=== PATIENT | female | born 1945 | race Caucasian/White ===

== ENCOUNTER 2016-07-19 11:51 | Emergency (ER) | payer OTHER, MEDICARE ==
[~2016-07-19] VITALS: Ht 154.9 cm; Wt 78.2 kg
[~2016-07-19 11:51] MED LIST: ALBUAER19 INH; GABA-112 PO; IBUP-103 PO; LORA-741 PO; MELO7.5T5 PO; TRAZ100T29 PO
[2016-07-19 11:59] VITALS: TEMP 37.2; Ht 154.9 cm; Wt 78.2 kg
[2016-07-19] MEDS ORDERED: ONDANSETRON INJ 2 MG/ML 2 ML VIAL IV STA (12:22)
[2016-07-19] MEDS ORDERED: SODIUM CHLORIDE 0.9% 1000ML 1,000 ML IV STA (12:22)
[2016-07-19] MEDS ORDERED: HYDROmorphone INJ 0.5 MG/0.5 ML SYR IV STA (12:22)
[2016-07-19 12:37] LABS: BASO % 0.2 %; BASO ABS # 0.01 K/uL (0-0.2); COMPLETE YES; EOS % 3.2 %; HEMATOCRIT 37.3 % (37-47); IG% 0.4 %; LYMPH % 15.9 %; MEAN CELL VOLUME 92.8 fL (80-100); MEAN CORPUSCULAR HEMOGLOBIN 31.8 pg (25-34); MEAN CORPUSCULAR HGB CONC 34.3 g/dl (32-36); MEAN PLATELET VOLUME 9.1 fL (7.4-10.4); MONO % 6.2 %; NEUT % 74.1 %; PLATELET COUNT 230 K/uL (130-400); RED BLOOD COUNT 4.02 M/uL (4.2-5.4); WHITE BLOOD COUNT 5.65 K/uL (4.8-10.8)
[2016-07-19] MEDS ORDERED: CITA20TA9 PO (12:38)
[2016-07-19] MEDS ORDERED: OMEG10007 PO (12:38)
[2016-07-19 13:01] LABS: ALT/SGPT 15 U/L (12-78); BLOOD UREA NITROGEN 12 mg/dl (7-18); BUN/CREATININE RATIO 11.6 (10-20); CALCIUM 9.4 mg/dl (8.5-10.1); CARBON DIOXIDE 26 mmol/L (21-32); CHLORIDE 105 mmol/L (98-107); GLUCOSE 146 mg/dl (70-99); POTASSIUM 3.6 mmol/L (3.5-5.1); SODIUM 141 mmol/L (136-145)
[2016-07-19 13:04] LABS: ALKALINE PHOSPHATASE 68 U/L (45-117); AST/SGOT 13 U/L (15-37)
--- NOTE | 2016-07-19 13:31 | DIAGNOSTIC IMAGING REPORT ---
CT OF THE ABDOMEN AND PELVIS WITHOUT CONTRAST CLINICAL HISTORY: Right lower quadrant pain. COMPARISON STUDY: CT of the abdomen and pelvis May 15, 2015. TECHNIQUE: Axial images of the abdomen and pelvis were obtained without IV contrast. Images were reviewed in the axial, sagittal, and coronal planes. FINDINGS: A 5 mm right lower lobe nodule is unchanged since exam of May 15, 2015. This is likely benign. There is a small hiatal hernia. There is no biliary ductal dilatation status post cholecystectomy. Diverticula of the second portion the duodenum are noted. Evaluation of the abdomen and pelvis is suboptimal on this unenhanced exam. Unenhanced images of the liver, spleen, adrenal glands, kidneys and pancreas are normal. No renal, ureteral or bladder calculi are present. There is no hydronephrosis or hydroureter. There is mild distention of the bladder. The caliber of small and large bowel are normal. The appendix is normal. There is extensive sigmoid diverticulosis without evidence for acute diverticulitis. Note is made of minimal infiltration adjacent to a diverticulum of the hepatic flexure shown on axial image 159 of 476. There is no free air or abscess. There is no lymphadenopathy. IMPRESSION: 1. Minimal infiltration adjacent to a diverticulum of the hepatic flexure of the colon suggestive of mild acute diverticulitis. No free air or abscess. This could account for the patient's symptoms. 2. Normal appendix. No bowel obstruction. Electronically signed by: Han Fisher M.D. 07/19/2016 1:29 PM Dictated Date/Time: 07/19/2016 1:18 PM
[2016-07-19] MEDS ORDERED: METRONIDAZOLE 250 MG TAB PO STA (14:12)
[2016-07-19] MEDS ORDERED: CIPROFLOXACIN 500 MG TAB PO STA (14:12)
[2016-07-19] MEDS ORDERED: CIPR-255 PO (14:33)
[2016-07-19] MEDS ORDERED: FLUC150T PO (14:33)
[2016-07-19] MEDS ORDERED: METR-163 PO (14:33)
[2016-07-19] MEDS ORDERED: HYDR-5688 PO (14:33)
[2016-07-19 14:40] LABS: URINE APPEARANCE CLEAR (CLEAR); URINE BILIRUBIN NEG (NEG); URINE COLOR YELLOW; URINE NITRITE NEG (NEG); UROBILINOGEN NEG (NEG); ZZUR CULT IF INDIC CLEAN CATCH NO
[2016-07-19 14:50] LABS: MANUAL MICROSCOPIC REQUIRED? YES; REVIEW REQ? NO
[2016-07-19 15:19] LABS: URINE BACTERIA NEG (NEG); URINE RBC 0-4 /hpf (0-4)
[2016-07-19 15:30] VITALS: BP 152/77; PULSE 68; O2SAT 91
--- NOTE | 2016-07-19 16:03 | EMERGENCY ROOM VISIT NOTE ---
History Report prepared by Elvia: Nancy Curry Under the Supervision of: Dr. Julius Camarena M.D. First contact with patient: 12:05 Chief Complaint: ABDOMINAL PAIN Stated Complaint: RIGHT SIDE ABD. PAIN Nursing Triage Summary: triage note: pt reports pain in the right lower abdominal side, pain is continous denies n/v/d History of Present Illness The patient is a 71 year old female who presents to the Emergency Room with complaints of worsening right lower quadrant abdominal pain starting yesterday. She had an onset of her pain when she got out of bed yesterday morning. The patient reports symptom relief with sitting down. She had worsening pain with ambulation. She took Tylenol without relief. She currently rates a pain intensity of 8/10. Pt denies LOC, headache, fevers, chills, diaphoresis, visual changes, neck pain, chest pain, breathing difficulties, nausea, vomiting, back pain, melena, hematochezia, urinary symptoms, numbness, weakness, lymphadenopathy, rash, or other complaints. She has a history of cholecystectomy and oophorectomy. The patient denies a history of appendectomy. Source of History: patient Onset: yesterday Position: abdomen (RLQ) Symptom Intensity: 8/10 Timing: worsening Modifying Factors (Worsening): other (ambulation) Modifying Factors (Relieving): tylenol (without relief), other (sitting down ) Review of Systems See HPI for pertinent positives and negatives. A total of ten systems were reviewed and were otherwise negative. Past Medical & Surgical Medical Problems: (1) Asthma (2) Cervical spine fracture (3) Chronic low back pain (4) Hx of cholecystectomy Surgical Problems: (1) History of oophorectomy Family History Cancer Social History Smoking Status: Never Smoker Alcohol Use: occasionally Marital Status: Housing Status: lives with significant other Occupation Status: retired Current/Historical Medications Scheduled Ciprofloxacin Hcl (Cipro), 500 MG PO BID Citalopram Hydrobromide (Celexa), 20 MG PO DAILY Fish Oil (Estill-3), 2-3 CAP PO DAILY Fluconazole (Diflucan), 150 MG PO DIRECTED Meloxicam (Mobic), 7.5 MG PO DAILY Metronidazole (Flagyl), 500 MG PO BID Trazodone Hcl (Trazodone), 100 MG PO DAILY Scheduled PRN Hydrocodone/Acetaminophen 5MG/325MG (Marne 5MG/325MG), 1-2 TABS PO Q6H PRN for Pain Ibuprofen Tab (Advil), 200-600 MG PO Q4H PRN for Pain Lorazepam (Ativan), 0.5 MG PO DAILY PRN for Anxiety Allergies Coded Allergies: Sulfa Antibiotics (Verified Allergy, Unknown, rash, 07/19/16) Physical Exam Vital Signs Date Time Temp Pulse Resp B/P Pulse Ox O2 Delivery O2 Flow Rate FiO2 07/19/16 15:30 68 16 152/77 91 07/19/16 13:40 70 16 146/93 93 Room Air 07/19/16 13:03 77 07/19/16 11:59 37.2 88 18 204/79 93 Room Air Physical Exam GENERAL: Awake, alert, well-appearing, in no distress HENT: Normocephalic, atraumatic. Oropharynx unremarkable. EYES: Normal conjunctiva. Sclera non-icteric. NECK: Supple. No nuchal rigidity. FROM. No JVD. RESPIRATORY: Clear to auscultation. CARDIAC: Regular rate, normal rhythm. Extremities warm and well perfused. Pulses equal. ABDOMEN: Soft, non-distended. Right lower quadrant tenderness to palpation with rebound and some guarding. No masses. RECTAL: Deferred. MUSCULOSKELETAL: Chest examination reveals no tenderness. The back is symmetrical on inspection without obvious abnormality. There is no CVA tenderness to palpation. No joint edema. LOWER EXTREMITIES: Calves are equal size bilaterally and non-tender. No edema. No discoloration. NEURO: Normal sensorium. No sensory or motor deficits noted. SKIN: No rash or jaundice noted. Medical Decision & Procedures Laboratory Results 07/19/16 12:25 Red Blood Count 4.02, Mean Corpuscular Volume 92.8, Mean Corpuscular Hemoglobin 31.8, Mean Corpuscular Hemoglobin Concent 34.3, Mean Platelet Volume 9.1, Neutrophils (%) (Auto) 74.1, Lymphocytes (%) (Auto) 15.9, Monocytes (%) (Auto) 6.2, Eosinophils (%) (Auto) 3.2, Basophils (%) (Auto) 0.2, Neutrophils # (Auto) 4.19, Lymphocytes # (Auto) 0.90, Monocytes # (Auto) 0.35, Eosinophils # (Auto) 0.18, Basophils # (Auto) 0.01 07/19/16 12:25 Test 07/19/16 12:25 07/19/16 13:45 White Blood Count 5.65 K/uL (4.8-10.8) Red Blood Count 4.02 M/uL (4.2-5.4) Hemoglobin 12.8 g/dL (12.0-16.0) Hematocrit 37.3 % (37-47) Mean Corpuscular Volume 92.8 fL (80-100) Mean Corpuscular Hemoglobin 31.8 pg (25-34) Mean Corpuscular Hemoglobin Concent 34.3 g/dl (32-36) Platelet Count 230 K/uL (130-400) Mean Platelet Volume 9.1 fL (7.4-10.4) Neutrophils (%) (Auto) 74.1 % Lymphocytes (%) (Auto) 15.9 % Monocytes (%) (Auto) 6.2 % Eosinophils (%) (Auto) 3.2 % Basophils (%) (Auto) 0.2 % Neutrophils # (Auto) 4.19 K/uL (1.4-6.5) Lymphocytes # (Auto) 0.90 K/uL (1.2-3.4) Monocytes # (Auto) 0.35 K/uL (0.11-0.59) Eosinophils # (Auto) 0.18 K/uL (0-0.5) Basophils # (Auto) 0.01 K/uL (0-0.2) RDW Standard Deviation 45.5 fL (36.4-46.3) RDW Coefficient of Variation 13.3 % (11.5-14.5) Immature Granulocyte % (Auto) 0.4 % Immature Granulocyte # (Auto) 0.02 K/uL (0.00-0.02) Anion Gap 10.0 mmol/L (3-11) Est Creatinine Clear Calc Drug Dose 48.1 ml/min Estimated GFR () 65.2 Estimated GFR (Non- 56.2 BUN/Creatinine Ratio 11.6 (10-20) Calcium Level 9.4 mg/dl (8.5-10.1) Total Bilirubin 0.3 mg/dl (0.2-1) Direct Bilirubin < 0.1 mg/dl (0-0.2) Aspartate Amino Transf (AST/SGOT) 13 U/L (15-37) Alanine Aminotransferase (ALT/SGPT) 15 U/L (12-78) Alkaline Phosphatase 68 U/L (45-117) Total Protein 7.1 gm/dl (6.4-8.2) Albumin 3.7 gm/dl (3.4-5.0) Lipase 116 U/L (73-393) Urine Color YELLOW Urine Appearance CLEAR (CLEAR) Urine pH 7.0 (4.5-7.5) Urine Specific [place] 1.000 (1.000-1.030) Urine Protein NEG (NEG) Urine Glucose (UA) NEG (NEG) Urine Ketones NEG (NEG) Urine Occult Blood NEG (NEG) Urine Nitrite NEG (NEG) Urine Bilirubin NEG (NEG) Urine Urobilinogen NEG (NEG) Urine Leukocyte Esterase TRACE (NEG) Urine WBC (Auto) /hpf (0-5) Urine RBC (Auto) /hpf (0-4) Urine Hyaline Casts (Auto) /lpf (0-5) Urine Epithelial Cells (Auto) /lpf (0-5) Urine Bacteria (Auto) (NEG) Urine RBC 0-4 /hpf (0-4) Urine WBC 1-5 /hpf (0-5) Urine Epithelial Cells 20-30 /lpf (0-5) Urine Bacteria NEG (NEG) Laboratory results reviewed by me Medications Administered Medications (Trade) Dose Ordered Sig/Gilberto Route Start Time Stop Time Status Last Admin Dose Admin Sodium Chloride (Nss 1000ml) 1,000 ml @ 125 mls/hr Q8H STAT IV 07/19/16 12:22 07/19/16 20:21 07/19/16 12:22 125 MLS/HR Hydromorphone HCl (Dilaudid Inj) 0.5 mg NOW STAT IV 07/19/16 12:22 07/19/16 12:24 DC 07/19/16 12:57 0.5 MG Ondansetron HCl (Zofran Inj) 4 mg NOW STAT IV 07/19/16 12:22 07/19/16 12:24 DC 07/19/16 12:55 4 MG Ciprofloxacin (Cipro Tab) 500 mg NOW STAT PO 07/19/16 14:12 07/19/16 14:15 DC 07/19/16 15:14 500 MG Metronidazole (Flagyl Tab) 500 mg NOW STAT PO 07/19/16 14:12 07/19/16 14:15 DC 07/19/16 15:14 500 MG ED Course 1205: The patient was evaluated in room B03B. A complete history and physical exam was performed. 1222: Zofran Inj 4 mg IV, Dilaudid Inj 0.5 mg IV, Sodium Chloride 1000 ml @ 125 mls/hr IV 1351: I reevaluated the patient. Discussed results and discharge instructions: She verbalized understanding and agreement. The patient is ready for discharge. 1412: Flagyl Tab 500 mg PO, Cipro Tab 500 mg PO Medical Decision Triage Nursing notes reviewed. The patient's presentation and history were concerning for right-sided abdominal pain. Etiologies such as appendicitis, diverticulitis, obstruction, inflammatory bowel disease, renal colic, PUD, biliary pathology, pancreatitis, mesenteric ischemia, aortic pathology, infections, genitourinary, UTI, perforated viscus, as well as others were entertained. The patient was evaluated. She had some right-sided abdominal tenderness. No fever. Blood work was obtained. She had an unremarkable CBC and chemistry panel. Urinalysis was unremarkable as well. Given the level of her discomfort she was treated with IV Dilaudid and Zofran. She felt much better with this. She underwent CT imaging. This revealed a normal appendix however she had signs concerning for early diverticulitis. The patient was treated with Cipro and Flagyl. She did request some analgesia at home and was given a small prescription of Marne. She also noted that she occasionally gets yeast infections and has taken Diflucan in the past with success. She would like to have one pill in case this occurs. Patient and her felt comfortable with conservative management. If she worsens in any way or has progressive abdominal pain she will be back for reevaluation. I did ask for her to have close outpatient follow-up with her primary physician. I gave my usual and customary discussion regarding this issue. By the evaluation outlined above other emergent etiologies such as those listed in the differential, as well as others, were deemed relatively unlikely. The patient and were informed about the findings as listed above. All questions were answered and they were pleased with the treatment. Return instructions were outlined and the patient was discharged in stable condition. The patient was referred to her PCP for follow-up SIDNEY for a recheck of the current condition. The chart was completed utilizing [employer] Speech voice recognition software. Grammatical errors, random word insertions, pronoun errors, and incomplete sentences are an occasional consequence of this system due to software limitations, ambient noise, and hardware issues. Any formal questions or concerns about the content, text, or information contained within the body of this dictation should be directly addressed to the physician for clarification. Impression Primary Impression: Diverticulitis Additional Impression: Right sided abdominal pain Scribe Attestation The scribe's documentation has been prepared under my direction and personally reviewed by me in its entirety. I confirm that the note above accurately reflects all work, treatment, procedures, and medical decision making performed by me. Departure Information Dispostion Home / Self-Care Prescriptions Fluconazole (DIFLUCAN) 150 Mg Tab 150 MG PO DIRECTED, #1 TAB Prov: Julius Camarena MD 07/19/16 Metronidazole (Flagyl) 500 Mg Tab 500 MG PO BID, #29 TAB Prov: Julius Camarena MD 07/19/16 Ciprofloxacin Hcl (CIPRO) 500 Mg Tab 500 MG PO BID, #19 TAB Prov: Julius Camarena MD 07/19/16 Hydrocodone/Acetaminophen 5MG/325MG (Marne 5MG/325MG) Tab 1-2 TABS PO Q6H Y for Pain, #12 TAB Prov: Julius Camarena MD 07/19/16 Referrals Joel Bowman D.OEfrain (PCP) Forms HOME CARE DOCUMENTATION FORM, IMPORTANT VISIT INFORMATION Patient Instructions My [facility] Additional Instructions DIVERTICULITIS INSTRUCTIONS: DO NOT drive, drink alcohol, operate machinery, or perform dangerous activities today. You were given medications in the ER that can affect your ability to safely function or operate a vehicle. Ciprofloxacin(Cipro) 500mg: Take one pill twice daily for 10 days for your bowel infection. All antibiotics can cause diarrhea. If this occurs and you feel worse or it does not resolve in 1-2 days follow up with your doctor or return to the Emergency Department as this could be signs of serious underlying problems. If you experience any pain in your tendons or any tendon injury return to the ER for re-evaluation. Any medication can cause an allergic reaction, stop the pills immediately and return to the ER for rash, hives, breathing difficulties, or swelling. Metronidazole(Flagyl) 500mg: Take one pill 3 times daily for 10 days for your bowel infection. DO NOT drink alcohol or take alcohol containing products with this medication. Any medication can cause an allergic reaction, stop the pills immediately and return to the ER for rash, hives, breathing difficulties, or swelling. Hydrocodone/acetaminophen 5/325mg: Take 1-2 pills every 6 hours as needed for pain. Avoid additional Acetaminophen/Tylenol, alcohol, operating machinery or dangerous equipment, working on ladders or roofs, DRIVING, or situations where being under the influence may be dangerous. It is recommended to use a stool softener such as Colace, 100mg twice daily while taking this medication to avoid constipation. Fluconazole (Diflucan) 150 mg: Take one if needed for yeast infection. Rest and drink plenty of fluids as tolerated. Slow sips of water or sports drinks are recommended instead of large amounts all at once. Continue current medications. Once your stomach is settled start with a clear liquid diet (jello, soup broth, etc.) and then advance as tolerated. You should avoid full, heavy meals for about 24 hrs from the time your symptoms resolved. Return to the ER immediately for worsening or persistent abdominal pain, vomiting, fevers, chest pains, difficulty breathing, black or bloody stools, worsening of your condition, or as needed. Follow up with your primary physician in 2-3 days for a recheck of your current condition. Problem Qualifiers
== END 2016-07-19 15:30 | disposition home or self-care (01) ==
LOC: C.EDB 11:53
DX: K57.92 Diverticulitis of intestine, part unspecified, without perforation or abscess without bleeding (principal); R10.31 Right lower quadrant pain; J45.909 Unspecified asthma, uncomplicated; M54.5 Low back pain; G89.29 Other chronic pain; Z79.899 Other long term (current) drug therapy

== ENCOUNTER → 2017-04-18 | Outpatient (CLI) | payer OTHER, MEDICARE ==
[~2017-04-18] MED LIST changes: -ALBUAER19 INH; +BIOT1CAP8 PO; +CIPR-255 PO; +CITA20TA9 PO; +COEN100C7 PO; +FLVHFA110 INH; -GABA-112 PO; +OMEG10007 PO
--- NOTE | 2017-04-19 14:33 | MAMMOGRAPHY REPORT ---
BILATERAL DIGITAL SCREENING MAMMOGRAM TOMOSYNTHESIS WITH CAD: 04/18/2017 CLINICAL HISTORY: Routine screening. TECHNIQUE: Breast tomosynthesis in addition to standard 2D mammography was performed. Current study was also evaluated with a Computer Aided Detection (CAD) system. COMPARISON: Comparison is made to exams dated: 04/17/2016 mammogram, 04/15/2015 mammogram, 03/17/2014 mammogram, 10/28/2012 mammogram, 10/27/2011 mammogram, and 10/25/2010 mammogram - [facility] nter. BREAST COMPOSITION: The tissue of both breasts is almost entirely fatty. FINDINGS: The parenchymal pattern is unchanged. No developing mass, architectural distortion or clus ter of suspicious microcalcifications is seen in either breast. IMPRESSION: ACR BI-RADS CATEGORY 2: BENIGN There is no mammographic evidence of malignancy. A 1 year screening mammogram is recommended. The pa tient will receive written notification of the results. Approximately 10% of breast cancers are not detected with mammography. A negative mammographic report should not delay biopsy if a clinically suggestive mass is present. Jaquelin Guy M.D. ay/:04/18/2017 16:08:27 Knitter Mechanic: Cindy JUAN(R)(M), [facility] letter sent: Normal 1/2 BI-RADS Code: ACR BI-RADS Category 2: Benign
== END | disposition home or self-care (01) ==
LOC: C.MAMM 13:42
PROVIDERS: ATTEND Family Medicine
DX: Z12.31 Encounter for screening mammogram for malignant neoplasm of breast (principal)

== ENCOUNTER → 2017-05-09 | Day surgery (SDC) | payer OTHER, MEDICARE ==
[2017-05-01 13:10] VITALS: Ht 156.2 cm; Wt 72.7 kg
[~2017-05-09] VITALS: Ht 156.2 cm; Wt 72.7 kg
[~2017-05-09] MED LIST changes: +500ML BSS 0.3ML EPI 1:1000PF IRRIG ONE; +ACETAMINOPHEN 325 MG TAB PO PRN; +AMVISC PLUS 0.8ML SYRINGE INT OCU ONE; +ATROPINE SULFATE 0.1 MG/ML 5ML SYR IV PRN; +BETAXOLOL HCL 0.25% OP SUSP PER DROP CHARGE OPR SCH; +BRIMONIDINE TART 0.2% OP SOLN PER DROP CHARGE ONE; +BSS FLUSH ONE; -CIPR-255 PO; +ENDOCOAT 0.85ML SYRINGE INT OCU ONE; +EpHEDrine SULFATE INJ 50 MG/ML AMP IV PRN; +EpINEphrine INJ 1MG/ML AMP 1 MG/ML AMP ONE; -IBUP-103 PO; +LACTATED RINGER'S 1000ML 500 ML IV SCH; +LIDOCAINE 4% OP SOLN DROP CHARGE ONE; +LIDOCAINE 4% OP SOLN DROP CHARGE OPR SCH; +LIDOCAINE HCL 1% MPF 2 ML VIAL ONE; +MIDAZOLAM HCL 1 MG/ML 2ML VIAL ONE; +MIX: 4ML BSS 1ML EPI 1:1000 PF INSTIL ONE; +MOXIFLOXACIN OPH SOLN PER DROP CHARGE ONE; +OCUCOAT 1 ML SOLN IO ONE; +POVIDONE-IODINE OP SOLN 30 ML BTL ONE; +PROPARACAINE 0.5% OP SOLN PER DROP CHARGE OPR SCH; +TOBRAMYCIN/DEXAMETHASONE OPH OINT PER APPLN CHARGE ONE
[2017-05-09] MEDS: PHENYLEPHRINE HCL 2.5% OP SOLN PER DROP CHARGE OPR SCH ×2 (09:51→09:56)
--- NOTE | 2017-05-09 09:51 | History & Physical Bridge - SC ---
H&P Re-Evaluation Bridge Note: I have examined the patient, reviewed the History & Physical and in the interval since the performance of the History & Physical I have noted the following changes of clinical significance: No changes noted
[2017-05-09] MEDS: TROPICAMIDE 1% OP SOLN PER DROP CHARGE OPR SCH ×2 (09:52→09:57)
[2017-05-09] MEDS: CYCLOPENTOLATE HCL 1% OP SOLN PER DROP CHARGE OPR SCH ×2 (09:53→09:58)
[2017-05-09] MEDS: MOXIFLOXACIN OPH SOLN PER DROP CHARGE OPR SCH ×2 (09:54→10:05)
--- NOTE | 2017-05-09 10:53 | Discharge Instructions-SurgCtr ---
Discharge Instructions Date of Service May 09, 2017. Visit Reason for Visit: Right Cataract Discharge Discharge Diagnosis / Problem: lens implant right eye Discharge Goals Goal(s): Improve function Activity Recommendations Activity Limitations: resume your previous activity Lifting Limitations: no more than 10 pounds Exercise/Sports Limitations: gradually increase as tolerated May Resume Sexual Activity: when tolerated Shower/Bathe: tomorrow Driving or Machine Use: resume 1 day after discharge Anesthesia . Post Anesthesia Instructions: If you have had General Anesthesia or IV Sedation: * Do not drive today. * Resume driving when surgeon permits. * Do not make important decisions or sign legal documents today. * Call surgeon for: 1. Temperature elevations greater than 101 degrees F. 2. Uncontrollable pain. 3. Excessive bleeding. 4. Persistent nausea and vomiting. 5. Medication intolerance (nausea, vomiting or rash). * For nausea and vomiting use only clear liquids such as: tea, soda, bouillon until nausea subsides, then gradually increase diet as tolerated. * If you have any concerns or questions, call your surgeon's office. If physician is unavailable and it is an emergency, call 911 or go to the nearest emergency room. . Instructions / Follow-Up Instructions / Follow-Up ACTIVITY RECOMMENDATIONS: * Light activities. * Mild irritation and blurred vision are common for the first few days. * You may walk outside, read, watch television. * Redness around the white part of the eye is common. MEDICATIONS: Resume previous medications unless instructed otherwise by your surgeon. Start all eye drops at 1 pm today: * Eye drops (today and tomorrow): Prednisone - one drop in operative eye every 3 hours while awake Ofloxacin - one drop in operative eye every 3 hours while awake SPECIAL CARE INSTRUCTIONS: * Tape plastic shield over eye to sleep at night. Call your doctor at with any concerns or problems. FOLLOW UP VISIT: Follow-up with Dr Hopkins at [facility] as scheduled. Diet Recommendations Home Diet: no limitations Procedures Procedures Performed: cataract extraction with lens implant Pending Studies Studies pending at discharge: no Medical Emergencies . Who to Call and When: Medical Emergencies: If at any time you feel your situation is an emergency, please call 911 immediately. . Non-Emergent Contact Non-Emergency issues call your: Print And Pattern Designer Call Non-Emergent contact if: your pain is not controlled [phone] . . "Provider Documentation" section prepared by Shayne Hopkins. .
--- NOTE | 2017-05-09 10:55 | [facility] Operative Report ---
Operative Report Date of Service May 09, 2017. Operative Report 1. PREOPERATIVE DIAGNOSIS: Senile nuclear cataract, right eye. 2. POSTOPERATIVE DIAGNOSIS: Senile nuclear cataract, right eye. 3. PROCEDURE: Phacoemulsification of right cataract with posterior chamber lens implant, type [employer]ch [employer] Lomb, model Hoya [id number], power +22.5 diopters. ANESTHESIA: Local standby. SURGEON: Dr. Hopkins. COMPLICATIONS: None. OPERATING TIME: 10 minutes. 4. OPERATION AND FINDINGS: DESCRIPTION OF PROCEDURE: The right pupil was dilated. The anesthetic was administered using a topical technique. The right eye was prepped and draped. A speculum was placed. A clear corneal incision was formed. The chamber was filled with Amvisc Plus and Endocoat. Epinephrine solution was used. A paracentesis was placed. A capsulorrhexis was performed. The nucleus was hydrodissected. The lens was removed with phacoemulsification. Time was 3.62 seconds. The aspiration unit was used to remove the cortex. The capsule was filled with Amvisc Plus. The lens implant was folded and placed into the capsule. The incision was hydrated. The Amvisc was aspirated. The wound was secure. The chamber was deep. The pupil was round. Brimonidine, TobraDex ointment and Vigamox solution were placed. The speculum was removed. The patient was returned to the Recovery Room in stable condition. I attest to the content of the Intraoperative Record and any orders documented therein. Any exceptions are noted below. The scribe's documentation has been prepared in my presence, under my direction and personally reviewed by me in its entirety. I confirm that the note above accurately reflects all work, treatment, procedures, and medical decision making performed by me. I personally scribed for Shayne Hopkins M.D. (YING) on 05/09/17 at 10:55. Electronically submitted by Nena Garcia ([email or web address]).
[2017-05-09 10:58] VITALS: TEMP 36.9
--- NOTE | 2017-05-09 11:00 | Anesthesia Progress Nt - [facility] ---
Anesthesia Post Op Note Date & Time May 09, 2017 at 11:00 Vital Signs Pain Intensity: 0 Vital Signs Past 12 Hours Date Time Temp Pulse Resp B/P (MAP) Pulse Ox O2 Delivery O2 Flow Rate FiO2 05/09/17 09:42 36.8 66 18 176/81 (112) 93 Room Air Notes Mental Status: alert / awake / arousable, participated in evaluation Pt Amnestic to Procedure: Yes Nausea / Vomiting: adequately controlled Pain: adequately controlled Airway Patency, RR, SpO2: stable & adequate BP & HR: stable & adequate Hydration State: stable & adequate Anesthetic Complications: no major complications apparent
[2017-05-09 11:24] VITALS: BP 165/89; PULSE 58; O2SAT 97
== END | disposition home or self-care (01) ==
LOC: X.SURG 09:27
PROVIDERS: ATTEND Specialist
DX: H25.11 Age-related nuclear cataract, right eye (principal); J45.909 Unspecified asthma, uncomplicated; Z79.899 Other long term (current) drug therapy

== ENCOUNTER → 2017-05-23 | Day surgery (SDC) | payer OTHER, MEDICARE ==
[2017-05-16 07:55] VITALS: Ht 156.2 cm; Wt 72.7 kg
[~2017-05-23] VITALS: Ht 156.2 cm; Wt 72.7 kg
[~2017-05-23] MED LIST changes: +BETAXOLOL HCL 0.25% OP SUSP PER DROP CHARGE OPL SCH; -BETAXOLOL HCL 0.25% OP SUSP PER DROP CHARGE OPR SCH; -CITA20TA9 PO; +LIDOCAINE 4% OP SOLN DROP CHARGE OPL SCH; -LIDOCAINE 4% OP SOLN DROP CHARGE OPR SCH; +PROPARACAINE 0.5% OP SOLN PER DROP CHARGE OPL SCH; -PROPARACAINE 0.5% OP SOLN PER DROP CHARGE OPR SCH
[2017-05-23] MEDS: PHENYLEPHRINE HCL 2.5% OP SOLN PER DROP CHARGE OPL SCH ×2 (11:25→11:33)
[2017-05-23] MEDS: TROPICAMIDE 1% OP SOLN PER DROP CHARGE OPL SCH ×2 (11:26→11:34)
[2017-05-23] MEDS: CYCLOPENTOLATE HCL 1% OP SOLN PER DROP CHARGE OPL SCH ×2 (11:27→11:35)
[2017-05-23] MEDS: MOXIFLOXACIN OPH SOLN PER DROP CHARGE OPL SCH ×2 (11:29→11:39)
--- NOTE | 2017-05-23 12:02 | Discharge Instructions-SurgCtr ---
Discharge Instructions Date of Service May 23, 2017. Visit Reason for Visit: Left Cataract Discharge Discharge Diagnosis / Problem: lens implant left eye Discharge Goals Goal(s): Improve function Activity Recommendations Activity Limitations: resume your previous activity Lifting Limitations: no more than 10 pounds Exercise/Sports Limitations: gradually increase as tolerated May Resume Sexual Activity: when tolerated Shower/Bathe: tomorrow Driving or Machine Use: resume 1 day after discharge Anesthesia . Post Anesthesia Instructions: If you have had General Anesthesia or IV Sedation: * Do not drive today. * Resume driving when surgeon permits. * Do not make important decisions or sign legal documents today. * Call surgeon for: 1. Temperature elevations greater than 101 degrees F. 2. Uncontrollable pain. 3. Excessive bleeding. 4. Persistent nausea and vomiting. 5. Medication intolerance (nausea, vomiting or rash). * For nausea and vomiting use only clear liquids such as: tea, soda, bouillon until nausea subsides, then gradually increase diet as tolerated. * If you have any concerns or questions, call your surgeon's office. If physician is unavailable and it is an emergency, call 911 or go to the nearest emergency room. . Instructions / Follow-Up Instructions / Follow-Up ACTIVITY RECOMMENDATIONS: * Light activities. * Mild irritation and blurred vision are common for the first few days. * You may walk outside, read, watch television. * Redness around the white part of the eye is common. MEDICATIONS: Resume previous medications unless instructed otherwise by your surgeon. Start all eye drops at 3 pm today: * Eye drops (today and tomorrow): Prednisone - one drop in operative eye every 3 hours while awake Ofloxacin - one drop in operative eye every 3 hours while awake SPECIAL CARE INSTRUCTIONS: * Tape plastic shield over eye to sleep at night. Call your doctor at with any concerns or problems. FOLLOW UP VISIT: Follow-up with Dr Hopkins at [facility] as scheduled. Diet Recommendations Home Diet: no limitations Procedures Procedures Performed: cataract extraction with lens implant Pending Studies Studies pending at discharge: no Medical Emergencies . Who to Call and When: Medical Emergencies: If at any time you feel your situation is an emergency, please call 911 immediately. . Non-Emergent Contact Non-Emergency issues call your: Division Director Call Non-Emergent contact if: your pain is not controlled [phone] . . "Provider Documentation" section prepared by Shayne Hopkins. .
--- NOTE | 2017-05-23 12:04 | [facility] Operative Report ---
Operative Report Date of Service May 23, 2017. Operative Report 1. PREOPERATIVE DIAGNOSIS: Senile nuclear cataract, left eye. 2. POSTOPERATIVE DIAGNOSIS: Senile nuclear cataract, left eye. 3. PROCEDURE: Phacoemulsification of left cataract with posterior chamber lens implant, type [employer]ch [employer], model Hoya iSert 250, power +23.0 diopters. ANESTHESIA: Local standby. SURGEON: Dr. Hopkins. COMPLICATIONS: None. OPERATING TIME: 10 minutes. 4. OPERATION AND FINDINGS: DESCRIPTION OF PROCEDURE: The left pupil was dilated. The anesthetic was administered using a topical technique. The left eye was prepped and draped. A speculum was placed. A clear corneal incision was formed. The chamber was filled with Amvisc Plus and Endocoat. Epinephrine solution was used. A paracentesis was placed. A capsulorrhexis was performed. The nucleus was hydrodissected. The lens was removed with phacoemulsification. Time was 4.61 seconds. The aspiration unit was used to remove the cortex. The capsule was filled with Amvisc Plus. The lens implant was folded and placed into the capsule. The incision was hydrated. The Amvisc was aspirated. The wound was secure. The chamber was deep. The pupil was round. Brimonidine, TobraDex ointment and Vigamox solution were placed. The speculum was removed. The patient was returned to the Recovery Room in stable condition. I attest to the content of the Intraoperative Record and any orders documented therein. Any exceptions are noted below. The scribe's documentation has been prepared in my presence, under my direction and personally reviewed by me in its entirety. I confirm that the note above accurately reflects all work, treatment, procedures, and medical decision making performed by me. I personally scribed for Shayne Hopkins M.D. ([email or web address]) on 05/23/17 at 12:04. Electronically submitted by Nena Garcia ([email or web address]).
[2017-05-23 12:07] VITALS: TEMP 36.7
--- NOTE | 2017-05-23 12:14 | Anesthesia Progress Nt - [facility] ---
Anesthesia Post Op Note Date & Time May 23, 2017 at 12:14 Vital Signs Pain Intensity: 0 Vital Signs Past 12 Hours Date Time Temp Pulse Resp B/P (MAP) Pulse Ox O2 Delivery O2 Flow Rate FiO2 05/23/17 12:07 36.7 66 16 179/81 (113) 97 Room Air 05/23/17 10:54 36.6 66 20 174/93 (120) 99 Room Air Notes Mental Status: alert / awake / arousable, participated in evaluation Pt Amnestic to Procedure: Yes Nausea / Vomiting: adequately controlled Pain: adequately controlled Airway Patency, RR, SpO2: stable & adequate BP & HR: stable & adequate Hydration State: stable & adequate Anesthetic Complications: no major complications apparent
[2017-05-23 12:37] VITALS: BP 159/79; PULSE 60; O2SAT 96
== END | disposition home or self-care (01) ==
LOC: X.SURG 10:41
PROVIDERS: ATTEND Specialist
DX: H25.12 Age-related nuclear cataract, left eye (principal); E78.00 Pure hypercholesterolemia, unspecified; J45.909 Unspecified asthma, uncomplicated; F32.9 Major depressive disorder, single episode, unspecified; M06.9 Rheumatoid arthritis, unspecified; E66.9 Obesity, unspecified; E78.5 Hyperlipidemia, unspecified

== ENCOUNTER 2018-07-24 08:12 | Inpatient (IN) ==
--- NOTE | 2018-07-05 15:40 | PAT Medication Instructions ---
Medication Instructions Date of Service July 05, 2018 Home Medications albuterol sulfate 1 - 2 puff INHALATION UD PRN citalopram [Celexa] 20 mg PO QAM coenzyme Q10 [CoQ-10] 100 mg PO QAM lorazepam 0.5 mg PO UD PRNmeloxicam [Mobic] 7.5 mg PO BID omega 7-sma-drh-fish oil [Fish Oil] 1 cap PO BID rosuvastatin [Crestor] 5 mg PO QAM trazodone 100 mg PO HS STOP taking 2 weeks before surgery (or as soon as possible if surgery is within 2 weeks) coenzyme Q10 [CoQ-10] 100 mg PO QAM omega 2-qlc-qrq-fish oil [Fish Oil] 1 cap PO BID Take morning of surgery With a small sip of water, OTHERWISE NOTHING TO EAT OR DRINK AFTER MIDNIGHT: albuterol sulfate 1 - 2 puff INHALATION UD PRN (use if needed; please bring with you to hospital day of surgery if possible) citalopram [Celexa] 20 mg PO QAM lorazepam 0.5 mg PO UD PRNmeloxicam [Mobic] 7.5 mg PO BID rosuvastatin [Crestor] 5 mg PO QAM Take evening before surgery albuterol sulfate 1 - 2 puff INHALATION UD PRN (if needed) citalopram [Celexa] 20 mg PO QAM lorazepam 0.5 mg PO UD PRNmeloxicam [Mobic] 7.5 mg PO BID trazodone 100 mg PO HS Other Notes If you have any questions please call us at [phone] or [phone] or [phone] or [phone]
--- NOTE | 2018-07-08 09:08 | Anesthesiology Consultation ---
Date of Service July 08, 2018 Assessment & Plan (1) Encounter for pre-operative examination: Plan: - PCP= 07/09/18= Stress test ordered. "Medically cleared pending stress test." Stress test done 07/22/18 and negative for inducible ischemia at 104% MPHR. LVEF 60-64%. Chart Review Chart Review: Acceptable Risk for Surgery and Patient seen in Pre Admission Testing Teaching & Discussion Pre-Anesthesia Teaching/Discussion Notes: Instructed NPO after midnight before surgery,except medications with 15 cc of water. Medication instructions provided according to the PAT guidelines. History Surgery Operation Date: 07/24/18 10:05 Proposed Procedures p L3-L4 Decompression and Fusion - Cesar Sher, Height/Weight Height: 5 ft 1 in Weight: 79.9 kg Allergies Allergy/AdvReac Type Severity Reaction Status Date / Time niacin Allergy Unknown VERY RED Verified 07/03/18 11:30 ALL OVER Sulfa (Sulfonamide Allergy Unknown rash Verified 07/03/18 11:30 Antibiotics) Medications Home Medications Medication Instructions Recorded Confirmed Last Taken albuterol sulfate 1 - 2 puff INHALATION UD PRN 07/03/18 07/03/18 Unknown citalopram [Celexa] 20 mg PO QAM 07/03/18 07/03/18 Unknown coenzyme Q10 [CoQ-10] 100 mg PO QAM 07/03/18 07/03/18 Unknown lorazepam 0.5 mg PO UD PRN 07/03/18 07/03/18 Unknown meloxicam [Mobic] 7.5 mg PO BID 07/03/18 07/03/18 Unknown omega 0-fbk-vdt-fish oil [Fish Oil] 1 cap PO BID 07/03/18 07/03/18 Unknown rosuvastatin [Crestor] 5 mg PO QAM 07/03/18 07/03/18 Unknown trazodone 100 mg PO HS 07/03/18 07/03/18 Unknown Past Medical History Medical History Anemia CHRONIC; HGB 11-12 RANGE PER CHART REVIEW Asthma STABLE Chronic low back pain LLE NEUROPATHY Diverticulitis SEVERAL YEARS AGO History of hyperlipidemia History of skin cancer History of subarachnoid hemorrhage S/P TRAUMA (2014)= NO RESIDUAL DEFICITS Obesity Past Family History Family History Mother Family history of bladder cancer Past Surgical History Surgical History History of cataract surgery History of cholecystectomy History of colonoscopy History of oophorectomy Past Anesthesia History No Hx of Anesthesia Complications and No Family Hx of Anesthesia Complications History of PONV No Motion Sickness Screening History of Motion Sickness: No Social History Smoking Status: Never smoker Do You Dip or Chew Tobacco: No Hx Alcohol Use: No Hx Substance Use: No substance use type: does not use Exercise / Class Metabolic Activity III < 4 Walking/Shop/Light housework Review of Systems Patient denies chest pain, shortness of breath, cough, wheezing, palpitations. Physical Exam Vital Signs VITALS BP 160/82 (BP 136/80 at PCP visit 07/09/18) P 87 TEMP 98.3 SP02 96%RA RESP 16 Patient advised to followup with PCP regarding elevated BP. Full neck and c-spine range of motion. Full TMJ range of motion. TMD 3.5 finger breaths Mallampati Score 2 Dentition: missing molars Lungs: clear throughout to auscultation Cardiac: regular rate and rhythm, no murmurs noted Spine: normal Carotid arteries: negative bruit Extremities: no edema Testing Electrocardiogram Date: 07/08/18 NSR at 82bpm. NS TWA. Chest X-Ray Date: 07/08/18 Findings: + NAD Stress Test Date: 07/22/18 Type: DSE Stress ECHO negative for inducible ischemia. LVEF 60-64%. Mild increased cLV wall thickness. No RWMA. No significant valvular disease. 104% MPHR. Laboratory Results 07/08/18 09:33 07/08/18 09:38 Blood Type O Positive 07/08/18 09:33 Antibody Screen NEGATIVE 07/08/18 09:33 PT 10.1 Seconds (9.0-12.0) 07/08/18 09:33 INR 1.0 (0.9-1.1) 07/08/18 09:33 APTT 25.4 Seconds (21.0-31.0) 07/08/18 09:33 Urine Color Yellow 07/08/18 09:33 Urine Appearance Cloudy (Clear) H 07/08/18 09:33 Urine pH 5.0 (4.5-7.5) 07/08/18 09:33 Ur Specific [place] 1.016 (1.000-1.030) 07/08/18 09:33 Urine Protein Negative (Negative) 07/08/18 09:33 Urine Glucose (UA) Negative (Negative) 07/08/18 09:33 Urine Ketones Negative (Negative) 07/08/18 09:33 Urine Nitrite Negative (Negative) 07/08/18 09:33 Ur Leukocyte Esterase Negative (Negative) 07/08/18 09:33 Urine WBC (Auto) 5-10 /hpf (0-5) H 07/08/18 09:33 Urine RBC (Auto) 0-4 /hpf (0-4) 07/08/18 09:33 U Hyaline Cast (Auto) 5-10 /lpf (0-5) H 07/08/18 09:33 U Epithel Cells (Auto) >30 /lpf (0-5) H 07/08/18 09:33 Urine Bacteria (Auto) Negative (Negative) 07/08/18 09:33 Surgeon made aware of low WBC.
--- NOTE | 2018-07-08 10:02 | XRay Report ---
XR chest Pre-admission PA/Lat CLINICAL HISTORY: Preoperative evaluation. COMPARISON STUDY: No previous studies for comparison. FINDINGS: Lung volumes are normal. There is no pneumothorax or pleural effusion. There is no consolid ation or evidence for pulmonary edema. Cardiac size is normal. Mediastinal contours are normal. There are cholecystectomy clips. IMPRESSION: No acute cardiopulmonary findings. Electronically signed by: Han Fisher M.D. 07/08/2018 10:00 AM
[2018-07-08 10:31] LABS: Basophils # (auto) 0.01 K/uL (0-0.2); Basophils % (auto) 0.3 %; Eosinophils % (auto) 2.8 %; Hematocrit (blood only) 35.5 % (37-47); Hemoglobin 11.2 g/dL (12.0-16.0); Lymphocytes # (auto) 0.91 K/uL (1.2-3.4); Lymphocytes % (auto) 25.3 %; Mean Corpuscular Hgb Conc 31.5 g/dL (32-36); Mean Corpuscular Volume 97.3 fL (80-100); Mean Platelet Volume 9.1 fL (7.4-10.4); Monocytes # (auto) 0.32 K/uL (0.11-0.59); Monocytes % (auto) 8.9 %; Neutrophils # (auto) 2.26 K/uL (1.4-6.5); Neutrophils % (auto) 62.7 %; Platelet Count 275 K/uL (130-400); RDW Coefficient of Variation 13.8 % (11.5-14.5); RDW Standard Deviation 49.3 fL (36.4-46.3); Red Blood Count 3.65 M/uL (4.2-5.4)
[2018-07-08 10:37] LABS: Appearance Urine Cloudy (Clear); Bacteria Urine Automated Negative (Negative); Bilirubin Urine Negative (Negative); Color Urine Yellow; Epithelial Cell Urine Auto >30 /lpf (0-5); Glucose Urine UA Negative (Negative); Ketones Urine Negative (Negative); Leukocyte Esterase Urine Negative (Negative); Nitrite Urine Negative (Negative); Protein Urine Negative (Negative); Specific Gravity Urine 1.016 (1.000-1.030); Urobilinogen Urine Negative (Negative)
[2018-07-08 10:39] LABS: Partial Thromboplastin Time 25.4 Seconds (21.0-31.0); Prothrombin Time 10.1 Seconds (9.0-12.0)
[2018-07-08 10:40] LABS: BUN Creatinine Ratio 10.6 (10-20); Calcium 9.2 mg/dl (8.5-10.1); Creatinine Clr Calc Pharmacy 50.8 ml/min; Est GFR (African American) 70.2; Est GFR (Non-African American) 60.5; Potassium 3.5 mmol/L (3.5-5.1)
[~2018-07-24 08:12] MED LIST changes: -500ML BSS 0.3ML EPI 1:1000PF IRRIG ONE; -ACETAMINOPHEN 325 MG TAB PO PRN; +ACETAMINOPHEN 500 MG TAB PO SCH; -AMVISC PLUS 0.8ML SYRINGE INT OCU ONE; -ATROPINE SULFATE 0.1 MG/ML 5ML SYR IV PRN; -BETAXOLOL HCL 0.25% OP SUSP PER DROP CHARGE OPL SCH; -BIOT1CAP8 PO; -BRIMONIDINE TART 0.2% OP SOLN PER DROP CHARGE ONE; -BSS FLUSH ONE; +CEFAZOLIN 1000MG 1,000 MG/7.5 ML SYR IV SCH; -COEN100C7 PO; -ENDOCOAT 0.85ML SYRINGE INT OCU ONE; -EpHEDrine SULFATE INJ 50 MG/ML AMP IV PRN; -EpINEphrine INJ 1MG/ML AMP 1 MG/ML AMP ONE; -FLVHFA110 INH; +GABAPENTIN 300 MG PO SCH; -LACTATED RINGER'S 1000ML 500 ML IV SCH; -LIDOCAINE 4% OP SOLN DROP CHARGE ONE; -LIDOCAINE 4% OP SOLN DROP CHARGE OPL SCH; -LIDOCAINE HCL 1% MPF 2 ML VIAL ONE; -LORA-741 PO; +LR 15ML/HR IV SCH; -MELO7.5T5 PO; -MIDAZOLAM HCL 1 MG/ML 2ML VIAL ONE; -MIX: 4ML BSS 1ML EPI 1:1000 PF INSTIL ONE; -MOXIFLOXACIN OPH SOLN PER DROP CHARGE ONE; -OCUCOAT 1 ML SOLN IO ONE; -OMEG10007 PO; -POVIDONE-IODINE OP SOLN 30 ML BTL ONE; -PROPARACAINE 0.5% OP SOLN PER DROP CHARGE OPL SCH; -TOBRAMYCIN/DEXAMETHASONE OPH OINT PER APPLN CHARGE ONE; -TRAZ100T29 PO
[2018-07-24] MEDS ORDERED: ROCURONIUM BROMIDE 10 MG/ML 5 ML VIAL ONE (08:16)
[2018-07-24] MEDS ORDERED: MIDAZOLAM HCL 1 MG/ML 2ML VIAL ONE (08:16)
[2018-07-24] MEDS ORDERED: ONDANSETRON INJ 2 MG/ML 2 ML VIAL ONE (08:16)
[2018-07-24] MEDS ORDERED: PROPOFOL IV EMULSION 10 MG/ML 20 ML VIAL IV ONE (08:16)
[2018-07-24] MEDS ORDERED: LIDOCAINE HCL 2% 2 ML VIAL/AMP(20MG/ML) INFIL ONE (08:16)
[2018-07-24] MEDS ORDERED: fentaNYL citrate 100 MCG/2 ML VIAL ONE ×2 (08:17→10:48)
[2018-07-24] MEDS ORDERED: HYDROmorphone INJ 2 MG/ML SYR/VIAL ONE (08:25)
[2018-07-24] MEDS ORDERED: GLYCOPYRROLATE 0.2 MG/ML VIAL ONE (08:30)
[2018-07-24] MEDS ORDERED: NEOSTIGMINE METHYLSULFATE 1 MG/ML 10ML VIAL ONE (08:30)
[2018-07-24] MEDS ORDERED: ATROPINE SULFATE 0.1 MG/ML 10ML SYR IV PRN (09:22)
[2018-07-24] MEDS ORDERED: ePHEDrine sulfate 50 MG/ML AMP IV PRN (09:22)
--- NOTE | 2018-07-24 09:23 | History & Physical Bridge Note ---
Date of Service July 24, 2018 History & Physical Bridge Note I have examined the patient, reviewed the History & Physical and in the interval since the performance of the History & Physical I have noted the following changes of clinical significance: no changes noted
--- NOTE | 2018-07-24 09:24 | History & Physical Report ---
Date of Service July 24, 2018 Assessment & Plan (1) Lumbar disc herniation with radiculopathy: L3-4 decompression and fusion Present on Admission?: Yes History of Present Illness Chief Complaint: Back and leg pain Primary Care Provider: Joel Bowman This is a 73-year-old female that presents with back and leg pain. After failing extensive course of nonoperative care she is here for surgical intervention. Allergies Allergy/AdvReac Type Severity Reaction Status Date / Time niacin Allergy Unknown VERY RED Verified 07/24/18 08:50 ALL OVER Sulfa (Sulfonamide Allergy Unknown rash Verified 07/24/18 08:50 Antibiotics) Home Medications Home Medications Medication Instructions Recorded Confirmed Type albuterol sulfate 1 - 2 puff INHALATION UD PRN 07/03/18 07/03/18 History citalopram [Celexa] 20 mg PO QAM 07/03/18 07/24/18 History coenzyme Q10 [CoQ-10] 100 mg PO QAM 07/03/18 07/24/18 History lorazepam 0.5 mg PO UD PRN 07/03/18 07/24/18 History meloxicam [Mobic] 7.5 mg PO BID 07/03/18 07/24/18 History omega 7-sdm-ucr-fish oil [Fish Oil] 1 cap PO BID 07/03/18 07/24/18 History rosuvastatin [Crestor] 5 mg PO QAM 07/03/18 07/24/18 History trazodone 100 mg PO HS 07/03/18 07/24/18 History Past Med/Surg History Medical History Anemia CHRONIC; HGB 11-12 RANGE PER CHART REVIEW Asthma STABLE Chronic low back pain LLE NEUROPATHY Diverticulitis SEVERAL YEARS AGO History of hyperlipidemia History of skin cancer History of subarachnoid hemorrhage S/P TRAUMA (2015)= NO RESIDUAL DEFICITS Obesity Surgical History History of cataract surgery History of cholecystectomy History of colonoscopy History of oophorectomy Family History Mother Family history of bladder cancer Father No problems noted. Social History Current Living Situation: Spouse Other Information That Helps Us Care for You: No Feels Safe at Home: Yes Smoking Status: Never smoker Do You Dip or Chew Tobacco: No Hx Alcohol Use: No Hx Substance Use: No Beliefs That Will Affect Care: None Preferred Language: Syriac Communication Ability: Effective Ski Molder Required: No Physical Exam 2 Vital Signs (Past 24 Hours): Last Vital Signs Temp 36.7 C 07/24/18 08:55 Pulse 90 07/24/18 08:55 Resp 18 07/24/18 08:55 BP 153/85 H 07/24/18 08:55 Pulse Ox 94 07/24/18 08:55 Results & Data Medications Administered Acetaminophen (Tylenol) 1,000 mg PO PREOP DIANDRA Stop: 07/24/18 18:00 Last Admin: 07/24/18 09:17 Dose: 1,000 mg Gabapentin (Neurontin) 300 mg PO PREOP DIANDRA Stop: 07/24/18 18:00 Last Admin: 07/24/18 09:17 Dose: 300 mg Lactated Ringer's (Lr) 1,000 mls @ 15 mls/hr IV .Q24H DIANDRA Stop: 07/25/18 05:59 Last Admin: 07/24/18 09:17 Dose: 15 mls/hr
[2018-07-24] MEDS ORDERED: BUPIVACAINE/EPINEPHRINE 0.5% MPF 1:200,000 30 ML VIAL ONE (09:34)
[2018-07-24] MEDS ORDERED: BACITRACIN INJ 50,000 UNIT VIAL ONE (09:34)
[2018-07-24] MEDS ORDERED: FLOSEAL HEMOSTATIC MATRIX 10ML TOP ONE (11:20)
--- NOTE | 2018-07-24 11:26 | Operative Report ---
Post Operative Report Pre & Post Diagnosis Operation Date: 07/24/18 10:05 Pre-Op Diagnosis: Lumbar disc herniation with radiculopathy Post-Op Diagnosis: Lumbar disc herniation with radiculopathy Procedure Operation Date: 07/24/18 10:05 Actual Procedures #1 lumbar decompression medial facetectomies foraminotomies L2-3 L3-4 per #2 posterior spinal fusion L3-4. #3 placed posterior instrumentation L3-4 per #4 interbody fusion L3-4. #5 placement of titanium 10 x 22 mm cage L3-4. #6 placement of local autograft in the posterior lateral gutters per #7 placement infuse collagen sponge bone mass graft in the posterior gutters and ostial amp and interbody space. Surgeon Cesar Sher DO Cloth Seconds Sorter Fanny Alejandre Estimated Blood Loss 100 Findings Consistent with Post-Op Diagnosis Specimens None Description of Procedure Patient was met with preoperatively case discussed all questions addressed. After informed consent obtained patient was taken to the operative suite underwent intubation placed in the prone position the Leo table on top of the Garcia frame. All bony prominences well-padded eyes inspected to ensure no external pressure placed upon. This point the lumbar spine was prepped and draped in normal sterile fashion. Sharp dissection with the assistance of Bovie cautery was performed down to and exposing the lamina and transverse process of L3 and L4 bilaterally. From a caudal cephalad fashion complete laminectomy of L3 was performed including partial laminectomy at L2. This included bilateral medial facetectomies of L2-3 L3-4 level and foraminotomies at 3 4. Massive disc herniation L3-4 was noted with cephalad migration. It was removed in its entirety creating significant decompression. Pedicle screw was then placed in L3 and L4 bilaterally with assistance of fluoroscopy and process priya placed in position. The transforaminal portion left complete discectomy was performed in place coated to subcortical mean bone and a 10 x 22 mm titanium cage filled with ostium bone graft tapped in position. The rods were then compressed locked into final position bilaterally. The transverse processes of L3 and L4 bur to subcortical B bone. Infuse collagen sponge master graft local autograft placed in the posterior gutters. 15 round DANILO drain inserted. Incision was then closed with 1 Vicryl fascia 2-0 Vicryl subtenons seen for Monocryl for Fransen closure Steri-Strip sterile dressings placed. Patient will continue to PACU stable condition. Please note Fanny Alejandre present at the entire procedure involved the patient positioning complex portions of the surgeon final skin closure. I attest to the content of the Intraoperative Record and any orders documented therein. Any exceptions are noted below.
--- NOTE | 2018-07-24 11:28 | Fluoroscopy Report ---
LUMBAR SPINE, INTRAOPERATIVE FLUOROSCOPY HISTORY: L3-L4 decompression and fusion. FLUOROSCOPY TIME: 11 seconds. FINDINGS: Intraoperative fluoroscopy was provided for the lumbar spine. 2 fluoroscopic spot images we re obtained. Posterior decompression fusion at L3-L4 with pedicle screws and rods. The hardware appea rs intact. IMPRESSION: Fluoroscopy provided for a L3-L4 posterior decompression and fusion. Electronically signed by: Owen Aguilar M.D. 07/24/2018 11:27 AM
[2018-07-24] MEDS: HYDROmorphone INJ 2 MG/ML SYR/VIAL IV PRN ×3 (12:04→12:18)
[2018-07-24] MEDS ORDERED: ONDANSETRON 4 MG TAB PO PRN (13:27)
[2018-07-24] MEDS ORDERED: METOCLOPRAMIDE HCL INJ 5 MG/ML 2 ML VIAL IV PRN (13:27)
[2018-07-24] MEDS ORDERED: DO NOT ADMINISTER PNEUMOCOCCAL VACCINE PRN (13:27)
[2018-07-24] MEDS ORDERED: BISACODYL 10 MG SUPP PR PRN (13:27)
[2018-07-24] MEDS ORDERED: MAGNESIUM HYDROXIDE SUSP 30 ML UDC PO PRN (13:27)
[2018-07-24] MEDS ORDERED: ONDANSETRON INJ 2 MG/ML 2 ML VIAL IV PRN (13:27)
[2018-07-24] MEDS ORDERED: FAMOTIDINE 20 MG TAB PO PRN (13:27)
[2018-07-24] MEDS ORDERED: SOD PHOSPHATE/SOD BIPHOSPHATE ENEMA 132 ML BTL PR PRN (13:27)
[2018-07-24] MEDS ORDERED: ALUMINUM/MAGNESIUM SUSP 30 ML UDC PO PRN (13:27)
[2018-07-24] MEDS ORDERED: TRAMADOL HCL 50 MG TABLET PO PRN (13:27)
[2018-07-24] MEDS ORDERED: LORazepam 0.5 MG TAB PO PRN (13:27)
[2018-07-24] MEDS ORDERED: HYDROmorphone INJ 0.5 MG/0.5 ML SYR IV PRN (13:27)
[2018-07-24] MEDS ORDERED: DO NOT ADMINISTER FLU VACCINE PRN (13:27)
[2018-07-24] MEDS ORDERED: PROMETHAZINE HCL 12.5 MG in SODIUM CHLORIDE 0.9% 50 ML IV PRN (13:27)
[2018-07-24] MEDS ORDERED: LORazepam 0.5 MG/1 ML VIAL IV PRN (13:27)
--- NOTE | 2018-07-24 13:58 | Anesthesiology Progress Note ---
Date of Service July 24, 2018 Anesthesia Post Procedure Vital Signs Vital Signs: Temp Pulse Pulse Pulse Resp BP BP 07/24/18 13:33 73 18 107/62 07/24/18 13:05 36.4 C L 83 14 114/62 07/24/18 12:50 36.6 C 85 18 101/68 07/24/18 12:40 36.6 C 88 18 117/55 L 07/24/18 12:30 83 18 119/56 L 07/24/18 12:21 83 22 128/57 L 07/24/18 12:20 82 82 18 128/57 L 07/24/18 12:16 85 16 118/74 07/24/18 12:15 85 17 07/24/18 12:11 85 25 H 136/62 07/24/18 12:10 37.4 C 86 85 18 128/57 L 07/24/18 12:06 87 26 H 144/70 H 07/24/18 12:05 88 25 H 07/24/18 12:01 90 23 141/65 H 07/24/18 12:00 89 18 07/24/18 11:56 91 H 21 149/67 H 07/24/18 11:55 92 H 23 07/24/18 11:51 92 H 22 146/71 H 07/24/18 11:50 92 H 20 07/24/18 11:47 94 H 20 07/24/18 11:46 94 H 19 147/67 H 07/24/18 11:44 37.4 C 95 H 96 H 18 150/69 H 150/69 H 07/24/18 08:55 36.7 C 90 18 153/85 H Pulse Ox 07/24/18 13:33 100 07/24/18 13:05 96 07/24/18 12:50 98 07/24/18 12:40 96 07/24/18 12:30 99 07/24/18 12:21 98 07/24/18 12:20 98 07/24/18 12:16 96 07/24/18 12:15 98 07/24/18 12:11 100 07/24/18 12:10 100 07/24/18 12:06 100 07/24/18 12:05 100 07/24/18 12:01 98 07/24/18 12:00 99 07/24/18 11:56 98 07/24/18 11:55 98 07/24/18 11:51 100 07/24/18 11:50 99 07/24/18 11:47 98 07/24/18 11:46 97 07/24/18 11:44 98 07/24/18 08:55 94 Pain Intensity Back: Pain Intensity: 8 Notes Mental Status: alert / awake / arousable Patient Amnestic to Procedure: Yes Nausea / Vomiting: adequately controlled Pain: adequately controlled Airway Patency, RR, SpO2: stable & adequate BP & HR: stable & adequate Hydration State: stable & adequate Anesthetic Complications: no major complications apparent and Pt Satisfied with anesthetic care
[2018-07-24] MEDS: LACTATED RINGER'S 1,000 ML IV SCH ×2 (14:06→20:32)
[2018-07-24] MEDS: CEFAZOLIN 2000MG 2,000 MG/15 ML SYR IV SCH (18:19)
[2018-07-24] MEDS: OXYCODONE HCL IR 5 MG TAB (IMMEDIATE RELEASE) PO PRN (20:39)
[2018-07-24] MEDS: TRAZODONE HCL 100 MG TAB PO SCH (20:57)
[2018-07-24] MEDS: DOCUSATE SODIUM/SENNA 50/8.6MG TAB PO SCH (21:01)
[2018-07-25] MEDS: CEFAZOLIN 2000MG 2,000 MG/15 ML SYR IV SCH (01:17)
[2018-07-25] MEDS: LACTATED RINGER'S 1,000 ML IV SCH (01:49)
[2018-07-25] MEDS: OXYCODONE HCL IR 5 MG TAB (IMMEDIATE RELEASE) PO PRN (02:40)
[2018-07-25] MEDS: POLYETHYLENE (MIRALAX) 17 GM PACK PO SCH ×4 (06:09→23:14)
[2018-07-25 06:40] LABS: Eosinophils # (auto) 0.04 K/uL (0-0.5); Eosinophils % (auto) 0.6 %; Hematocrit (blood only) 30.2 % (37-47); Hemoglobin 9.4 g/dL (12.0-16.0); Immature Granulocytes # (auto) 0.02 K/uL (0.00-0.02); Immature Granulocytes % (auto) 0.3 %; Lymphocytes # (auto) 0.84 K/uL (1.2-3.4); Lymphocytes % (auto) 12.6 %; Mean Corpuscular Hgb Conc 31.1 g/dL (32-36); Mean Corpuscular Volume 97.7 fL (80-100); Mean Platelet Volume 9.6 fL (7.4-10.4); Monocytes # (auto) 0.87 K/uL (0.11-0.59); Monocytes % (auto) 13.1 %; Neutrophils # (auto) 4.89 K/uL (1.4-6.5); Neutrophils % (auto) 73.4 %; Platelet Count 237 K/uL (130-400); RDW Coefficient of Variation 14.1 % (11.5-14.5); RDW Standard Deviation 50.7 fL (36.4-46.3); Red Blood Count 3.09 M/uL (4.2-5.4); White Blood Count 6.66 K/uL (4.8-10.8)
[2018-07-25 07:17] LABS: BUN Creatinine Ratio 5.6 (10-20); Calcium 8.7 mg/dl (8.5-10.1); Creatinine Clr Calc Pharmacy 52.7 ml/min; Est GFR (Non-African American) 63.8
[2018-07-25] MEDS: ACETAMINOPHEN 1,000 MG/100 ML VIAL IV PRN ×2 (07:20→15:44)
--- NOTE | 2018-07-25 08:35 | Orthopedic Progress Note ---
Date of Service July 25, 2018 Assessment & Plan (1) Lumbar disc herniation with radiculopathy: At this time we will continue physical therapy monitor DANILO output anticipate discharge home possibly tomorrow. Present on Admission?: Yes Subjective Patient's back pain is controlled leg symptoms markedly improved. Physical Exam 2 Vital Signs (Past 24 Hours): Last Vital Signs Temp 37.5 C 07/25/18 07:39 Pulse 101 H 07/25/18 06:42 Resp 18 07/25/18 06:42 BP 124/70 07/25/18 06:42 Pulse Ox 92 07/25/18 06:42 Physical Exam: Patient is sitting in the chair at the bedside. She is good strength testing. Appears comfortable.
[2018-07-25] MEDS ORDERED: NON-FORMULARY MEDICATION (Coenzyme Q10 [Coq-10] 100 MG) PO SCH (09:00)
--- NOTE | 2018-07-25 09:16 | Anesthesiology Progress Note ---
Date of Service July 25, 2018 Anesthesia Post Procedure Vital Signs Vital Signs: Temp Pulse Pulse Pulse Resp BP BP 07/25/18 07:39 37.5 C 07/25/18 06:42 38.3 C H 101 H 18 124/70 07/25/18 03:20 07/25/18 03:15 37.0 C 91 H 18 137/72 07/25/18 01:19 07/24/18 22:53 37.4 C 78 16 138/74 07/24/18 19:39 36.5 C 67 20 126/77 07/24/18 16:04 36.2 C L 79 20 120/67 07/24/18 14:59 82 18 128/71 07/24/18 14:01 71 18 103/59 L 07/24/18 13:33 73 18 107/62 07/24/18 13:05 36.4 C L 83 14 114/62 07/24/18 12:50 36.6 C 85 18 101/68 07/24/18 12:40 36.6 C 88 18 117/55 L 07/24/18 12:30 83 18 119/56 L 07/24/18 12:21 83 22 128/57 L 07/24/18 12:20 82 82 18 128/57 L 07/24/18 12:16 85 16 118/74 07/24/18 12:15 85 17 07/24/18 12:11 85 25 H 136/62 07/24/18 12:10 37.4 C 86 85 18 128/57 L 07/24/18 12:06 87 26 H 144/70 H 07/24/18 12:05 88 25 H 07/24/18 12:01 90 23 141/65 H 07/24/18 12:00 89 18 07/24/18 11:56 91 H 21 149/67 H 07/24/18 11:55 92 H 23 07/24/18 11:51 92 H 22 146/71 H 07/24/18 11:50 92 H 20 07/24/18 11:47 94 H 20 07/24/18 11:46 94 H 19 147/67 H 07/24/18 11:44 37.4 C 95 H 96 H 18 150/69 H 150/69 H Pulse Ox 07/25/18 07:39 07/25/18 06:42 92 07/25/18 03:20 97 07/25/18 03:15 99 07/25/18 01:19 100 07/24/18 22:53 100 07/24/18 19:39 92 07/24/18 16:04 98 07/24/18 14:59 95 07/24/18 14:01 100 07/24/18 13:33 100 07/24/18 13:05 96 07/24/18 12:50 98 07/24/18 12:40 96 07/24/18 12:30 99 07/24/18 12:21 98 07/24/18 12:20 98 07/24/18 12:16 96 07/24/18 12:15 98 07/24/18 12:11 100 07/24/18 12:10 100 07/24/18 12:06 100 07/24/18 12:05 100 07/24/18 12:01 98 07/24/18 12:00 99 07/24/18 11:56 98 07/24/18 11:55 98 07/24/18 11:51 100 07/24/18 11:50 99 07/24/18 11:47 98 07/24/18 11:46 97 07/24/18 11:44 98 Pain Intensity Back: Pain Intensity: 5 Notes Mental Status: alert / awake / arousable and participated in evaluation Patient Amnestic to Procedure: Yes Nausea / Vomiting: see Notes below Pain: adequately controlled Airway Patency, RR, SpO2: stable & adequate BP & HR: stable & adequate Hydration State: stable & adequate Anesthetic Complications: no major complications apparent and Pt Satisfied with anesthetic care
[2018-07-25] MEDS: ROSUVASTATIN CALCIUM 5 MG TAB PO SCH (10:09)
[2018-07-25] MEDS: CITALOPRAM 20 MG TAB PO SCH (10:09)
[2018-07-25] MEDS: TRAZODONE HCL 100 MG TAB PO SCH (20:14)
[2018-07-25] MEDS: DOCUSATE SODIUM/SENNA 50/8.6MG TAB PO SCH (20:14)
[2018-07-25] MEDS: LORazepam 0.5 MG TAB PO PRN (20:21)
[2018-07-25] MEDS: ACETAMINOPHEN 500 MG TAB PO PRN (23:27)
[2018-07-26] MEDS: POLYETHYLENE (MIRALAX) 17 GM PACK PO SCH ×4 (06:10→23:29)
[2018-07-26] MEDS: CITALOPRAM 20 MG TAB PO SCH (08:03)
[2018-07-26] MEDS: ROSUVASTATIN CALCIUM 5 MG TAB PO SCH (08:03)
--- NOTE | 2018-07-26 11:47 | Discharge Summary ---
Date of Service July 26, 2018 Admission HPI Per Admitting Provider This is a 73-year-old female that presents with back and leg pain. After failing extensive course of nonoperative care she is here for surgical intervention. Principal Diagnosis Lumbar disc herniation radiculopathy Discharge Data Allergies Allergy/AdvReac Type Severity Reaction Status Date / Time niacin Allergy Unknown VERY RED Verified 07/24/18 08:50 ALL OVER Sulfa (Sulfonamide Allergy Unknown rash Verified 07/24/18 08:50 Antibiotics) Consultations 07/24/18 13:27 Consult Case Management - Discharge Planning Routine Procedures Performed Operation Date: 07/24/18 10:05 Actual Procedures p L3-L4 Decompression and Fusion, Interbody Fusion L3-L4, Bone Morphogenetic Protein(Not Applicable) - Cesar Sher DO Ordered Studies 07/24/18 10:05 FL fluoroscopy <1hr Routine FL lumbar spine 2-3V Routine Hospital Course (1) Lumbar disc herniation with radiculopathy: Patient underwent lumbar decompression fusion tolerated this well was taken to the orthopedic floor postoperative. Postop day 1 she was up and ambulating nicely. Progressive postop day #2. DANILO drain decreasing appropriately. Subsequently discharged home. Discharge orders and instructions found in the chart for further review. Total Time Total Time Spent Total Time Spent (In Minutes): Not applicable Discharge Plan Discharge Items Patient Disposition: Home - Self-Care Reason For Visit: Intervertebral Disc Disorders with radiculopathy Discharge Diagnosis: lumbar stenosis Discharge Goals: Improve function Activity: Per 'Additional Instructions' section Non-emergency contact: Primary Care Provider Call non-emergency contact if: you have any medication questions Follow-up/Referrals: Joel Bowman [Primary Care Provider] - Diet: Regular Addtl Provider Instructions: ACTIVITY RECOMMENDATIONS: SELF CARE INSTRUCTIONS AFTER THORACIC/LUMBAR FUSIONS 1. You may walk to your tolerance. It is good exercise for your legs and back. Expect some back and intermittent leg aches and pains. 2. You may perform "counter-top" level activities (make a sandwich, irais with a project, etc.). 3. No bending or lifting of more than 10 pounds or back twisting of any nature (roll like a log when turning in bed). 4. You may ride in a car for 20-30 minutes at a time. No driving until after your first visit with your doctor. 5. Frequent changes of position and restricting sitting to 30 minutes at a time will help limit the amount of back spasms and stiffness you may experience. 6. You may discontinue the use of ambulatory aids (cane, crutches, etc.) once your strength and confidence allow. 7. You may metal fabricating inspector the shower and let water strike your incision when you arrive home at least once daily. Do not take a tub bath, sit in a hot tub or go into a swimming pool until after your first recheck in the office. SPECIAL CARE INSTRUCTIONS: VERY IMPORTANT TO READ AND REVIEW A. Your surgical incision has been closed with a cosmetic suture under the skin that will dissolve in about 6 weeks. In 14 days, you can use a pair of clean scissors and cut the suture that is left outside of the skin at the ends of your incision. 1. The small skin tapes can be removed 7 days after surgery if they have not fallen off by that point. 2. You may keep the wound open to air as much as possible to promote healing after post-op day number 5 unless told otherwise by your doctor. 3. If you think the wound looks like it is becoming infected (redness or worsening drainage) and/or you are experiencing fever, chill or worsening back pain and muscle spasms, contact the office so that we may evaluate you as soon as possible. B. Complications are uncommon, but please contact us if you have any signs or symptoms of: 1. wound infection (fever higher than 102.5 degrees F, redness, separation of wound, drainage, or increasing pain from the incision) 2. blood clots in legs (pain, swelling, redness and warmth in legs) 3. urinary tract infection (fever higher than 102.5 degrees F, burning upon urination or increased frequency of urination) 4. nerve problems (inability to walk on your toes or heels, numbness, loss of bowel or bladder control) 5. any other symptoms that concern you C. Please call the office at if you have any concerns or questions about your operation or recovery. D. No smoking! Smoking drastically decreases the chance of a solid fusion. E. Do not take any anti-inflammatory medications (Indocin, Advil, Motrin, Aspirin, Naprosyn, etc.) as these may inhibit the chance of a solid fusion. Tylenol is okay to take for pain. MANAGING PAIN AFTER SPINAL SURGERY 1. Narcotic medication is intended for short-term use and will be provided for surgical pain. Surgical pain usually lasts for a period of 4-6 weeks. Narcotic medication includes Percocet, Vicodin, Darvocet, Tylenol #3 or Lortab. 2. Longer-term pain is more appropriately treated with non-narcotic medication such as Tylenol ES. 3. Muscle spasm is not appropriately treated with narcotics. Muscle relaxers such as Soma, Flexeril or Skelaxin can be used along with Tylenol ES. 4. Remember that we all live with some "aches and pains". This is not unusual or uncommon after an injury or as we get older. a. Back pain is expected and may include muscle spasms for 4 to 6 weeks after surgery. The pain should gradually improve. If the pain worsens for no apparent reason, please contact the office. b. Intermittent leg pain may also be experienced and should not be concerned about unless it worsens for no apparent reason. If so, please contact the office. 5. We will provide appropriate medication within the normal guidelines of their prescribed use. We will also be very cautious and aware of potential abuse and extended duration of patients' medication needs. a. Pain medications are for your comfort and to assist with sleep and rest so that the tissue can heal. They are not provided in order to return to normal activity and should not be used through the day. To do so or worsening pain at night can result from ongoing tissue damage and development of tolerance to the prescribed medicine. 6. Please allow 2-3 days to process refills. Prescriptions will not be mailed but must be picked up at the office. FOLLOW UP VISIT: Keep your scheduled follow-up appointment. Any questions, please call the office at . Prescriptions: New tramadol 50 mg Tablet 50 mg PO Q4H PRN (Reason: Pain, Moderate) Qty: 30 RF: 0 oxycodone 5 mg Tablet 5 mg PO Q4H PRN (Reason: Pain, Severe) Qty: 30 RF: 0 Continue meloxicam [Mobic] 7.5 mg Tablet 7.5 mg PO BID RF: 0 citalopram [Celexa] 20 mg Tablet 20 mg PO QAM RF: 0 lorazepam 0.5 mg Tablet 0.5 mg PO UD PRN (Reason: Anxiety) RF: 0 trazodone 100 mg Tablet 100 mg PO HS RF: 0 albuterol sulfate 90 mcg/actuation Hfa Aerosol Inhaler 1 - 2 puff INHALATION UD PRN (Reason: ASTHMA) RF: 0 coenzyme Q10 [CoQ-10] 100 mg Capsule 100 mg PO QAM RF: 0 rosuvastatin [Crestor] 5 mg Tablet 5 mg PO QAM RF: 0 omega [id number] oil [Fish Oil] 1,000 mg (120 mg-180 mg) Capsule 1 cap PO BID RF: 0 Stand-Alone Forms: [facility] Discharge Orders: Discharge Order (Routine); Ordered 07/26/18 Ordered By: Cesar Sher Admission Data Admit Date/Time: 07/24/18 11:31 Attending Provider: Cesar Sher Admit Provider: Cesar Sher Primary Care Provider: Joel Bowman Service: Surgical Services
[2018-07-26] MEDS: SODIUM CHLORIDE 0.9% 1000ML 1,000 ML IV SCH ×2 (14:37→23:32)
[2018-07-26] MEDS: ACETAMINOPHEN 1,000 MG/100 ML VIAL IV PRN (15:21)
[2018-07-26] MEDS: DOCUSATE SODIUM/SENNA 50/8.6MG TAB PO SCH (21:02)
[2018-07-26] MEDS: TRAZODONE HCL 100 MG TAB PO SCH (21:02)
[2018-07-26] MEDS: LORazepam 0.5 MG TAB PO PRN (21:06)
[2018-07-27] MEDS: POLYETHYLENE (MIRALAX) 17 GM PACK PO SCH (05:40)
[2018-07-27] MEDS: ACETAMINOPHEN 500 MG TAB PO PRN (07:57)
[2018-07-27] MEDS: ROSUVASTATIN CALCIUM 5 MG TAB PO SCH (07:58)
[2018-07-27] MEDS: CITALOPRAM 20 MG TAB PO SCH (07:58)
--- NOTE | 2018-07-27 09:54 | Orthopedic Progress Note ---
Date of Service July 27, 2018 Assessment & Plan (1) Lumbar disc herniation with radiculopathy: Patient had a bowel yesterday her leg symptoms are markedly improved. Back pain controlled. DANILO drain decreasing appropriately. Subsequently she is discharged home. Present on Admission?: Yes Subjective Back pain controlled leg pain markedly improved Physical Exam 2 Vital Signs (Past 24 Hours): Last Vital Signs Temp 37.0 C 07/27/18 09:42 Pulse 99 H 07/27/18 09:42 Resp 14 07/27/18 09:42 BP 139/78 07/27/18 09:42 Pulse Ox 94 07/27/18 09:42 Physical Exam: Patient is good strength testing appears comfortable. Abdomen is soft.
== END 2018-07-27 11:06 | disposition home or self-care (01) | DRG 455 ==
LOC: ASU 08:12 → 3E 11:31

== ENCOUNTER 2018-11-07 02:57 | Inpatient (IN) ==
[2018-11-07] MEDS ORDERED: ONDANSETRON INJ 2 MG/ML 2 ML VIAL IV STA ×2 (03:14→04:47)
[2018-11-07] MEDS ORDERED: fentaNYL citrate 100 MCG/2 ML VIAL IV STA (03:14)
[2018-11-07] MEDS ORDERED: SODIUM CHLORIDE 0.9% 1000ML 500 ML IV ONE (03:14)
[2018-11-07 03:35] LABS: Eosinophils # (auto) 0.01 K/uL (0-0.5); Eosinophils % (auto) 0.2 %; Hematocrit (blood only) 34.9 % (37-47); Hemoglobin 11.7 g/dL (12.0-16.0); Immature Granulocytes # (auto) 0.03 K/uL (0.00-0.02); Immature Granulocytes % (auto) 0.7 %; Lymphocytes # (auto) 0.42 K/uL (1.2-3.4); Lymphocytes % (auto) 9.6 %; Mean Corpuscular Hgb Conc 33.5 g/dL (32-36); Mean Corpuscular Volume 92.8 fL (80-100); Monocytes # (auto) 0.39 K/uL (0.11-0.59); Monocytes % (auto) 8.9 %; Neutrophils # (auto) 3.53 K/uL (1.4-6.5); Neutrophils % (auto) 80.6 %; Platelet Count 180 K/uL (130-400); RDW Coefficient of Variation 14.7 % (11.5-14.5); RDW Standard Deviation 49.8 fL (36.4-46.3); Red Blood Count 3.76 M/uL (4.2-5.4); White Blood Count 4.38 K/uL (4.8-10.8)
[2018-11-07 03:43] LABS: iSTAT Hemoglobin 11.2 g/dl (12.0-16.0); iSTAT Ionized Calcium 1.15 mmol/l (1.12-1.32)
[2018-11-07] MEDS ORDERED: IOVERSOL 100ml IV PRN (03:55)
[2018-11-07 04:03] LABS: Alanine Aminotransferase 458 U/L (12-78); Albumin Level 3.5 gm/dl (3.4-5.0); Alkaline Phosphatase 268 U/L (45-117); BUN Creatinine Ratio 12.1 (10-20); Bilirubin,Total 1.5 mg/dl (0.2-1); Blood Urea Nitrogen 10 mg/dl (7-18); Calcium 8.9 mg/dl (8.5-10.1); Carbon Dioxide 28 mmol/L (21-32); Chloride 107 mmol/L (98-107); Creatinine Clr Calc Pharmacy 52.1 ml/min; Est GFR (African American) 77.1; Est GFR (Non-African American) 66.6; Glucose 145 mg/dl (70-99); Sodium 139 mmol/L (136-145); Total Protein 7.3 gm/dl (6.4-8.2); Troponin I < 0.015 ng/ml (0-0.045)
[2018-11-07 04:38] LABS: Potassium 3.8 mmol/L (3.5-5.1)
[2018-11-07 04:51] LABS: Bilirubin Direct 1.1 mg/dl (0-0.2)
[2018-11-07] MEDS ORDERED: HYDROmorphone INJ 0.5 MG/0.5 ML SYR IV STA (05:06)
[2018-11-07] MEDS ORDERED: PROMETHAZINE HCL 12.5 MG in SODIUM CHLORIDE 0.9% 50 ML IV PRN ×2 (05:14→15:21)
[2018-11-07] MEDS ORDERED: MoRPHine SULFATE 4 MG/ML 1 ML CARP\\VIAL IV PRN (05:14)
[2018-11-07] MEDS ORDERED: TRAMADOL HCL 50 MG TABLET PO PRN (05:14)
[2018-11-07] MEDS ORDERED: LISINOPRIL 5 MG TAB PO STA (05:17)
[2018-11-07 05:25] LABS: Appearance Urine Clear (Clear); Bacteria Urine Automated Negative (Negative); Bilirubin Urine Negative (Negative); Cast Urine Automated 0 /lpf (0-5); Color Urine Yellow; Epithelial Cell Urine Auto >30 /lpf (0-5); Glucose Urine UA Negative (Negative); Ketones Urine Negative (Negative); Leukocyte Esterase Urine Trace (Negative); Nitrite Urine Negative (Negative); Protein Urine Negative (Negative); Specific Gravity Urine 1.024 (1.000-1.030); Urobilinogen Urine Negative (Negative)
[2018-11-07 05:53] LABS: Estimated Average Glucose 108 mg/dl
--- NOTE | 2018-11-07 06:06 | Emergency Department Note ---
Entered by Carlos Ruiz acting as a scribe for ED Provider Note Name: Venus Omalley Age: 73 Arrives Via: triage Informant: self CC: Upper abdominal pain HPI: 73 female arrives for evaluation of intermittent upper abdominal pain beginning yesterday evening. The pain began while resting after being active throughout the day. She notes the pain subsided throughout the night but returned this morning and is constant. She reported vomiting during the day prior to arrival. The patient reports the pain in abdomen is an eight of ten and is worse with movement and improves with rest, specifically lying down. The patient also reported having breathing issues during intense pain. The patient stated that she experienced nausea, vomiting and diarrhea on Sunday without abdominal pain. She denies diarrhea during this episode. She also stated that she has not experienced this type of pain in the past. She notes taking Lorazepam last night, but that it did not help her sleep .The patient denies any lower abdominal pain, back pain, black or bloody stool, burning during urination, Chest pain, loss of consciousness, recent falls or injuries, and rash. The has eaten the same food as the patient but has not experienced any abdominal pain. The patient denies a history of kidney problem and a CT of the abdomen. The patient had surgery on her back four months ago and has had her gallbladder removed. The patient denies any use of drug, alcohol, or smoking. ROS: See above HPI for pertinent positives & negatives. A total of 10 systems reviewed and were otherwise negative. Past Medical History: Asthma, HLD, diverticulitis, anemia, skin cancer Past Surgical History: Cholecystectomy, back surgery, oophorectomy Family History: Bladder cancer Social History: No smoking history. No drug or alcohol use. Lives with . Home Medications: Lorazepam Allergies Sulfa drugs, niacin Physical: Vitals: BP: 185/81, Pulse 87, Resp 20, Temp 98.8, O2 Sat 95. Exam: GENERAL: Patient is uncomfortable appearing and in moderate distress. EYES: No scleral icterus, unremarkable pupils. ENT: Mucous membranes moist, no nasal congestion. NECK: No masses appreciated, no meningismus, trachea is midline. RESPIRATORY: No dyspnea. Clear to auscultation and equal bilaterally. No wheeze, no rhonchi. CARDIOVASCULAR: Regular rate and rhythm. No murmurs, rubs, gallops appreciated. GASTROINTESTINAL: Abdomen soft, epigastric and right upper quadrant tenderness to palpation, no peritonitis. Bowel sounds positive. No masses appreciated. BACK: No midline tenderness, no CVA tenderness EXTREMITIES: Normal motion all extremities, no cyanosis, no edema. NEUROLOGIC: Alert and oriented, no acute motor or sensory deficits, no focal weakness, cranial nerves grossly intact. SKIN: No rash, no jaundice, no diaphoresis. ED Course: Prior Medical Record, Triage/Nursing Notes, Medications, Allergies reviewed by Me Vital Signs: reviewed and remarkable for HTN Labs: Reviewed and remarkable for elevated lipase and lfts Interventions: Saline Lock, Fentanyl 50mcg IV, Dilaudid 0.5mg IV, Zofran 4mg IV x 2, NSS bolus Imaging: [facility] Radiologist interpretation reviewed by me: "CT ABDOMEN & PELVIS With Contrast: 14/07/2014 Small hiatal hernia. Interval cholecystectomy. Mild central biliary dilation mildly increased. May reflect postcholecystectomy changes, however also correlate/workup for common duct obstruction. Mild peripancreatic fat stranding around the pancreatic head and neck region. May represent acute pancreatitis. No fluid collection. Duodenal diverticula. Normal appendix. Colonic diverticulosis. No free air, free fluid or bowel obstruction. Small bilateral renal low-density lesions. Interval lower lumbar spinal fusion. Radiologist: Jt De La O M.D." EKG: None [facility] Reassessments/Times: 0310: The patient was evaluated in room b02. A complete history and physical exam was performed. 0432: I re-checked on patient, she is feeling better and did not need further pain medication. She is agreeable to a hospitalist evaluation. 0436: [facility]. 0448: I discussed the patient's case with Dr. Velazquez. He will evaluate the patient for further management and care. Blood pressure: Normal once pain controlled. No Referral necessary Disposition: Hospitalization Differentials: Gastritis, peptic ulcer disease, GERD, gallbladder disease, pancreatitis, small bowel obstruction, acute coronary syndrome, pericarditis, ischemic bowel, irritable bowel disease, irritable bowel syndrome, appendicitis, diverticulitis, malignancy, hernia, urinary tract infection, torsion, perforation, trauma, infectious. Amongst other pathologies. Medical Decision Makin yr old female with acute abdominal pain this evening after gastroenteritis like bug last weekend. GB out several years ago. Quite uncomfortable on exam with TTP to epigastrium. LFTs elevated along with very high Lipase. CT with pancreatitis and mildly dilated duct. Suspect this may be obstructing bile stone as patient without history of Pancreatitis nor significant alcohol intake. Reviewed with hospitalist and they will manage from here. With no fever and normal WBC (~4 is her baseline) it seems unlikely this is infectious thus will hold on abx at this time. Hospitalist will consult Gastro. Impression: Pancreatitis Devin Ramírez MD The scribe's documentation has been prepared under my direction and personally reviewed by me in its entirety. I confirm that the note above accurately reflects all work, treatment, procedures, and medical decision making performed by me. Impression & Plan Pancreatitis Past Med/Surg History Medical History Anemia CHRONIC; HGB 11-12 RANGE PER CHART REVIEW Asthma STABLE Chronic low back pain LLE NEUROPATHY Diverticulitis SEVERAL YEARS AGO History of hyperlipidemia History of skin cancer History of subarachnoid hemorrhage S/P TRAUMA (2014)= NO RESIDUAL DEFICITS Obesity Surgical History History of cataract surgery History of cholecystectomy History of colonoscopy History of oophorectomy Family History Mother Family history of bladder cancer Father No problems noted. Social History Preferred Language: Namibian Communication Ability: Effective Beliefs That Will Affect Care: None Current Living Situation: Spouse Feels Safe at Home: Yes Smoking Status: Never smoker Hx Alcohol Use: No Hx Substance Use: No Results & Data Vital Signs Vital Signs - 24 hr 11/07/18 02:58 11/07/18 03:14 11/07/18 04:30 Temperature 37.1 C Temperature Source Oral Sepsis Recent Fever Within 48 Hours No Sepsis Action Taken by Nursing No Action Required Pulse Rate 87 Pulse Rate [Apical] 89 90 Respiratory Rate 20 18 20 Respiratory Effort / Characteristics Non-Labored Non-Labored Spontaneous Non-Labored Spontaneous Respiratory Depth Normal Normal Normal Respiratory Pattern Regular Blood Pressure 185/81 H Blood Pressure [Right Arm] 182/78 H 186/97 H Blood Pressure Mean 115 Blood Pressure Mean [Right Arm] 112 126 Blood Pressure Position [Right Arm] Sitting Pulse Oximetry 95 100 100 Oxygen Delivery Method Nasal Cannula Nasal Cannula Oxygen Flow Rate 3 3 11/07/18 05:40 Temperature Temperature Source Sepsis Recent Fever Within 48 Hours Sepsis Action Taken by Nursing Pulse Rate Pulse Rate [Apical] 90 Respiratory Rate 16 Respiratory Effort / Characteristics Non-Labored Spontaneous Respiratory Depth Normal Respiratory Pattern Blood Pressure Blood Pressure [Right Arm] 126/60 Blood Pressure Mean Blood Pressure Mean [Right Arm] 82 Blood Pressure Position [Right Arm] Pulse Oximetry 99 Oxygen Delivery Method Nasal Cannula Oxygen Flow Rate 3 Home Medications Current Medication List: was personally reviewed by me Laboratory Data Attestation: I reviewed the patient's lab results. Result diagrams: 11/07/18 03:27 11/07/18 04:12 Lab Results 11/07/18 11/07/18 11/07/18 Range/Units 03:25 03:27 03:27 WBC 4.38 L (4.8-10.8) K/uL RBC 3.76 L (4.2-5.4) M/uL Hgb 11.7 L (12.0-16.0) g/dL POC Hgb 11.2 L (12.0-16.0) g/dl Hct 34.9 L (37-47) % POC Hct 33 L (37-47) % MCV 92.8 (80-100) fL MCH 31.1 (25-34) pg MCHC 33.5 (32-36) g/dL RDW Std Deviation 49.8 H (36.4-46.3) fL RDW Coeff of Caitlin 14.7 H (11.5-14.5) % Plt Count 180 (130-400) K/uL MPV 10.0 (7.4-10.4) fL Immature Gran % (Auto) 0.7 % Neut % (Auto) 80.6 % Lymph % (Auto) 9.6 % [place] % (Auto) 8.9 % Eos % (Auto) 0.2 % Baso % (Auto) 0.0 % Immature Gran # (Auto) 0.03 H (0.00-0.02) K/uL Neut # (Auto) 3.53 (1.4-6.5) K/uL Lymph # (Auto) 0.42 L (1.2-3.4) K/uL [place] # (Auto) 0.39 (0.11-0.59) K/uL Eos # (Auto) 0.01 (0-0.5) K/uL Baso # (Auto) 0.00 (0-0.2) K/uL POC Sodium 142 (135-144) mEq/L Sodium 139 (136-145) mmol/L POC Potassium 4.5 (3.3-5.0) mEq/L Potassium (3.5-5.1) mmol/L POC Chloride 101 (101-112) mEq/L Chloride 107 (98-107) mmol/L Carbon Dioxide 28 (21-32) mmol/L POC Total CO2 29 (24-31) mEq/l Anion Gap 4.0 (3-11) POC Anion Gap 17.0 (16-25) mmol/L POC BUN 12 (7-18) mg/dl BUN 10 (7-18) mg/dl Creatinine 0.86 (0.6-1.2) mg/dl POC Creatinine 0.8 (0.6-1.3) mg/dl Est Cr Clr Drug Dosing 52.1 ml/min Est GFR ( Amer) 77.1 Est GFR (Non-Af Amer) 66.6 BUN/Creatinine Ratio 12.1 (10-20) Glucose 145 H (70-99) mg/dl POC Glucose (other) 155 H (70-99) mg/dl Estimat Average Glucose mg/dl Hemoglobin A1c (4.5-5.6) % Lactate (0.4-2.0) mmol/L Calcium 8.9 (8.5-10.1) mg/dl POC Ioniz Calcium Carina 1.15 (1.12-1.32) mmol/l Total Bilirubin 1.5 H (0.2-1) mg/dl Direct Bilirubin (0-0.2) mg/dl AST (15-37) U/L ALT 458 H (12-78) U/L Alkaline Phosphatase 268 H (45-117) U/L Troponin I < 0.015 (0-0.045) ng/ml Total Protein 7.3 (6.4-8.2) gm/dl Albumin 3.5 (3.4-5.0) gm/dl Lipase 49424 H (73-393) U/L Urine Color Urine Appearance (Clear) Urine pH (4.5-7.5) Ur Specific [place] (1.000-1.030) Urine Protein (Negative) Urine Glucose (UA) (Negative) Urine Ketones (Negative) Urine Blood (Negative) Urine Nitrite (Negative) Urine Bilirubin (Negative) Urine Urobilinogen (Negative) Ur Leukocyte Esterase (Negative) Urine WBC (Auto) (0-5) /hpf Urine RBC (Auto) (0-4) /hpf U Hyaline Cast (Auto) (0-5) /lpf U Epithel Cells (Auto) (0-5) /lpf Urine Bacteria (Auto) (Negative) 11/07/18 11/07/18 11/07/18 Range/Units 03:27 03:27 04:12 WBC (4.8-10.8) K/uL RBC (4.2-5.4) M/uL Hgb (12.0-16.0) g/dL POC Hgb (12.0-16.0) g/dl Hct (37-47) % POC Hct (37-47) % MCV (80-100) fL MCH (25-34) pg MCHC (32-36) g/dL RDW Std Deviation (36.4-46.3) fL RDW Coeff of Caitlin (11.5-14.5) % Plt Count (130-400) K/uL MPV (7.4-10.4) fL Immature Gran % (Auto) % Neut % (Auto) % Lymph % (Auto) % [place] % (Auto) % Eos % (Auto) % Baso % (Auto) % Immature Gran # (Auto) (0.00-0.02) K/uL Neut # (Auto) (1.4-6.5) K/uL Lymph # (Auto) (1.2-3.4) K/uL [place] # (Auto) (0.11-0.59) K/uL Eos # (Auto) (0-0.5) K/uL Baso # (Auto) (0-0.2) K/uL POC Sodium (135-144) mEq/L Sodium (136-145) mmol/L POC Potassium (3.3-5.0) mEq/L Potassium 3.8 (3.5-5.1) mmol/L POC Chloride (101-112) mEq/L Chloride (98-107) mmol/L Carbon Dioxide (21-32) mmol/L POC Total CO2 (24-31) mEq/l Anion Gap (3-11) POC Anion Gap (16-25) mmol/L POC BUN (7-18) mg/dl BUN (7-18) mg/dl Creatinine (0.6-1.2) mg/dl POC Creatinine (0.6-1.3) mg/dl Est Cr Clr Drug Dosing ml/min Est GFR ( Amer) Est GFR (Non-Af Amer) BUN/Creatinine Ratio (10-20) Glucose (70-99) mg/dl POC Glucose (other) (70-99) mg/dl Estimat Average Glucose 108 mg/dl Hemoglobin A1c 5.4 (4.5-5.6) % Lactate 1.6 (0.4-2.0) mmol/L Calcium (8.5-10.1) mg/dl POC Ioniz Calcium Carina (1.12-1.32) mmol/l Total Bilirubin (0.2-1) mg/dl Direct Bilirubin 1.1 H (0-0.2) mg/dl AST 1024 H (15-37) U/L ALT (12-78) U/L Alkaline Phosphatase (45-117) U/L Troponin I (0-0.045) ng/ml Total Protein (6.4-8.2) gm/dl Albumin (3.4-5.0) gm/dl Lipase (73-393) U/L Urine Color Urine Appearance (Clear) Urine pH (4.5-7.5) Ur Specific [place] (1.000-1.030) Urine Protein (Negative) Urine Glucose (UA) (Negative) Urine Ketones (Negative) Urine Blood (Negative) Urine Nitrite (Negative) Urine Bilirubin (Negative) Urine Urobilinogen (Negative) Ur Leukocyte Esterase (Negative) Urine WBC (Auto) (0-5) /hpf Urine RBC (Auto) (0-4) /hpf U Hyaline Cast (Auto) (0-5) /lpf U Epithel Cells (Auto) (0-5) /lpf Urine Bacteria (Auto) (Negative) 11/07/18 Range/Units 05:10 WBC (4.8-10.8) K/uL RBC (4.2-5.4) M/uL Hgb (12.0-16.0) g/dL POC Hgb (12.0-16.0) g/dl Hct (37-47) % POC Hct (37-47) % MCV (80-100) fL MCH (25-34) pg MCHC (32-36) g/dL RDW Std Deviation (36.4-46.3) fL RDW Coeff of Caitlin (11.5-14.5) % Plt Count (130-400) K/uL MPV (7.4-10.4) fL Immature Gran % (Auto) % Neut % (Auto) % Lymph % (Auto) % [place] % (Auto) % Eos % (Auto) % Baso % (Auto) % Immature Gran # (Auto) (0.00-0.02) K/uL Neut # (Auto) (1.4-6.5) K/uL Lymph # (Auto) (1.2-3.4) K/uL [place] # (Auto) (0.11-0.59) K/uL Eos # (Auto) (0-0.5) K/uL Baso # (Auto) (0-0.2) K/uL POC Sodium (135-144) mEq/L Sodium (136-145) mmol/L POC Potassium (3.3-5.0) mEq/L Potassium (3.5-5.1) mmol/L POC Chloride (101-112) mEq/L Chloride (98-107) mmol/L Carbon Dioxide (21-32) mmol/L POC Total CO2 (24-31) mEq/l Anion Gap (3-11) POC Anion Gap (16-25) mmol/L POC BUN (7-18) mg/dl BUN (7-18) mg/dl Creatinine (0.6-1.2) mg/dl POC Creatinine (0.6-1.3) mg/dl Est Cr Clr Drug Dosing ml/min Est GFR ( Amer) Est GFR (Non-Af Amer) BUN/Creatinine Ratio (10-20) Glucose (70-99) mg/dl POC Glucose (other) (70-99) mg/dl Estimat Average Glucose mg/dl Hemoglobin A1c (4.5-5.6) % Lactate (0.4-2.0) mmol/L Calcium (8.5-10.1) mg/dl POC Ioniz Calcium Carina (1.12-1.32) mmol/l Total Bilirubin (0.2-1) mg/dl Direct Bilirubin (0-0.2) mg/dl AST (15-37) U/L ALT (12-78) U/L Alkaline Phosphatase (45-117) U/L Troponin I (0-0.045) ng/ml Total Protein (6.4-8.2) gm/dl Albumin (3.4-5.0) gm/dl Lipase (73-393) U/L Urine Color Yellow Urine Appearance Clear (Clear) Urine pH 7.0 (4.5-7.5) Ur Specific [place] 1.024 (1.000-1.030) Urine Protein Negative (Negative) Urine Glucose (UA) Negative (Negative) Urine Ketones Negative (Negative) Urine Blood 1+ H (Negative) Urine Nitrite Negative (Negative) Urine Bilirubin Negative (Negative) Urine Urobilinogen Negative (Negative) Ur Leukocyte Esterase Trace H (Negative) Urine WBC (Auto) 1-5 (0-5) /hpf Urine RBC (Auto) 0-4 (0-4) /hpf U Hyaline Cast (Auto) 0 (0-5) /lpf U Epithel Cells (Auto) >30 H (0-5) /lpf Urine Bacteria (Auto) Negative (Negative) Administered Medications Ioversol (Optiray 320 100ml) 100 ml IV ONCE PRN PRN Reason: Interaction Checking Stop: 11/11/18 03:54 Last Admin: 11/07/18 03:56 Dose: 94 ml Documented by: [id number] Discontinued Medications Fentanyl Citrate (Fentanyl Citrate) 50 mcg IV NOW STA Stop: 11/07/18 03:15 Last Admin: 11/07/18 03:26 Dose: 50 mcg Documented by: [id number] Hydromorphone HCl (Dilaudid) 0.5 mg IV NOW STA Stop: 11/07/18 05:07 Last Admin: 11/07/18 05:11 Dose: 0.5 mg Documented by: [id number] Sodium Chloride (Nss 1000ml) 500 mls @ 999 mls/hr IV .Q31M ONE Stop: 11/07/18 03:44 Last Infusion: 11/07/18 04:15 Dose: 0 mls/hr Documented by: [id number] Admin: 11/07/18 03:26 Dose: 999 mls/hr Documented by: [id number] Ondansetron HCl (Zofran) 4 mg IV NOW STA Stop: 11/07/18 03:15 Last Admin: 11/07/18 03:26 Dose: 4 mg Documented by: [id number] Ondansetron HCl (Zofran) 4 mg IV NOW STA Stop: 11/07/18 04:48 Last Admin: 11/07/18 04:51 Dose: 4 mg Documented by: [id number] Blood Pressure Blood Pressure Findings: Elevated blood pressure Blood Pressure Disposition: further management by hospitalist Discharge Plan Visit Data Chief Complaint: Abdominal Pain Stated Complaint: ABDOMINAL PAIN,VOMITING ED Provider: Devin Ramírez Discharge Problem: Pancreatitis Patient Disposition: Being Evaluated by Hospitalist Forms Stand Alone Forms: Call Back Authorization, [facility] Prescriptions Prescriptions: No Action citalopram [Celexa] 20 mg Tablet 20 mg PO QAM RF: 0 lorazepam 0.5 mg Tablet 0.5 mg PO UD PRN (Reason: Anxiety) RF: 0 trazodone 100 mg Tablet 100 mg PO HS RF: 0 albuterol sulfate 90 mcg/actuation Hfa Aerosol Inhaler 1 - 2 puff INHALATION UD PRN (Reason: ASTHMA) RF: 0 coenzyme Q10 [CoQ-10] 100 mg Capsule 100 mg PO QAM RF: 0 rosuvastatin [Crestor] 5 mg Tablet 5 mg PO QAM RF: 0 tramadol 50 mg Tablet 50 mg PO Q4H PRN (Reason: Pain, Moderate) Qty: 30 RF: 0 Referrals Referrals: Joel Bowman, [Primary Care Provider] - Discharge Problem: Pancreatitis Qualifiers: Chronicity: acute Pancreatitis type: unspecified pancreatitis type Acute pancreatitis complication: unspecified Qualified Code(s): K85.90 - Acute pancreatitis without necrosis or infection, unspecified The maida's documentation has been prepared under my direction and personally reviewed by me in its entirety. I confirm that the note above accurately reflects all work, treatment, procedures, and medical decision making performed by me.
--- NOTE | 2018-11-07 06:40 | CT Scan Report ---
CT abd pelvis IV con only CT DOSE: 538.03 mGy.cm HISTORY: Pain. Nausea. RUQ/Epi pain vomiting. GB out. TECHNIQUE: Multiaxial CT images of the abdomen and pelvis were performed following the use of intrave nous contrast. A dose lowering technique was utilized adhering to the principles of ALARA. COMPARISON STUDY: 07/19/2016 FINDINGS: Lung bases are clear. Liver spleen appear unremarkable. Findings of a prior cholecystectomy. Nonspecific increased dilatation of the common bile duct as well as intrahepatic ducts. Distal aspect common mild duct is 8 mm proximally and 10 mm distally. Etiolog y is unknown. Trace peripancreatic infiltrative change of the uncinate process. No evidence for abscess or collecti on. Kidneys enhance uniformly. Mild cortical scarring bilaterally. Nonobstructive bowel pattern. Bladder is midline. No free fluid within the pelvic cul-de-sac. Scattered colonic diverticuli. No buzz dence for diverticulitis. IMPRESSION: 1. Mild interval biliary ductal distention with the common bile duct measuring 8 to 10 mm currently. 2. Possibility of an obstructing lesion distally is considered with MRCP recommended. 3. Potential trace pancreatitis of the uncinate process. 4. No evidence for abscess or collection. 5. Nonobstructive bowel pattern. 6. Scattered colonic diverticuli with no evidence for diverticulitis. The above report was generated using voice recognition software. It may contain grammatical, syntax or spelling errors. Electronically signed by: Micah Mcintyre M.D. 11/07/2018 6:38 AM
--- NOTE | 2018-11-07 06:44 | History & Physical Report ---
Date of Service November 07, 2018 Assessment & Plan (1) Pancreatitis: Biliary pancreatitis Possible CBD stone Situational hypertension, possibly chronic given LVH on outpatient DSE 2018 Hyperglycemia rule out DM history traumatic subdural hematoma chronic anemia, hemoglobin at baseline GMF IVF, bowel rest MRCP RE abdominal pain, abnormal LFTs GI consult RE pancreatitis Analgesia Monitor BP, initiate KOFI inhibitor if persistently elevated check hemoglobin A1c DVT prophylaxis. Lovenox subcu Full code Patient's requesting updates from providers. Mr. Hernesto Omalley, contact #[phone]. History of Present Illness Chief Complaint: Abdominal pain Primary Care Provider: Joel Bowman DO History obtained from patient, family, and records. Medical history significant for GERD, hyperlipidemia, history traumatic subdural hematoma, chronic anemia baseline hemoglobin of 11 Recent confinement April 2015 for cholecystitis status post laparoscopic cholecystectomy. Last night before dinnertime patient experienced achy upper abdominal pain followed by emesis. No bowel movement for 4 days as per patient no chest pain no shortness of breath no fever no chills. No alcohol intake. Medical History as above Surgical History : D&C, Eyelid surgery, cholecystectomy, oophorectomy, carpal tunnel surgery, hand surgery Family History : Heart disease, kidney cancer Personal/Social history : Non-smoker, occ EtOH intake, lives with Allergies Allergy/AdvReac Type Severity Reaction Status Date / Time niacin Allergy Unknown VERY RED Verified 11/07/18 03:36 ALL OVER Sulfa (Sulfonamide Allergy Unknown rash Verified 11/07/18 03:36 Antibiotics) Home Medications Home Medications Medication Instructions Recorded Confirmed Type albuterol sulfate 1 - 2 puff INHALATION UD PRN 07/03/18 11/07/18 History citalopram [Celexa] 20 mg PO QAM 07/03/18 11/07/18 History coenzyme Q10 [CoQ-10] 100 mg PO QAM 07/03/18 11/07/18 History lorazepam 0.5 mg PO UD PRN 07/03/18 11/07/18 History rosuvastatin [Crestor] 5 mg PO QAM 07/03/18 11/07/18 History trazodone 100 mg PO HS 07/03/18 11/07/18 History tramadol 50 mg PO Q4H PRN #30 tab 02/01/19 05/16/19 Rx Past Med/Surg History Medical History Anemia CHRONIC; HGB 11-12 RANGE PER CHART REVIEW Asthma STABLE Chronic low back pain LLE NEUROPATHY Diverticulitis SEVERAL YEARS AGO History of hyperlipidemia History of skin cancer History of subarachnoid hemorrhage S/P TRAUMA (2015)= NO RESIDUAL DEFICITS Obesity Surgical History History of cataract surgery History of cholecystectomy History of colonoscopy History of oophorectomy Family History Mother Family history of bladder cancer Father No problems noted. 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 Beliefs That Will Affect Care: None Current Living Situation: Spouse Other Information That Helps Us Care for You: No Feels Safe at Home: Yes Safety Concerns: Feels Safe At This Time Smoking Status: Never smoker Do You Dip or Chew Tobacco: No Second Hand Exposure: No Tobacco Cessation Education Requested by Patient: No Hx Alcohol Use: No Hx Substance Use: No Review of Systems Review of Systems: As per HPI, all 10 systems reviewed, all other ROS negative Physical Exam Physical Exam: GENERAL: uncomfortable, obese, lying on the right lateral decubitus position, no respiratory distress SKIN: Pallor , warm HEENT: pale palpebral conjunctivae, no ptosis, dry buccal mucosa NECK : Supple, short neck, no tenderness CHEST : Decreased breath sounds , no tenderness HEART : RRR, no obvious murmurs ABDOMEN: distention, epigastric tenderness EXTREMITIES : No LE swelling/tenderness, no other conspicuous deformities noted NEUROLOGIC : Coherent, no facial asymmetry, no other gross focality Results & Data Vital Signs (Past 12 Hours) Vital Signs Temp Pulse Pulse Resp BP BP Pulse Ox 11/07/18 05:40 90 16 126/60 99 11/07/18 04:30 90 20 186/97 H 100 11/07/18 03:14 89 18 182/78 H 100 11/07/18 02:58 37.1 C 87 20 185/81 H 95 Laboratory Results Laboratory Results WBC 4.38 K/uL (4.8-10.8) L 11/07/18 03:27 RBC 3.76 M/uL (4.2-5.4) L 11/07/18 03:27 Hgb 11.7 g/dL (12.0-16.0) L 11/07/18 03:27 POC Hgb 11.2 g/dl (12.0-16.0) L 11/07/18 03:25 Hct 34.9 % (37-47) L 11/07/18 03:27 POC Hct 33 % (37-47) L 11/07/18 03:25 MCV 92.8 fL (80-100) 11/07/18 03:27 MCH 31.1 pg (25-34) 11/07/18 03:27 MCHC 33.5 g/dL (32-36) 11/07/18 03:27 RDW Std Deviation 49.8 fL (36.4-46.3) H 11/07/18 03:27 RDW Coeff of Caitlin 14.7 % (11.5-14.5) H 11/07/18 03:27 Plt Count 180 K/uL (130-400) 11/07/18 03:27 MPV 10.0 fL (7.4-10.4) 11/07/18 03:27 Immature Gran % (Auto) 0.7 % 11/07/18 03:27 Neut % (Auto) 80.6 % 11/07/18 03:27 Lymph % (Auto) 9.6 % 11/07/18 03:27 [place] % (Auto) 8.9 % 11/07/18 03:27 Eos % (Auto) 0.2 % 11/07/18 03:27 Baso % (Auto) 0.0 % 11/07/18 03:27 Immature Gran # (Auto) 0.03 K/uL (0.00-0.02) H 11/07/18 03:27 Neut # (Auto) 3.53 K/uL (1.4-6.5) 11/07/18 03:27 Lymph # (Auto) 0.42 K/uL (1.2-3.4) L 11/07/18 03:27 [place] # (Auto) 0.39 K/uL (0.11-0.59) 11/07/18 03:27 Eos # (Auto) 0.01 K/uL (0-0.5) 11/07/18 03:27 Baso # (Auto) 0.00 K/uL (0-0.2) 11/07/18 03:27 POC Sodium 142 mEq/L (135-144) 11/07/18 03:25 Sodium 139 mmol/L (136-145) 11/07/18 03:27 POC Potassium 4.5 mEq/L (3.3-5.0) 11/07/18 03:25 Potassium 3.8 mmol/L (3.5-5.1) 11/07/18 04:12 POC Chloride 101 mEq/L (101-112) 11/07/18 03:25 Chloride 107 mmol/L (98-107) 11/07/18 03:27 Carbon Dioxide 28 mmol/L (21-32) 11/07/18 03:27 POC Total CO2 29 mEq/l (24-31) 11/07/18 03:25 4.0 (3-11) 11/07/18 03:27 POC Anion Gap 17.0 mmol/L (16-25) 11/07/18 03:25 POC BUN 12 mg/dl (7-18) 11/07/18 03:25 BUN 10 mg/dl (7-18) 11/07/18 03:27 0.86 mg/dl (0.6-1.2) 11/07/18 03:27 POC Creatinine 0.8 mg/dl (0.6-1.3) 11/07/18 03:25 Est Cr Clr Drug Dosing 52.1 ml/min 11/07/18 03:27 Est GFR ( Amer) 77.1 11/07/18 03:27 Est GFR (Non-Af Amer) 66.6 11/07/18 03:27 12.1 (10-20) 11/07/18 03:27 Glucose 145 mg/dl (70-99) H 11/07/18 03:27 POC Glucose (other) 155 mg/dl (70-99) H 11/07/18 03:25 Estimat Average Glucose 108 mg/dl 11/07/18 03:27 5.4 % (4.5-5.6) 11/07/18 03:27 1.6 mmol/L (0.4-2.0) 11/07/18 03:27 Calcium 8.9 mg/dl (8.5-10.1) 11/07/18 03:27 POC Ioniz Calcium [place] 1.15 mmol/l (1.12-1.32) 11/07/18 03:25 Magnesium 2.2 mg/dl (1.8-2.4) 11/07/18 04:12 1.5 mg/dl (0.2-1) H 11/07/18 03:27 1.1 mg/dl (0-0.2) H 11/07/18 04:12 AST 1024 U/L (15-37) H 11/07/18 04:12 ALT 458 U/L (12-78) H 11/07/18 03:27 268 U/L (45-117) H 11/07/18 03:27 < 0.015 ng/ml (0-0.045) 11/07/18 03:27 7.3 gm/dl (6.4-8.2) 11/07/18 03:27 3.5 gm/dl (3.4-5.0) 11/07/18 03:27 34384 U/L (73-393) H 11/07/18 03:27 Yellow 11/07/18 05:10 Clear (Clear) 11/07/18 05:10 7.0 (4.5-7.5) 11/07/18 05:10 Ur Specific [place] 1.024 (1.000-1.030) 11/07/18 05:10 Negative (Negative) 11/07/18 05:10 Negative (Negative) 11/07/18 05:10 Negative (Negative) 11/07/18 05:10 1+ (Negative) H 11/07/18 05:10 Negative (Negative) 11/07/18 05:10 Negative (Negative) 11/07/18 05:10 Negative (Negative) 11/07/18 05:10 Ur Leukocyte Esterase Trace (Negative) H 11/07/18 05:10 1-5 /hpf (0-5) 11/07/18 05:10 0-4 /hpf (0-4) 11/07/18 05:10 U Hyaline Cast (Auto) 0 /lpf (0-5) 11/07/18 05:10 U Epithel Cells (Auto) >30 /lpf (0-5) H 11/07/18 05:10 Negative (Negative) 11/07/18 05:[address] abdomen pelvis initial read: Small hiatal hernia, interval cholecystectomy, mild central regurgitation mild increase. Mild peripancreatic fat stranding around the pancreatic head and neck region, may represent acute pancreatitis. Chest x-ray as per my interpretation no acute pathology (1) Pancreatitis Acute pancreatitis complication: unspecified Chronicity: acute Pancreatitis type: unspecified pancreatitis type Qualified Code(s): K85.90 - Acute pancreatitis without necrosis or infection, unspecified
[2018-11-07] MEDS: LACTATED RINGER'S 1,000 ML IV SCH ×3 (07:00→21:00)
--- NOTE | 2018-11-07 07:07 | XRay Report ---
XR chest 1V portable CLINICAL HISTORY: high bp hypertension COMPARISON STUDY: 07/08/2018 FINDINGS: The bones soft tissues and hemidiaphragms are normal. The cardiomediastinal silhouette is n ormal. The lungs are clear. The pulmonary vasculature is normal. IMPRESSION: Negative chest. The above report was generated using voice recognition software. It may contain grammatical, syntax or spelling errors. Electronically signed by: Micah Mcintyre M.D. 11/07/2018 7:06 AM
[2018-11-07] MEDS ORDERED: POLYETHYLENE (MIRALAX) 17 GM PACK PO STA (07:30)
[2018-11-07] MEDS ORDERED: POLYETHYLENE (MIRALAX) 17 GM PACK ONE (07:34)
[2018-11-07] MEDS ORDERED: ACETAMINOPHEN 325 MG TAB PO PRN (08:24)
[2018-11-07] MEDS ORDERED: POLYETHYLENE (MIRALAX) 17 GM PACK PO PRN (08:24)
[2018-11-07 09:26] LABS: INR 1.1 (0.9-1.1)
[2018-11-07] MEDS: ENOXAPARIN INJ 30 MG/0.3 ML SYR SQ SCH (10:28)
--- NOTE | 2018-11-07 11:21 | Gastrointestinal Consultation ---
Date of Consultation November 07, 2018 Assessment & Plan (1) Pancreatitis due to biliary obstruction: Pt is a 73 y/o female who presented w upper abd pain, nausea, found to have elevated LFTs, lipase, w CT abd/pelvis signs of increased biliary dilation s/p cholecystectomy concerning for distal obstructing lesion causing pancreatitis. - Check Acetaminophen level given Tylenol daily use for LBP and elevated LFTs. - Keep NPO - LR IVF @ 150ml/hr - ERCP this afternoon in OR by Dr. Prieto Espinal; Indomethacin 100mg MS for ERCP premed ordered - I have discussed w pt indication for ERCP procedure, risks vs benefits of the procedure Supervising Physician Co-Signing Physician Notes I saw and evaluated the patient. She presents with abdominal pain, elevated liver enzymes and pancreatic enzymes with a CT showing evidence of biliary obstruction. Based on the history and findings we are concerned about gallstone pancreatitis. PE; mild scleral icterus ruq tender Impression: paient with suspected gallstone pancreatitis will proceed with ERCP today. we have discused the risks to include bleeding, infection, pain, pancreatitis, failed biliary cannulation, perforation, and need for f/u studies. Plan ERCP today History of Present Illness Reason for Consultation: Pancreatitis Requesting Physician: Dr. Kavon Haas Attending Physician: Dr. Prieto Espinal History of Present Illness Pt is a 73 y/o female w PMHx of lumbar disc herniation w radiculopathy, hx of subarachnoid bleeding post injury, cervical fracture, dyslipidemia, osteoporosis, gout, allergic rhinitis who presented to ED w c/o upper abd pain symptoms. Said had been feeling generally unwell since last weekend but yesterday after eating started to have nausea, vomiting, upper abd pain. Denies any fever, chills, bowel habit changes. Upon eval labs showed leukocytosis, H/H stable, BUN/Cr normal. LFTs are up: Tibli 1.5, AST 1024, ALT 458, AP 268, Lipase [address]393. CT abd/pelvis showed increased CBD dilation s/p cholecystectomy - previously 8mm, now 10mm. Distal biliary obstruction suspected and MRCP was ordered. There's signs of pancreatitis on the uncinate process, no abscess or fluid collection. No signs of inflammatory or obstructive bowel issues otherwise. Pt admitted for suspected gallstone pancreatitis, had been fluid resuscitated, and made NPO. She admits taking Tylenol for low back pain about 1g a day. Denies new meds, supplements. Denies tobacco, rare ETOH uses. No tattoos, piercing. Denies any family hx of autoimmune/liver diseases. Allergies Allergy/AdvReac Type Severity Reaction Status Date / Time niacin Allergy Unknown VERY RED Verified 11/07/18 15:05 ALL OVER Sulfa (Sulfonamide Allergy Unknown rash Verified 11/07/18 15:05 Antibiotics) latex AdvReac Rash Verified 11/07/18 15:05 Home Medications Home Medications Medication Instructions Recorded Confirmed Type albuterol sulfate 1 - 2 puff INHALATION UD PRN 07/03/18 11/07/18 History citalopram [Celexa] 20 mg PO QAM 07/03/18 11/07/18 History coenzyme Q10 [CoQ-10] 100 mg PO QAM 07/03/18 11/07/18 History lorazepam 0.5 mg PO UD PRN 07/03/18 11/07/18 History rosuvastatin [Crestor] 5 mg PO QAM 07/03/18 11/07/18 History trazodone 100 mg PO HS 07/03/18 11/07/18 History tramadol 50 mg PO Q4H PRN #30 tab 07/26/18 11/07/18 Rx Patient History Medical History Anemia CHRONIC; HGB 11-12 RANGE PER CHART REVIEW Asthma STABLE Chronic low back pain LLE NEUROPATHY Diverticulitis SEVERAL YEARS AGO History of hyperlipidemia History of skin cancer History of subarachnoid hemorrhage S/P TRAUMA (2014)= NO RESIDUAL DEFICITS Obesity Surgical History History of cataract surgery History of cholecystectomy History of colonoscopy History of oophorectomy Family History Mother Family history of bladder cancer Father No problems noted. Social History Preferred Language: Greenlandic Communication Ability: Effective Diving Coach Required: No Beliefs That Will Affect Care: None Current Living Situation: Spouse Other Information That Helps Us Care for You: No Feels Safe at Home: Yes Safety Concerns: Feels Safe At This Time Smoking Status: Never smoker Do You Dip or Chew Tobacco: No Second Hand Exposure: No Tobacco Cessation Education Requested by Patient: No Hx Alcohol Use: No Hx Substance Use: No Review of Systems Review of Systems: All systems reviewed & are unremarkable except as noted in HPI & below Physical Exam Constitutional: WD/WN, vitals as above well groomed, cooperative and comfortable Eyes: PERRL, conjunctivae normal, anicteric sclerae ENMT: external ear and nose normal, oropharynx normal Respiratory: normal respiratory effort, lungs clear to auscultation Cardiovascular: RRR, no murmur, no edema Gastrointestinal (Abdomen): Inspection/Auscultation: + hypoactive bowel sounds Percussion/Palpation: + abdomen tender (RUQ) and abdomen soft Skin: no rashes, warm and dry no jaundice Neurologic: Motor/Sensory: no asterixis Psychiatric: A+Ox3, euthymic affect Lymphatic: no lymphedema Results & Data Vital Signs (Past 12 Hours) Vital Signs Temp Pulse Pulse Resp BP BP BP 11/07/18 08:24 36.7 C 87 20 134/79 11/07/18 07:32 87 20 160/99 H 11/07/18 07:00 36.3 C L 97 H 18 115/68 11/07/18 05:40 90 16 126/60 11/07/18 04:30 90 20 186/97 H 11/07/18 03:14 89 18 182/78 H 11/07/18 02:58 37.1 C 87 20 185/81 H Pulse Ox 11/07/18 08:24 93 11/07/18 07:32 97 11/07/18 07:00 95 11/07/18 05:40 99 11/07/18 04:30 100 11/07/18 03:14 100 11/07/18 02:58 95
--- NOTE | 2018-11-07 13:00 | Anesthesiology Consultation ---
Date of Service November 07, 2018 Assessment & Plan (1) Encounter for pre-operative examination: Chart Review Chart Review: charge entry initiated History Surgery Operation Date: 11/07/18 09:55 Proposed Procedures p Endoscopic Retrograde Cholangiopancreatogram - Prieto Espinal Height/Weight Height: 5 ft 1 in Weight: 72.1 kg Allergies Allergy/AdvReac Type Severity Reaction Status Date / Time niacin Allergy Unknown VERY RED Verified 11/07/18 03:36 ALL OVER Sulfa (Sulfonamide Allergy Unknown rash Verified 11/07/18 03:36 Antibiotics) Medications Home Medications Medication Instructions Recorded Confirmed Last Taken albuterol sulfate 1 - 2 puff INHALATION UD PRN 07/03/18 11/07/18 Unknown citalopram [Celexa] 20 mg PO QAM 07/03/18 11/07/18 07/24/18 06:45 coenzyme Q10 [CoQ-10] 100 mg PO QAM 07/03/18 11/07/18 07/03/18 lorazepam 0.5 mg PO UD PRN 07/03/18 11/07/18 07/24/18 06:45 rosuvastatin [Crestor] 5 mg PO QAM 07/03/18 11/07/18 07/24/18 06:45 trazodone 100 mg PO HS 07/03/18 11/07/18 07/23/18 22:00 tramadol 50 mg PO Q4H PRN #30 tab 07/26/18 11/07/18 Unknown Active Medications Generic Name Dose Route Start Last Admin Trade Name Freq PRN Reason Stop Dose Admin Enoxaparin Sodium 30 mg 11/07/18 10:15 11/07/18 10:28 Lovenox SQ 12/07/18 10:14 30 mg QAM DIANDRA Administration Lactated Ringer's 1,000 mls @ 200 mls/hr 11/07/18 05:15 11/07/18 07:00 Lr IV 12/07/18 05:14 150 mls/hr .Q5H DIANDRA Administration Past Medical History Medical History Anemia CHRONIC; HGB 11-12 RANGE PER CHART REVIEW Asthma STABLE Chronic low back pain LLE NEUROPATHY Diverticulitis SEVERAL YEARS AGO History of hyperlipidemia History of skin cancer History of subarachnoid hemorrhage S/P TRAUMA (2014)= NO RESIDUAL DEFICITS Obesity Past Family History Family History Mother Family history of bladder cancer Father No problems noted. Past Surgical History Surgical History History of cataract surgery History of cholecystectomy History of colonoscopy History of oophorectomy Social History Smoking Status: Never smoker Do You Dip or Chew Tobacco: No Hx Alcohol Use: No Hx Substance Use: No substance use type: does not use Physical Exam Vital Signs Last Vital Signs Temp 98.1 F 11/07/18 08:24 Pulse 87 11/07/18 08:24 Resp 20 11/07/18 08:24 BP 134/79 11/07/18 08:24 Pulse Ox 93 11/07/18 08:24 Testing Laboratory Results 11/07/18 03:27 11/07/18 04:12 11/07/18 11/07/18 11/07/18 03:27 05:10 09:05 PT 11.0 INR 1.1 Hemoglobin A1c 5.4 Urine Color Yellow Urine Appearance Clear Urine pH 7.0 Ur Specific [place] 1.024 Urine Protein Negative Urine Glucose (UA) Negative Urine Ketones Negative Urine Nitrite Negative Ur Leukocyte Esterase Trace H Urine WBC (Auto) 1-5 Urine RBC (Auto) 0-4 U Hyaline Cast (Auto) 0 U Epithel Cells (Auto) >30 H Urine Bacteria (Auto) Negative Electrocardiogram Date: 11/05/18 NSR at 82bpm. NS TWA. Chest X-Ray Date: 11/07/18 Findings: + NAD Stress Test Date: 07/22/18 Type: DSE Stress ECHO negative for inducible ischemia. LVEF 60-64%. Mild increased cLV wall thickness. No RWMA. No significant valvular disease. 104% MPHR.
--- NOTE | 2018-11-07 13:20 | Hospitalist Progress Note ---
Date of Service November 07, 2018 Assessment & Plan (1) Pancreatitis due to biliary obstruction: History of cholecystectomy and admitted with abdominal pain and nausea Noted to have high amylase and abnormal LFTs Has been n.p.o. and getting intravenous fluid and pain medications Appreciate GI input and recommended Will have ERCP this afternoon Present on Admission?: Yes (2) Lumbar disc herniation with radiculopathy: Back pain remains stable Continue current medications (3) Subarachnoid hemorrhage following injury: Not causing any acute symptoms DVT prophylaxis Subcu Lovenox CODE STATUS Full Subjective 11/07 Patient was seen and examined in medical She is a 73-year-old female with significant past medical history of KSENIA D,hyperlipidemia, history of traumatic subdural hematoma and history of laparoscopic cholecystectomy was admitted with abdominal pain nausea and vomiting. She has noted to have acute cholecystitis likely secondary to choledocholithiasis She has been feeling a little bit better since admission Still complains some abdominal pain but no nausea and vomiting Review of Systems Review of Systems: All systems reviewed and are unremarkable except as noted below Gastrointestinal: + abdominal pain, + bloating and + nausea Physical Exam Physical Exam: Sitting on the bed without any acute symptoms Constitutional: WD/WN, vitals as above well groomed, cooperative and comfortable Eyes: PERRL, conjunctivae normal, anicteric sclerae ENMT: external ear and nose normal, oropharynx normal Respiratory: normal respiratory effort, lungs clear to auscultation Cardiovascular: RRR, no murmur, no edema Gastrointestinal (Abdomen): Inspection/Auscultation: abdomen normal to inspection and + hypoactive bowel sounds Percussion/Palpation: + abdomen tender (RUQ) and abdomen soft Skin: no rashes, warm and dry no jaundice Neurologic: Motor/Sensory: no asterixis Psychiatric: A+Ox3, euthymic affect Lymphatic: no lymphedema Results & Data Vital Signs (Past 12 Hours) Vital Signs Temp Pulse Pulse Resp BP BP BP 11/07/18 08:24 36.7 C 87 20 134/79 11/07/18 07:32 87 20 160/99 H 11/07/18 07:00 36.3 C L 97 H 18 115/68 11/07/18 05:40 90 16 126/60 11/07/18 04:30 90 20 186/97 H 11/07/18 03:14 89 18 182/78 H 11/07/18 02:58 37.1 C 87 20 185/81 H Pulse Ox 11/07/18 08:24 93 11/07/18 07:32 97 11/07/18 07:00 95 11/07/18 05:40 99 11/07/18 04:30 100 11/07/18 03:14 100 11/07/18 02:58 95 Laboratory Results Short CBC 11/07/18 Range/Units 03:27 WBC 4.38 L (4.8-10.8) K/uL Hgb 11.7 L (12.0-16.0) g/dL Hct 34.9 L (37-47) % Plt Count 180 (130-400) K/uL BMP 11/07/18 11/07/18 03:27 04:12 Sodium 139 Potassium 3.8 Chloride 107 Carbon Dioxide 28 BUN 10 Creatinine 0.86 Glucose 145 H Calcium 8.9 Cardiac Enzymes 11/07/18 Range/Units 03:27 Troponin I < 0.015 (0-0.045) ng/ml Liver Function 11/07/18 11/07/18 Range/Units 03:27 04:12 Total Bilirubin 1.5 H (0.2-1) mg/dl Direct Bilirubin 1.1 H (0-0.2) mg/dl AST 1024 H (15-37) U/L ALT 458 H (12-78) U/L Alkaline Phosphatase 268 H (45-117) U/L Albumin 3.5 (3.4-5.0) gm/dl Urine 11/07/18 Range/Units 05:10 Urine Color Yellow Urine Appearance Clear (Clear) Urine pH 7.0 (4.5-7.5) Ur Specific [place] 1.024 (1.000-1.030) Urine Protein Negative (Negative) Urine Glucose (UA) Negative (Negative) Medications Administered Current Inpatient Medications Acetaminophen (Tylenol) 325 mg PO Q4H PRN PRN Reason: pain/fever Stop: 12/07/18 08:23 Citalopram Hydrobromide (Celexa) 20 mg PO [facility] Stop: 12/07/18 08:59 Enoxaparin Sodium ([facility]ox) [facility] [place] Stop: 12/07/18 10:14 Last Admin: 11/07/18 10:28 Dose: 30 mg Documented by: Lactated Ringer's (Lr) 1,000 mls @ 200 mls/hr IV .Q5H DIANDRA Stop: 12/07/18 05:14 Last Admin: 11/07/18 07:00 Dose: 150 mls/hr Documented by: Promethazine HCl 12.5 mg/ (Sodium Chloride) 50.5 mls @ 202 mls/hr IV Q6H PRN PRN Reason: Nausea And Vomiting Stop: 12/07/18 05:13 Indomethacin (Indocin) 100 mg [place] ONE ONE Stop: 11/07/18 14:32 Morphine Sulfate (Morphine Sulfate) 4 mg IV Q4H PRN PRN Reason: Pain Stop: 11/21/18 05:13 Polyethylene Glycol (Miralax Powder Packet) 17 gm PO DAILY PRN PRN Reason: Constipation Stop: 12/07/18 08:23 Senna/Docusate Sodium (Senokot S) 1 tab PO QAM DIANDRA Stop: 12/07/18 08:23 Tramadol HCl (Ultram) 25 - 50 mg PO Q4H PRN PRN Reason: Pain Stop: 12/07/18 05:13 Trazodone HCl (Desyrel) 100 mg PO HS DIANDRA Stop: 12/07/18 20:59
[2018-11-07] MEDS ORDERED: INDOMETHACIN 50 MG SUPP PR ONE (14:31)
[2018-11-07] MEDS ORDERED: INDOMETHACIN 50 MG SUPP PR SCH (15:00)
[2018-11-07] MEDS ORDERED: LIDOCAINE HCL 2% 2 ML VIAL/AMP(20MG/ML) INFIL ONE (15:10)
[2018-11-07] MEDS ORDERED: MIDAZOLAM HCL 1 MG/ML 2ML VIAL ONE (15:10)
[2018-11-07] MEDS ORDERED: PROPOFOL IV EMULSION 10 MG/ML 20 ML VIAL IV ONE (15:10)
[2018-11-07] MEDS ORDERED: LARYING-O-JET KIT (LTA) ONE (15:10)
[2018-11-07] MEDS ORDERED: SUCCINYLCHOLINE CHLORIDE 20 MG/ML 10 ML VIAL ONE (15:10)
[2018-11-07] MEDS ORDERED: fentaNYL citrate 100 MCG/2 ML VIAL ONE (15:10)
--- NOTE | 2018-11-07 15:11 | History & Physical Bridge Note ---
Date of Service November 07, 2018 History & Physical Bridge Note I have examined the patient, reviewed the History & Physical and in the interval since the performance of the History & Physical I have noted the following changes of clinical significance: no changes noted. We have discussed the risks of ERCP to include bleeding, infection, perforation, pain, pancreatitis, and failed biliary cannulation.
[2018-11-07] MEDS ORDERED: fentaNYL citrate 100 MCG/2 ML VIAL IV PRN (15:21)
[2018-11-07] MEDS ORDERED: FLUMAZENIL 0.1 MG/1 ML 10 ML VIAL IV PRN (15:21)
[2018-11-07] MEDS ORDERED: ATROPINE SULFATE 0.1 MG/ML 10ML SYR IV PRN (15:21)
[2018-11-07] MEDS ORDERED: ONDANSETRON INJ 2 MG/ML 2 ML VIAL IV PRN (15:21)
[2018-11-07] MEDS ORDERED: ePHEDrine sulfate 50 MG/ML AMP IV PRN (15:21)
[2018-11-07] MEDS ORDERED: LABETALOL HCL IV 5 MG/ML 20ML IV PRN (15:21)
[2018-11-07] MEDS ORDERED: NALOXONE HCL 0.4 MG/1 ML VIAL/CARP IV PRN (15:21)
[2018-11-07] MEDS ORDERED: DEXAMETHASONE SOD INJ 4 MG/ML VIAL ONE (15:38)
[2018-11-07] MEDS ORDERED: ONDANSETRON INJ 2 MG/ML 2 ML VIAL ONE (15:38)
--- NOTE | 2018-11-07 16:07 | Post Operative Brief Note ---
Immediate Post Op Note v1 Date of Surgery November 07, 2018 Pre & Post Diagnosis Operation Date: 11/07/18 09:55 Pre-Op Diagnosis: Gallstone pancreatitis Post-Op Diagnosis: Gallstone pancreatitis Procedure Operation Date: 11/07/18 09:55 Actual Procedures p Endoscopic Retrograde Cholangiopancreatogram - Prieto Espinal Surgeon Prieto Espinal Work Environment Safety Inspector none Estimated Blood Loss 0 Findings See Below (Cholangitis (biliary stent placed, cbd stone removed))
--- NOTE | 2018-11-07 16:37 | GI REPORT ---
Patient Name: Venus Omalley Procedure Date: 11/07/2018 3:23 PM Date of : 1945 Admit Type: Inpatient Age: 73 Gender: Female Attending MD: Prieto Espinal DO Procedure: ERCP Providers: Prieto Espinal DO Referring MD: Joel Wheat Indications: Abdominal pain of suspected biliary origin, Biliary dilation on Computed Tomogram Scan, Elevated liver enzymes Medicines: General Anesthesia Complications: No immediate complications. Estimated blood loss: Minimal. Estimated Blood Loss: Estimated blood loss was minimal. Procedure: Pre-Anesthesia Assessment: - Prior to the procedure, a History and Physical was performed, and patient medications, allergies and sensitivities were reviewed. The patient's tolerance of previous anesthesia was reviewed. - Patient identification and proposed procedure were verified prior to the procedure by the physician, the nurse and the physician executive. The procedure was verified in the procedure room. - The risks and benefits of the procedure and the sedation options and risks were discussed with the patient. All questions were answered and informed consent was obtained. - ASA Grade Assessment: III - A patient with severe systemic disease. - After reviewing the risks and benefits, the patient was deemed in satisfactory condition to undergo the procedure. - The anesthesia plan was to use general anesthesia. - Immediately prior to administration of medications, the patient was re-assessed for adequacy to receive sedatives. - The heart rate, respiratory rate, oxygen saturations, blood pressure, adequacy of pulmonary ventilation, and response to care were monitored throughout the procedure. - The physical status of the patient was re-assessed after the procedure. After obtaining informed consent, the scope was passed under direct vision. Throughout the procedure, the patient's blood pressure, pulse, and oxygen saturations were monitored continuously. The Scope was introduced through the mouth, and advanced to the duodenum and used to inject contrast into the bile duct. The ERCP was accomplished without difficulty. The patient tolerated the procedure well. Findings: A instructional systems specialist film of the abdomen was obtained. Surgical clips, consistent with a previous cholecystectomy, were seen in the area of the right upper quadrant of the abdomen. The esophagus was successfully intubated under direct vision without detailed examination of the pharynx, larynx, and associated structures, and upper GI tract. The upper GI tract was grossly normal. The major papilla was located partially within a diverticulum. The major papilla was congested. The ventral pancreatic duct was inadvertently cannulated with the short-nosed traction sphincterotome and 0.025 Acrobat 2 guidewire without any complications. the wire was left in place to aid in biliary cannulation. The bile duct was deeply cannulated with the short-nosed traction sphincterotome and 0.025 Acrobat 2 guidewire (several attempts had been made with other wires, cannulation was difficult due to an impacted stone). Contrast was injected. I personally interpreted the bile duct images. Contrast extended to the entire biliary tree. A cholecystectomy had been performed. The entire biliary tree was diffusely dilated. The largest diameter was 10 mm. The lower third of the main duct contained filling defect(s) thought to be a stone. Biliary sphincterotomy was made with a monofilament Fusion OMNI sphincterotome using ERBE electrocautery. There was no post-sphincterotomy bleeding. The 0.025 in wire was then exchanged for a 0.035 in Acrobat 2 guidewire. To discover objects, the biliary tree was swept with an 8.5 mm balloon and 15 mm balloon starting at the bifurcation. One stone was removed. No stones remained. Pus was swept from the duct. One 7 Fr by 4 cm biliary stent with a full external pigtail and a full internal pigtail was placed into the common bile duct. Bile flowed through the stent. The stent was in good position. We attempted to pass one 5 Fr by 7 cm pancreatic stent with a 3/4 external pigtail and no internal flaps was placed into the ventral pancreatic duct (during passage the wire was lost and the stent could not be placed). Indomethacin 100 mg was given via suppository to decrease the risk of post-ERCP pancreatitis (PEP). The endoscope was withdrawn from the patient. Impression: - The major papilla was located partially within a diverticulum. - The major papilla appeared congested. - A filling defect consistent with a stone was seen on the cholangiogram. - The entire biliary tree was dilated. - The patient has had a cholecystectomy. - Choledocholithiasis was found. Complete removal was accomplished by biliary sphincterotomy and balloon extraction. - The biliary tree was swept and pus was found. - One biliary stent was placed into the common bile duct. - Unable to place a pancreatic stent. - Indomethacin given to decrease risk of post-ERCP pancreatitis. Recommendation: - Avoid aspirin and nonsteroidal anti-inflammatory medicines for 1 week. - NPO today. - Use broad spectrum antibiotics for 10 days. - Repeat ERCP in 6 weeks to remove stent. Prieto Espinal D.O. Prieto Espinal DO 11/07/2018 4:36:48 PM This report has been signed electronically. Note Initiated On: 11/07/2018 3:23 PM Number of Addenda: 0 I attest to the content of the Intraoperative Record and orders documented therein, exceptions below {[id number]}
--- NOTE | 2018-11-07 16:37 | Anesthesiology Progress Note ---
Date of Service November 07, 2018 Anesthesia Post Procedure Vital Signs Vital Signs: Temp Pulse Pulse Pulse Resp BP BP 11/07/18 16:25 81 16 11/07/18 16:15 36.5 C 86 14 11/07/18 15:05 73 18 148/65 H 11/07/18 08:24 36.7 C 87 20 134/79 11/07/18 07:32 87 20 11/07/18 07:00 36.3 C L 97 H 18 11/07/18 05:40 90 16 11/07/18 04:30 90 20 11/07/18 03:14 89 18 11/07/18 02:58 37.1 C 87 20 185/81 H BP Pulse Ox 11/07/18 16:25 174/79 H 100 11/07/18 16:15 149/70 H 100 11/07/18 15:05 96 11/07/18 08:24 93 11/07/18 07:32 160/99 H 97 11/07/18 07:00 115/68 95 11/07/18 05:40 126/60 99 11/07/18 04:30 186/97 H 100 11/07/18 03:14 182/78 H 100 11/07/18 02:58 95 Pain Intensity Right Upper Abdomen: Pain Intensity: 8 Transfer of Care Handoff Completed per policy Notes Mental Status: alert / awake / arousable Patient Amnestic to Procedure: Yes Nausea / Vomiting: adequately controlled Pain: adequately controlled Airway Patency, RR, SpO2: stable & adequate BP & HR: stable & adequate Hydration State: stable & adequate Anesthetic Complications: no major complications apparent and Pt Satisfied with anesthetic care
[2018-11-07] MEDS: CIPROFLOXACIN 400 MG/200 ML BAG IV SCH (17:22)
[2018-11-07 17:48] LABS: Albumin Level 3.2 gm/dl (3.4-5.0); BUN Creatinine Ratio 12.2 (10-20); Calcium 8.8 mg/dl (8.5-10.1); Est GFR (African American) 84.2; Est GFR (Non-African American) 72.6; Magnesium 2.3 mg/dl (1.8-2.4); Potassium 3.7 mmol/L (3.5-5.1)
[2018-11-07 18:02] LABS: Bilirubin,Total 2.9 mg/dl (0.2-1); Phosphorus 2.9 mg/dl (2.5-4.9); Total Protein 6.6 gm/dl (6.4-8.2)
--- NOTE | 2018-11-07 19:22 | Fluoroscopy Report ---
[place] ERCP biliary ductal CLINICAL HISTORY: for ercp COMPARISON STUDY: None. FLUOROSCOPY TIME: 1 minute and 12 seconds. FINDINGS: 8 fluoroscopic spot images of the right upper quadrant demonstrate cannulation of the main pancreatic duct and common bile duct with ejection of contrast in the main pancreatic duct. A balloon sweep was performed followed by placement of a common bile duct stent which appears in good position . Prior cholecystectomy. IMPRESSION: Fluoroscopy provided for ERCP. Electronically signed by: Owen Aguilar M.D. 11/07/2018 7:20 PM
[2018-11-07] MEDS: LORazepam 0.5 MG TAB PO PRN (21:00)
[2018-11-07] MEDS: TRAZODONE HCL 100 MG TAB PO SCH (21:02)
[2018-11-07] MEDS: CITALOPRAM 20 MG TAB PO SCH (21:02)
[2018-11-07] MEDS: DOCUSATE SODIUM/SENNA 50/8.6MG TAB PO SCH (21:02)
[2018-11-08] MEDS: LACTATED RINGER'S 1,000 ML IV SCH ×4 (03:37→22:37)
[2018-11-08] MEDS: CIPROFLOXACIN 400 MG/200 ML BAG IV SCH ×2 (05:26→17:42)
[2018-11-08 06:48] LABS: Hematocrit (blood only) 28.8 % (37-47); Hemoglobin 9.7 g/dL (12.0-16.0); Immature Granulocytes # (auto) 0.03 K/uL (0.00-0.02); Immature Granulocytes % (auto) 0.5 %; Lymphocytes # (auto) 0.36 K/uL (1.2-3.4); Lymphocytes % (auto) 6.4 %; Mean Corpuscular Hgb Conc 33.7 g/dL (32-36); Mean Platelet Volume 9.7 fL (7.4-10.4); Monocytes # (auto) 0.35 K/uL (0.11-0.59); Monocytes % (auto) 6.2 %; Neutrophils % (auto) 86.9 %; Platelet Count 144 K/uL (130-400); RDW Coefficient of Variation 14.9 % (11.5-14.5); RDW Standard Deviation 50.5 fL (36.4-46.3); Red Blood Count 3.13 M/uL (4.2-5.4); White Blood Count 5.64 K/uL (4.8-10.8)
[2018-11-08 07:27] LABS: Albumin Level 2.6 gm/dl (3.4-5.0); BUN Creatinine Ratio 14.8 (10-20); Calcium 8.5 mg/dl (8.5-10.1); Creatinine Clr Calc Pharmacy 54.7 ml/min; Est GFR (African American) 81.7; Est GFR (Non-African American) 70.5; Potassium 3.7 mmol/L (3.5-5.1)
[2018-11-08 07:30] LABS: Albumin Globulin Ratio 0.9 (0.9-2); Bilirubin,Total 2.5 mg/dl (0.2-1); Total Protein 5.6 gm/dl (6.4-8.2)
[2018-11-08] MEDS: CITALOPRAM 20 MG TAB PO SCH (08:57)
[2018-11-08] MEDS: ENOXAPARIN INJ 30 MG/0.3 ML SYR SQ SCH (08:57)
[2018-11-08] MEDS ORDERED: NON-FORMULARY MEDICATION (Coenzyme Q10 [Coq-10] 100 MG) PO SCH (09:00)
[2018-11-08] MEDS: ROSUVASTATIN CALCIUM 5 MG TAB PO SCH (09:19)
[2018-11-08] MEDS: DOCUSATE SODIUM/SENNA 50/8.6MG TAB PO SCH (10:04)
--- NOTE | 2018-11-08 10:11 | Gastroenterology Progress Note ---
Date of Service November 08, 2018 Assessment & Plan (1) Pancreatitis due to biliary obstruction: Pt is a 73 y/o female who presented w upper abd pain, nausea, found to have elevated LFTs, lipase, w CT abd/pelvis signs of increased biliary dilation s/p cholecystectomy concerning for distal obstructing lesion causing pancreatitis. Now S/P ERCP w/ evidence of choledocholithiasis s/p biliary sphincterotomy and balloon extraction, placement of biliary clinically feeling well w/ resolution of her symptoms. - No NSAIDs x 1 week - Use broad spectrum antibiotics for 10 days - Repeat ERCP in 6 weeks to remove stent - No GI contraindication to trial of clear liquid diet, advancing as tolerated - Ensure down trending LFTs - Would continue LR at current rate - GI to sign off. Thank you for allowing us to participate in the care of this patient. Please call with any acute changes, questions or concerns. Please see addendum below with additional recommendation from my supervising physician. Supervising Physician Co-Signing Physician Notes Attending attestation I have seen, examined this patient, and agree with the findings and above by our mid-level provider JOSELYN Katz. -soft abdomen, looks remarkable, no pain Subjective Pt was seen and evaluated, chart reviewed. S/P ERCP. Feeling well. GI symptoms resolved. No abd pain. No nausea, vomiting. Wants to eat and go home. No fever, chills, CP, SOB. ERCP: The major papilla was located partially within a diverticulum. The major papilla appeared congested. A filling defect consistent with a stone was seen on the cholangiogram. The entire biliary tree was dilated. The patient has had a cholecystectomy. Choledocholithiasis was found. Complete removal was accomplished by biliary sphincterotomy and balloon extraction. The biliary tree was swept and pus was found. One biliary stent was placed into the common bile duct. Unable to place a pancreatic stent.Indomethacin given to decrease risk of post-ERCP pancreatitis. Review of Systems Constitutional: no fever, no body aches and no weakness Respiratory: no cough, no dyspnea, no pain on inspiration and no wheezing Cardiovascular: no chest pain, no radiating jaw, neck or arm pain, no dyspnea on exertion and no palpitations Gastrointestinal: no abdominal pain, no early satiety, no nausea and no vomiting Physical Exam Constitutional: WD/WN, vitals as above Neck: normal visual inspection and trachea midline Respiratory: normal respiratory effort, lungs clear to auscultation Cardiovascular: RRR, no murmur, no edema Gastrointestinal (Abdomen): normal bowel sounds, soft, nontender, no hepatosplenomegaly Skin: no rashes, warm and dry Results & Data Vital Signs (Past 12 Hours) Vital Signs Temp Pulse Pulse Resp BP BP Pulse Ox 11/08/18 07:42 36.9 C 57 L 18 154/76 H 96 11/08/18 04:00 36.9 C 66 16 139/61 93 11/07/18 23:21 36.3 C L 60 16 118/61 90 Laboratory Results 11/08/18 11/08/18 11/07/18 Range/Units 06:28 06:28 17:14 WBC 5.64 (4.8-10.8) K/uL RBC 3.13 L (4.2-5.4) M/uL Hgb 9.7 L (12.0-16.0) g/dL Hct 28.8 L (37-47) % MCV 92.0 (80-100) fL MCH 31.0 (25-34) pg MCHC 33.7 (32-36) g/dL RDW Std Deviation 50.5 H (36.4-46.3) fL RDW Coeff of Caitlin 14.9 H (11.5-14.5) % Plt Count 144 (130-400) K/uL MPV 9.7 (7.4-10.4) fL Immature Gran % (Auto) 0.5 % Neut % (Auto) 86.9 % Lymph % (Auto) 6.4 % [place] % (Auto) 6.2 % Eos % (Auto) 0.0 % Baso % (Auto) 0.0 % Immature Gran # (Auto) 0.03 H (0.00-0.02) K/uL Neut # (Auto) 4.90 (1.4-6.5) K/uL Lymph # (Auto) 0.36 L (1.2-3.4) K/uL [place] # (Auto) 0.35 (0.11-0.59) K/uL Eos # (Auto) 0.00 (0-0.5) K/uL Baso # (Auto) 0.00 (0-0.2) K/uL Sodium 140 140 (136-145) mmol/L Potassium 3.7 3.7 (3.5-5.1) mmol/L Chloride 106 107 (98-107) mmol/L Carbon Dioxide 28 30 (21-32) mmol/L Anion Gap 6.0 3.0 (3-11) BUN 12 10 (7-18) mg/dl Creatinine 0.82 0.80 (0.6-1.2) mg/dl Est Cr Clr Drug Dosing 54.7 56.0 ml/min Est GFR ( Amer) 81.7 84.2 Est GFR (Non-Af Amer) 70.5 72.6 BUN/Creatinine Ratio 14.8 12.2 (10-20) Glucose 128 H 130 H (70-99) mg/dl Calcium 8.5 8.8 (8.5-10.1) mg/dl Phosphorus 2.9 (2.5-4.9) mg/dl Magnesium 2.3 (1.8-2.4) mg/dl Total Bilirubin 2.5 H 2.9 H D (0.2-1) mg/dl Direct Bilirubin 2.0 H D (0-0.2) mg/dl AST 364 H 704 H (15-37) U/L ALT 324 H 474 H (12-78) U/L Alkaline Phosphatase 225 H 287 H (45-117) U/L Total Protein 5.6 L 6.6 (6.4-8.2) gm/dl Albumin 2.6 L 3.2 L (3.4-5.0) gm/dl Globulin 3.0 (2.5-4.0) gm/dl Albumin/Globulin Ratio 0.9 (0.9-2) Lipase 2896 H 6103 H (73-393) U/L Acetaminophen (10-30) ug/ml 11/07/18 Range/Units 11:58 WBC (4.8-10.8) K/uL RBC (4.2-5.4) M/uL Hgb (12.0-16.0) g/dL Hct (37-47) % MCV (80-100) fL MCH (25-34) pg MCHC (32-36) g/dL RDW Std Deviation (36.4-46.3) fL RDW Coeff of Caitlin (11.5-14.5) % Plt Count (130-400) K/uL MPV (7.4-10.4) fL Immature Gran % (Auto) % Neut % (Auto) % Lymph % (Auto) % [place] % (Auto) % Eos % (Auto) % Baso % (Auto) % Immature Gran # (Auto) (0.00-0.02) K/uL Neut # (Auto) (1.4-6.5) K/uL Lymph # (Auto) (1.2-3.4) K/uL [place] # (Auto) (0.11-0.59) K/uL Eos # (Auto) (0-0.5) K/uL Baso # (Auto) (0-0.2) K/uL Sodium (136-145) mmol/L Potassium (3.5-5.1) mmol/L Chloride (98-107) mmol/L Carbon Dioxide (21-32) mmol/L Anion Gap (3-11) BUN (7-18) mg/dl Creatinine (0.6-1.2) mg/dl Est Cr Clr Drug Dosing ml/min Est GFR ( Amer) Est GFR (Non-Af Amer) BUN/Creatinine Ratio (10-20) Glucose (70-99) mg/dl Calcium (8.5-10.1) mg/dl Phosphorus (2.5-4.9) mg/dl Magnesium (1.8-2.4) mg/dl Total Bilirubin (0.2-1) mg/dl Direct Bilirubin (0-0.2) mg/dl AST (15-37) U/L ALT (12-78) U/L Alkaline Phosphatase (45-117) U/L Total Protein (6.4-8.2) gm/dl Albumin (3.4-5.0) gm/dl Globulin (2.5-4.0) gm/dl Albumin/Globulin Ratio (0.9-2) Lipase (73-393) U/L Acetaminophen < 2 L (10-30) ug/ml
--- NOTE | 2018-11-08 15:00 | Hospitalist Progress Note ---
Date of Service November 08, 2018 Assessment & Plan (1) Pancreatitis due to biliary obstruction: History of cholecystectomy and admitted with abdominal pain and nausea Noted to have high amylase and abnormal LFTs Has been n.p.o. and getting intravenous fluid and pain medications Appreciate GI input and recommended S/P ERCP w/ evidence of choledocholithiasis s/p biliary sphincterotomy and balloon extraction, placement of biliary stent Clinically much better Denies any symptoms Started on oral diet and advance as tolerated Likely go home in the morning (2) Lumbar disc herniation with radiculopathy: Back pain remains stable Continue current medications (3) Subarachnoid hemorrhage following injury: Not causing any acute symptoms DVT prophylaxis Subcu Lovenox CODE STATUS Full Subjective 11/07 Patient was seen and examined in medical She is a 73-year-old female with significant past medical history of GERD,hyperlipidemia, history of traumatic subdural hematoma and history of laparoscopic cholecystectomy was admitted with abdominal pain nausea and vomiting. She has noted to have acute cholecystitis likely secondary to choledocholithiasis She has been feeling a little bit better since admission Still complains some abdominal pain but no nausea and vomiting 11/08 Patient is seen and examined in medical floor She is a status post ERCP , stone extraction and stent placement Denies any abdominal pain We will start diet and advance as tolerated Review of Systems Review of Systems: All systems reviewed and are unremarkable except as noted below Constitutional: Denies any symptoms Physical Exam Physical Exam: No apparent distress at rest Constitutional: WD/WN, vitals as above well groomed, cooperative and comfortable Eyes: PERRL, conjunctivae normal, anicteric sclerae ENMT: external ear and nose normal, oropharynx normal Respiratory: normal respiratory effort, lungs clear to auscultation Cardiovascular: RRR, no murmur, no edema Gastrointestinal (Abdomen): Inspection/Auscultation: abdomen normal to inspection and + hypoactive bowel sounds Percussion/Palpation: abdomen soft; abdomen nontender Skin: no rashes, warm and dry no jaundice Neurologic: Motor/Sensory: no asterixis Psychiatric: A+Ox3, euthymic affect Lymphatic: no lymphedema Results & Data Vital Signs (Past 12 Hours) Vital Signs Temp Pulse Resp BP Pulse Ox 11/08/18 07:42 36.9 C 57 L 18 154/76 H 96 11/08/18 04:00 36.9 C 66 16 139/61 93 Laboratory Results Short CBC 11/08/18 Range/Units 06:28 WBC 5.64 (4.8-10.8) K/uL Hgb 9.7 L (12.0-16.0) g/dL Hct 28.8 L (37-47) % Plt Count 144 (130-400) K/uL BMP 11/07/18 11/08/18 17:14 06:28 Sodium 140 140 Potassium 3.7 3.7 Chloride 107 106 Carbon Dioxide 30 28 BUN 10 12 Creatinine 0.80 0.82 Glucose 130 H 128 H Calcium 8.8 8.5 Liver Function 11/07/18 11/08/18 Range/Units 17:14 06:28 Total Bilirubin 2.9 H D 2.5 H (0.2-1) mg/dl Direct Bilirubin 2.0 H D (0-0.2) mg/dl AST 704 H 364 H (15-37) U/L ALT 474 H 324 H (12-78) U/L Alkaline Phosphatase 287 H 225 H (45-117) U/L Albumin 3.2 L 2.6 L (3.4-5.0) gm/dl Medications Administered Current Inpatient Medications Acetaminophen (Tylenol) 325 mg PO Q4H PRN PRN Reason: pain/fever Stop: 12/07/18 08:23 C[facility] ([facility]) [facility] [place]: 12/07/18 08:59 Last Admin: 11/08/18 08:57 Dose: 20 mg Documented by: Enoxaparin Sodium (Lovenox) 30 mg SQ QAM [facility] Stop: 12/07/18 10:14 Last Admin: 11/08/18 08:57 Dose: 30 mg Documented by: Lactated Ringer's (Lr) 1,000 mls @ 100 mls/hr IV .Q10H [facility] Stop: 12/07/18 05:14 Last Admin: 11/08/18 08:57 Dose: 100 mls/hr Documented by: Promethazine HCl 12.5 mg/ (Sodium Chloride) 50.5 mls @ 202 mls/hr IV Q6H PRN PRN Reason: Nausea And Vomiting Stop: 12/07/18 05:13 Ciprofloxacin (Cipro) 400 mg in 200 mls @ 100 mls/hr IV Q12H [facility]AN[facility] Stop: 11/17/18 16:44 Last Infusion: 11/08/18 08:58 Dose: Infused Documented by: Lorazepam (Ativan) 0.5 mg PO DAILY PRN PRN Reason: Anxiety Stop: 12/07/18 16:41 Last Admin: 11/07/18 21:00 Dose: 0.5 mg Documented by: Morphine Sulfate (Morphine Sulfate) 4 mg IV Q4H PRN PRN Reason: Pain Stop: 11/21/18 05:13 Polyethylene Glycol (Miralax Powder Packet) 17 gm PO DAILY PRN PRN Reason: Constipation Stop: 12/07/18 08:23 Rosuvastatin Calcium (Crestor) 5 mg PO QAM [facility] Stop: 12/08/18 08:59 Last Admin: 11/08/18 09:19 Dose: 5 mg Documented by: Senna/Docusate Sodium (Senokot S) 1 tab PO QAM [facility] Stop: 12/07/18 08:23 Last Admin: 11/08/18 10:04 Dose: 1 tab Documented by: Tramadol HCl (Ultram) 25 - 50 mg PO Q4H PRN PRN Reason: Pain Stop: 12/07/18 05:13 Trazodone HCl (Desyrel) 100 mg PO HS [facility] Stop: 12/07/18 20:59 Last Admin: 11/07/18 21:02 Dose: 100 mg Documented by:
[2018-11-08] MEDS: LORazepam 0.5 MG TAB PO PRN (21:13)
[2018-11-08] MEDS: TRAZODONE HCL 100 MG TAB PO SCH (21:13)
[2018-11-09] MEDS: CIPROFLOXACIN 400 MG/200 ML BAG IV SCH (05:33)
[2018-11-09 07:26] LABS: Albumin Level 2.6 gm/dl (3.4-5.0); Bilirubin Direct 0.3 mg/dl (0-0.2); Calcium 8.3 mg/dl (8.5-10.1); Creatinine Clr Calc Pharmacy 57.5 ml/min; Est GFR (African American) 86.8; Est GFR (Non-African American) 74.9; Potassium 3.2 mmol/L (3.5-5.1)
[2018-11-09 07:29] LABS: Bilirubin,Total 0.6 mg/dl (0.2-1); Total Protein 5.7 gm/dl (6.4-8.2)
[2018-11-09] MEDS ORDERED: POTASSIUM CHLORIDE 20 MEQ TABCR PO STA (08:05)
[2018-11-09] MEDS: ROSUVASTATIN CALCIUM 5 MG TAB PO SCH (08:23)
[2018-11-09] MEDS: DOCUSATE SODIUM/SENNA 50/8.6MG TAB PO SCH (08:23)
[2018-11-09] MEDS: CITALOPRAM 20 MG TAB PO SCH (08:23)
[2018-11-09] MEDS: ENOXAPARIN INJ 30 MG/0.3 ML SYR SQ SCH (08:23)
--- NOTE | 2018-11-09 11:33 | Hospitalist Progress Note ---
Date of Service November 09, 2018 Assessment & Plan (1) Pancreatitis due to biliary obstruction: History of cholecystectomy and admitted with abdominal pain and nausea Noted to have high amylase and abnormal LFTs Has been n.p.o. and getting intravenous fluid and pain medications Appreciate GI input and recommended S/P ERCP w/ evidence of choledocholithiasis s/p biliary sphincterotomy and balloon extraction, placement of biliary stent Clinically much better Denies any symptoms Started on oral diet and advance as tolerated Likely go home in the morning Lipase has been normalized and LFTs have improved a lot Tolerating regular diet and ambulating well We will discharge home this afternoon Has had a fall last night Mechanical fall without any significant injury Refused CT scan last Denies any neurological symptoms this morning and no significant injury (2) Lumbar disc herniation with radiculopathy: Back pain remains stable Continue current medications (3) Subarachnoid hemorrhage following injury: Not causing any acute symptoms DVT prophylaxis Subcu Lovenox CODE STATUS Full Subjective 11/07 Patient was seen and examined in medical She is a 73-year-old female with significant past medical history of GERD,hyperlipidemia, history of traumatic subdural hematoma and history of laparoscopic cholecystectomy was admitted with abdominal pain nausea and vomitin g. She has noted to have acute cholecystitis likely secondary to choledocholithiasis She has been feeling a little bit better since admission Still complains some abdominal pain but no nausea and vomiting 11/08 Patient is seen and examined in medical floor She is a status post ERCP , stone extraction and stent placement Denies any abdominal pain We will start diet and advance as tolerated 11/09 The patient was seen and examined in medical floor She has had a fall last night without any significant injury She denies any symptoms this morning She wants to go home Review of Systems Review of Systems: All systems reviewed and are unremarkable except as noted below Gastrointestinal: no abdominal pain, no belching, no bloating, no nausea and no vomiting Neurologic: no unsteadiness Physical Exam Physical Exam: No apparent distress at rest Constitutional: WD/WN, vitals as above well groomed, cooperative and comfortable Eyes: PERRL, conjunctivae normal, anicteric sclerae ENMT: external ear and nose normal, oropharynx normal Respiratory: normal respiratory effort, lungs clear to auscultation Cardiovascular: RRR, no murmur, no edema Gastrointestinal (Abdomen): Inspection/Auscultation: abdomen normal to inspection and + hypoactive bowel sounds Percussion/Palpation: abdomen soft; abdomen nontender Skin: no rashes, warm and dry no jaundice Neurologic: Motor/Sensory: no asterixis Psychiatric: A+Ox3, euthymic affect Lymphatic: no lymphedema Results & Data Vital Signs (Past 12 Hours) Vital Signs Temp Pulse Pulse Resp BP Pulse Ox 11/09/18 07:45 37.2 C 83 20 166/71 H 91 11/09/18 03:13 37.5 C 77 16 125/70 93 Laboratory Results [facility] 11/09/18 06:27 Sodium 143 Potassium 3.2 L Chloride 110 H Carbon Dioxide 31 BUN 6 L D Creatinine 0.78 Glucose 98 Calcium 8.3 L Liver Function 11/09/18 Range/Units 06:27 Total Bilirubin 0.6 D (0.2-1) mg/dl Direct Bilirubin 0.3 H D (0-0.2) mg/dl AST 166 H (15-37) U/L ALT 221 H (12-78) U/L Alkaline Phosphatase 206 H (45-117) U/L Albumin 2.6 L (3.4-5.0) gm/dl Medications Administered Current Inpatient Medications Acetaminophen (Tylenol) 325 mg PO Q4H PRN PRN Reason: pain/fever Stop: 12/07/18 08:23 Citalopram Hydrobromide ([facility]lexa) [facility] Stop: 12/07/18 08:59 Last Admin: 11/09/18 08:23 Dose: 20 mg Documented by: Enoxaparin Sodium (Lovenox) 30 mg SQ QAM [facility] Stop: 12/07/18 10:14 Last Admin: 11/09/18 08:23 Dose: 30 mg Documented by: Promethazine HCl 12.5 mg/ (Sodium Chloride) 50.5 mls @ 202 mls/hr IV Q6H PRN PRN Reason: Nausea And Vomiting Stop: 12/07/18 05:13 Ciprofloxacin (Cipro) 400 mg in 200 mls @ 100 mls/hr IV Q12H [facility] Stop: 11/17/18 16:44 Last Infusion: 11/09/18 08:27 Dose: Infused Documented by: Lorazepam (Ativan) 0.5 mg PO DAILY PRN PRN Reason: Anxiety Stop: 12/07/18 16:41 Last Admin: 11/08/18 21:13 Dose: 0.5 mg Documented by: Morphine Sulfate (Morphine Sulfate) 4 mg IV Q4H PRN PRN Reason: Pain Stop: 11/21/18 05:13 Polyethylene Glycol (Miralax Powder Packet) 17 gm PO DAILY PRN PRN Reason: Constipation Stop: 12/07/18 08:23 Rosuvastatin Calcium (Crestor) 5 mg PO QAM [facility] Stop: 12/08/18 08:59 Last Admin: 11/09/18 08:23 Dose: 5 mg Documented by: Senna/Docusate Sodium (Senokot S) [facility] Stop: 12/07/18 08:23 Last Admin: 11/09/18 08:23 Dose: 1 tab Documented by: Tramadol HCl (Ultram) 25 - 50 mg PO Q4H PRN PRN Reason: Pain Stop: 12/07/18 05:13 Trazodone HCl (Desyrel) 100 mg PO [facility] Stop: 12/07/18 20:59 Last Admin: 11/08/18 21:13 Dose: 100 mg Documented by:
--- NOTE | 2018-11-09 12:11 | Gastroenterology Progress Note ---
Date of Service November 09, 2018 Assessment & Plan (1) Pancreatitis due to biliary obstruction: Pt is a 73 y/o female who presented w upper abd pain, nausea, found to have elevated LFTs, lipase, w CT abd/pelvis signs of increased biliary dilation s/p cholecystectomy concerning for distal obstructing lesion causing pancreatitis. Now S/P ERCP w/ evidence of choledocholithiasis s/p biliary sphincterotomy and balloon extraction, placement of biliary clinically feeling well w/ resolution of her symptoms. - No NSAIDs x 1 week - Use broad spectrum antibiotics for 10 days - Repeat ERCP in 6 weeks to remove stent - Tolerating normal diet - Ensure down trending LFTs - To home when safe to ambulate, etc after review from hospitalist and PT - Subjective Patient fell last night, no abdominal pain today. Still wants to go home Review of Systems Review of Systems: All systems reviewed & are unremarkable except as noted in HPI & below Physical Exam Physical Exam: a and o x 3 goff nad rrr no mgr ctabl nabs/soft/nt/nd Results & Data Vital Signs (Past 12 Hours) Vital Signs Temp Pulse Pulse Pulse Resp BP BP 11/09/18 11:47 37.2 C 60 83 77 20 166/71 H 118/61 11/09/18 07:45 37.2 C 83 20 166/71 H 11/09/18 03:13 37.5 C 77 16 125/70 Pulse Ox 11/09/18 11:47 91 11/09/18 07:45 91 11/09/18 03:13 93
--- NOTE | 2018-11-10 08:17 | Discharge Summary ---
Date of Service November 10, 2018 Admission HPI Per Admitting Provider History obtained from patient, family, and records. Medical history significant for GERD, hyperlipidemia, history traumatic subdural hematoma, chronic anemia baseline hemoglobin of 11 Recent confinement April 2015 for cholecystitis status post laparoscopic cholecystectomy. Last night before dinnertime patient experienced achy upper abdominal pain followed by emesis. No bowel movement for 4 days as per patient no chest pain no shortness of breath no fever no chills. No alcohol intake. Medical History as above Surgical History : D&C, Eyelid surgery, cholecystectomy, oophorectomy, carpal tunnel surgery, hand surgery Family History : Heart disease, kidney cancer Personal/Social history : Non-smoker, occ EtOH intake, lives with Admission Exam Per Admitting Provider Physical Exam: GENERAL: uncomfortable, obese, lying on the right lateral decubitus position, no respiratory distress SKIN: Pallor , warm HEENT: pale palpebral conjunctivae, no ptosis, dry buccal mucosa NECK : Supple, short neck, no tenderness CHEST : Decreased breath sounds , no tenderness HEART : RRR, no obvious murmurs ABDOMEN: distention, epigastric tenderness EXTREMITIES : No LE swelling/tenderness, no other conspicuous deformities noted NEUROLOGIC : Coherent, no facial asymmetry, no other gross focality Principal Diagnosis Pancreatitis secondary to biliary obstruction, choledocholithiasis status post ERCP and stent placement Discharge Exam Constitutional WD/WN, vitals as above well groomed, cooperative and comfortable Eyes PERRL, conjunctivae normal, anicteric sclerae ENMT external ear and nose normal, oropharynx normal Respiratory normal respiratory effort, lungs clear to auscultation Cardiovascular RRR, no murmur, no edema Gastrointestinal (Abdomen) Inspection/Auscultation: abdomen normal to inspection and + hypoactive bowel sounds Percussion/Palpation: abdomen soft; abdomen nontender Skin no rashes, warm and dry no jaundice Neurologic Motor/Sensory: no asterixis Psychiatric A+Ox3, euthymic affect Lymphatic no lymphedema Discharge Data Allergies Allergy/AdvReac Type Severity Reaction Status Date / Time niacin Allergy Unknown VERY RED Verified 11/07/18 15:05 ALL OVER Sulfa (Sulfonamide Allergy Unknown rash Verified 11/07/18 15:05 Antibiotics) latex AdvReac Rash Verified 11/07/18 15:05 Consultations 11/07/18 04:35 ED Decision to Admit Stat 11/07/18 08:24 Consult Gastroenterology Routine Procedures Performed Operation Date: 11/07/18 09:55 Actual Procedures p Endoscopic Retrograde Cholangiopancreatogram - Prieto Espinal Ordered Studies 11/07/18 03:14 CT abd pelvis IV con only Urgent 11/07/18 10:41 FL ERCP biliary ductal Routine Hospital Course (1) Pancreatitis due to biliary obstruction: History of cholecystectomy and admitted with abdominal pain and nausea Noted to have high amylase and abnormal LFTs Has been n.p.o. and getting intravenous fluid and pain medications Appreciate GI input and recommended S/P ERCP w/ evidence of choledocholithiasis s/p biliary sphincterotomy and balloon extraction, placement of biliary stent Clinically much better Denies any symptoms Started on oral diet and advance as tolerated Likely go home in the morning Lipase has been normalized and LFTs have improved a lot Tolerating regular diet and ambulating well We will discharge home this afternoon Has had a fall last night Mechanical fall without any significant injury Refused CT scan last Denies any neurological symptoms this morning and no significant injury (2) Lumbar disc herniation with radiculopathy: Back pain remains stable Continue current medications (3) Subarachnoid hemorrhage following injury: Not causing any acute symptoms DVT prophylaxis Subcu Lovenox CODE STATUS Full Total Time Total Time Spent Total Time Spent (In Minutes): 35 minutes Total Time Includes: Examination of the Patient, Discharge Planning, Medication Reconciliation and Communication With Other Providers Discharge Plan Discharge Items Patient Disposition: Home - Home Health Services Reason For Visit: PANCREATITIS Discharge Diagnosis: Pancreatitis secondary to biliary obstruction, choledocholithiasis status post ERCP and stent placement Condition: Good Discharge Goals: Decrease discomfort, Improve function and Increase independence Activity: Resume your previous activity Non-emergency contact: Primary Care Provider Call non-emergency contact if: you have any medication questions and your symptoms worsen Follow-up/Referrals: Joel Bowman, [Primary Care Provider] - 11/13/18 10:55 am (Dr. Espinal's office will schedule for ERCP in 6 weeks) Diet: Regular Addtl Provider Instructions: Please take precaution to avoid falls Prescriptions: New ciprofloxacin HCl [Cipro] 500 mg tablet 500 mg PO BID Qty: 14 RF: 0 Lactinex 1 million cell tablet,chewable 1 tab PO BID Qty: 30 RF: 0 Continued citalopram [Celexa] 20 mg Tablet 20 mg PO QAM RF: 0 lorazepam 0.5 mg Tablet 0.5 mg PO UD PRN (Reason: Anxiety) RF: 0 trazodone 100 mg Tablet 100 mg PO HS RF: 0 albuterol sulfate 90 mcg/actuation Hfa Aerosol Inhaler 1 - 2 puff INHALATION UD PRN (Reason: ASTHMA) RF: 0 coenzyme Q10 [CoQ-10] 100 mg Capsule 100 mg PO QAM RF: 0 rosuvastatin [Crestor] 5 mg Tablet 5 mg PO QAM RF: 0 tramadol 50 mg Tablet 50 mg PO Q4H PRN (Reason: Pain, Moderate) Qty: 30 RF: 0 Stand-Alone Forms: Call Back Authorization, [facility] Discharge Orders: Discharge Order (Routine); Ordered 11/09/18 Ordered By: Kavon Haas Admission Data Admit Date/Time: 11/07/18 06:46 Attending Provider: Kavon Haas Admit Provider: Barry Velazquez Primary Care Provider: Joel Bowman Other Providers: Barry Velazquez ; Jacqueline Ca ; Joe Graf Pamela K. ; Jules Coronel ; Prieto Espinal ; Ivana hCavez ; Arabella John ; Shayne Hansen ; Yariel Waite ; Ly Lewis ; Flor Ingram ; Ольга Villareal ; Re Samson ; Jaden Davis Service: Medical Other Interventions: Discharge Summary Assessment (RN) Last Done: 11/09/18 11:47 DC Date/Time DO NOT enter until pt leaves facility: 11/09/18 12:55
== END 2018-11-09 12:55 | disposition home health service (06) | DRG 439 ==
LOC: ED 02:57 → 2W 06:46

== ENCOUNTER 2021-08-20 15:48 | Inpatient (IN) ==
[2021-08-20] MEDS ORDERED: SODIUM CHLORIDE 0.9% 1000ML 1,000 ML IV STA (16:11)
--- NOTE | 2021-08-20 16:17 | Emergency Department Note ---
Impression & Plan Diverticulitis, Abdominal pain, Colonic diverticular abscess, Hypokalemia, Anemia ED Provider Note NAME: VJ ROSAS AGE: 76 SEX: F : 1945 ARRIVES VIA: Walk-In INFORMANT: Patient, the patient's family members ED PROVIDER(S): Shayne Boyle DO CHIEF COMPLAINT: Abdominal pain HPI: The patient is a 76-year-old female who presented to the emergency department for an evaluation of abdominal pain. The patient has been noticing abdominal pain over the course the last 3 weeks. She states that she also has been noticing fever nausea vomiting and diarrhea. She states that the symptoms have decreased in frequency. She has not had diarrhea or vomiting in 3 days. She has had weight loss. She is also been noticing that she is having a lot of gas and burping. The patient did see her family doctor last week. She had laboratory studies done as well as a Covid study. She notices no hematemesis. She has no black or bloody bowel movements. She has been taking all her usual ekbk-tph-vuwrlwy medication. She was recently switched from Mobic to Neurontin. She states that she has been taking his medication. She does have a history of chronic pain. She also is a history of chronic pancreatitis. She states that this does not feel exactly the same as her episodes of pancreatitis. ROS: See above HPI for pertinent positives & negatives. A total of 10 systems reviewed and were otherwise negative. PAST MEDICAL HISTORY: See Below PAST SURGICAL HISTORY: See Below FAMILY HISTORY: See Below SOCIAL HISTORY: See Below HOME MEDICATIONS: See Below ALLERGIES: See Below VITALS: See Below PHYSICAL EXAMINATION: GENERAL: Patient is awake alert in no acute distress patient is resting com fortably and showing no signs of anxiety EYES: The conjunctivae are clear. The pupils are round and reactive. EARS, NOSE, MOUTH AND THROAT: The nose is without any evidence of any deformity. Mucous membranes are moist. Tongue is midline. NECK: The neck is nontender and supple. RESPIRATORY: Normal respiratory effort is noted there is no evidence of wheezing rhonchi or rales CARDIOVASCULAR: Regular rate and rhythm noted there no murmurs rubs or gallops normal S1 normal S2. GASTROINTESTINAL: The abdomen is soft and mildly distended. There is right lower quadrant tenderness to palpation. There is no guarding rigidity. BACK: No midline tenderness was noted to palpation. Range of motion appears intact. MUSCULOSKELETAL/EXTREMITIES: There is no evidence of gross deformity full range of motion is noted in the hips and shoulders. SKIN: There is no obvious evidence of any rash. There are no petechiae, pallor or cyanosis noted. NEUROLOGIC: Patient is awake alert and oriented x3. MEDICAL DECISION MAKING: The patient is a 76-year-old female who presented to the emergency department for abdominal pain. The patient was noted to have low-grade fever as well as ongoing abdominal pain over the course of the last few weeks. On physical exam she did have lower abdominal tenderness to palpation. Because of her fever and laboratory studies further radiographic studies were obtained. She had a CT the abdomen and pelvis which revealed signs of diverticular abscess. This did not appear to be amenable to interventional radiology drainage. I discussed the patient's laboratory and radiographic studies with her. She was treated with IV fluids and IV antibiotics. I discussed her case with the on-call [facility] hospitalist group as well as the on-call general surgeon. They have agreed to evaluate the patient for further management and disposition. Triage Nursing notes reviewed. Prior medical records reviewed Vital Signs: reviewed and remarkable for elevated blood pressure. Differential diagnosis: Etiologies such as appendicitis, diverticulitis, obstruction, inflammatory bowel disease, renal colic, PUD, biliary pathology, pancreatitis, mesenteric ischemia, aortic pathology, infections, genitourinary, UTI, perforated viscus, as well as others were entertained. ER treatment provided: See below Diagnostics interpreted by me: ECG: EKG was obtained in the emergency department. My interpretation is normal sinus rhythm at 70 bpm. There was no ectopy. There was no acute ST segment abnormalities noted. This was compared to a tracing from May 152014. No changes were noted. Cardiac Monitoring: An order was placed for continuous cardiac monitoring. The monitor shows a rate of 84 bpm with sinus rhythm. Laboratory studies: As stated above and show below. Imaging studies: See below Consultation(s): I discussed this case with Elisa who is on-call for the [facility] hospitalist group. I discussed this case with Dr. Hernandez who is on-call for the general surgical group. Past Med/Surg History Medical History (Updated 08/20/21 @ 22:54 by Shayne Boyle DO) Anemia Anxiety and depression Asthma STABLE (NO INHALER) Bilateral hip joint arthritis Bilateral primary osteoarthritis of knee Chronic low back pain LLE NEUROPATHY Diverticulitis SEVERAL YEARS AGO History of anemia History of hyperlipidemia History of skin cancer History of subarachnoid hemorrhage S/P TRAUMA/FALLING (2014)= NO RESIDUAL DEFICITS Hx of cardiac murmur Hx of pancreatitis Obesity Osteoarthritis Surgical History History of carpal tunnel release History of cataract surgery RT/LEFT History of cholecystectomy History of colonoscopy History of dilatation and curettage History of discectomy LUMBAR History of ERCP History of oophorectomy History of tonsillectomy History of tooth extraction Trigger finger RELEASE Family History Mother Family history of bladder cancer Father No problems noted. 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 Beliefs That Will Affect Care: None Current Living Situation: Spouse Other Information That Helps Us Care for You: No Feels Safe at Home: Yes Assistive Devices: Walker Allergies Allergies Allergy/AdvReac Type Severity Reaction Status Date / Time latex Allergy Mild rash Verified 08/17/21 14:37 niacin Allergy Mild diffuse Verified 08/17/21 14:37 redness Sulfa (Sulfonamide Allergy Mild rash Verified 08/17/21 14:37 Antibiotics) Home Meds Home Medications Medication Instructions Recorded Confirmed lorazepam 0.5 mg tablet 0.5 - 1 mg PO DAILY PRN 07/03/18 08/20/21 rosuvastatin 5 mg tablet (Crestor) 5 mg PO QAM 07/03/18 08/20/21 pantoprazole 20 mg tablet,delayed 20 mg PO DAILY 08/17/21 08/20/21 release (Protonix) sertraline 25 mg tablet (Zoloft) 25 mg PO DAILY 08/17/21 08/20/21 triamcinolone acetonide 55 55 mcg INTRANASAL UD PRN 08/17/21 08/20/21 mcg/actuation nasal spray,aerosol trazodone 150 mg tablet 150 mg PO HS 08/20/21 08/20/21 Results & Data (ED) Vital Signs Vital Signs - 24 hr 08/20/21 15:51 08/20/21 16:48 Temperature 35.8 C L Temperature Source Temporal Artery Scan Pulse Rate 84 Pulse Rate [Apical] 77 Pulse Rhythm [Apical] Regular Pulse Strength [Apical] Normal Respiratory Rate 20 20 Respiratory Effort / Characteristics Non-Labored Non-Labored Spontaneous Respiratory Depth Normal Normal Respiratory Pattern Regular Regular Blood Pressure 152/67 H Blood Pressure [Right Arm] 139/83 Blood Pressure Mean 95 Blood Pressure Mean [Right Arm] 101 Blood Pressure Position Sitting Blood Pressure Position [Right Arm] Sitting Pulse Oximetry 97 99 Oxygen Delivery Method Room Air Room Air Sepsis Recent Fever Within 48 Hours Yes Sepsis New/Unexplained Change in Mental Status N/A Sepsis Action Taken by Nursing No Action Required Home Medications Current Medication List: was personally reviewed by me Laboratory Data Attestation: I reviewed the patient's lab results. Result diagrams: 08/20/21 16:21 08/20/21 16:21 Lab Results 08/20/21 08/20/21 08/20/21 Range/Units 16:21 16:21 16:21 WBC 12.71 H (4.8-10.8) K/uL RBC 2.98 L (4.2-5.4) M/uL Hgb 9.1 L (12.0-16.0) g/dL Hct 27.7 L (37-47) % MCV 93.0 (80-100) fL MCH 30.5 (25-34) pg MCHC 32.9 (32-36) g/dL RDW Std Deviation 48.6 H (36.4-46.3) fL RDW Coeff of Caitlin 14.3 (11.5-14.5) % Plt Count 439 H (130-400) K/uL MPV 9.7 (7.4-10.4) fL Immature Gran % (Auto) 0.6 % Neut % (Auto) 72.2 % Lymph % (Auto) 10.9 % [place] % (Auto) 15.7 % Eos % (Auto) 0.5 % Baso % (Auto) 0.1 % Neut # (Auto) 9.19 H (1.4-6.5) K/uL Lymph # (Auto) 1.38 (1.2-3.4) K/uL [place] # (Auto) 1.99 H (0.11-0.59) K/uL Eos # (Auto) 0.06 (0-0.5) K/uL Baso # (Auto) 0.01 (0-0.2) K/uL Immature Gran # (Auto) 0.08 H (0.00-0.02) K/uL PT Cancelled INR Cancelled APTT Cancelled PTT Ratio Cancelled Sodium 137 (136-145) mmol/L Potassium 3.0 L (3.5-5.1) mmol/L Chloride 98 (98-107) mmol/L Carbon Dioxide 26 (21-32) mmol/L Anion Gap 13 H (3-11) BUN 13 (6-23) mg/dl Creatinine 0.97 (0.6-1.2) mg/dl Est Cr Clr Drug Dosing 40.9 ml/min Est GFR ( Amer) 65.3 ml/min Est GFR (Non-Af Amer) 56.3 ml/min BUN/Creatinine Ratio 13.4 (10-20) Glucose 106 H (70-99(Fasting)) mg/dl Calcium 9.4 (8.5-10.1) mg/dl Total Bilirubin 0.5 (0.2-1.0) mg/dl AST 21 (13-39) U/L ALT 13 (7-52) U/L Alkaline Phosphatase 99 (34-104) U/L Troponin I < 0.03 (0-0.04) ng/ml Total Protein 7.4 (6.0-8.3) gm/dl Albumin 3.6 (3.4-5.0) gm/dl Globulin 3.8 (2.5-4.0) gm/dl Albumin/Globulin Ratio 0.9 (0.9-2) Lipase 11 (11-82) U/L Urine Color Urine Appearance (Clear) Urine pH (4.5-7.5) Ur Specific [place] (1.000-1.030) Urine Protein (Negative) Urine Glucose (UA) (Negative) Urine Ketones (Negative) Urine Blood (Negative) Urine Nitrite (Negative) Urine Bilirubin (Negative) Urine Urobilinogen (Negative) Ur Leukocyte Esterase (Negative) Urine WBC (Auto) (0-5) /hpf Urine RBC (Auto) (0-4) /hpf U Hyaline Cast (Auto) (0-5) /lpf U Epithel Cells (Auto) (0-5) /lpf Urine Bacteria (Auto) (Negative) SARS-CoV-2, RNA, NAAT (NEGATIVE) 08/20/21 08/20/21 08/20/21 Range/Units 17:03 18:23 18:24 WBC (4.8-10.8) K/uL RBC (4.2-5.4) M/uL Hgb (12.0-16.0) g/dL Hct (37-47) % MCV (80-100) fL MCH (25-34) pg MCHC (32-36) g/dL RDW Std Deviation (36.4-46.3) fL RDW Coeff of Caitlin (11.5-14.5) % Plt Count (130-400) K/uL MPV (7.4-10.4) fL Immature Gran % (Auto) % Neut % (Auto) % Lymph % (Auto) % [place] % (Auto) % Eos % (Auto) % Baso % (Auto) % Neut # (Auto) (1.4-6.5) K/uL Lymph # (Auto) (1.2-3.4) K/uL [place] # (Auto) (0.11-0.59) K/uL Eos # (Auto) (0-0.5) K/uL Baso # (Auto) (0-0.2) K/uL Immature Gran # (Auto) (0.00-0.02) K/uL PT 11.5 INR 1.1 APTT 31.6 H PTT Ratio 1.2 Sodium (136-145) mmol/L Potassium (3.5-5.1) mmol/L Chloride (98-107) mmol/L Carbon Dioxide (21-32) mmol/L Anion Gap (3-11) BUN (6-23) mg/dl Creatinine (0.6-1.2) mg/dl Est Cr Clr Drug Dosing ml/min Est GFR ( Amer) ml/min Est GFR (Non-Af Amer) ml/min BUN/Creatinine Ratio (10-20) Glucose (70-99(Fasting)) mg/dl Calcium (8.5-10.1) mg/dl Total Bilirubin (0.2-1.0) mg/dl AST (13-39) U/L ALT (7-52) U/L Alkaline Phosphatase (34-104) U/L Troponin I (0-0.04) ng/ml Total Protein (6.0-8.3) gm/dl Albumin (3.4-5.0) gm/dl Globulin (2.5-4.0) gm/dl Albumin/Globulin Ratio (0.9-2) Lipase (11-82) U/L Urine Color Yellow Urine Appearance Clear (Clear) Urine pH 6.0 (4.5-7.5) Ur Specific [place] 1.011 (1.000-1.030) Urine Protein Trace H (Negative) Urine Glucose (UA) Negative (Negative) Urine Ketones Negative (Negative) Urine Blood 1+ H (Negative) Urine Nitrite Negative (Negative) Urine Bilirubin Negative (Negative) Urine Urobilinogen Negative (Negative) Ur Leukocyte Esterase Trace H (Negative) Urine WBC (Auto) 1-5 (0-5) /hpf Urine RBC (Auto) 0-4 (0-4) /hpf U Hyaline Cast (Auto) 1-5 (0-5) /lpf U Epithel Cells (Auto) >30 H (0-5) /lpf Urine Bacteria (Auto) Negative (Negative) SARS-CoV-2, RNA, NAAT NEGATIVE (NEGATIVE) Administered Medications Lactated Ringer's (Lr) 1,000 mls @ 80 mls/hr IV .[id number] DIANDRA Stop: 09/19/21 20:20 Last Admin: 08/20/21 20:55 Dose: 80 mls/hr Documented by: [id number] Ondansetron HCl (Ondansetron Inj 2 Mg/Ml 2 Ml Vial) 4 mg IV Q4H PRN PRN Reason: Nausea And Vomiting Stop: 09/19/21 20:20 Last Admin: 08/20/21 21:06 Dose: 4 mg Documented by: [id number] Discontinued Medications Sodium Chloride (Nss 1000ml) 1,000 mls @ 999 mls/hr IV .[id number] STA Stop: 08/20/21 17:11 Last Infusion: 08/20/21 17:34 Dose: 0 mls/hr Documented by: [id number] Admin: 08/20/21 16:34 Dose: 999 mls/hr Documented by: [id number] Piperacillin Sod/Tazobactam Sod (Zosyn) 4.5 gm in 120 mls @ 240 mls/hr IV NOW ONE Stop: 08/20/21 18:30 Last Infusion: 08/20/21 20:24 Dose: 0 mls/hr Documented by: [id number] Admin: 08/20/21 18:20 Dose: 240 mls/hr Documented by: [id number] Potassium Chloride (K Leonid / Wtr) 10 meq in 100 mls @ 100 mls/hr IV Q1H STA; Protocol Stop: 08/20/21 19:25 Last Infusion: 08/20/21 21:54 Dose: 0 mls/hr Documented by: [id number] Admin: 08/20/21 20:56 Dose: 100 mls/hr Documented by: [id number] Ioversol (Optiray 320 100ml) 94 ml IV ONCE ONE Stop: 08/20/21 17:38 Last Admin: 08/20/21 17:38 Dose: 94 ml Documented by: [id number] Potassium Chloride (Potassium Chloride Crtab 20 Meq Tabcr) 40 meq PO NOW STA Stop: 08/20/21 18:27 Last Admin: 08/20/21 19:35 Dose: 40 meq Documented by: [id number] Imaging Data Radiologist's Impression: Abdomen/Pelvis CT 08/20/21 16:[address] WITH IV CONTRAST CT DOSE: 757.75 mGycm HISTORY: Right-sided abdominal pain. TECHNIQUE: Multiaxial CT images of the abdomen and pelvis were performed following the use of intravenous contrast. A dose lowering technique was utilized adhering to the principles of ALARA. COMPARISON STUDY: Abdomen and pelvis CT 11/07/2018. FINDINGS: The lung bases are clear. L3-L4 posterior decompression fusion with pedicle screws and rods. There is a 4 cm diverticulum at the second portion of the duodenum. Prior cholecystectomy. The liver, spleen, adrenal glands, and pancreas are unremarkable. The main portal vein is patent. No retroperitoneal lymphadenopathy. Normal caliber abdominal aorta. No hydronephrosis. Moderate to severe thickening within the proximal to mid sigmoid colon. There are multiple diverticulum and pericolonic fat stranding consistent with acute diverticulitis. There is a pericolonic abscess located between the sigmoid colon, uterine fundus, and bladder dome. This measures 4.1 x 3.9 cm. There is a small component of this abscess extending anteriorly and along the superior border of the proximal sigmoid colon best seen on image 306 which measures 4.1 x 2.0 cm. No evidence for bowel obstruction. Normal appendix. IMPRESSION: 1. Acute sigmoid diverticulitis with an associated pericolonic abscess as described above. The location of this abscess would not be amenable to per cutaneous drainage at this time. 2. The abscess abuts the fundus the uterus and bladder dome. No evidence for a fistula at this time. 3. No bowel obstruction. 4. Cholecystectomy. 5. Normal appendix. 6. Recommend follow-up to resolution of the diverticulitis/abscess to exclude the less likely possibility of underlying colonic lesion. ACT 112: Negative or not required by law. Electronically signed by: Owen Aguilar M.D. 08/20/2021 5:56 PM Chest X-Ray 08/20/21 16:12 XR chest 1V portable HISTORY: fever COMPARISON: Chest 11/07/2018. FINDINGS: The lungs are clear. Cardiac silhouette is normal in size. No pleural effusions. No pneumothorax. IMPRESSION: No acute process. ACT 112: Negative or not required by law. Electronically signed by: Owen Aguilar M.D. 08/20/2021 4:50 PM Discharge Plan Visit Data Chief Complaint: Abdominal Pain Stated Complaint: FEVER, ABDOM PAIN FOR 2 WEEKS ED Provider: Shayne Boyle Discharge Problem: Diverticulitis, Abdominal pain, Colonic diverticular abscess, Hypokalemia, Anemia Patient Disposition: Admitted As Inpatient Discharge Instructions Interventions: ED Discharge Assessment Last Done: 08/20/21 19:52
[2021-08-20 16:39] LABS: Basophils # (auto) 0.01 K/uL (0-0.2); Basophils % (auto) 0.1 %; Eosinophils # (auto) 0.06 K/uL (0-0.5); Eosinophils % (auto) 0.5 %; Hematocrit (blood only) 27.7 % (37-47); Hemoglobin 9.1 g/dL (12.0-16.0); Immature Granulocytes # (auto) 0.08 K/uL (0.00-0.02); Immature Granulocytes % (auto) 0.6 %; Lymphocytes # (auto) 1.38 K/uL (1.2-3.4); Lymphocytes % (auto) 10.9 %; Mean Corpuscular Hemoglobin 30.5 pg (25-34); Mean Corpuscular Hgb Conc 32.9 g/dL (32-36); Mean Platelet Volume 9.7 fL (7.4-10.4); Monocytes # (auto) 1.99 K/uL (0.11-0.59); Monocytes % (auto) 15.7 %; Neutrophils # (auto) 9.19 K/uL (1.4-6.5); Neutrophils % (auto) 72.2 %; Platelet Count 439 K/uL (130-400); RDW Coefficient of Variation 14.3 % (11.5-14.5); RDW Standard Deviation 48.6 fL (36.4-46.3); Red Blood Count 2.98 M/uL (4.2-5.4); White Blood Count 12.71 K/uL (4.8-10.8)
--- NOTE | 2021-08-20 16:51 | XRay Report ---
XR chest 1V portable HISTORY: fever COMPARISON: Chest 11/07/2018. FINDINGS: The lungs are clear. Cardiac silhouette is normal in size. No pleural effusions. No pneumot horax. IMPRESSION: No acute process. ACT 112: Negative or not required by law. Electronically signed by: Owen Aguilar M.D. 08/20/2021 4:50 PM
[2021-08-20 17:05] LABS: Alanine Aminotransferase 13 U/L (7-52); Albumin Globulin Ratio 0.9 (0.9-2); Albumin Level 3.6 gm/dl (3.4-5.0); Alkaline Phosphatase 99 U/L (34-104); Anion Gap 13 (3-11); Aspartate Aminotransferase 21 U/L (13-39); BUN Creatinine Ratio 13.4 (10-20); Bilirubin,Total 0.5 mg/dl (0.2-1.0); Blood Urea Nitrogen 13 mg/dl (6-23); Calcium 9.4 mg/dl (8.5-10.1); Carbon Dioxide 26 mmol/L (21-32); Chloride 98 mmol/L (98-107); Creatinine Clr Calc Pharmacy 40.9 ml/min; Est GFR (African American) 65.3 ml/min; Est GFR (Non-African American) 56.3 ml/min; Globulin 3.8 gm/dl (2.5-4.0); Glucose 106 mg/dl (70-99(Fasting)); Lipase 11 U/L (11-82); Sodium 137 mmol/L (136-145); Total Protein 7.4 gm/dl (6.0-8.3)
[2021-08-20 17:06] LABS: Troponin I < 0.03 ng/ml (0-0.04)
[2021-08-20 17:27] LABS: INR 1.1 (0.9-1.1); Partial Thromboplastin Ratio 1.2; Partial Thromboplastin Time 31.6 Seconds (21.0-31.0); Prothrombin Time 11.5 Seconds (9.0-12.0)
[2021-08-20] MEDS ORDERED: OPTIRAY 320 100ml IV ONE (17:37)
--- NOTE | 2021-08-20 17:58 | CT Scan Report ---
ABDOMEN AND PELVIS CT WITH IV CONTRAST CT DOSE: 757.75 mGycm HISTORY: Right-sided abdominal pain. TECHNIQUE: Multiaxial CT images of the abdomen and pelvis were performed following the use of intrave nous contrast. A dose lowering technique was utilized adhering to the principles of ALARA. COMPARISON STUDY: Abdomen and pelvis CT 11/07/2018. FINDINGS: The lung bases are clear. L3-L4 posterior decompression fusion with pedicle screws and rods . There is a 4 cm diverticulum at the second portion of the duodenum. Prior cholecystectomy. The live r, spleen, adrenal glands, and pancreas are unremarkable. The main portal vein is patent. No retroper itoneal lymphadenopathy. Normal caliber abdominal aorta. No hydronephrosis. Moderate to severe [place] within the proximal to mid sigmoid colon. There are multiple diverticulum and pericolonic fat st randing consistent with acute diverticulitis. There is a pericolonic abscess located between the sigm oid colon, uterine fundus, and bladder dome. This measures 4.1 x 3.9 cm. There is a small component o f this abscess extending anteriorly and along the superior border of the proximal sigmoid colon best seen on image 306 which measures 4.1 x 2.0 cm. No evidence for bowel obstruction. Normal appendix. IMPRESSION: 1. Acute sigmoid diverticulitis with an associated pericolonic abscess as described above. The locati on of this abscess would not be amenable to percutaneous drainage at this time. 2. The abscess abuts the fundus the uterus and bladder dome. No evidence for a fistula at this time. 3. No bowel obstruction. 4. Cholecystectomy. 5. Normal appendix. 6. Recommend follow-up to resolution of the diverticulitis/abscess to exclude the less likely possibi lity of underlying colonic lesion. ACT 112: Negative or not required by law. Electronically signed by: Owen Aguilar M.D. 08/20/2021 5:56 PM
[2021-08-20] MEDS ORDERED: PIPERACILLIN/TAZOBACTAM 4.5 GM/120 ML BAG IV ONE (18:01)
[2021-08-20] MEDS ORDERED: PIPERACILL/TAZOBAC CONSULT ACTIVE PRN ×2 (18:01→20:21)
--- NOTE | 2021-08-20 18:17 | History & Physical Report ---
Date of Service August 20, 2021 Assessment & Plan (1) Intestinal diverticular abscess: Plan: - Admit to tele - CT abd/pelvis reviewed: showing multiple diverticulum and pericolonic fat stranding consistent with acute diverticulitis. There is a pericolonic abscess located between the sigmoid colon, uterine fundus, and bladder dome. This measures 4.1 x 3.9 cm. There is a small component of this abscess extending anteriorly and along the superior border of the proximal sigmoid colon best seen on image 306 which measures 4.1 x 2.0 cm. - General Surgery consulted for possible intervention - location likely not amendable to percutaneous drainage per radiology - Keep NPO - Given 1L NSS in the ER, Cont LR at 80 ml/hr while NPO - Continue zosyn IV for coverage -Pain control with IV MS prn, bowel regimen with stool softener, last bm 2 days ago - Will continue protonix po as per outpatient med list, pt reports not taking this routinely. (2) History of hyperlipidemia: Plan: - Cont statin therapy (3) Chronic low back pain: Plan: - hx of such, chronic, was taking mobic for pain but dc'd this in the past 2 weeks. not currently on anything for pain routinely other than tylenol. (4) Hypokalemia: Plan: - K+ 3.0 on admission, Replace with IV and PO meds now - Trend with am labs (5) HTN (hypertension): Plan: - Stopped taking BP medications at home, was on amlodipine and losartan as outpt previously - BP currently elevated at 169/95 - likely partially due to pain. - Monitor, may require reinitiation of meds - will need to discuss compliance with pt if started on discharge. DVT ppx: - teds, scds, no chemical intervention for possible surgical procedure CODE: Full code Dispo: From home, likely to remain in the hospital x 1-2 days (6) Anemia: Plan: - Hgb of 9.1, has been referred to heme/onc as outpt -Reports intolerance to po supplementation because of constipation History of Present Illness Primary Care Provider: Joel Bowman DO This is a 76-year-old female with PMHx of HLD, endometriosis, anemia, gout, B12 deficiency, osteoporosis, seasonal affective disorder who presents to the ER with acute abdominal pain. She was seen in the outpatient office on 08/16/2021 and at that point was worked up for possible GI work-up was initiated with stool studies, blood work and ruling out of viral etiology including Covid. She comes to the hospital [place] reports abdominal pain is located across the lower abdomen and has worsened, reports fever intermittently with the last being 101.3 this morning. She has been taking tylenol which suppresses her fever. Pt reports fever going on for over the past month. Other complaints today include inability to tolerate food x 2 days, loss of weight 12-14 lbs in the past 4 weeks, vomitting several times in past few days but hematochezia. Last BM was which was normal and denies melano or dark tarry stools. She recently stopped taking mobic because she learned it can worsen anemia. Pt has also stopped many of her other meds including blood pressure pills. She is only taking sertraline, crestor, lorazepam, trazodone and occasional zanaflex. CT Abdomen and pelvis was done today showing multiple diverticulum and pericolonic fat stranding consistent with acute diverticulitis. There is a pericolonic abscess located between the sigmoid colon, uterine fundus, and bladder dome. This measures 4.1 x 3.9 cm. There is a small component of this abscess extending anteriorly and along the superior border of the proximal sigmoid colon best seen on image 306 which measures 4.1 x 2.0 cm. Radiology reads this as a pericolonic abscess however the location would not be amendable to percutaneous drainage at this time. We will get general surgery to consult on it. Patient has been started on IV Zosyn empirically. WBC 12.71, afebrile here but has had intermittent fevers in the outpatient setting. Her potassium is low at 3.0, will replace. Allergies Allergy/AdvReac Type Severity Reaction Status Date / Time latex Allergy Mild rash Verified 08/17/21 14:37 niacin Allergy Mild diffuse Verified 08/17/21 14:37 redness Sulfa (Sulfonamide Allergy Mild rash Verified 08/17/21 14:37 Antibiotics) Home Medications Medication Instructions Recorded Confirmed Type lorazepam 0.5 mg tablet 0.5 - 1 mg PO DAILY PRN 07/03/18 08/20/21 History rosuvastatin 5 mg tablet (Crestor) 5 mg PO QAM 07/03/18 08/20/21 History pantoprazole 20 mg tablet,delayed 20 mg PO DAILY 08/17/21 08/20/21 History release (Protonix) sertraline 25 mg tablet (Zoloft) 25 mg PO DAILY 08/17/21 08/20/21 History triamcinolone acetonide 55 55 mcg INTRANASAL UD PRN 08/17/21 08/20/21 History mcg/actuation nasal spray,aerosol trazodone 150 mg tablet 150 mg PO HS 08/20/21 08/20/21 History Past Med/Surg History Medical History (Updated 08/20/21 @ 18:38 by Alyssia Handley PA-C) Anemia Anxiety and depression Asthma STABLE (NO INHALER) Bilateral hip joint arthritis Bilateral primary osteoarthritis of knee Chronic low back pain LLE NEUROPATHY Diverticulitis SEVERAL YEARS AGO History of anemia History of hyperlipidemia History of skin cancer History of subarachnoid hemorrhage S/P TRAUMA/FALLING (2014)= NO RESIDUAL DEFICITS Hx of cardiac murmur Hx of pancreatitis Obesity Osteoarthritis Surgical History History of carpal tunnel release History of cataract surgery RT/LEFT History of cholecystectomy History of colonoscopy History of dilatation and curettage History of discectomy LUMBAR History of ERCP History of oophorectomy History of tonsillectomy History of tooth extraction Trigger finger RELEASE Family History Mother Family history of bladder cancer Father No problems noted. Brother Family history of diabetes mellitus Mother Family history of diabetes mellitus Social History Smoking Status: Never smoker Second Hand Exposure: No; Hx Alcohol Use: Yes Alcohol type: hard liquor Preferred Language: Chadian Communication Ability: Effective Senior Mobile Developer Required: No Beliefs That Will Affect Care: None Current Living Situation: Spouse Feels Safe at Home: Yes Assistive Devices: Glasses and Walker Review of Systems Review of Systems: Constitutional:+ fever, no sweats or chills Eyes: No diplopia, no worsening or blurred vision ENT: normal hearing, no trouble swallowing Respiratory: No cough, sputum, dyspnea at rest or on exertion Cardiovascular: No chest pain, tightness or palpitations Abdomen: +pain, nausea and vomiting Musculoskeletal: No joint pain, calf pain, swelling Neurologic: No weakness, numbness/tingling, or balance problems Psychiatric: No anxiety or depression Skin: No rash or itch Physical Exam Physical Exam: General: awake, alert, no apparent distress Head: Normocephalic, atraumatic ENT: PERRL, EOMI, no pharyngeal exudate, mucous membranes moist Chest: Clear to auscultation, on room air, no adventitious breath sounds Cardiac: Regular rate and rhythm, + holosystolic systolic ejection murmur, no JVD, normal peripheral pulses, good capillary refill Abdominal: NABS x 4 quadrants, soft, nondistended, +tender to palpation, no rebound or guarding Extremities: Normal inspection, no peripheral edema or erythema, calfs nontender to palpation Psych: Normal mood and affect, slightly anxious Neuro: AAO x 3, strength intact bilaterally and rated 5/5, no motor deficits, speech is clear, no peripheral sensory deficits Results & Data Results & Data ([facility]) Vital Signs (Past 12 Hours) Vital Signs Temp Pulse Pulse Resp BP BP Pulse Ox 08/20/21 16:48 77 20 139/83 99 08/20/21 15:51 35.8 C L 84 20 152/67 H 97 Laboratory Results 08/20/21 08/20/21 08/20/21 17:03 16:21 16:21 WBC RBC Hgb Hct MCV MCH MCHC RDW Std Deviation RDW Coeff of Caitlin Plt Count MPV Immature Gran % (Auto) Neut % (Auto) Lymph % (Auto) [place] % (Auto) Eos % (Auto) Baso % (Auto) Neut # (Auto) Lymph # (Auto) [place] # (Auto) Eos # (Auto) Baso # (Auto) Immature Gran # (Auto) PT 11.5 Cancelled INR 1.1 Cancelled APTT 31.6 H Cancelled PTT Ratio 1.2 Cancelled Sodium 137 Potassium 3.0 L Chloride 98 Carbon Dioxide 26 Anion Gap 13 H BUN 13 Creatinine 0.97 Est Cr Clr Drug Dosing 40.9 Est GFR ( Amer) 65.3 Est GFR (Non-Af Amer) 56.3 BUN/Creatinine Ratio 13.4 Glucose 106 H Calcium 9.4 Total Bilirubin 0.5 AST 21 ALT 13 Alkaline Phosphatase 99 Troponin I < 0.03 Total Protein 7.4 Albumin 3.6 Globulin 3.8 Albumin/Globulin Ratio 0.9 Lipase 11 08/20/21 16:21 WBC 12.71 H RBC 2.98 L Hgb 9.1 L Hct 27.7 L MCV 93.0 MCH 30.5 MCHC 32.9 RDW Std Deviation 48.6 H RDW Coeff of Caitlin 14.3 Plt Count 439 H MPV 9.7 Immature Gran % (Auto) 0.6 Neut % (Auto) 72.2 Lymph % (Auto) 10.9 [place] % (Auto) 15.7 Eos % (Auto) 0.5 Baso % (Auto) 0.1 Neut # (Auto) 9.19 H Lymph # (Auto) 1.38 [place] # (Auto) 1.99 H Eos # (Auto) 0.06 Baso # (Auto) 0.01 Immature Gran # (Auto) 0.08 H PT INR APTT PTT Ratio Sodium Potassium Chloride Carbon Dioxide Anion Gap BUN Creatinine Est Cr Clr Drug Dosing Est GFR ( Amer) Est GFR (Non-Af Amer) BUN/Creatinine Ratio Glucose Calcium Total Bilirubin AST ALT Alkaline Phosphatase Troponin I Total Protein Albumin Globulin Albumin/Globulin Ratio Lipase Diagnostic Findings Abdomen/Pelvis CT 08/20/21 16:[address] WITH IV CONTRAST CT DOSE: 757.75 mGycm HISTORY: Right-sided abdominal pain. TECHNIQUE: Multiaxial CT images of the abdomen and pelvis were performed following the use of intravenous contrast. A dose lowering technique was utilized adhering to the principles of ALARA. COMPARISON STUDY: Abdomen and pelvis CT 11/07/2018. FINDINGS: The lung bases are clear. L3-L4 posterior decompression fusion with pedicle screws and rods. There is a 4 cm diverticulum at the second portion of the duodenum. Prior cholecystectomy. The liver, spleen, adrenal glands, and pancreas are unremarkable. The main portal vein is patent. No retroperitoneal lymphadenopathy. Normal caliber abdominal aorta. No hydronephrosis. Moderate to severe thickening within the proximal to mid sigmoid colon. There are multiple diverticulum and pericolonic fat stranding consistent with acute diverticulitis. There is a pericolonic abscess located between the sigmoid colon, uterine fundus, and bladder dome. This measures 4.1 x 3.9 cm. There is a small component of this abscess extending anteriorly and along the superior border of the proximal sigmoid colon best seen on image 306 which measures 4.1 x 2.0 cm. No evidence for bowel obstruction. Normal appendix. IMPRESSION: 1. Acute sigmoid diverticulitis with an associated pericolonic abscess as described above. The location of this abscess would not be amenable to percutaneous drainage at this time. 2. The abscess abuts the fundus the uterus and bladder dome. No evidence for a fistula at this time. 3. No bowel obstruction. 4. Cholecystectomy. 5. Normal appendix. 6. Recommend follow-up to resolution of the diverticulitis/abscess to exclude the less likely possibility of underlying colonic lesion. ACT 112: Negative or not required by law. Electronically signed by: Owen Aguilar M.D. 08/20/2021 5:56 PM Chest X-Ray 08/20/21 16:12 XR chest 1V portable HISTORY: fever COMPARISON: Chest 11/07/2018. FINDINGS: The lungs are clear. Cardiac silhouette is normal in size. No pleural effusions. No pneumothorax. IMPRESSION: No acute process. ACT 112: Negative or not required by law. Electronically signed by: Owen Aguilar M.D. 08/20/2021 4:50 PM ECG Additional Comments: 20-AUG-2021 16:37:36 [facility]-EDSTAT ROUTINE RETRIEVAL Normal sinus rhythm Normal ECG When compared with ECG of 08-JUL-2018 09:28, T wave inversion no longer evident in Lateral leads 25mm/s10mm/[id number]: [id number] by: REFERRED SELF Unconfirmed Vent. rate 78 BPM OR interval 128 ms QRS duration 80 ms QT/QTc 400/456 ms Code Status & VTE Plan Code Status Full code - discussed with pt, her , and son who were present at bedside Supervising Physician Co-Signing Physician Notes Pt is a 76 y/o F with hx of chronic anemia, chronic lower back pain, HTN, CKD III, GERD, HLD, hx of pancreatitis admitted for acute diverticulitis with pericolonic abscess. PE: NAD, well developed Lungs: CTA, no wheezing or crackles Cards: Normal S1/S2, systolic murmur Abd: ND, soft, TTP of the b/l lower abd, no rebound or guarding MSK: no edema of the LE Psych: AAOx3, normal affect A/P: Acute diverticulitis with pericolonic abscess: -started the pt on zosyn -NPO for possible surgical intervention diya -surgery consult -zofran for nausea -IV pain prn Chronic anemia: -recent Colonscopy and EGD: no acute bleed --- pending hematology appt -hgb at her baseline -will continue to monitor hgb Agree with A/P by Alyssia Handley PA-C
[2021-08-20] MEDS ORDERED: POTASSIUM CHLORIDE / WTR 10 MEQ/100 ML PLCT IV STA (18:26)
[2021-08-20] MEDS ORDERED: POTASSIUM CHLORIDE CRTAB 20 MEQ TABCR PO STA (18:26)
[2021-08-20 18:44] LABS: Appearance Urine Clear (Clear); Bacteria Urine Automated Negative (Negative); Bilirubin Urine Negative (Negative); Blood Urine 1+ (Negative); Color Urine Yellow; Epithelial Cell Urine Auto >30 /lpf (0-5); Glucose Urine UA Negative (Negative); Ketones Urine Negative (Negative); Leukocyte Esterase Urine Trace (Negative); Nitrite Urine Negative (Negative); Protein Urine Trace (Negative); RBC Urine Automated 0-4 /hpf (0-4); Specific Gravity Urine 1.011 (1.000-1.030); Urobilinogen Urine Negative (Negative)
--- NOTE | 2021-08-20 19:39 | Surgery Consultation ---
Date of Consultation August 20, 2021 Assessment & Plan (1) Intestinal diverticular abscess: pt is a 76 year-old female who presents to Er with 3 weeks history lower abdominal pain, IMP: diverticulitis with abscess, plan, internal medicine team will admit pt to hospital, conservative treatment now, npo, IV antibiotic, , IV fluid, correct low K, control pain, repeat labs in morning, will F/U, D/W possible IR drainage abscess if pt is getting worse, pt and her understood, they agree with the plan, i answered all questions, History of Present Illness Reason for Consultation: diverticulitis Requesting Physician: [place] romero History of Present Illness CHIEF COMPLAINT: Abdominal pain HPI: The patient is a 76-year-old female who presented to the emergency department for an evaluation of abdominal pain. The patient has been noticing abdominal pain over the course the last 3 weeks. She states that she also has been noticing fever nausea vomiting and diarrhea. She states that the symptoms have decreased in frequency. She has not had diarrhea or vomiting in 3 days. She has had weight loss. She is also been noticing that she is having a lot of gas and burping. The patient did see her family doctor last week. She had la boratory studies done as well as a Covid study. She notices no hematemesis. She has no black or bloody bowel movements. She has been taking all her usual [id number] medication. She was recently switched from Mobic to Neurontin. She states that she has been taking his medication. She does have a history of chronic pain. She also is a history of chronic pancreatitis. She states that this does not feel exactly the same as her episodes of pancreatitis. I ( Stacy Hernandez MD ) got a call for consult diverticulitis, I reviewed pt's H/P, labs, CT scan with pt, pt feels better, less abdominal pain, Past Med/Surg History Medical History(Updated 08/20/21 @ 18:38 by Alyssia Handley PA-C) Anemia Anxiety and depression Asthma STABLE (NO INHALER)Bilateral hip joint arthritis Bilateral primary osteoarthritis of knee Chronic low back pain LLE NEUROPATHYDiverticulitis SEVERAL YEARS AGOHistory of anemia History of hyperlipidemia History of skin cancer History of subarachnoid hemorrhage S/P TRAUMA/FALLING (2014)= NO RESIDUAL DEFICITSHx of cardiac murmur Hx of pancreatitis Obesity Osteoarthritis Surgical History History of carpal tunnel release History of cataract surgery RT/LEFTHistory of cholecystectomy History of colonoscopy History of dilatation and curettage History of discectomy LUMBARHistory of ERCP History of oophorectomy History of tonsillectomy History of tooth extraction Trigger finger RELEASE Family History Mother Family history of bladder cancerFather No problems noted. Brother Family history of diabetes mellitusMother Family history of diabetes mellitus Social History Smoking Status: Never smoker Second Hand Exposure: No; Hx Alcohol Use: Yes Alcohol type: hard liquor Preferred Language: [place] Communication Ability: Effective Assistant Manager/Embalmer Required: No Beliefs That Will Affect Care: None Current Living Situation: Spouse Feels Safe at Home: Yes Assistive Devices: Glasses and Walker Allergies Allergies Allergy/AdvReac Type Severity Reaction Status Date / Time latex Allergy Mild rash Verified 08/17/21 14:37 niacin Allergy Mild diffuse Verified 08/17/21 14:37 redness Sulfa (Sulfonamide Allergy Mild rash Verified 08/17/21 14:37 Antibiotics) Home Meds Home Medications Medication Instructions Recorded Confirmed lorazepam 0.5 mg tablet 0.5 - 1 mg PO DAILY PRN 07/03/18 08/20/21 rosuvastatin 5 mg tablet (Crestor) 5 mg PO QAM 07/03/1808/20 levocetirizine 5 mg tablet (Xyzal) 5 mg PO DAILY 08/17/2108/20 pantoprazole 20 mg tablet,delayed 20 mg PO DAILY 08/17/21 release (Protonix) sertraline 25 mg tablet (Zoloft) 25 mg PO DAILY 08/17/21 2 triamcinolone acetonide 55 55 mcg INTRANASAL UD PRN 08/17/21 08/20/21 mcg/actuation nasal spray,aerosol gabapentin 300 mg capsule 300 mg PO TID 08/20/21 08/20/21 losartan 100 mg tablet 100 mg PO DAILY 08/20/21 08/20/21 meloxicam 7.5 mg tablet 7.5 mg PO AMHS 08/20/21 08/20/21 trazodone 150 mg tablet 150 mg PO HS 08/20/21 08/20/21 ROS: See above HPI for pertinent positives & negatives. A total of 10 systems reviewed and were otherwise negative. Allergies Allergy/AdvReac Type Severity Reaction Status Date / Time latex Allergy Mild rash Verified 08/17/21 14:37 niacin Allergy Mild diffuse Verified 08/17/21 14:37 redness Sulfa (Sulfonamide Allergy Mild rash Verified 08/17/21 14:37 Antibiotics) Home Medications Medication Instructions Recorded Confirmed Type lorazepam 0.5 mg tablet 0.5 - 1 mg PO DAILY PRN 07/03/18 08/20/21 History rosuvastatin 5 mg tablet (Crestor) 5 mg PO QAM 07/03/18 08/20/21 History pantoprazole 20 mg tablet,delayed 20 mg PO DAILY 08/17/21 08/20/21 History release (Protonix) sertraline 25 mg tablet (Zoloft) 25 mg PO DAILY 08/17/21 08/20/21 History triamcinolone acetonide 55 55 mcg INTRANASAL UD PRN 08/17/21 08/20/21 History mcg/actuation nasal spray,aerosol trazodone 150 mg tablet 150 mg PO HS 08/20/21 08/20/21 History Patient History Medical History (Updated 08/20/21 @ 18:38 by Alyssia Handley PA-C) Anemia Anxiety and depression Asthma STABLE (NO INHALER) Bilateral hip joint arthritis Bilateral primary osteoarthritis of knee Chronic low back pain LLE NEUROPATHY Diverticulitis SEVERAL YEARS AGO History of anemia History of hyperlipidemia History of skin cancer History of subarachnoid hemorrhage S/P TRAUMA/FALLING (2014)= NO RESIDUAL DEFICITS Hx of cardiac murmur Hx of pancreatitis Obesity Osteoarthritis Surgical History History of carpal tunnel release History of cataract surgery RT/LEFT History of cholecystectomy History of colonoscopy History of dilatation and curettage History of discectomy LUMBAR History of ERCP History of oophorectomy History of tonsillectomy History of tooth extraction Trigger finger RELEASE Family History Mother Family history of bladder cancer Father No problems noted. Brother Family history of diabetes mellitus Mother Family history of diabetes mellitus Social History Smoking Status: Never smoker Second Hand Exposure: No; Hx Alcohol Use: Yes Alcohol type: hard liquor Preferred Language: [place] Communication Ability: Effective Assistant Manager/Embalmer Required: No Beliefs That Will Affect Care: None Current Living Situation: Spouse Feels Safe at Home: Yes Assistive Devices: Glasses and Walker Physical Exam Constitutional: WD/WN, vitals as above no distress Eyes: PERRL, conjunctivae normal, anicteric sclerae Neck: trachea midline, no thyromegaly Respiratory: normal respiratory effort, lungs clear to auscultation Cardiovascular: RRR, no murmur, no edema Gastrointestinal (Abdomen): soft , mild tenderness at lower abdomen, no rebound pain, no distend, Bs + Musculoskeletal: no cyanosis or clubbing, extremities motor strength 5/5 Neurologic: patellar DTR's 2+ bilat, sensation intact Psychiatric: A+Ox3, euthymic affect Results & Data ([facility]) Vital Signs (Past 12 Hours) Vital Signs Temp Pulse Pulse Resp BP BP Pulse Ox 08/20/21 19:38 98 H 16 165/75 H 98 08/20/21 18:34 37 C 79 20 169/95 H 99 08/20/21 16:48 77 20 139/83 99 08/20/21 15:51 35.8 C L 84 20 152/67 H 97 Laboratory Results Abnormal lab results 08/20/21 08/20/21 08/20/21 Range/Units 16:21 16:21 17:03 WBC 12.71 H (4.8-10.8) K/uL RBC 2.98 L (4.2-5.4) M/uL Hgb 9.1 L (12.0-16.0) g/dL Hct 27.7 L (37-47) % RDW Std Deviation 48.6 H (36.4-46.3) fL Plt Count 439 H (130-400) K/uL Neut # (Auto) 9.19 H (1.4-6.5) K/uL [place] # (Auto) 1.99 H (0.11-0.59) K/uL Immature Gran # (Auto) 0.08 H (0.00-0.02) K/uL APTT 31.6 H (21.0-31.0) Seconds Potassium 3.0 L (3.5-5.1) mmol/L Anion Gap 13 H (3-11) Glucose 106 H (70-99(Fasting)) mg/dl Urine Protein (Negative) Urine Blood (Negative) Ur Leukocyte Esterase (Negative) U Epithel Cells (Auto) (0-5) /lpf 08/20/21 Range/Units 18:23 WBC (4.8-10.8) K/uL RBC (4.2-5.4) M/uL Hgb (12.0-16.0) g/dL Hct (37-47) % RDW Std Deviation (36.4-46.3) fL Plt Count (130-400) K/uL Neut # (Auto) (1.4-6.5) K/uL [place] # (Auto) (0.11-0.59) K/uL Immature Gran # (Auto) (0.00-0.02) K/uL APTT (21.0-31.0) Seconds Potassium (3.5-5.1) mmol/L Anion Gap (3-11) Glucose (70-99(Fasting)) mg/dl Urine Protein Trace H (Negative) Urine Blood 1+ H (Negative) Ur Leukocyte Esterase Trace H (Negative) U Epithel Cells (Auto) >30 H (0-5) /lpf Diagnostic Findings ABDOMEN AND PELVIS CT WITH IV CONTRAST CT DOSE: 757.75 mGycm HISTORY: Right-sided abdominal pain. TECHNIQUE: Multiaxial CT images of the abdomen and pelvis were performed following the use of intravenous contrast. A dose lowering technique was utilized adhering to the principles of ALARA. COMPARISON STUDY: Abdomen and pelvis CT 11/07/2018. FINDINGS: The lung bases are clear. L3-L4 posterior decompression fusion with pedicle screws and rods. There is a 4 cm diverticulum at the second portion of the duodenum. Prior cholecystectomy. The liver, spleen, adrenal glands, and pancreas are unremarkable. The main portal vein is patent. No retroperitoneal lymphadenopathy. Normal caliber abdominal aorta. No hydronephrosis. Moderate to severe thickening within the proximal to mid sigmoid colon. There are multiple diverticulum and pericolonic fat stranding consistent with acute diverticulitis. There is a pericolonic abscess located between the sigmoid colon, uterine fundus, and bladder dome. This measures 4.1 x 3.9 cm. There is a small component of this abscess extending anteriorly and along the superior border of the proximal sigmoid colon best seen on image 306 which measures 4.1 x 2.0 cm. No evidence for bowel obstruction. Normal appendix. IMPRESSION: 1. Acute sigmoid diverticulitis with an associated pericolonic abscess as described above. The location of this abscess would not be amenable to percutaneous drainage at this time. 2. The abscess abuts the fundus the uterus and bladder dome. No evidence for a fistula at this time. 3. No bowel obstruction. 4. Cholecystectomy. 5. Normal appendix. 6. Recommend follow-up to resolution of the diverticulitis/abscess to exclude the less likely possibility of underlying colonic lesion.
[2021-08-20] MEDS ORDERED: MoRPHine SULFATE 4 MG/ML 1 ML CARP\\VIAL IV PRN (20:21)
[2021-08-20] MEDS ORDERED: ACETAMINOPHEN 325 MG TAB PO PRN (20:21)
[2021-08-20] MEDS ORDERED: INFLUENZA VACCINE HIGH DOSE PF 65+ 0.7 ML SYR IM ONE (20:49)
[2021-08-20] MEDS: LACTATED RINGER'S 1,000 ML IV SCH (20:55)
[2021-08-20] MEDS: ONDANSETRON INJ 2 MG/ML 2 ML VIAL IV PRN (21:06)
[2021-08-20] MEDS: MoRPHine SULFATE 2 MG/ML CARP IV PRN (23:19)
[2021-08-20] MEDS: PIPERACILLIN/TAZOBACTAM 3.375 GM in DEXTROSE 5% 100 ML IV SCH (23:50)
[2021-08-21 06:51] LABS: Hematocrit (blood only) 24.2 % (37-47); Hemoglobin 7.7 g/dL (12.0-16.0); Mean Corpuscular Hemoglobin 29.7 pg (25-34); Mean Corpuscular Hgb Conc 31.8 g/dL (32-36); Mean Corpuscular Volume 93.4 fL (80-100); Mean Platelet Volume 9.4 fL (7.4-10.4); Platelet Count 422 K/uL (130-400); RDW Coefficient of Variation 14.6 % (11.5-14.5); RDW Standard Deviation 50.2 fL (36.4-46.3); Red Blood Count 2.59 M/uL (4.2-5.4); White Blood Count 11.34 K/uL (4.8-10.8)
[2021-08-21 07:42] LABS: Albumin Globulin Ratio 0.9 (0.9-2); Albumin Level 2.9 gm/dl (3.4-5.0); BUN Creatinine Ratio 12.5 (10-20); Bilirubin,Total 0.3 mg/dl (0.2-1.0); Calcium 8.4 mg/dl (8.5-10.1); Creatinine Clr Calc Pharmacy 50.1 ml/min; Est GFR (African American) 82.4 ml/min; Est GFR (Non-African American) 71.1 ml/min; Globulin 3.1 gm/dl (2.5-4.0); Potassium 3.7 mmol/L (3.5-5.1)
[2021-08-21] MEDS: PIPERACILLIN/TAZOBACTAM 3.375 GM in DEXTROSE 5% 100 ML IV SCH ×2 (09:56→15:35)
[2021-08-21] MEDS: LACTATED RINGER'S 1,000 ML IV SCH (09:56)
[2021-08-21] MEDS: bisacodyL 5 MG TABEC PO SCH (09:57)
[2021-08-21] MEDS: MoRPHine SULFATE 2 MG/ML CARP IV PRN (10:01)
--- NOTE | 2021-08-21 12:47 | Electrocardiogram Report ---
Test Reason : Blood Pressure : / mmHG Vent. Rate : 078 BPM Atrial Rate : 078 BPM P-R Int : 128 ms QRS Dur : 080 ms QT Int : 400 ms P-R-T Axes : -15 -09 019 degrees QTc Int : 456 ms Normal sinus rhythm Normal ECG When compared with ECG of 08-JUL-2018 09:28, T wave inversion no longer evident in Lateral leads Confirmed by Shayne Mahan ([id number]) on 08/21/2021 12:46:56 PM Referred By: REFERRED SELF Confirmed By:Shayne Mahan
--- NOTE | 2021-08-21 14:41 | Surgery Progress Note ---
Date of Service August 21, 2021 Assessment & Plan (1) Intestinal diverticular abscess: Plan: pt is a 76 year-old female who presents to Er with 3 weeks history lower abdominal pain, IMP: diverticulitis with abscess, plan, internal medicine team will admit pt to hospital, conservative treatment now, npo, IV antibiotic, , IV fluid, correct low K, control pain, repeat labs in morning, will F/U, D/W possible IR drainage abscess if pt is getting worse, pt and her understood, they agree with the plan, i answered all questions, 08/21/2021 2:39 PM F/U diverticulitis with abscess, pt is doing fine, WBC 11,000, no increase abdominal pain, continue iv antibiotic, OOB repeat labs in morning, I answered pt and her family members questions, will F/U, Admission and Anticipated Discharge Date Admission Date: August 20, 2021 Supervising Physician Co-Signing Physician Notes Pt is a 76 y/o F with hx of chronic anemia, chronic lower back pain, HTN, CKD III, GERD, HLD, hx of pancreatitis admitted for acute diverticulitis with pericolonic abscess. PE: NAD, well developed Lungs: CTA, no wheezing or crackles Cards: Normal S1/S2, systolic murmur Abd: ND, soft, TTP of the b/l lower abd, no rebound or guarding MSK: no edema of the LE Psych: AAOx3, normal affect A/P: Acute diverticulitis with pericolonic abscess: -started the pt on zosyn -NPO for possible surgical intervention diya -surgery consult -zofran for nausea -IV pain prn Chronic anemia: -recent Colonscopy and EGD: no acute bleed --- pending hematology appt -hgb at her baseline -will continue to monitor hgb Agree with A/P by Alyssia Handley PA-C Subjective F/u Diverticulitis with abscess, pt is doing fine, no fever, some lower abdominal pain, no nausea, no vomiting, passed gas, no BM yet, WBC 11,000 Physical Exam Constitutional: WD/WN, vitals as above Eyes: PERRL, conjunctivae normal, anicteric sclerae Neck: trachea midline, no thyromegaly Respiratory: normal respiratory effort, lungs clear to auscultation Cardiovascular: RRR, no murmur, no edema Gastrointestinal (Abdomen): soft, mild tenderness at lower abdomen, no rebound pain, no distend, BS + Musculoskeletal: no cyanosis or clubbing, extremities motor strength 5/5 Neurologic: patellar DTR's 2+ bilat, sensation intact Psychiatric: A+Ox3, euthymic affect Results & Data ([facility]) Vital Signs (Past 12 Hours) Vital Signs Temp Pulse Pulse Resp BP BP Pulse Ox 08/21/21 11:44 37.7 C H 81 16 112/62 94 08/21/21 07:07 37.8 C H 77 18 110/61 95 08/21/21 07:00 75 08/21/21 03:36 38.2 C H 89 16 116/63 95 Laboratory Results Abnormal lab results 08/20/21 08/20/21 08/20/21 Range/Units 16:21 16:21 17:03 WBC 12.71 H (4.8-10.8) K/uL RBC 2.98 L (4.2-5.4) M/uL Hgb 9.1 L (12.0-16.0) g/dL Hct 27.7 L (37-47) % MCHC (32-36) g/dL RDW Std Deviation 48.6 H (36.4-46.3) fL RDW Coeff of Caitlin (11.5-14.5) % Plt Count 439 H (130-400) K/uL Neut # (Auto) 9.19 H (1.4-6.5) K/uL [place] # (Auto) 1.99 H (0.11-0.59) K/uL Immature Gran # (Auto) 0.08 H (0.00-0.02) K/uL APTT 31.6 H (21.0-31.0) Seconds Potassium 3.0 L (3.5-5.1) mmol/L Anion Gap 13 H (3-11) Glucose 106 H (70-99(Fasting)) mg/dl Calcium (8.5-10.1) mg/dl Albumin (3.4-5.0) gm/dl Urine Protein (Negative) Urine Blood (Negative) Ur Leukocyte Esterase (Negative) U Epithel Cells (Auto) (0-5) /lpf 08/20/21 08/21/21 08/21/21 Range/Units 18:23 05:28 05:28 WBC 11.34 H (4.8-10.8) K/uL RBC 2.59 L (4.2-5.4) M/uL Hgb 7.7 L (12.0-16.0) g/dL Hct 24.2 L (37-47) % MCHC 31.8 L (32-36) g/dL RDW Std Deviation 50.2 H (36.4-46.3) fL RDW Coeff of Caitlin 14.6 H (11.5-14.5) % Plt Count 422 H (130-400) K/uL Neut # (Auto) (1.4-6.5) K/uL [place] # (Auto) (0.11-0.59) K/uL Immature Gran # (Auto) (0.00-0.02) K/uL APTT (21.0-31.0) Seconds Potassium (3.5-5.1) mmol/L Anion Gap (3-11) Glucose 114 H (70-99(Fasting)) mg/dl Calcium 8.4 L (8.5-10.1) mg/dl Albumin 2.9 L (3.4-5.0) gm/dl Urine Protein Trace H (Negative) Urine Blood 1+ H (Negative) Ur Leukocyte Esterase Trace H (Negative) U Epithel Cells (Auto) >30 H (0-5) /lpf
[2021-08-21] MEDS ORDERED: LORazepam 0.5 MG TAB PO PRN (15:14)
--- NOTE | 2021-08-21 15:23 | Hospitalist Progress Note ---
Date of Service August 21, 2021 Assessment & Plan (1) Diverticulitis: (2) Colonic diverticular abscess: Plan: (1) acute diverticulitis with pericolonic abscess (1) Sepsis POA - Temp 35.8C, RR = 20, WBC = 12.71K Plan: Patient presented with acute worsening of abdominal pain across the lower abdomen associated with fever and decreased appetite. Admitting CTAP: Multiple diverticulum and pericolonic fat stranding; complicated with pericolonic abscess. General Surgery consulted for possible intervention - location likely not amenable to percutaneous drainage per radiology N.p.o., IV fluids, continue with IV Zosyn 08/20 Surgery evaluated, possible IR drainage of abscess if patient is getting worse. Pain control, bowel regimen with stool softener Monitor and replete electrolytes as appropriate. #. Hemoglobin drop has been referred to heme/onc as outpt reports intolerance to po supplementation because of constipation Admitting hemoglobin of 9.1, follow-up hemoglobin 7. 7 next day Patient denies any blood in stool or black tarry stool Likely secondary to hydration/dilutional Continue to monitor hemoglobin daily FOBT #. Other chronic medical conditions: HLD, chronic low back pain, HTN Continue with statin, patient is stopped taking her BP medications at home was on amlodipine and losartan, BP elevated at presentation likely due to pain. Likely need reinitiation of her medications, blood pressure mostly uncontrolled. #. DVT prophylaxis: Teds, SCDs, no chemical intervention, likely heparin tomorrow if patient remains stable and there is no surgical plan. CODE: Full code Dispo: From home, likely to remain in the hospital x 1-2 days Admission and Anticipated Discharge Date Admission Date: August 20, 2021 Subjective Patient seen and examined at bedside as a follow-up of diverticular abscess. Patient was lying in bed, on room air, NAD, reports ongoing belly pain. Patient remains n.p.o. Overnight patient had fever maximum of 38.2C. Patient reports feeling weak and tired. Patient denies any palpitation or chest pain or cough or other review of symptoms. Patient denies any blood in stool or black tarry stool. Physical Exam Physical Exam: GENERAL: Alert and oriented x3. NAD, on RA. HEENT: No pallor, no icterus. Pupils equal, round and reactive to light. Oral mucosa moist. NECK: No JVD, no neck masses. HEART: S1 and S2 heard. Regular rate and rhythm. + murmur, no gallop. RESPIRATORY SYSTEM: Normal AP diameter. No accessory muscle use. No wheezing, no crackles. ABDOMEN: Soft, bowel sounds decreased, + lower belly, no distention. CENTRAL NERVOUS SYSTEM: No facial droop. Speech is clear. Obeys simple commands. Moves extremities. EXTREMITIES: No edema, no erythema seen. Results & Data Results & Data ([facility]) Vital Signs (Past 12 Hours) Vital Signs Temp Pulse Pulse Resp BP BP Pulse Ox 08/21/21 15:04 77 08/21/21 11:44 37.7 C H 81 16 112/62 94 08/21/21 07:07 37.8 C H 77 18 110/61 95 08/21/21 07:00 75 08/21/21 03:36 38.2 C H 89 16 116/63 95
[2021-08-21] MEDS ORDERED: traZODone HCL 50 MG TAB PO SCH (21:00)
[2021-08-21 22:52] LABS: Hematocrit (blood only) 24.1 % (37-47); Hemoglobin 7.5 g/dL (12.0-16.0)
[2021-08-22] MEDS: PIPERACILLIN/TAZOBACTAM 3.375 GM in DEXTROSE 5% 100 ML IV SCH ×3 (00:02→17:01)
[2021-08-22] MEDS: LACTATED RINGER'S 1,000 ML IV SCH ×2 (01:12→10:28)
[2021-08-22 05:38] LABS: Hematocrit (blood only) 23.5 % (37-47); Hemoglobin 7.6 g/dL (12.0-16.0); Mean Corpuscular Hemoglobin 30.2 pg (25-34); Mean Corpuscular Hgb Conc 32.3 g/dL (32-36); Mean Corpuscular Volume 93.3 fL (80-100); Mean Platelet Volume 8.9 fL (7.4-10.4); Platelet Count 418 K/uL (130-400); RDW Coefficient of Variation 14.7 % (11.5-14.5); RDW Standard Deviation 50.6 fL (36.4-46.3); Red Blood Count 2.52 M/uL (4.2-5.4); White Blood Count 10.63 K/uL (4.8-10.8)
[2021-08-22 06:25] LABS: Albumin Globulin Ratio 0.9 (0.9-2); Albumin Level 2.7 gm/dl (3.4-5.0); BUN Creatinine Ratio 11.1 (10-20); Bilirubin,Total 0.4 mg/dl (0.2-1.0); Calcium 8.6 mg/dl (8.5-10.1); Creatinine Clr Calc Pharmacy 56.3 ml/min; Est GFR (African American) 93.6 ml/min; Est GFR (Non-African American) 80.8 ml/min; Globulin 3.1 gm/dl (2.5-4.0); Potassium 3.2 mmol/L (3.5-5.1); Total Protein 5.8 gm/dl (6.0-8.3)
[2021-08-22] MEDS ORDERED: ACETAMINOPHEN 325 MG TAB PO PRN (07:57)
[2021-08-22] MEDS: bisacodyL 5 MG TABEC PO SCH (07:59)
[2021-08-22] MEDS ORDERED: LORazepam 0.5 MG TAB PO PRN (09:19)
[2021-08-22] MEDS: POTASSIUM CHLORIDE / WTR 10 MEQ/100 ML PLCT IV SCH ×4 (10:28→14:13)
--- NOTE | 2021-08-22 14:19 | Surgery Progress Note ---
Date of Service August 22, 2021 Assessment & Plan (1) Intestinal diverticular abscess: Plan: 76 year-old female who presented to Er with 3 weeks history lower abdominal pain Sigmoid diverticulitis with pericolonic abscess and abscess abutting the uterus and dome of bladder -tmax of 38.5 last night, afebrile this am - leukocytosis resolved - abdominal pain still present and not improving - blood cultures drawn today and pending Plan: Discussed with patient that if pain not improving or worse she may need IR drainage of the intra-abdominal abscesses. She is irritated about transfer. Will discuss with Dr. Hernandez, as in his consultation, he recommended transfer for IR if pain not improving or clinically worsens. Continue IV antibiotics continue NPO for bowel rest continue pain management as needed continue medical management. Admission and Anticipated Discharge Date Admission Date: August 20, 2021 Subjective upon entering room patient looks agitated. States she is frustrated. States she was told she is being transferred to [place]. States she is still having abdominal pain which has not improved. Worse with pressed on. + nausea but no vomiting urinating without difficulty passing gas but no bowel movement has not noticed any gas in urine stream no blood in urine Physical Exam Constitutional: WD/WN, vitals as above no acute distress Neck: normal visual inspection and trachea midline Respiratory: normal respiratory effort; no respiratory distress Gastrointestinal (Abdomen): Inspection/Auscultation: abdomen normal to inspection and + hypoactive bowel sounds; abdomen not distended and + abnormal bowel sounds Percussion/Palpation: + abdomen tender (LUQ and LLQ and suprapubic) and abdomen soft; no guarding, abdomen not rigid and abdomen not firm Skin: no rashes, warm and dry Psychiatric: Orientation: alert and oriented x 3 Eye Contact: good eye contact Affect: + irritable affect and + angry affect Mood: + irritable mood Results & Data ([facility]) Vital Signs (Past 12 Hours) Vital Signs Temp Pulse Pulse Resp BP BP Pulse Ox 08/22/21 10:55 37 C 87 18 139/77 94 08/22/21 08:00 83 08/22/21 07:09 38.5 C H 90 14 151/71 H 93 08/22/21 03:47 38.3 C H 85 16 135/64 94 Laboratory Results 08/22/21 08/22/21 08/21/21 Range/Units 05:21 05:21 22:25 WBC 10.63 (4.8-10.8) K/uL RBC 2.52 L (4.2-5.4) M/uL Hgb 7.6 L 7.5 L (12.0-16.0) g/dL Hct 23.5 L 24.1 L (37-47) % MCV 93.3 (80-100) fL MCH 30.2 (25-34) pg MCHC 32.3 (32-36) g/dL RDW Std Deviation 50.6 H (36.4-46.3) fL RDW Coeff of Caitlin 14.7 H (11.5-14.5) % Plt Count 418 H (130-400) K/uL MPV 8.9 (7.4-10.4) fL Sodium 137 (136-145) mmol/L Potassium 3.2 L (3.5-5.1) mmol/L Chloride 102 (98-107) mmol/L Carbon Dioxide 26 (21-32) mmol/L Anion Gap 9 (3-11) BUN 8 (6-23) mg/dl Creatinine 0.72 (0.6-1.2) mg/dl Est Cr Clr Drug Dosing 56.3 ml/min Est GFR ( Amer) 93.6 ml/min Est GFR (Non-Af Amer) 80.8 ml/min BUN/Creatinine Ratio 11.1 (10-20) Glucose 94 (70-99(Fasting)) mg/dl Calcium 8.6 (8.5-10.1) mg/dl Total Bilirubin 0.4 (0.2-1.0) mg/dl AST 24 (13-39) U/L ALT 13 (7-52) U/L Alkaline Phosphatase 71 (34-104) U/L Total Protein 5.8 L (6.0-8.3) gm/dl Albumin 2.7 L (3.4-5.0) gm/dl Globulin 3.1 (2.5-4.0) gm/dl Albumin/Globulin Ratio 0.9 (0.9-2)
[2021-08-22] MEDS: ONDANSETRON INJ 2 MG/ML 2 ML VIAL IV PRN (15:21)
--- NOTE | 2021-08-22 18:25 | Hospitalist Progress Note ---
Date of Service August 22, 2021 Assessment & Plan (1) Diverticulitis: (2) Colonic diverticular abscess: Plan: (1) acute diverticulitis with pericolonic abscess (1) Sepsis POA - Temp 35.8C, RR = 20, WBC = 12.71K at presentation Plan: Patient presented with acute worsening of abdominal pain across the lower abdomen associated with fever and decreased appetite. Admitting CTAP: Multiple diverticulum and pericolonic fat stranding; complicated with pericolonic abscess. General Surgery consulted for possible intervention - location likely not amenable to percutaneous drainage per radiology N.p.o., IV fluids, continue with IV Zosyn 08/20 Surgery evaluated, recommends transfer for IR drainage. Transfer process initiated, patient accepted at [facility] [place], awaiting bed availability. Pain control, bowel regimen with stool softener Monitor and replete electrolytes as appropriate. #. Hemoglobin drop has been referred to heme/onc as outpt reports intolerance to po supplementation because of constipation Admitting hemoglobin of 9.1, follow-up hemoglobin 7. 7 next day Patient denies any blood in stool or black tarry stool. 08/22 FOBT negative. Likely secondary to hydration/dilutional Continue to monitor hemoglobin daily #. Other chronic medical conditions: HLD, chronic low back pain, HTN Continue with statin, patient is stopped taking her BP medications at home was on amlodipine and losartan, BP elevated at presentation likely due to pain. Likely need reinitiation of her medications, blood pressure mostly uncontrolled. #. DVT prophylaxis: Teds, SCDs, no chemical intervention, likely heparin tomorrow if patient remains stable and there is no surgical plan. CODE: Full code Dispo: Transfer process to [facility] initiated, patient accepted, awaiting bed availability. Paperwork done. Text document was generated using voice recognition software. It may contain grammatical or spelling errors. Kindly contact undersigned for clarification of any documentation item in question. Admission and Anticipated Discharge Date Admission Date: August 20, 2021 Subjective Patient seen and examined at bedside as a follow-up of diverticular abscess. Patient was lying in bed, on room air, NAD, reports ongoing belly pain, no improvement, pt febrile overnight and in AM. Patient remains n.p.o. Patient reports feeling weak and tired. Patient denies any palpitation or chest pain or cough or other review of symptoms. Patient denies any blood in stool or black tarry stool. Physical Exam Physical Exam: GENERAL: Alert and oriented x3. NAD, on RA. HEENT: No pallor, no icterus. Pupils equal, round and reactive to light. Oral mucosa moist. NECK: No JVD, no neck masses. HEART: S1 and S2 heard. Regular rate and rhythm. + murmur, no gallop. RESPIRATORY SYSTEM: Normal AP diameter. No accessory muscle use. No wheezing, no crackles. ABDOMEN: Soft, bowel sounds decreased, + lower belly tenderness, no distention. CENTRAL NERVOUS SYSTEM: No facial droop. Speech is clear. Obeys simple commands. Moves extremities. EXTREMITIES: No edema, no erythema seen. Results & Data Results & Data ([facility]) Vital Signs (Past 12 Hours) Vital Signs Temp Pulse Pulse Resp BP BP Pulse Ox 08/22/21 15:23 36.8 C 91 H 15 161/78 H 95 08/22/21 10:55 37 C 87 18 139/77 94 08/22/21 08:00 83 08/22/21 07:09 38.5 C H 90 14 151/71 H 93
--- NOTE | 2021-08-23 07:26 | Discharge Summary ---
Date of Service August 23, 2021 Admission HPI Per Admitting Provider This is a 76-year-old female with PMHx of HLD, endometriosis, anemia, gout, B12 deficiency, osteoporosis, seasonal affective disorder who presents to the ER with acute abdominal pain. She was seen in the outpatient office on 08/16/2021 and at that point was worked up for possible GI work-up was initiated with stool studies, blood work and ruling out of viral etiology including Covid. She comes to the hospital becuase reports abdominal pain is located across the lower abdomen and has worsened, reports fever intermittently with the last being 101.3 this morning. She has been taking tylenol which suppresses her fever. Pt reports fever going on for over the past month. Other complaints today include inability to tolerate food x 2 days, loss of weight 12-14 lbs in the past 4 weeks, vomitting several times in past few days but hematochezia. Last BM was which was normal and denies melano or dark tarry stools. She recently stopped taking mobic because she learned it can worsen anemia. Pt has also stop ped many of her other meds including blood pressure pills. She is only taking sertraline, crestor, lorazepam, trazodone and occasional zanaflex. CT Abdomen and pelvis was done today showing multiple diverticulum and pericolonic fat stranding consistent with acute diverticulitis. There is a pericolonic abscess located between the sigmoid colon, uterine fundus, and bladder dome. This measures 4.1 x 3.9 cm. There is a small component of this abscess extending anteriorly and along the superior border of the proximal sigmoid colon best seen on image 306 which measures 4.1 x 2.0 cm. Radiology re ads this as a pericolonic abscess however the location would not be amendable to percutaneous drainage at this time. We will get general surgery to consult on it. Patient has been started on IV Zosyn empirically. WBC 12.71, afebrile here but has had intermittent fevers in the outpatient setting. Her potassium is low at 3.0, will replace. Admission Exam Per Admitting Provider General: awake, alert, no apparent distress Head: Normocephalic, atraumatic ENT: PERRL, EOMI, no pharyngeal exudate, mucous membranes moist Chest: Clear to auscultation, on room air, no adventitious breath sounds Cardiac: Regular rate and rhythm, + holosystolic systolic ejection murmur, no JVD, normal peripheral pulses, good capillary refill Abdominal: NABS x 4 quadrants, soft, nondistended, +tender to palpation, no rebound or guarding Extremities: Normal inspection, no peripheral edema or erythema, calfs nontender to palpation Psych: Normal mood and affect, slightly anxious Neuro: AAO x 3, strength intact bilaterally and rated 5/5, no motor deficits, speech is clear, no peripheral sensory deficits Principal Diagnosis Acute diverticulitis with pericolonic abscess Discharge Exam Pt was discharged overnight, for latest exam,refer to 08/22 progress note. Discharge Data Allergies Allergy/AdvReac Type Severity Reaction Status Date / Time latex Allergy Mild rash Verified 08/17/21 14:37 niacin Allergy Mild diffuse Verified 08/17/21 14:37 redness Sulfa (Sulfonamide Allergy Mild rash Verified 08/17/21 14:37 Antibiotics) Consultations 08/20/21 18:10 ED Decision to Admit Stat 08/20/21 19:06 Consult General Surgery Stat 08/20/21 20:21 Consult General Surgery Routine 08/22/21 17:37 Burn CD for patient Stat Ordered Studies 08/20/21 16:11 CT abd pelvis IV con only Stat Hospital Course (1) Diverticulitis: (2) Colonic diverticular abscess: 76 yo F was managed for the following while in hospital: (1) acute diverticulitis with pericolonic abscess (1) Sepsis POA - Temp 35.8C, RR = 20, WBC = 12.71K at presentation Plan: Patient presented with acute worsening of abdominal pain across the lower abdomen associated with fever and decreased appetite. Admitting CTAP: Multiple diverticulum and pericolonic fat stranding; complicated with pericolonic abscess. General Surgery consulted for possible intervention - location likely not amenable to percutaneous drainage per radiology N.p.o., IV fluids, continue with IV Zosyn 08/20 Surgery evaluated, recommends transfer for IR drainage. Transfer process initiated, patient accepted at [facility], awaiting bed availability. Pain control, bowel regimen with stool softener Monitor and replete electrolytes as appropriate. #. Hemoglobin drop has been referred to heme/onc as outpt reports intolerance to po supplementation because of constipation Admitting hemoglobin of 9.1, follow-up hemoglobin 7. 7 next day Patient denies any blood in stool or black tarry stool. 08/22 FOBT negative. Likely secondary to hydration/dilutional Continue to monitor hemoglobin daily #. Other chronic medical conditions: HLD, chronic low back pain, HTN Continue with statin, patient is stopped taking her BP medications at home was on amlodipine and losartan, BP elevated at presentation likely due to pain. Likely need reinitiation of her medications, blood pressure mostly uncontrolled. #. DVT prophylaxis: Teds, SCDs, no chemical intervention, likely heparin tomorrow if patient remains stable and there is no surgical plan. CODE: Full code Pt transferred to [facility]. Current medications list is on instruction section of discharge plan. Text document was generated using voice recognition software. It may contain grammatical or spelling errors. Kindly contact undersigned for clarification of any documentation item in question. Total Time Total Time Spent Total Time Spent (In Minutes): 31 Discharge Plan Discharge Items Patient Disposition: Transfer Acute Care Hospital Reason For Visit: DIVERTIVULAR ABSCESS, HYPOKALEMIA Discharge Diagnosis: Acute diverticulitis with pericolonic abscess Activity: As commented below Activity Comment: Per tertiary care centers recommendations. Non-emergency contact: Primary Care Provider Call non-emergency contact if: you have any medication questions, your symptoms worsen, your pain is not controlled and your temperature is above 101 Follow-up/Referrals: Joel Bowman DO [Primary Care Provider] - Diet: Other - See Diet Comment Diet Comment: NPO. Lizetttl Attending Provider Instructions: Patient is being managed for acute diverticulitis with pericolonic abscess. These are her current inpatient medications. Current Inpatient Medications Acetaminophen (Acetaminophen 325 Mg Tab) 650 mg PO Q4H PRN PRN Reason: Moderate Pain or fever Stop: 09/19/21 20:20 Bisacodyl (Bisacodyl 5 Mg Tabec) 5 mg PO DAILY DIANDRA Stop: 09/20/21 08:59 Last Admin: 08/22/21 07:59 Dose: 5 mg Documented by: Lactated Ringer's (Lr) 1,000 mls @ 80 mls/hr IV .[id number] DIANDRA Stop: 09/19/21 20:20 Last Admin: 08/22/21 10:28 Dose: 80 mls/hr Documented by: Piperacillin Sod/Tazobactam (Sod 3.375 gm/ Dextrose) 115 mls @ 28.75 mls/hr IV Q8H DIANDRA; Protocol Stop: 08/31/21 00:00 Last Admin: 08/22/21 17:01 Dose: 28.8 mls/hr Documented by: Lorazepam (Lorazepam 0.5 Mg Tab) 0.5 mg PO DAILY PRN PRN Reason: Anxiety Stop: 09/21/21 09:18 Miscellaneous Information (Piperacill/Tazobac Consult Active) 1 ea N/A UD PRN PRN Reason: Consult Stop: 09/19/21 20:20 Morphine Sulfate (Morphine Sulfate 2 Mg/Ml Carp) 2 mg IV Q2H PRN PRN Reason: Pain Stop: 09/03/21 20:20 Last Admin: 08/21/21 10:01 Dose: 2 mg Documented by: Morphine Sulfate (Morphine Sulfate 4 Mg/Ml 1 Ml Carp\Vial) 4 mg IV Q2H PRN PRN Reason: Pain Stop: 09/03/21 20:20 Ondansetron HCl (Ondansetron Inj 2 Mg/Ml 2 Ml Vial) 4 mg IV Q4H PRN PRN Reason: Nausea And Vomiting Stop: 09/19/21 20:20 Last Admin: 08/22/21 15:21 Dose: 4 mg Documented by: Trazodone HCl (Trazodone Hcl 50 Mg Tab) 150 mg PO HS [facility] Stop: 09/20/21 20:59 Last Admin: 08/21/21 20:20 Dose: 150 mg Documented by: Pending Studies at Discharge: Yes (Admitting cultures.) Stand-Alone Forms: My [facility] Skilled Items Patient informed of condition?: Yes DNR: No Discharge Level of Care: Other Communicable Disease: No Discharge Prognosis: Deteriorating Lines: Peripheral IV Urinary Catheter: No Medications and DC Order Prescriptions: Continued pantoprazole [Protonix] 20 mg Tablet,Delayed Release (Dr/Ec) 20 mg PO DAILY RF: 0 sertraline [Zoloft] 25 mg Tablet 25 mg PO DAILY RF: 0 Nasacort 55 mcg/actuation Aerosol 55 mcg INTRANASAL UD PRN (Reason: Congestion) RF: 0 lorazepam 0.5 mg Tablet 0.5 - 1 mg PO DAILY PRN (Reason: Anxiety) RF: 0 rosuvastatin [Crestor] 5 mg Tablet 5 mg PO QAM RF: 0 trazodone 150 mg tablet 150 mg PO HS RF: 0 Discharge Orders: Discharge Order (Routine); Ordered 08/23/21 Ordered By: Earnestine Douglas Admission Data Admit Date/Time: 08/20/21 18:26 Attending Provider: Earnestine Douglas Admit Provider: Vic Martinez Primary Care Provider: Joel Bowman Other Providers: Vic Martinez ; Stacy Hernandez Other Interventions: Discharge Summary Assessment (RN) Last Done: 08/22/21 20:06
== END 2021-08-22 20:10 | disposition short-term general hospital (02) | DRG 872 ==
LOC: ED 15:48 → SUATTDRO 18:26 → 2S 18:26

== ENCOUNTER 2021-10-06 14:47 | Inpatient (IN) ==
[2021-10-06 15:36] LABS: Basophils # (auto) 0.01 K/uL (0-0.2); Basophils % (auto) 0.1 %; Hematocrit (blood only) 25.9 % (37-47); Hemoglobin 7.9 g/dL (12.0-16.0); Immature Granulocytes # (auto) 0.29 K/uL (0.00-0.02); Lymphocytes # (auto) 1.05 K/uL (1.2-3.4); Lymphocytes % (auto) 7.2 %; Mean Corpuscular Hemoglobin 28.5 pg (25-34); Mean Corpuscular Hgb Conc 30.5 g/dL (32-36); Mean Corpuscular Volume 93.5 fL (80-100); Mean Platelet Volume 9.1 fL (7.4-10.4); Monocytes # (auto) 1.85 K/uL (0.11-0.59); Monocytes % (auto) 12.7 %; Neutrophils # (auto) 11.39 K/uL (1.4-6.5); Platelet Count 461 K/uL (130-400); RDW Coefficient of Variation 18.2 % (11.5-14.5); RDW Standard Deviation 63.7 fL (36.4-46.3); Red Blood Count 2.77 M/uL (4.2-5.4); White Blood Count 14.59 K/uL (4.8-10.8)
[2021-10-06 16:02] LABS: Albumin Globulin Ratio 0.7 (0.9-2); Albumin Level 3.1 gm/dl (3.4-5.0); BUN Creatinine Ratio 9.5 (10-20); Bilirubin,Total 0.4 mg/dl (0.2-1.0); Est GFR (African American) 18.7 ml/min; Est GFR (Non-African American) 16.1 ml/min; Globulin 4.2 gm/dl (2.5-4.0); Potassium 3.1 mmol/L (3.5-5.1); Total Protein 7.3 gm/dl (6.0-8.3)
[2021-10-06 16:19] LABS: Hypochromasia Present; Polychromasia 1+
[2021-10-06] MEDS ORDERED: SODIUM CHLORIDE 0.9% 1000ML 1,000 ML IV ONE (16:49)
--- NOTE | 2021-10-06 17:00 | Emergency Department Note ---
Impression & Plan Pickett-vesical fistula ADMIT ED Provider Note HPI: Patient is a 76-year-old female with history of hypertension, diverticular abscess status post recent outpatient antibiotic therapy via PICC line at home that was discontinued on September 22, presents the emergency department with concern for generalized weakness, diminished appetite, and concern for dehydration. Patient had her PICC line removed today although she has not been on antibiotics now for several weeks, patient's at the bedside states that the nurse that has been seeing her was concerned that she was dehydrated and generally weak, recommended return to the emergency department for further evaluation. On arrival here to the ED the patient is hemodynamically stable, she is in no acute distress on my initial evaluation, she does have some lower abdominal tenderness to palpation without guarding or rigidity. She has not had any nausea or vomiting but she is not been eating or drinking very much according to her at the bedside. ROS: -General: Generalized weakness -GI: Diminished p.o. intake *10 point review systems was conducted and is otherwise negative unless stated above *Outpatient medications and allergy history reviewed PE: General: Alert, NAD HEENT: Normocephalic, atraumatic Eyes: Extraocular eye movement is intact, no scleral erythema Pulmonary: Clear to auscultation bilaterally, no wheezing Cardio: Regular rate and rhythm GI: Abdomen is soft, moderate tenderness in the lower abdomen to palpation without guarding or rigidity : No suprapubic tenderness MSK: No evidence of trauma or malformation of the extremities, no edema Skin: No evidence of rash Neuro: Alert, no focal deficits Psychiatric: Cooperative clinical research monitor: - An order was placed for continuous cardiac monitoring - Patient was noted to be in sinus rhythm with rate of 85 EKG: Rate: 96 Rhythm: Normal sinus rhythm Intervals: Within normal limits ST changes: No ST elevation Time: 1510 Medical Decision Making: Patient presented to the emergency department with a chief complaint of generalized weakness, diminished p.o. intake, she has had some lower abdominal tenderness, denies any nausea or vomiting. She is hemodynamically stable on arrival but does have a history of recent diverticular abscess that did not require any surgery or interventional radiology procedures according to the patient's at the bedside. She was on long-term IV antibiotics which of recently been discontinued. Patient remained hemodynamically stable here in the ED, shortly after arrival IV was established, lab work obtained, patient was placed on a threat monitoring analyst, lab work shows evidence of acute kidney injury with a creatinine of 2.73 with a normal baseline, hypokalemia 3.1, patient does have a leukocytosis of approximately 15,000, blood cultures were drawn in the ED and the patient was started on IV Zosyn. Patient is anemic with a hemoglobin of 7.9, this has been a known issue for the patient and her at the bedside tells me that this was thought by the providers at [facility] in [place] to be secondary to her long-term antibiotic therapy causing some bone marrow suppression, her previous hemoglobin was 7.5 so this is a slight uptrend, she denies any recent symptoms of acute blood loss, she is remained hemodynamically stable here in the ED on telemetry therefore will defer any possible transfusion to the inpatient team. CT imaging of the abdomen and pelvis was performed without IV contrast secondary to the patient's acute renal failure, this shows evidence of what appears to be a possible colovesicular fistula with a significant amount of air in the bladder, patient has not had any recent instrumentation or catheter placement so this likely does represent a colovesicular fistula. Patient was given IV Zosyn, urinalysis is pending via straight catheter at the time of admission, I did consult general surgery, Beny Fernandez PA-C did staffed the case with the on-call attending surgeon and reviewed images with Dr. Anderson of general surgery, plan at this time will be to admit the patient for bowel rest, surgery consultation, urology consultation, and to develop a comprehensive plan of care in regards to the surgical services while treating with IV antibiotics and rehydrating the patient on the medicine service. I discussed all the above findings with the on-call hospitalist for [facility], Dr. Campos, and the patient was admitted in stable condition for further care. Diagnosis: 1. Colovesicular fistula 2. Acute kidney injury 3. Hypokalemia 4. Leukocytosis 5. Anemia Disposition: ADMIT Advised outpatient follow up: - Return to the ED with any new or worsening symptoms - PCP in 2-3 Days Micah Figueroa DO Emergency Medicine Past Med/Surg History Medical History Anemia Anxiety and depression Asthma STABLE (NO INHALER) Bilateral hip joint arthritis Bilateral primary osteoarthritis of knee Chronic low back pain LLE NEUROPATHY Diverticulitis SEVERAL YEARS AGO History of anemia History of hyperlipidemia History of skin cancer History of subarachnoid hemorrhage S/P TRAUMA/FALLING (2014)= NO RESIDUAL DEFICITS Hx of cardiac murmur Hx of pancreatitis Obesity Osteoarthritis Surgical History History of carpal tunnel release History of cataract surgery RT/LEFT History of cholecystectomy History of colonoscopy History of dilatation and curettage History of discectomy LUMBAR History of ERCP History of oophorectomy History of tonsillectomy History of tooth extraction Trigger finger RELEASE Family History Mother Family history of bladder cancer Father No problems noted. Brother Family history of diabetes mellitus Mother Family history of diabetes mellitus Social History Smoking Status: Never smoker Second Hand Exposure: No; Hx Alcohol Use: Yes Alcohol type: hard liquor Hx Substance Use: No Preferred Language: Maori Communication Ability: Effective Bi Report Developer Required: No Beliefs That Will Affect Care: None Current Living Situation: Spouse Feels Safe at Home: Yes Assistive Devices: None Allergies Allergies Allergy/AdvReac Type Severity Reaction Status Date / Time latex Allergy Mild rash Verified 10/06/21 19:20 niacin Allergy Mild diffuse Verified 10/06/21 19:20 redness Sulfa (Sulfonamide Allergy Mild rash Verified 10/06/21 19:20 Antibiotics) Home Meds Home Medications Medication Instructions Recorded Confirmed lorazepam 0.5 mg tablet 0.5 - 1 mg PO DAILY PRN 07/03/18 10/06/21 rosuvastatin 5 mg tablet (Crestor) 5 mg PO QAM 07/03/18 10/06/21 pantoprazole 20 mg tablet,delayed 20 mg PO DAILY 08/17/21 10/06/21 release (Protonix) sertraline 25 mg tablet (Zoloft) 25 mg PO DAILY 08/17/21 10/06/21 trazodone 150 mg tablet 150 mg PO HS 08/20/21 10/06/21 ertapenem 1 gram solution for 1 g IV DAILY 09/06/21 10/06/21 injection losartan 100 mg tablet 100 mg PO DAILY 09/06/21 10/06/21 triamcinolone acetonide 55 mcg 2 spray INTRANASAL DAILY 09/06/21 10/06/21 nasal spray aerosol (Nasacort) Previous Rx's Medication Instructions Recorded ondansetron HCl 4 mg tablet 4 mg PO Q8H PRN #20 tab 09/10/21 Results & Data (ED) Vital Signs Vital Signs - 24 hr 10/06/21 14:51 10/06/21 17:00 10/06/21 17:18 Temperature 36.6 C Temperature Source Temporal Artery Scan Pulse Rate 98 H 87 Pulse Rate [Apical] 86 Pulse Rate from SpO2 Sensor 87 Pulse Rhythm Regular Pulse Rhythm [Apical] Pulse Strength Normal Pulse Strength [Apical] Respiratory Rate 20 24 23 Respiratory Effort / Characteristics Non-Labored Spontaneous Non-Labored Respiratory Depth Normal Normal Respiratory Pattern Regular Regular Blood Pressure 120/74 Blood Pressure [Right Arm] 127/73 Blood Pressure Mean 89 Blood Pressure Mean [Right Arm] 91 Blood Pressure Position Sitting Blood Pressure Position [Right Arm] Semi-fowlers Pulse Oximetry 97 97 98 Oxygen Delivery Method Room Air Room Air Sepsis Recent Fever Within 48 Hours Yes Sepsis New/Unexplained Change in Mental Status N/A Sepsis Action Taken by Nursing No Action Required 10/06/21 17:30 10/06/21 19:00 Temperature 37 C Temperature Source Oral Pulse Rate 83 Pulse Rate [Apical] 82 Pulse Rate from SpO2 Sensor 83 Pulse Rhythm Pulse Rhythm [Apical] Regular Pulse Strength Pulse Strength [Apical] Normal Respiratory Rate 22 18 Respiratory Effort / Characteristics Non-Labored Spontaneous Respiratory Depth Normal Respiratory Pattern Regular Blood Pressure 132/68 Blood Pressure [Right Arm] 124/69 Blood Pressure Mean 89 Blood Pressure Mean [Right Arm] 87 Blood Pressure Position Blood Pressure Position [Right Arm] Lying Pulse Oximetry 95 96 Oxygen Delivery Method Room Air Sepsis Recent Fever Within 48 Hours Sepsis New/Unexplained Change in Mental Status Sepsis Action Taken by Nursing Laboratory Data Result diagrams: 10/06/21 15:15 10/06/21 15:15 Lab Results 10/06/21 10/06/21 10/06/21 Range/Units 15:15 15:15 17:10 WBC 14.59 H (4.8-10.8) K/uL RBC 2.77 L (4.2-5.4) M/uL Hgb 7.9 L (12.0-16.0) g/dL Hct 25.9 L (37-47) % MCV 93.5 (80-100) fL MCH 28.5 (25-34) pg MCHC 30.5 L (32-36) g/dL RDW Std Deviation 63.7 H (36.4-46.3) fL RDW Coeff of Caitlin 18.2 H (11.5-14.5) % Plt Count 461 H (130-400) K/uL MPV 9.1 (7.4-10.4) fL Immature Gran % (Auto) 2.0 % Neut % (Auto) 78.0 % Lymph % (Auto) 7.2 % [place] % (Auto) 12.7 % Eos % (Auto) 0.0 % Baso % (Auto) 0.1 % Neut # (Auto) 11.39 H (1.4-6.5) K/uL Lymph # (Auto) 1.05 L (1.2-3.4) K/uL [place] # (Auto) 1.85 H (0.11-0.59) K/uL Eos # (Auto) 0.00 (0-0.5) K/uL Baso # (Auto) 0.01 (0-0.2) K/uL Immature Gran # (Auto) 0.29 H (0.00-0.02) K/uL Polychromasia 1+ Hypochromasia Present Sodium 131 L (136-145) mmol/L Potassium 3.1 L (3.5-5.1) mmol/L Chloride 93 L (98-107) mmol/L Carbon Dioxide 26 (21-32) mmol/L Anion Gap 12 H (3-11) BUN 26 H (6-23) mg/dl Creatinine 2.73 H (0.6-1.2) mg/dl Est Cr Clr Drug Dosing 13.0 ml/min Est GFR ( Amer) 18.7 ml/min Est GFR (Non-Af Amer) 16.1 ml/min BUN/Creatinine Ratio 9.5 L (10-20) Glucose 116 H (70-99(Fasting)) mg/dl Lactate (0.4-2.0) mmol/L Calcium 9.0 (8.5-10.1) mg/dl Total Bilirubin 0.4 (0.2-1.0) mg/dl AST 25 (13-39) U/L ALT 12 (7-52) U/L Alkaline Phosphatase 93 (34-104) U/L Total Protein 7.3 (6.0-8.3) gm/dl Albumin 3.1 L (3.4-5.0) gm/dl Globulin 4.2 H (2.5-4.0) gm/dl Albumin/Globulin Ratio 0.7 L (0.9-2) Procalcitonin 0.84 H (0-0.5) ng/ml 10/06/21 Range/Units 17:10 WBC (4.8-10.8) K/uL RBC (4.2-5.4) M/uL Hgb (12.0-16.0) g/dL Hct (37-47) % MCV (80-100) fL MCH (25-34) pg MCHC (32-36) g/dL RDW Std Deviation (36.4-46.3) fL RDW Coeff of Caitlin (11.5-14.5) % Plt Count (130-400) K/uL MPV (7.4-10.4) fL Immature Gran % (Auto) % Neut % (Auto) % Lymph % (Auto) % [place] % (Auto) % Eos % (Auto) % Baso % (Auto) % Neut # (Auto) (1.4-6.5) K/uL Lymph # (Auto) (1.2-3.4) K/uL [place] # (Auto) (0.11-0.59) K/uL Eos # (Auto) (0-0.5) K/uL Baso # (Auto) (0-0.2) K/uL Immature Gran # (Auto) (0.00-0.02) K/uL Polychromasia Hypochromasia Sodium (136-145) mmol/L Potassium (3.5-5.1) mmol/L Chloride (98-107) mmol/L Carbon Dioxide (21-32) mmol/L Anion Gap (3-11) BUN (6-23) mg/dl Creatinine (0.6-1.2) mg/dl Est Cr Clr Drug Dosing ml/min Est GFR ( Amer) ml/min Est GFR (Non-Af Amer) ml/min BUN/Creatinine Ratio (10-20) Glucose (70-99(Fasting)) mg/dl Lactate 1.0 (0.4-2.0) mmol/L Calcium (8.5-10.1) mg/dl Total Bilirubin (0.2-1.0) mg/dl AST (13-39) U/L ALT (7-52) U/L Alkaline Phosphatase (34-104) U/L Total Protein (6.0-8.3) gm/dl Albumin (3.4-5.0) gm/dl Globulin (2.5-4.0) gm/dl Albumin/Globulin Ratio (0.9-2) Procalcitonin (0-0.5) ng/ml Administered Medications Discontinued Medications Sodium Chloride (Nss 1000ml) 1,000 mls @ 999 mls/hr IV .Q1H1M ONE Stop: 10/06/21 17:49 Last Admin: 10/06/21 17:19 Dose: 125 mls/hr Documented by: [id number] Piperacillin Sod/Tazobactam Sod (Zosyn) 4.5 gm in 120 mls @ 240 mls/hr IV NOW ONE Stop: 10/06/21 20:08 Last Admin: 10/06/21 19:49 Dose: 240 mls/hr Documented by: [id number] Imaging Data Radiologist's Impression: Abdomen/Pelvis CT 10/06/21 16:57 CT abd pelvis wo con CLINICAL HISTORY: Nausea, recent diverticulitis and diverticular abscess, no contrast 2/2 AMARA COMPARISON STUDY: 09/06/2021 CT DOSE: 291.36 mGy.cm TECHNIQUE: Standard CT of the Abdomen and Pelvis was performed without IV contrast. The patient did not receive oral contrast. A dose lowering technique was utilized adhering to the principles of ALARA. FINDINGS: Lung base: The lung bases are clear. Abdominal cavity: There is no evidence for abdominal mass, adenopathy or ascites. Liver: The liver is homogeneous in attenuation on these limited noncontrast images.. Spleen: The spleen is homogeneous in attenuation on these limited noncontrast images. Pancreas: The pancreas is homogeneous in attenuation on these limited noncontrast images. Gall Bladder: Surgical clips are present. Adrenal glands: The adrenal glands are normal in size and attenuation on these limited noncontrast images. Kidneys: The kidneys are homogeneous in attenuation on these limited noncontrast images. There is no evidence for gross renal mass, calculus or hydronephrosis bilaterally. Bowel: There is a small hiatal hernia with mucosal thickening. Compared to previous examination, extensive sigmoid diverticulosis with mucosal thickening and loculated extraluminal air bubbles are seen at the site of previous diverticular abscess. There are no acute acute inflammatory changes seen within the surrounding fat. However, there is chronic thickening of the mucosa present. This abuts the bladder and the bladder is 50% filled with air. The presence of a colonic-vesicle fistula cannot be excluded. The remaining bowel loops are normally placed within the abdomen and pelvis without evidence for dilatation or obstruction. There is no evidence for mass lesion. There are no inflammatory changes present. There is no evidence for free air. Bladder: The bladder is distended with again approximately 50% of the bladder filled with air. : There is no evidence for pelvic mass or adenopathy. Vasculature: There is no evidence for focal aneurysmal dilatation of the abdominal aorta. Osseous structures: There is no acute osseous pathology. Previous internal fixation and degenerative changes are seen within the spine. IMPRESSION: 1. Sigmoid diverticulosis with chronic mucosal thickening and extraluminal walled off air collection at site of previous diverticulitis. However, no acute inflammatory changes are seen at this time. 2. Of concern is the bladder filled with 50% tear. The bladder abuts the sigmoid colon and a colovesical fistula cannot be excluded. 3. Additional nonacute findings are delineated above. ACT 112: Negative or not required by law. Electronically signed by: Frandy Maldonado M.D. 10/06/2021 6:48 PM Discharge Plan Visit Data Chief Complaint: Dehydration Stated Complaint: DEHYDRATION, ALTERED MENTAL STATUS, ED Provider: Micah Figueroa Discharge Problem: Pickett-vesical fistula Forms Stand Alone Forms: [facility] [employer] Prescriptions Prescriptions: No Action pantoprazole [Protonix] 20 mg Tablet,Delayed Release (Dr/Ec) 20 mg PO DAILY RF: 0 sertraline [Zoloft] 25 mg Tablet 25 mg PO DAILY RF: 0 lorazepam 0.5 mg Tablet 0.5 - 1 mg PO DAILY PRN (Reason: Anxiety) RF: 0 rosuvastatin [Crestor] 5 mg Tablet 5 mg PO QAM RF: 0 ertapenem 1 gram recon soln 1 g IV DAILY RF: 0 losartan 100 mg tablet 100 mg PO DAILY RF: 0 triamcinolone acetonide [Nasacort] 55 mcg Aerosol,[place] 2 spray INTRANASAL DAILY RF: 0 ondansetron HCl 4 mg tablet 4 mg PO Q8H PRN (Reason: nausea and vomiting) Qty: 20 RF: 0 trazodone 150 mg tablet 150 mg PO HS RF: 0 Referrals Referrals: Joel Bowman DO [Primary Care Provider] -
--- NOTE | 2021-10-06 18:51 | CT Scan Report ---
CT abd pelvis wo con CLINICAL HISTORY: Nausea, recent diverticulitis and diverticular abscess, no contrast 2/2 [facility]ARA COMPARISON STUDY: 09/06/2021 CT DOSE: 291.36 mGy.cm TECHNIQUE: Standard CT of the Abdomen and Pelvis was performed without IV contrast. The patient did not receive oral contrast. A dose lowering technique was utilized adhering to the principles of FARSHAD Cuevas FINDINGS: Lung base: The lung bases are clear. Abdominal cavity: There is no evidence for abdominal mass, adenopathy or ascites. Liver: The liver is homogeneous in attenuation on these limited noncontrast images.. Spleen: The spleen is homogeneous in attenuation on these limited noncontrast images. Pancreas: The pancreas is homogeneous in attenuation on these limited noncontrast images. Gall Bladder: Surgical clips are present. Adrenal glands: The adrenal glands are normal in size and attenuation on these limited noncontrast im ages. Kidneys: The kidneys are homogeneous in attenuation on these limited noncontrast images. There is no evidence for gross renal mass, calculus or hydronephrosis bilaterally. Bowel: There is a small hiatal hernia with mucosal thickening. Compared to previous examination, extensive sigmoid diverticulosis with mucosal thickening and locula barrington extraluminal air bubbles are seen at the site of previous diverticular abscess. There are no acut e acute inflammatory changes seen within the surrounding fat. However, there is chronic thickening of the mucosa present. This abuts the bladder and the bladder is 50% filled with air. The presence of a colonic-vesicle fistula cannot be excluded. The remaining bowel loops are normally placed within the abdomen and pelvis without evidence for dil atation or obstruction. There is no evidence for mass lesion. There are no inflammatory changes prese nt. There is no evidence for free air. Bladder: The bladder is distended with again approximately 50% of the bladder filled with air. : There is no evidence for pelvic mass or adenopathy. Vasculature: There is no evidence for focal aneurysmal dilatation of the abdominal aorta. Osseous structures: There is no acute osseous pathology. Previous internal fixation and degenerative changes are seen within the spine. IMPRESSION: 1. Sigmoid diverticulosis with chronic mucosal thickening and extraluminal walled off air collection at site of previous diverticulitis. However, no acute inflammatory changes are seen at this time. 2. Of concern is the bladder filled with 50% tear. The bladder abuts the sigmoid colon and a colovesi samanta fistula cannot be excluded. 3. Additional nonacute findings are delineated above. ACT 112: Negative or not required by law. Electronically signed by: Frandy Maldonado M.D. 10/06/2021 6:48 PM
[2021-10-06] MEDS ORDERED: PIPERACILL/TAZOBAC CONSULT ACTIVE PRN (19:39)
[2021-10-06] MEDS ORDERED: PIPERACILLIN/TAZOBACTAM 4.5 GM/120 ML BAG IV ONE (19:39)
[2021-10-06 20:25] LABS: Appearance Urine Turbid (Clear); Bacteria Urine Automated 2+ (Negative); Bilirubin Urine Negative (Negative); Blood Urine 3+ (Negative); Color Urine Dark Yellow; Epithelial Cell Urine Auto >30 /lpf (0-5); Glucose Urine UA Negative (Negative); Ketones Urine Trace (Negative); Leukocyte Esterase Urine 3+ (Negative); Nitrite Urine Negative (Negative); Protein Urine 2+ (Negative); Specific Gravity Urine 1.013 (1.000-1.030); Urobilinogen Urine Negative (Negative); WBC Urine Automated >30 /hpf (0-5)
--- NOTE | 2021-10-06 20:29 | Surgery Consultation ---
Date of Consultation October 06, 2021 Assessment & Plan (1) [place]-vesical fistula: Patient is being admitted on the hospitalist service. I had an extensive discussion with my attending physician Dr. Anderson we recommend proceeding as follows: Implement bowel rest Replace patient's PICC line and initiate TPN Initiate broad-spectrum antibiotics. The treating physician in the emergency department has utilized Zosyn thus far Correct patient's electrolyte abnormalities Transfuse as needed Follow serial labs I had a lengthy discussion with the patient and her at bedside outlining the above plan and the fact that we need to optimize her medically before any consideration for potential surgical intervention can be undertaken. Additional recommendations be forthcoming based on her clinical course as it unfolds Remainder of plan as directed by the primary service Supervising Physician Co-Signing Physician Notes Dr. Andersonpatient with very complicated past 6 to 8 weeks-being admitted with dehydration, failure to thrive, anemia, Malnutrition. History of large diverticular abscess treated with antibiotics which were stopped approximately September 21, 2021 PICC line was removed yesterday. Currently on CAT scan her abscess has relatively well resolved however she has developed a colovesical fistula and has relatively severe chronic thickening of her colon which has significantly contributed to her malnutrition We do not plan any surgical intervention here at [facility] however I do not feel she requires emergent operation I do not think urgent transfer is necessary although she will require colorectal evaluation sooner than later. TPN, bowel rest, antibiotics, possible transfusion should help significantly Will need to discuss her case with the colorectal surgeons in [place] to develop a plan She was to see the surgeons in the past few weeks in [place] but this did not occur History of Present Illness Reason for Consultation: History of diverticulitis with colovesical fistula History of Present Illness This is a 76-year-old female who was admitted to [facility] from 08/20/2021 through 08/23/2021 which time she was diagnosed with acute sigmoid diverticulitis. On 08/20/[address] scan of the abdomen and pelvis that showed sigmoid diverticulitis with a 4 x 1 x 3.6 cm intra-abdominal abscess. Patient was initially treated with conservative measures and she was seen by the [facility] general surgery service who recommended transfer to [facility] in [place] for possible percutaneous drainage of her abscess. Patient was transferred to [facility] however the patient and her note that no surgical intervention was employed and patient did not have percutaneous drainage attempted due to the location of the abscess. The patient notes that she had a PICC line placed and she received a 30-day course of ertapenem which concluded on 09/21/2021. Patient notes that her PICC line was subsequently removed yesterday. It is noteworthy mention that the patient did have a repeat CAT scan of her abdomen pelvis performed on 09/06/2021 that showed some improvement of the intra-abdominal abscess which then measured 3.2 x 4.1 cm. Patient presented to the emergency department at the recommendation of the visiting nurse. Since being home the patient has had failure to thrive. She has not had any fevers but has had poor oral intake and some generalized abdominal pain with associated nausea vomiting. In addition the patient reports some intermittent dysuria as well as pneumaturia. She presented to the emergency department today where a repeat CT scan of abdomen and pelvis showed that the sigmoid diverticulitis had improved but there was a walled off air collection with no acute inflammation. There is concern for a colovesical fistula. Labs include a CBC were white blood cell count was 14.5. Her hemoglobin and hematocrit were 7.6 and 25.9 and her platelet count was 40 61,000. Chemistry profile showed sodium and potassium 131 and 3.1. Her BUN and creatinine were 26 and 2.7. A urinalysis has been requested and is pending. At the time of my interview the patient was resting comfortably in bed and she was in no distress. Allergies Allergy/AdvReac Type Severity Reaction Status Date / Time latex Allergy Mild rash Verified 10/06/21 19:20 niacin Allergy Mild diffuse Verified 10/06/21 19:20 redness Sulfa (Sulfonamide Allergy Mild rash Verified 10/06/21 19:20 Antibiotics) Home Medications Medication Instructions Recorded Confirmed Type lorazepam 0.5 mg tablet 0.5 - 1 mg PO DAILY PRN 07/03/18 10/06/21 History rosuvastatin 5 mg tablet (Crestor) 5 mg PO QAM 07/03/18 10/06/21 History pantoprazole 20 mg tablet,delayed 20 mg PO DAILY 08/17/21 10/06/21 History release (Protonix) sertraline 25 mg tablet (Zoloft) 25 mg PO DAILY 08/17/21 10/06/21 History trazodone 150 mg tablet 150 mg PO HS 08/20/21 10/06/21 History ertapenem 1 gram solution for 1 g IV DAILY 09/06/21 10/06/21 History injection losartan 100 mg tablet 100 mg PO DAILY 09/06/21 10/06/21 History triamcinolone acetonide 55 mcg 2 spray INTRANASAL DAILY 09/06/21 10/06/21 History nasal spray aerosol (Nasacort) ondansetron HCl 4 mg tablet 4 mg PO Q8H PRN #20 tab 09/10/21 10/06/21 Rx Patient History Medical History Anemia Anxiety and depression Asthma STABLE (NO INHALER) Bilateral hip joint arthritis Bilateral primary osteoarthritis of knee Chronic low back pain LLE NEUROPATHY Diverticulitis SEVERAL YEARS AGO History of anemia History of hyperlipidemia History of skin cancer History of subarachnoid hemorrhage S/P TRAUMA/FALLING (2014)= NO RESIDUAL DEFICITS Hx of cardiac murmur Hx of pancreatitis Obesity Osteoarthritis Surgical History History of carpal tunnel release History of cataract surgery RT/LEFT History of cholecystectomy History of colonoscopy History of dilatation and curettage History of discectomy LUMBAR History of ERCP History of oophorectomy History of tonsillectomy History of tooth extraction Trigger finger RELEASE Family History Mother Family history of bladder cancer Father No problems noted. 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 Required: No Beliefs That Will Affect Care: None Current Living Situation: Spouse Feels Safe at Home: Yes Assistive Devices: None Review of Systems Constitutional: + fatigue and + weakness; no fever and no chills Eyes: no diplopia Ear, Nose, Mouth, Throat: no ear pain Respiratory: no cough and no dyspnea Cardiovascular: no chest pain Gastrointestinal: + abdominal pain, + nausea and + vomiting Genitourinary: as per Subjective / HPI Musculoskeletal: no back pain Integumentary: no rash Neurologic: + generalized weakness Physical Exam Constitutional: + thin; no acute distress Eyes: Wears glasses ENMT: Ears: no hearing impairment Neck: trachea midline Respiratory: normal respiratory effort; no respiratory distress and no labored breathing Cardiovascular: Rate/Rhythm: regular rate and regular rhythm Gastrointestinal (Abdomen): Abdomen is soft and nondistended. No rebound tenderness or guarding was noted. Patient did have minor discomfort noted with palpation in the left lower quadrant and suprapubic regions. Musculoskeletal: No calf tenderness Skin: no rashes Neurologic: moves all extremities Psychiatric: A+Ox3, euthymic affect Results & Data ([facility]) Vital Signs (Past 12 Hours) Vital Signs Temp Pulse Pulse Resp BP BP Pulse Ox 10/06/21 19:00 37 C 82 18 124/69 96 10/06/21 17:30 83 22 132/68 95 10/06/21 17:18 87 23 98 10/06/21 17:00 86 24 127/73 97 10/06/21 14:51 36.6 C 98 H 20 120/74 97 PG Care Time/CCT Total # of Minutes Spent Total Time Spent with Patient: Total time spent is greater than 50% in coordination of care (as documented) at patient's floor/unit and/or counseling patient: Coding Level of Care Code 68382 Inpt Consult Level 5 Diagnoses [place]-vesical fistula N32.1
--- NOTE | 2021-10-06 20:34 | Urology Consultation ---
Date of Consultation October 06, 2021 Assessment & Plan (1) [place]-vesical fistula: Patient is being admitted on the hospitalist service. I had an extensive discussion with both Dr. Anderson of general surgery and Dr. Clark of urology. It is recommended we proceed as follows: Implement bowel rest Replace patient's PICC line and initiate TPN Initiate broad-spectrum antibiotics. The treating physician in the emergency department has utilized Zosyn thus far Correct patient's electrolyte abnormalities Transfuse as needed Follow serial labs -A Guo catheter can be placed if patient has difficulty urinating. Shortly after my visit with the patient she was just straight cath and therefore her bladder was empty. I instructed her that if she does have any difficulty urinating a Guo catheter can be placed in left. I had a lengthy discussion with the patient and her at bedside outlining the above plan and the fact that we need to optimize her medically before any consideration for potential surgical intervention can be undertaken. Additional recommendations be forthcoming based on her clinical course as it unfolds Remainder of plan as directed by the primary service Supervising Physician Co-Signing Physician Notes I have discussed Ms. Omalley's case with Maxx Fernandez PA-C and agree with the above documentation. CT scan findings of significant air within the lumen of the bladder with a history of diverticulitis raise concern for colovesical fistula. In the short-term, I agree with recommendations for bowel rest, PICC line and TPN with antibiotics. If she is emptying her bladder well, I do not think she needs a Guo catheter. However, if she starts to have significant sediment requires irrigation, a large bore catheter could be placed. I would defer to general surgery regarding optimal bowel rest (i.e. TPN versus diverting ileostomy), as well as duration of bowel rest prior to definitive fistula repair. Often this is done by colorectal surgery. For now, she is emptying her bladder well. Urology will sign off, but please contact us with any questions or concerns. History of Present Illness Reason for Consultation: Colovesical fistula History of Present Illness This is a 76-year-old female who was admitted to [facility] from 08/20/2021 through 08/23/2021 secondary to acute sigmoid diverticulitis and intra-abdominal abscess measuring 4.1 x 3.6 cm. She was initially seen by [facility] general surgery and was felt the patient required transfer to a tertiary care center for attempted percutaneous drainage. She was transferred to [facility] in [place], [place] on 08/23/2021. I discussed with the patient and her and it was felt that patient's abscess was not a location amenable to percutaneous drainage. Patient had a PICC line placed and she was prescribed a 30-day course of ertapenem which concluded on 09/21/2021. She notes that her PICC line was removed yesterday. Since discharge from [facility] she had a repeat CT scan of the abdomen and pelvis on 09/06/2021 that showed decrease in size of the previously noted abscess to 3.2 x 4.1 cm. The patient presented to [facility] emergency department today at the recommendation of her visiting nurse that she has had failure to thrive. She has not had any fevers but has had poor oral intake and generalized abdominal pain with associated nausea vomiting. She also reports intermittent dysuria as well as intermittent pneumaturia. In the emergency department today she had a repeat CT scan of the abdomen and pelvis that showed her sigmoid diverticulitis was improved but there was a walled off election containing air. There is no acute inflammation but there was concern for a colovesical fistula. Labs included a CBC her white blood cell count was 14.5. Her hemoglobin and hematocrit were 7.6 and 25.9 and her platelet count was 4 and 61,000. Chemistry profile showed sodium and potassium 131 and 3.1. Her BUN and creatinine were 26 and 2.7. At the time of my interview she was resting comfortably in bed in no distress. Allergies Allergy/AdvReac Type Severity Reaction Status Date / Time latex Allergy Mild rash Verified 10/06/21 19:20 niacin Allergy Mild diffuse Verified 10/06/21 19:20 redness Sulfa (Sulfonamide Allergy Mild rash Verified 10/06/21 19:20 Antibiotics) Home Medications Medication Instructions Recorded Confirmed Type lorazepam 0.5 mg tablet 0.5 - 1 mg PO DAILY PRN 07/03/18 10/06/21 History rosuvastatin 5 mg tablet (Crestor) 5 mg PO QAM 07/03/18 10/06/21 History pantoprazole 20 mg tablet,delayed 20 mg PO DAILY 08/17/21 10/06/21 History release (Protonix) sertraline 25 mg tablet (Zoloft) 25 mg PO DAILY 08/17/21 10/06/21 History trazodone 150 mg tablet 150 mg PO HS 08/20/21 10/06/21 History ertapenem 1 gram solution for 1 g IV DAILY 09/06/21 10/06/21 History injection losartan 100 mg tablet 100 mg PO DAILY 09/06/21 10/06/21 History triamcinolone acetonide 55 mcg 2 spray INTRANASAL DAILY 09/06/21 10/06/21 History nasal spray aerosol (Nasacort) ondansetron HCl 4 mg tablet 4 mg PO Q8H PRN #20 tab 09/10/21 10/06/21 Rx Patient History Medical History Anemia Anxiety and depression Asthma STABLE (NO INHALER) Bilateral hip joint arthritis Bilateral primary osteoarthritis of knee Chronic low back pain LLE NEUROPATHY Diverticulitis SEVERAL YEARS AGO History of anemia History of hyperlipidemia History of skin cancer History of subarachnoid hemorrhage S/P TRAUMA/FALLING (2014)= NO RESIDUAL DEFICITS Hx of cardiac murmur Hx of pancreatitis Obesity Osteoarthritis Surgical History History of carpal tunnel release History of cataract surgery RT/LEFT History of cholecystectomy History of colonoscopy History of dilatation and curettage History of discectomy LUMBAR History of ERCP History of oophorectomy History of tonsillectomy History of tooth extraction Trigger finger RELEASE Family History Mother Family history of bladder cancer Father No problems noted. 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 Required: No Beliefs That Will Affect Care: None Current Living Situation: Spouse Other Information That Helps Us Care for You: No Feels Safe at Home: Yes Safety Concerns: Feels Safe At This Time Assistive Devices: Walker Review of Systems Constitutional: no fever and no chills Eyes: no diplopia Ear, Nose, Mouth, Throat: no ear pain Respiratory: no cough and no dyspnea Cardiovascular: no chest pain Gastrointestinal: as per Subjective / HPI, + abdominal pain, + nausea and + vomiting Genitourinary: as per Subjective / HPI Musculoskeletal: no back pain Integumentary: no rash Neurologic: no localized weakness Physical Exam Constitutional: + thin Eyes: Wears glasses ENMT: Ears: no hearing impairment and no external ear abnormality Mouth: no oropharynx abnormality Neck: trachea midline Respiratory: normal respiratory effort; no respiratory distress and no labored breathing Cardiovascular: Rate/Rhythm: regular rate and regular rhythm Gastrointestinal (Abdomen): Abdomen is soft and nondistended. Bowel sounds are present. There is minor discomfort upon outpatient of the left lower quadrant and suprapubic regions Musculoskeletal: No calf tenderness Skin: no rashes Neurologic: moves all extremities Psychiatric: A+Ox3, euthymic affect Results & Data ([facility]) Vital Signs (Past 12 Hours) Vital Signs Temp Pulse Pulse Resp BP BP Pulse Ox 10/06/21 19:00 37 C 82 18 124/69 96 10/06/21 17:30 83 22 132/68 95 10/06/21 17:18 87 23 98 10/06/21 17:00 86 24 127/73 97 10/06/21 14:51 36.6 C 98 H 20 120/74 97 PG Care Time/CCT Total # of Minutes Spent Total Time Spent with Patient: Total time spent is greater than 50% in coordination of care (as documented) at patient's floor/unit and/or counseling patient: Coding Level of Care Code 52613 Inpt Consult Level 5 Diagnoses [place]-vesical fistula N32.1
[2021-10-06 20:46] LABS: Cast Urine Automated 0 /lpf (0-5); RBC Urine Automated 0-4 /hpf (0-4)
[2021-10-06] MEDS ORDERED: TPN/PPN CONSULT PHARMACY STA (21:09)
[2021-10-06 21:46] LABS: Phosphorus 3.1 mg/dl (2.5-4.9)
[2021-10-06] MEDS ORDERED: ONDANSETRON INJ 2 MG/ML 2 ML VIAL IV PRN (22:39)
[2021-10-06] MEDS ORDERED: LORazepam 0.5 MG TAB PO PRN (22:39)
[2021-10-06] MEDS ORDERED: NITROGLYCERIN SL 0.4 MG/TAB TAB SL PRN (22:39)
[2021-10-06] MEDS ORDERED: POLYETHYLENE (MIRALAX) 17 GM PACK PO PRN (22:39)
[2021-10-06] MEDS ORDERED: TPN/PPN CONSULT PHARMACY PRN (22:58)
[2021-10-06] MEDS: D5NSS + 20MEQ KCL 20 MEQ/1,000 ML BAG IV SCH (23:10)
--- NOTE | 2021-10-06 23:46 | History and Physical Report ---
DATE OF ADMISSION: 10/06/2021. CHIEF COMPLAINT: Recent diverticular abscess, currently failure to thrive. HISTORY OF PRESENT ILLNESS: A 76-year-old female with past medical history significant for chronic gout, history of hypercholesterolemia, history of pancreatitis, chronic sinusitis, history of nonallergic vascular rhinitis, hypertension, GERD, B12 deficiency, chronic kidney disease stage III, history of cervical fracture, history of occipital neuralgia of right side, history of chronic low back pain, history of iron deficiency secondary to chronic blood loss, history of seasonal affective disorder, history of traumatic subdural hematoma, history of recent diverticulitis of intestine with abscess. The patient was admitted on 08/20/2021 for ongoing symptoms for abdominal pain for 3 weeks and CAT scan was showing acute diverticulitis with pericolonic abscess located between sigmoid colon, uterine fundus and bladder dome. It was 4.1 and 3.9 cm. Initially they thought it could not be amenable to percutaneous drainage and she was admitted and treated with IV Zosyn. On 08/23/2021 she was transferred to [place] for IR drainage. She was admitted to [place] General Surgery Service, looks like the general service could not operate on abscess due to its location. IR was consulted and they said they could not operate to drain the abscess due to its location and the patient was discharged on IV Invanz and had PICC line for 1 month of antibiotics and she was in the ER on 09/06/2021, had CAT scan showing decreasing abscess. Completed antibiotics yesterday and PICC line was taken out.But patient is not eating or drinking much. The patient says sometimes whole day she will not eat anything. She has belly pain on palpation. Constipated, did not notice any blood in her stools. The urine looks dark. No swelling in the legs, very poor ambulatory status. She states she is ambulating with a walker with assistance from her when she goes to bathroom. Denies any chest pain, no shortness of breath. She was having fevers at home. Denies any headache. Her vision is not that great. She is seeing spots, no earache, has some on and off runny nose, no sore throat. No cough. Currently, resting comfortably and hemodynamically stable. The patient says she lost over 25 pounds in the last 2 months. She had an CAT scan done today in the ER showing sigmoid diverticulosis with chronic mucosal thickening and extraluminal wall with fluid collection at site of previous diverticulitis; however, no acute inflammatory changes are seen at this time and colovesical fistula cannot be excluded. Surgery's initial plan was transfer to [place], as no emergent surgery required for colovesical fistula, wanted to keep her in the hospital, improve her nutrition with TPN, Guo for any irrigation and antibiotic Zosyn and monitor.. ALLERGIES: LATEX, NIACIN, SULFA ANTIBIOTICS. PAST MEDICAL HISTORY: As mentioned above. PAST SURGICAL HISTORY: Colonoscopy, hysteroscopy, dilatation and curettage, EGDs, ERCP,eyelid surgery, injection of lumbosacral spine, laparoscopic cholecystectomy, ovary removal, right carpal tunnel surgery release. MEDICATIONS: The patient is on Ativan 0.5 mg p.o. daily p.r.n., losartan 100 mg p.o. daily, Zofran 4 mg p.o. q. 8 hours p.r.n., Protonix 20 mg p.o. daily, Crestor 5 mg p.o. daily, Zoloft 25 mg p.o. daily, trazodone 150 mg p.o. at bedtime and Nasacort 2 sprays intranasal daily. FAMILY HISTORY: Significant for father had allergies, gastrointestinal disorder, heart disorder; mother had heart disorder, kidney cancer; brother has kidney stones. SOCIAL HISTORY: , lives with her . No smoking. Alcohol occasional. No drug use. REVIEW OF SYSTEMS: As per HPI. Rest of review of systems is negative. PHYSICAL EXAMINATION: GENERAL: The patient is of moderate build, not in acute distress. VITAL SIGNS: Temperature 37, pulse is 82, respiratory rate 18, blood pressure 124/69, oxygen 96% on room air. HEENT: Pupils equal, round and reactive to light. Oral mucosa dry. NECK: No JVD, no neck masses. CARDIOVASCULAR: S1 and S2 heard. Regular rate and rhythm. No murmur, no gallop. RESPIRATORY SYSTEM: Normal AP diameter. No accessory muscle use. No wheezing, no crackles. ABDOMEN: Soft, bowel sounds present. Mild diffuse discomfort more in lower abdomen, no guarding, no rigidity. CENTRAL NERVOUS SYSTEM: Alert and oriented x3. No facial droop. Speech is clear. Obeys simple commands. Insight is good. Moves extremities. EXTREMITIES: No edema, no erythema. LABORATORY DATA: WBC 14.5, hemoglobin 7.9, hematocrit 25.9, platelets 461. Sodium 131, potassium 3.1, chloride 93, bicarb 26, BUN 26, creatinine 2.7, serum glucose 116, lactate 1, calcium 9, total bilirubin 0.4, AST 25, ALT 12, alkaline phosphatase 93, total protein 7.3. Procalcitonin 0.8. Urinalysis, +3 blood, +3 leukocyte esterase, +2 bacteria. SARS-CoV-2 negative. IMAGING DATA: CT of abdomen and pelvis without contrast shows sigmoid diverticulosis with chronic mucosal thickening and extraluminal wall of fluid collection at site of previous diverticulitis; however, no acute inflammatory changes are seen at this time. Of concern is the bladder filled with 50% air sigmoid colon and colovesical fistula cannot be excluded. EKG: Normal sinus rhythm, nonspecific T-wave abnormality at rate of 96. ASSESSMENT AND PLAN: This 76-year-old female who recently had diverticular abscess, treated with IV antibiotics for 1 month, comes with poor nutrition, not able to eat and poor oral intake. 1. Malnutrition, poor oral intake. The patient has nausea, not able to tolerate food. The patient had IV antibiotics for 1 month with Invanz for diverticular abscess. Discussed with surgery. Plan for PICC line and TPN for now. Keep her n.p.o. until nutrition TPN started placed on IV fluids. PICC line consent obtained.Follow the labs and correct electrolytes. Monitor for refeeding syndrome. 2. Acute kidney injury. Creatinine was 0.7 last month, it is 2.75 probably from poor oral intake. Getting fluids. We will follow the repeat labs in a.m. The patient is on D5 normal saline with 20 of KCl at 125 mL per hour. We will monitor. 3. Hypokalemia: We will replace. 4. Colovesical fistula probably from recent diverticular abscess, may need repair in the near future. Surgery recommends Guo and may need Guo irrigation if needed. Follow the cultures. Empirically started on Zosyn. 5. Urinary tract infection on Zosyn. Follow the cultures. 6. History of hypertension, currently on losartan, she is on amlodipine also. We will monitor her blood pressure. 7. Hyperlipidemia. Continue statin. 8. Gastroesophageal reflux disease. Continue Protonix. 9. History of seasonal affective disorder, on Zoloft. 10. Anemia. Her hemoglobin is currently 7.9. The patient had 4 IV iron infusions and her last IV iron infusion was 09/27/2021. We will follow stool for Hemoccult and vitamin B12, folic acid levels. Blood consent obtained. 11. Deep venous thrombosis prophylaxis: We will keep her sequential compression devices for now. CODE STATUS: Level 1 FULL CODE. DISPOSITION: Admit to Med/Surg tele. PT/OT prior to discharge. Social service to help with discharge planning. Job ID: [id number] [email or web address]
[2021-10-07] MEDS: PIPERACILLIN/TAZOBACTAM 3.375 GM in DEXTROSE 5% 100 ML IV SCH ×2 (04:36→16:07)
[2021-10-07 07:01] LABS: Hematocrit (blood only) 23.1 % (37-47); Hemoglobin 7.1 g/dL (12.0-16.0); Mean Corpuscular Hemoglobin 28.5 pg (25-34); Mean Corpuscular Hgb Conc 30.7 g/dL (32-36); Mean Corpuscular Volume 92.8 fL (80-100); Platelet Count 358 K/uL (130-400); RDW Coefficient of Variation 18.2 % (11.5-14.5); RDW Standard Deviation 61.7 fL (36.4-46.3); Red Blood Count 2.49 M/uL (4.2-5.4); White Blood Count 8.45 K/uL (4.8-10.8)
[2021-10-07 07:21] LABS: Basophils # (auto) 0.01 K/uL (0-0.2); Basophils % (auto) 0.1 %; Eosinophils # (auto) 0.01 K/uL (0-0.5); Eosinophils % (auto) 0.1 %; Immature Granulocytes # (auto) 0.13 K/uL (0.00-0.02); Immature Granulocytes % (auto) 1.5 %; Lymphocytes # (auto) 0.62 K/uL (1.2-3.4); Lymphocytes % (auto) 7.3 %; Monocytes % (auto) 14.2 %; Neutrophils # (auto) 6.48 K/uL (1.4-6.5); Neutrophils % (auto) 76.8 %; Polychromasia 1+; Spherocytes 2+
[2021-10-07 07:38] LABS: BUN Creatinine Ratio 11.5 (10-20); Calcium 8.3 mg/dl (8.5-10.1); Creatinine Clr Calc Pharmacy 16.4 ml/min; Est GFR (African American) 22.5 ml/min; Est GFR (Non-African American) 19.4 ml/min; Magnesium 1.9 mg/dl (1.7-2.4); Phosphorus 2.7 mg/dl (2.5-4.9); Potassium 3.1 mmol/L (3.5-5.1)
[2021-10-07] MEDS: D5NSS + 20MEQ KCL 20 MEQ/1,000 ML BAG IV SCH ×3 (07:38→21:27)
[2021-10-07] MEDS ORDERED: TPN/PPN CONSULT PHARMACY STA ×2 (07:41→11:46)
[2021-10-07] MEDS: ROSUVASTATIN CALCIUM 5 MG TAB PO SCH (08:17)
[2021-10-07] MEDS: SERTRALINE HCL 50 MG TABLET PO SCH (08:17)
[2021-10-07] MEDS: PANTOprazole 40 MG TAB PO SCH (08:17)
[2021-10-07] MEDS: TRIAMCINOLONE ACET NASAL SPRAY 10.8ML BTL SCH (08:18)
[2021-10-07] MEDS: ACETAMINOPHEN 325 MG TAB PO PRN (08:20)
[2021-10-07] MEDS ORDERED: LOSARTAN POTASSIUM 50 MG TAB PO SCH (09:00)
--- NOTE | 2021-10-07 11:14 | Surgery Progress Note ---
Date of Service October 07, 2021 Assessment & Plan (1) [place]-vesical fistula: Plan: Patient with significant deconditioning Significant colonic inflammation and colovesical fistula Likely unable to eat enough to maintain her protein TPN very important will need a PICC line IV antibiotics, Guo catheter At some point in the near future she will need follow-up with colorectal surgery She has been seen in the past by Susy Hampton She does not require urgent or emergent operation Dr. Scott covering over the weekend Admission and Anticipated Discharge Date Admission Date: October 06, 2021 Subjective Patient resting comfortably Review of Systems Review of Systems: All systems reviewed & are unremarkable except as noted in HPI & below Physical Exam Physical Exam: Patient with T-max of 37 6 other vital signs stable Resting comfortably in bed Minimal pain Results & Data ([facility] [place]) Vital Signs (Past 12 Hours) Vital Signs Temp Pulse Pulse Resp BP Pulse Ox 10/07/21 09:44 80 10/07/21 08:34 37.6 C H 95 H 20 166/79 H 93 10/07/21 04:42 79 10/07/21 04:00 37 C 78 20 148/74 H 98 10/06/21 23:34 36.3 C L 79 18 133/76 96 PG Care Time/CCT Total # of Minutes Spent Total Time Spent with Patient: Total time spent is greater than 50% in coordination of care (as documented) at patient's floor/unit and/or counseling patient: Coding Level of Care Code 65625 Inpt Consult Level 2 Diagnoses [place]-vesical fistula N32.1
--- NOTE | 2021-10-07 11:47 | Hospitalist Progress Note ---
Date of Service October 07, 2021 Assessment & Plan (1) [place]-vesical fistula: (2) Colonic diverticular abscess: (3) UTI (urinary tract infection): (4) Hypokalemia: (5) AMARA (acute kidney injury): (6) Anemia: (7) Failure to thrive: Plan: 76 year old female with recent h/o diverticular abscess and IV ABx treatment for a month with PICC line removed yesterday presented to the ED with poor nutrition and oral intake. Malnutrition/FTT- discussed with surgery in detail. Patient will need to be optimized prior to transfer for colorectal surgery evaluation at tertiary center. PICC line placed and starting on TPN from today. Dietitian consulted. GNB UTI- continue zosyn pending urine clx results AMARA- baseline Cr 0.7, on presentation 2.7->2.3. likely prerenal due to poor oral intake. Voiding without issues. Continue IVF, recheck in am, avoid nephrotoxic. If does not improve, will consult Nephro. consider urena if voiding issues. Hypokalemia- repleting, recheck in am Colovesical fistula with recent diverticular abscess and antibiotic treatment- CT A/P reviewed as below. Will need colorectal surgery evaluation down the road but will need optimization first as above. Surgery following. CT A/P 10/06. 1. Sigmoid diverticulosis with chronic mucosal thickening and extraluminal walled off air collection at site of previous diverticulitis. However, no acute inflammatory changes are seen at this time. 2. Of concern is the bladder filled with 50% tear. The bladder abuts the sigmoid colon and a colovesical fistula cannot be excluded. HTN- hold losartan due to AMARA, start on norvasc. GERD- continue PPI Seasonal affective disorder- on zoloft Anemia- likely related to her illness. No active bleed. folate, b12 normal. fobt pending. s/p 4 iv iron infusions with last one 09/27/21. Hb currently 7.1. Follow Hb. Transfuse if Hb<7. DVT prophylaxis- will start on sc heparin as high risk for clots. Will transfuse if Hb drops. Dispo- On TPN and IV ABx for medical optimization prior to transfer to tertiary center for colovesical fistula repair Update- she did not want me to call anyone to provide update Admission and Anticipated Discharge Date Admission Date: October 06, 2021 Subjective Patient was seen and examined at bedside. Looks chronically sick. States she feels okay. Has some pain in lower abdomen. She has been taking sips of water without issues. States voiding fine. Also states had a bowel movement. She did not want me to call anyone to give an update. I spoke to Dr Anderson regarding the p leigh ann of care and also discussed with the patient in detail at bedside. Physical Exam Physical Exam: General: Chronically sick looking, lying comfortably in bed, not in distress, on room air HEENT: EOMI, JUN, MMM Chest: Clear breath sounds bilaterally, no wheezes or crackles CVS: Regular rate and rhythm, normal heart sounds, no murmur Abdomen: Soft, mild tenderness in lower abdomen, not distended, normal bowel sounds Neuro: Awake, alert, conversing well, non focal Extremities: No cyanosis, clubbing or edema Results & Data Results & Data ([facility]) Vital Signs (Past 12 Hours) Vital Signs Temp Pulse Pulse Resp BP Pulse Ox 10/07/21 09:44 80 10/07/21 08:34 37.6 C H 95 H 20 166/79 H 93 10/07/21 04:42 79 10/07/21 04:00 37 C 78 20 148/74 H 98 Laboratory Results Short CBC 10/06/21 10/07/21 Range/Units 15:15 05:52 WBC 14.59 H 8.45 (4.8-10.8) K/uL Hgb 7.9 L 7.1 L (12.0-16.0) g/dL Hct 25.9 L 23.1 L (37-47) % Plt Count 461 H 358 (130-400) K/uL BMP 10/06/21 10/07/21 15:15 05:52 Sodium 131 L 135 L Potassium 3.1 L 3.1 L Chloride 93 L 100 Carbon Dioxide 26 25 BUN 26 H 27 H Creatinine 2.73 H 2.34 H D Glucose 116 H 126 H Calcium 9.0 8.3 L Liver Function 10/06/21 Range/Units 15:15 Total Bilirubin 0.4 (0.2-1.0) mg/dl AST 25 (13-39) U/L ALT 12 (7-52) U/L Alkaline Phosphatase 93 (34-104) U/L Albumin 3.1 L (3.4-5.0) gm/dl Urine 10/06/21 Range/Units 20:04 Urine Color Dark Yellow Urine Appearance Turbid A (Clear) Urine pH 5.0 (4.5-7.5) Ur Specific [place] 1.013 (1.000-1.030) Urine Protein 2+ H (Negative) Urine Glucose (UA) Negative (Negative) Medications Administered Current Inpatient Medications Acetaminophen (Acetaminophen 325 Mg Tab) 650 mg PO Q4H PRN PRN Reason: Pain or Fever Stop: 11/05/21 22:38 Last Admin: 10/07/21 08:20 Dose: 650 mg Documented by: Potassium Chloride/Dextrose/Sod Cl (D5nss + 20meq Kcl) 20 meq in 1,000 mls @ 125 mls/hr IV .Q8H DIANDRA Stop: 11/05/21 22:59 Last Admin: 10/07/21 07:38 Dose: 125 mls/hr Documented by: Piperacillin Sod/Tazobactam (Sod 3.375 gm/ Dextrose) 115 mls @ 28.75 mls/hr IV Q12H DIANDRA; Protocol Stop: 10/17/21 03:59 Last Infusion: 10/07/21 09:05 Dose: Infused Documented by: Lorazepam (Lorazepam 0.5 Mg Tab) 0.5 mg PO DAILY PRN PRN Reason: Anxiety Stop: 11/05/21 22:38 Losartan Potassium (Losartan Potassium 50 Mg Tab) 100 mg PO DAILY DIANDRA Stop: 11/06/21 08:59 Last Admin: 10/07/21 08:17 Dose: 100 mg Documented by: Miscellaneous Information (Piperacill/Tazobac Consult Active) 1 ea N/A UD PRN PRN Reason: Consult Stop: 11/05/21 19:38 Miscellaneous Information (Tpn/Ppn Consult Pharmacy) 1 ea N/A UD PRN PRN Reason: Consult Stop: 11/05/21 22:57 Nitroglycerin (Nitroglycerin Sl 0.4 Mg/Tab Tab) 0.4 mg SL UD PRN PRN Reason: Chest Pain Stop: 11/05/21 22:38 Ondansetron HCl (Ondansetron Inj 2 Mg/Ml 2 Ml Vial) 4 mg IV Q6H PRN PRN Reason: Nausea Stop: 11/05/21 22:38 Pantoprazole Sodium (Pantoprazole 40 Mg Tab) 40 mg PO DAILY DIANDRA Stop: 11/06/21 08:59 Last Admin: 10/07/21 08:17 Dose: 40 mg Documented by: Polyethylene Glycol (Polyethylene (Miralax) 17 Gm Pack) 17 gm PO DAILY PRN PRN Reason: Constipation Stop: 11/05/21 22:38 Rosuvastatin Calcium (Rosuvastatin Calcium 5 Mg Tab) 5 mg PO QAM DIANDRA Stop: 11/06/21 08:59 Last Admin: 10/07/21 08:17 Dose: 5 mg Documented by: Sertraline HCl (Sertraline Hcl 50 Mg Tablet) 25 mg PO DAILY DIANDRA Stop: 11/06/21 08:59 Last Admin: 10/07/21 08:17 Dose: 25 mg Documented by: Trazodone HCl (Trazodone Hcl 50 Mg Tab) 150 mg PO HS [facility] Stop: 11/06/21 20:59 Triamcinolone Acetonide (Triamcinolone Acet Nasal [place] 10.8ml Btl) 2 sprays NA DAILY DIANDRA Stop: 11/06/21 08:59 Last Admin: 10/07/21 08:18 Dose: 2 sprays Documented by: (1) Anemia Anemia type: unspecified type Qualified Code(s): D64.9 - Anemia, unspecified
--- NOTE | 2021-10-07 14:05 | Pharmacy Report ---
Pharmacy PN Initial Consult - Date of Service October 07, 2021 - Scope Pharmacy has been consulted to manage parenteral nutrition orders and order appropriate labs. As part of the Nutrition Support Team guidelines, pharmacy will work in conjunction with dietary when determining the patients caloric needs. - Subjective The patient is a 76 year old F admitted on 10/06/21 21:09 for DEHYDRATION. Patient is to receive parenteral nutrition - Objective Height: 5 ft 1 in Weight: 57.5 kg Diet: NPO Intake & Output (Last 24Hrs): Intake & Output 10/05/21 10/06/21 10/07/21 10/08/21 06:59 06:59 06:59 06:59 Intake Total 1120 / 1120 1115 / 1115 Balance 1120 / 1120 1115 / 1115 Weight 57.5 kg 57.5 kg Laboratory Data (Last 24 Hrs):: 10/06/21 10/06/21 10/07/21 15:15 17:12 05:52 Sodium 131 L 135 L Potassium 3.1 L 3.1 L Chloride 93 L 100 Carbon Dioxide 26 25 BUN 26 H 27 H Creatinine 2.73 H 2.34 H D Glucose 116 H 126 H Calcium 9.0 8.3 L Phosphorus 3.1 2.7 Magnesium 2.0 1.9 Total Bilirubin 0.4 AST 25 ALT 12 Alkaline Phosphatase 93 Albumin 3.1 L Triglycerides 10/07/21 05:52 Sodium Potassium Chloride Carbon Dioxide BUN Creatinine Glucose Calcium Phosphorus Magnesium Total Bilirubin AST ALT Alkaline Phosphatase Albumin Triglycerides 123 Nutrition Assessment:: Please refer to the Notes section of the EMR for the most recent snack bar cook note. - Plan 76 year old female with recent h/o diverticular abscess, previously on IV abx for a month with poor nutrition/oral intake. Per notes, possible transfer to tertiary care for colorectal surgery. * Discussed with provider and would like total fluids at about ~125 ml/hr * Plan have fluids titrated down with TPN initiation (to account for TPN + Lipids) and then have the rate adjusted again once lipids are done infusing at 2100 to maintain 125 ml/hr total volume On day 1 of PN administration, the following will be ordered: Macronutrients Amino acids 58 grams/day Dextrose 101 grams/day Lipids 40 grams/day Micronutrients Sodium chloride 40 mEq Sodium acetate 40 mEq Potassium phosphate 15 mMol Potassium chloride 20 mEq Magnesium sulfate 4.06 mEq Calcium gluconate 4.65 mEq Multivitamins 10 mL Trace Elements 10 mL Additional additives: thiamine 100 mg Total volume 794 mL to be infused over 24 hrs will provide 973.1 kcal/day Labs to be ordered per PN order protocol Pharmacy will follow and adjust parenteral nutrition orders on a daily basis. Thank you.
[2021-10-07] MEDS ORDERED: SACCHAROMYCES BOULARDII 250 MG CAP PO SCH (15:45)
[2021-10-07] MEDS ORDERED: DEXTROSE 10% 1,000 ML IV PRN (16:00)
[2021-10-07] MEDS ORDERED: [UNRECOGNIZED DRUG - OTHER] IV SCH (16:00)
[2021-10-07] MEDS ORDERED: D5NSS + 20MEQ KCL 20 MEQ/1,000 ML BAG IV SCH (16:00)
[2021-10-07] MEDS ORDERED: CENTRAL TPN IV SCH (16:00)
[2021-10-07] MEDS ORDERED: AMINO ACID 8% IV SCH (16:00)
[2021-10-07] MEDS: CLINOLIPID 20% IV FAT EMULSION 100 ML IV SCH ×2 (16:09→18:37)
[2021-10-07] MEDS ORDERED: ACETAMINOPHEN 325 MG TAB PO PRN (17:15)
[2021-10-07] MEDS: LIDOCAINE 5% 1 PATCH TD SCH (17:59)
[2021-10-07] MEDS: traZODone HCL 50 MG TAB PO SCH (20:43)
[2021-10-07] MEDS: HEPARIN SOD 5,000 UNIT/0.5 ML VIAL SQ SCH (20:44)
--- NOTE | 2021-10-07 21:27 | Electrocardiogram Report ---
Test Reason : Blood Pressure : / mmHG Vent. Rate : 096 BPM Atrial Rate : 096 BPM P-R Int : 128 ms QRS Dur : 082 ms QT Int : 362 ms P-R-T Axes : -22 -13 018 degrees QTc Int : 457 ms Normal sinus rhythm Nonspecific T wave abnormality Abnormal ECG When compared with ECG of 06-SEP-2021 19:09, Nonspecific T wave abnormality now evident in Inferior leads Confirmed by Phillip Venegas ([id number]) on 10/07/2021 9:27:25 PM Referred By: Confirmed By:Phillip Venegas
[2021-10-08] MEDS: PIPERACILLIN/TAZOBACTAM 3.375 GM in DEXTROSE 5% 100 ML IV SCH ×2 (04:00→16:25)
[2021-10-08] MEDS: D5NSS + 20MEQ KCL 20 MEQ/1,000 ML BAG IV SCH (05:45)
[2021-10-08] MEDS: SERTRALINE HCL 50 MG TABLET PO SCH (07:49)
[2021-10-08] MEDS: ROSUVASTATIN CALCIUM 5 MG TAB PO SCH (07:49)
[2021-10-08] MEDS: PANTOprazole 40 MG TAB PO SCH (07:50)
[2021-10-08] MEDS: amLODIPine BESYLATE 5 MG TAB PO SCH (07:50)
[2021-10-08] MEDS: HEPARIN SOD 5,000 UNIT/0.5 ML VIAL SQ SCH (07:53)
[2021-10-08] MEDS: LIDOCAINE 5% 1 PATCH TD SCH (07:53)
[2021-10-08] MEDS: TRIAMCINOLONE ACET NASAL SPRAY 10.8ML BTL SCH (07:54)
[2021-10-08 09:30] LABS: BUN Creatinine Ratio 14.9 (10-20); Calcium 7.8 mg/dl (8.5-10.1); Creatinine Clr Calc Pharmacy 27.9 ml/min; Est GFR (African American) 41.5 ml/min; Est GFR (Non-African American) 35.8 ml/min; Magnesium 1.4 mg/dl (1.7-2.4); Phosphorus 2.2 mg/dl (2.5-4.9)
[2021-10-08] MEDS ORDERED: NSS + 20MEQ KCL 20 MEQ/1,000 ML BAG IV SCH (10:00)
[2021-10-08] MEDS: MAGNESIUM SULFATE / D5W 1 GM/100 ML BAG IV SCH ×2 (10:05→12:09)
[2021-10-08] MEDS: POTASSIUM CHLORIDE / WTR 10 MEQ/100 ML PLCT IV SCH ×3 (10:05→12:10)
[2021-10-08 10:19] LABS: Hematocrit (blood only) 21.5 % (37-47); Hemoglobin 6.6 g/dL (12.0-16.0); Mean Corpuscular Hemoglobin 28.6 pg (25-34); Mean Corpuscular Hgb Conc 30.7 g/dL (32-36); Mean Corpuscular Volume 93.1 fL (80-100); Platelet Count 293 K/uL (130-400); RDW Standard Deviation 61.5 fL (36.4-46.3); Red Blood Count 2.31 M/uL (4.2-5.4); White Blood Count 8.63 K/uL (4.8-10.8)
[2021-10-08] MEDS ORDERED: SODIUM CHLORIDE 0.9% 250 ML IV PRN (10:21)
--- NOTE | 2021-10-08 11:14 | Surgery Progress Note ---
Date of Service October 08, 2021 Assessment & Plan (1) Failure to thrive: (2) AMARA (acute kidney injury): (3) [place]-vesical fistula: Plan: TPN and bowel rest initiated. Antibiotics. She is clinically improving. No urgent or emergent indications for surgical intervention. Per Dr. Anderson the plan would be follow-up with colorectal at a tertiary center as soon as she is stable enough. Monitor H&H will likely need transfusion. (4) Diverticulitis: (5) Anemia: Admission and Anticipated Discharge Date Admission Date: October 06, 2021 Subjective Patient seen. Admittedly is feeling a little better although she is frustrated at the slow progress regarding definitive treatment. Physical Exam Constitutional: WD/WN, vitals as above no acute distress and not ill appearing Eyes: PERRL, conjunctivae normal, anicteric sclerae EOM intact bilaterally ENMT: external ear and nose normal, oropharynx normal Ears: no hearing impairment Neck: trachea midline, no thyromegaly Respiratory: normal respiratory effort; no respiratory distress and does not use accessory muscles Cardiovascular: Rate/Rhythm: regular rate and regular rhythm Gastrointestinal (Abdomen): Soft. Nontender. No guarding. Skin: no rashes, warm and dry Psychiatric: Orientation: alert, oriented x 3 and cooperative Results & Data ([facility]) Vital Signs (Past 12 Hours) Vital Signs Temp Pulse Pulse Resp BP Pulse Ox 10/08/21 07:36 69 10/08/21 07:12 36.8 C 74 18 123/66 97 10/08/21 04:00 37 C 70 20 124/67 96 PG Care Time/CCT Total # of Minutes Spent Total Time Spent with Patient: Total time spent is greater than 50% in coordination of care (as documented) at patient's floor/unit and/or counseling patient: Coding Level of Care Code 75072 Subseq Hosp Care Lvl 3 Diagnoses Failure to thrive AMARA (acute kidney injury) N17.9 [place]-vesical fistula N32.1 Diverticulitis K57.92 Anemia D64.9 Anemia type: unspecified type (1) Anemia Anemia type: unspecified type Qualified Code(s): D64.9 - Anemia, unspecified
[2021-10-08] MEDS ORDERED: POT PHOSPHATE MONOBASIC W/ SOD TAB PO SCH (13:00)
[2021-10-08] MEDS: ACETAMINOPHEN 325 MG TAB PO PRN (13:43)
--- NOTE | 2021-10-08 15:49 | Hospitalist Progress Note ---
Date of Service October 08, 2021 Assessment & Plan (1) [place]-vesical fistula: (2) Colonic diverticular abscess: (3) UTI (urinary tract infection): (4) AMARA (acute kidney injury): (5) Anemia: (6) Blood transfusion reaction: (7) Hypokalemia: (8) Hypomagnesemia: (9) Hypophosphatemia: (10) Severe malnutrition: Plan: 76 year old female with recent h/o diverticular abscess and IV ABx treatment for a month with PICC line removed yesterday presented to the ED with poor nutrition and oral intake. Acute on chronic anemia- Hb down to 6.6 today from 7.1 and 1 U PRBC ordered but patient had reaction as below. No active bleeding. folate, b12 normal. fobt pending. s/p 4 iv iron infusions with last one 09/27/21. Suspected blood transfusion reaction- 1hr into PRBC transfusion, patient had fever and chills. Transfusion immediately stopped and sent to blood bank for investigation. Continue conservative management for now Ecoli and enterococcal UTI- continue zosyn (also for diverticulitis), will add dapto pending sensitivities AMARA- baseline Cr 0.7, on presentation 2.7->2.3->1.4. likely prerenal due to poor oral intake and NSAIDs use at home. States she is voiding. Continue IVF, recheck in am, avoid nephrotoxic. Consider urena if voiding issues. Hypokalemia- repleting, recheck in am Hypomagnesemia- repleted, recheck in am Hypophosphatemia- replete, recheck in am Severe malnutrition/FTT- discussed with surgery. Patient will need to be optimized prior to transfer for colorectal surgery evaluation at tertiary center. PICC line in place and started on TPN 10/07. Dietitian and pharmacy managing. Colovesical fistula with recent diverticular abscess and antibiotic treatment- CT A/P reviewed as below. Will need colorectal surgery evaluation down the road but will need optimization first as above. Surgery following. CT A/P 10/06. 1. Sigmoid diverticulosis with chronic mucosal thickening and extraluminal walled off air collection at site of previous diverticulitis. However, no acute inflammatory changes are seen at this time. 2. Of concern is the bladder filled with 50% tear. The bladder abuts the sigmoid colon and a colovesical fistula cannot be excluded. HTN- hold losartan due to AMARA, started on norvasc. GERD- continue PPI Seasonal affective disorder- on zoloft DVT prophylaxis- hold sc heparin today d/t anemia requiring transfusion- resume tomorrow if stable Dispo- On TPN and IV ABx for medical optimization prior to transfer to tertiary center for colovesical fistula repair Update- Update at bedside Admission and Anticipated Discharge Date Admission Date: October 06, 2021 Subjective Seen and examined at bedside this morning and later today after suspected transfusion reaction. Feeling better. Chills improved. Denies any chest pain, shortness of breath, lightheadedness, dizziness, back or flank pain. She is asking how long she would be here. at bedside who noted her color improved from yesterday. Physical Exam Physical Exam: General: Lying comfortably in bed, not in distress, on room air HEENT: EOMI, JUN, MMM Chest: Fair breath sounds bilaterally, no wheezes or crackles CVS: Regular rate and rhythm, normal heart sounds, no murmur Abdomen: Soft, mild tenderness in lower abdomen, not distended, normal bowel sounds Neuro: Awake, alert, conversing well, non focal Extremities: No cyanosis, clubbing or edema Results & Data Results & Data ([facility]) Vital Signs (Past 12 Hours) Vital Signs Temp Pulse Pulse Resp BP BP Pulse Ox 10/08/21 15:10 102 H 10/08/21 15:09 38.7 C H 111 H 20 176/81 H 98 10/08/21 13:42 38.3 C H 114 H 22 181/81 H 97 10/08/21 13:36 38.3 C H 115 H 20 189/84 H 94 10/08/21 13:21 38.3 C H 115 H 20 189/84 H 94 10/08/21 13:00 36.7 C 106 H 16 202/84 H 99 10/08/21 12:28 37.2 C 93 H 18 178/77 H 96 10/08/21 12:14 36.8 C 93 H 15 176/76 H 98 10/08/21 11:48 36.8 C 93 H 16 177/76 H 98 10/08/21 11:12 36.8 C 83 20 153/75 H 96 10/08/21 07:36 69 04/16/22 07:12 36.8 C 74 18 123/66 97 10/08/21 04:00 37 C 70 20 124/67 96 Laboratory Results Short CBC 10/08/21 Range/Units 08:31 WBC 8.63 (4.8-10.8) K/uL Hgb 6.6 L* (12.0-16.0) g/dL Hct 21.5 L (37-47) % Plt Count 293 (130-400) K/uL BMP 10/08/21 08:31 Sodium 139 Potassium 3.0 L Chloride 109 H Carbon Dioxide 22 BUN 21 Creatinine 1.41 H D Glucose 122 H Calcium 7.8 L Medications Administered Current Inpatient Medications Acetaminophen (Acetaminophen 325 Mg Tab) 650 mg PO Q4H PRN PRN Reason: Pain or Fever Stop: 11/05/21 22:38 Last Admin: 10/08/21 13:43 Dose: 650 mg Documented by: Amlodipine Besylate (Amlodipine Besylate 5 Mg Tab) 5 mg PO QAM DIANDRA Stop: 11/07/21 08:59 Last Admin: 10/08/21 07:50 Dose: 5 mg Documented by: Heparin Sodium (Beef Lung) (Heparin 10 Unit/Ml 5 Ml Flush) 5 ml FLUSH PRN PRN PRN Reason: Flush Stop: 11/07/21 09:13 Heparin Sodium (Porcine) (Heparin Sod 5,000 Unit/0.5 Ml Vial) 5,000 units SQ Q12 DIANDRA Stop: 11/06/21 20:59 Last Admin: 10/08/21 07:53 Dose: 5,000 units Documented by: Dextrose (D10w) 1,000 mls @ 0 mls/hr IV .Q0M PRN PRN Reason: protocol (see label comments) Stop: 11/06/21 15:59 Sodium Chloride (Nss) 250 mls @ 15 mls/hr IV .[id number] PRN PRN Reason: For Transfusion Stop: 10/08/21 20:21 Amino Acids/Dextrose 1,167 ml/ (Nutrition (Parenteral)) 1,167 mls @ 48.6 mls/hr IV .Q24H DIANDRA; Protocol Stop: 10/09/21 15:59 Last Admin: 10/08/21 16:24 Dose: 48.6 mls/hr Documented by: Fat Emulsion-[place] Oil/Soybean Oil (Clinolipid 20% Iv Fat Emulsion) 100 mls @ 40 mls/hr IV .Q2H30M [facility] Stop: 10/08/21 20:59 Last Admin: 10/08/21 16:24 Dose: 40 mls/hr Documented by: Sodium Chloride (Nss 1000ml) 1,000 mls @ 50 mls/hr IV .Q20H [facility] Stop: 11/07/21 15:59 Last Admin: 10/08/21 16:25 Dose: 50 mls/hr Documented by: Piperacillin Sod/Tazobactam (Sod 3.375 gm/ Dextrose) 115 mls @ 28.75 mls/hr IV Q8H [facility]; Protocol Stop: 10/17/21 15:59 Last Admin: 10/08/21 16:25 Dose: 28.8 mls/hr Documented by: Daptomycin 300 mg/ Syringe 6 mls @ 3 mls/min IV Q24H [facility]; Protocol Stop: 10/13/21 15:59 Last Admin: 10/08/21 16:26 Dose: 3 mls/min Documented by: Lidocaine (Lidocaine 5% 1 Patch) 1 patch TD QAM [facility] Stop: 11/06/21 17:14 Last Admin: 10/08/21 07:53 Dose: 1 patch Documented by: Lorazepam (Lorazepam 0.5 Mg Tab) 0.5 mg PO DAILY PRN PRN Reason: Anxiety Stop: 11/05/21 22:38 Losartan Potassium (Losartan Potassium 50 Mg Tab) 100 mg PO DAILY [facility] Stop: 11/06/21 08:59 Last Admin: 10/07/21 08:17 Dose: 100 mg Documented by: Miscellaneous (Remove Lidoderm Patch) 1 ea N/A DAILY@2100 [facility] Stop: 11/06/21 20:59 Last Admin: 10/07/21 20:43 Dose: 1 ea Documented by: Miscellaneous Information (Piperacill/Tazobac Consult Active) 1 ea N/A UD PRN PRN Reason: Consult Stop: 11/05/21 19:38 Miscellaneous Information (Tpn/Ppn Consult Pharmacy) 1 ea N/A UD PRN PRN Reason: Consult Stop: 11/05/21 22:57 Miscellaneous Information (Daptomycin Consult Active) 1 ea N/A UD PRN PRN Reason: Consult Stop: 11/07/21 15:32 Nitroglycerin (Nitroglycerin Sl 0.4 Mg/Tab Tab) 0.4 mg SL UD PRN PRN Reason: Chest Pain Stop: 11/05/21 22:38 Ondansetron HCl (Ondansetron Inj 2 Mg/Ml 2 Ml Vial) 4 mg IV Q6H PRN PRN Reason: Nausea Stop: 11/05/21 22:38 Pantoprazole Sodium (Pantoprazole 40 Mg Tab) 40 mg PO DAILY [facility]AN[facility] Stop: 11/06/21 08:59 Last Admin: 10/08/21 07:50 Dose: 40 mg Documented by: Polyethylene Glycol (Polyethylene (Miralax) 17 Gm Pack) 17 gm PO DAILY PRN PRN Reason: Constipation Stop: 11/05/21 22:38 Rosuvastatin Calcium (Rosuvastatin Calcium 5 Mg Tab) 5 mg PO QAM [facility] Stop: 11/06/21 08:59 Last Admin: 10/08/21 07:49 Dose: 5 mg Documented by: Sertraline HCl (Sertraline Hcl 50 Mg Tablet) 25 mg PO DAILY [facility]AN[facility] Stop: 11/06/21 08:59 Last Admin: 10/08/21 07:49 Dose: 25 mg Documented by: Trazodone HCl (Trazodone Hcl 50 Mg Tab) 150 mg PO HS [facility] Stop: 11/06/21 20:59 Last Admin: 10/07/21 20:43 Dose: Not Given Documented by: Triamcinolone Acetonide (Triamcinolone Acet Nasal [place] 10.8ml Btl) 2 sprays NA DAILY [facility] Stop: 11/06/21 08:59 Last Admin: 10/08/21 07:54 Dose: Not Given Documented by: (1) Anemia Anemia type: unspecified type Qualified Code(s): D64.9 - Anemia, unspecified
[2021-10-08] MEDS ORDERED: AMINO ACID 8% IV SCH (16:00)
[2021-10-08] MEDS ORDERED: [UNRECOGNIZED DRUG - OTHER] IV SCH (16:00)
[2021-10-08] MEDS ORDERED: CENTRAL TPN IV SCH (16:00)
[2021-10-08] MEDS: CLINOLIPID 20% IV FAT EMULSION 100 ML IV SCH ×2 (16:24→18:55)
[2021-10-08] MEDS: SODIUM CHLORIDE 0.9% 1000ML 1,000 ML IV SCH (16:25)
[2021-10-08] MEDS: DAPTOmycin 300 MG in SYRINGE 0 ML IV SCH (16:26)
[2021-10-08 20:57] LABS: Blood Urine 1+ (Negative); RBC Urine Automated 0-4 /hpf (0-4)
[2021-10-08] MEDS: traZODone HCL 50 MG TAB PO SCH (21:11)
[2021-10-08] MEDS: MELATONIN 3 MG TAB PO SCH (21:12)
[2021-10-08] MEDS: LORazepam 0.5 MG TAB PO PRN (21:33)
[2021-10-09] MEDS: PIPERACILLIN/TAZOBACTAM 3.375 GM in DEXTROSE 5% 100 ML IV SCH ×3 (00:32→15:58)
[2021-10-09] MEDS: SERTRALINE HCL 50 MG TABLET PO SCH (08:05)
[2021-10-09] MEDS: amLODIPine BESYLATE 5 MG TAB PO SCH (08:05)
[2021-10-09] MEDS: ROSUVASTATIN CALCIUM 5 MG TAB PO SCH (08:05)
[2021-10-09] MEDS: PANTOprazole 40 MG TAB PO SCH (08:06)
[2021-10-09] MEDS: TRIAMCINOLONE ACET NASAL SPRAY 10.8ML BTL SCH (08:10)
[2021-10-09] MEDS: LIDOCAINE 5% 1 PATCH TD SCH (08:10)
[2021-10-09 08:58] LABS: Hematocrit (blood only) 22.2 % (37-47); Hemoglobin 6.8 g/dL (12.0-16.0)
--- NOTE | 2021-10-09 09:10 | Surgery Progress Note ---
Date of Service October 09, 2021 Assessment & Plan (1) Severe malnutrition: (2) Blood transfusion reaction: (3) Failure to thrive: (4) AMARA (acute kidney injury): (5) [place]-vesical fistula: Plan: Plan we will continue to be the same. Recommend continue antibiotics bowel rest and TPN. She is currently stable. Currently would not be a surgical candidate from a nutritional standpoint. She should see colorectal in the near future however to get a long-term plan. (6) Diverticulitis: Admission and Anticipated Discharge Date Admission Date: October 06, 2021 Subjective Patient resting comfortably. I did not awaken her Results & Data ([facility]) Vital Signs (Past 12 Hours) Vital Signs Temp Pulse Pulse Resp BP Pulse Ox 10/09/21 07:38 36.6 C 82 18 127/71 96 10/09/21 07:32 72 10/09/21 03:00 36.9 C 74 18 110/65 97 10/09/21 00:46 84 10/08/21 22:00 36.9 C 81 18 115/65 96 PG Care Time/CCT Total # of Minutes Spent Total Time Spent with Patient: Total time spent is greater than 50% in coordination of care (as documented) at patient's floor/unit and/or counseling patient: Coding Level of Care Code 67518 Subseq Hosp Care Lvl 2 Diagnoses Severe malnutrition E43 Blood transfusion reaction T80.92XA Failure to thrive AMARA (acute kidney injury) N17.9 [place]-vesical fistula N32.1 Diverticulitis K57.92
[2021-10-09 10:03] LABS: BUN Creatinine Ratio 21.6 (10-20); Creatinine Clr Calc Pharmacy 39.1 ml/min; Est GFR (African American) 61.4 ml/min; Magnesium 1.7 mg/dl (1.7-2.4); Phosphorus 3.3 mg/dl (2.5-4.9); Potassium 3.6 mmol/L (3.5-5.1)
[2021-10-09] MEDS ORDERED: SODIUM CHLORIDE 0.9% 250 ML IV PRN (10:34)
[2021-10-09] MEDS: SODIUM CHLORIDE 0.9% 1000ML 1,000 ML IV SCH (12:10)
--- NOTE | 2021-10-09 13:13 | Hospitalist Progress Note ---
Date of Service October 09, 2021 Assessment & Plan (1) [place]-vesical fistula: (2) Colonic diverticular abscess: (3) UTI (urinary tract infection): (4) AMARA (acute kidney injury): (5) Anemia: (6) Blood transfusion reaction: (7) Hypokalemia: (8) Hypomagnesemia: (9) Hypophosphatemia: (10) Severe malnutrition: Plan: 76 year old female with recent h/o diverticular abscess and IV ABx treatment for a month with PICC line removed yesterday presented to the ED with poor nutrition and oral intake. Acute on chronic anemia- Hb 6.8 today, PRBC could not be transfused fully yesterday due to FNHTR. Discussed with blood bank who had discussed with patho and okayed to transfuse blood. Will transfuse 1 U PRBC. Recheck H&H in am. No active bleeding. folate, b12 normal. fobt pending. s/p 4 iv iron infusions with last one 09/27/21. Febrile non hemolytic transfusion reaction- due to PRBC yesterday, resolved since. Ecoli and enterococcal UTI- continue zosyn D3 (also for diverticulitis), On dapto D2 pending sensitivities AMARA- baseline Cr 0.7, on presentation 2.7->2.3->1.4->1. likely prerenal due to poor oral intake and NSAIDs use at home. Voiding without issues. Continue IVF, recheck in am, avoid nephrotoxic. Hypokalemia- resolved with repletion Hypomagnesemia- resolved with repletion Hypophosphatemia- resolved with repletion Severe malnutrition/FTT- On TPN started 10/07 through PICC line. Dietitian and pharmacy managing. Colovesical fistula with recent diverticular abscess and antibiotic treatment- CT A/P reviewed as below. Will need to transfer to tertiary center for colorectal surgery evaluation down the road but will need optimization first. Surgery following. CT A/P 10/06. 1. Sigmoid diverticulosis with chronic mucosal thickening and extraluminal walled off air collection at site of previous diverticulitis. However, no acute inflammatory changes are seen at this time. 2. Of concern is the bladder filled with 50% tear. The bladder abuts the sigmoid colon and a colovesical fistula cannot be excluded. HTN- Losartan on hold due to AMARA and started on norvasc instead. BP stable GERD- continue PPI Seasonal affective disorder- on zoloft DVT prophylaxis- hold sc heparin today d/t anemia requiring transfusion- resume tomorrow if stable Dispo- On TPN and IV ABx for medical optimization prior to transfer to tertiary center for colovesical fistula repair Admission and Anticipated Discharge Date Admission Date: October 06, 2021 Subjective Denies any new issues. Did not get much sleep last night. Fever and chills resolved. Denies any chest pain, shortness of breath, nausea, vomiting. Physical Exam Physical Exam: General: Lying comfortably in bed, not in distress, on room air HEENT: EOMI, JUN, MMM Chest: Fair breath sounds bilaterally, no wheezes or crackles CVS: Regular rate and rhythm, normal heart sounds, no murmur Abdomen: Soft, non tender, not distended, normal bowel sounds Neuro: Awake, alert, conversing well, non focal Extremities: No cyanosis, clubbing or edema Results & Data Results & Data ([facility]) Vital Signs (Past 12 Hours) Vital Signs Temp Pulse Pulse Pulse Resp BP BP 10/09/21 13:00 36.9 C 78 16 125/67 10/09/21 12:42 36.7 C 78 16 126/70 10/09/21 11:45 37.1 C 80 18 110/75 10/09/21 07:38 36.6 C 82 18 127/71 10/09/21 07:32 72 10/09/21 03:00 36.9 C 74 18 110/65 Pulse Ox 10/09/21 13:00 98 10/09/21 12:42 97 10/09/21 11:45 98 10/09/21 07:38 96 10/09/21 07:32 10/09/21 03:00 97 Laboratory Results Short CBC 10/09/21 Range/Units 08:28 Hgb 6.8 L* (12.0-16.0) g/dL Hct 22.2 L (37-47) % BMP 10/09/21 08:28 Sodium 140 Potassium 3.6 Chloride 109 H Carbon Dioxide 24 BUN 22 Creatinine 1.02 D Glucose 113 H Calcium 8.0 L Medications Administered Current Inpatient Medications Acetaminophen (Acetaminophen 325 Mg Tab) 650 mg PO Q4H PRN PRN Reason: Pain or Fever Stop: 11/05/21 22:38 Last Admin: 10/08/21 13:43 Dose: 650 mg Documented by: Amlodipine Besylate (Amlodipine Besylate 5 Mg Tab) 5 mg PO QAM [facility] Stop: 11/07/21 08:59 Last Admin: 10/09/21 08:05 Dose: 5 mg Documented by: Heparin Sodium (Beef Lung) (Heparin 10 Unit/Ml 5 Ml Flush) 5 ml FLUSH PRN PRN PRN Reason: Flush Stop: 11/07/21 09:13 Heparin Sodium (Porcine) (Heparin Sod 5,000 Unit/0.5 Ml Vial) 5,000 units SQ Q12 [facility] Stop: 11/06/21 20:59 Last Admin: 10/08/21 07:53 Dose: 5,000 units Documented by: Dextrose (D10w) 1,000 mls @ 0 mls/hr IV .Q0M PRN PRN Reason: protocol (see label comments) Stop: 11/06/21 15:59 Amino Acids/Dextrose 1,167 ml/ (Nutrition (Parenteral)) 1,167 mls @ 48.6 mls/hr IV .Q24H [facility]AN[facility]; Protocol Stop: 10/09/21 15:59 Last Admin: 10/08/21 16:24 Dose: 48.6 mls/hr Documented by: Sodium Chloride (Nss 1000ml) 1,000 mls @ 50 mls/hr IV .Q20H [facility]AN[facility] Stop: 11/07/21 15:59 Last Admin: 10/09/21 12:10 Dose: 50 mls/hr Documented by: Piperacillin Sod/Tazobactam (Sod 3.375 gm/ Dextrose) 115 mls @ 28.75 mls/hr IV Q8H [facility]AN[facility]; Protocol Stop: 10/17/21 15:59 Last Infusion: 10/09/21 12:10 Dose: Infused Documented by: Daptomycin 300 mg/ Syringe 6 mls @ 3 mls/min IV Q24H [facility]AN[facility]; Protocol Stop: 10/13/21 15:59 Last Admin: 10/08/21 16:26 Dose: 3 mls/min Documented by: Amino Acids/Dextrose 1,167 ml/ (Nutrition (Parenteral)) 1,167 mls @ 48.6 mls/hr IV .Q24H [facility]AN[facility]; Protocol Stop: 10/10/21 15:59 Fat Emulsion-[place] Oil/Soybean Oil (Clinolipid 20% Iv Fat Emulsion) 100 mls @ 40 mls/hr IV .Q2H30M [facility]AN[facility] Stop: 10/09/21 20:59 Sodium Chloride (Nss) 250 mls @ 15 mls/hr IV .[id number] PRN PRN Reason: For Transfusion Stop: 10/09/21 20:34 Lidocaine (Lidocaine 5% 1 Patch) 1 patch TD QAM [facility] Stop: 11/06/21 17:14 Last Admin: 10/09/21 08:10 Dose: Not Given Documented by: Lorazepam (Lorazepam 0.5 Mg Tab) 0.25 mg PO HS PRN PRN Reason: Anxiety, insomnia Stop: 11/05/21 22:38 Last Admin: 10/08/21 21:33 Dose: 0.25 mg Documented by: Losartan Potassium (Losartan Potassium 50 Mg Tab) 100 mg PO DAILY [facility] Stop: 11/06/21 08:59 Last Admin: 10/07/21 08:17 Dose: 100 mg Documented by: Melatonin (Melatonin 3 Mg Tab) 6 mg PO HS [facility] Stop: 11/07/21 20:59 Last Admin: 10/08/21 21:12 Dose: 6 mg Documented by: Miscellaneous (Remove Lidoderm Patch) 1 ea N/A DAILY@2100 [facility] Stop: 11/06/21 20:59 Last Admin: 10/08/21 22:22 Dose: Not Given Documented by: Miscellaneous Information (Piperacill/Tazobac Consult Active) 1 ea N/A UD PRN PRN Reason: Consult Stop: 11/05/21 19:38 Miscellaneous Information (Tpn/Ppn Consult Pharmacy) 1 ea N/A UD PRN PRN Reason: Consult Stop: 11/05/21 22:57 Miscellaneous Information (Daptomycin Consult Active) 1 ea N/A UD PRN PRN Reason: Consult Stop: 11/07/21 15:32 Nitroglycerin (Nitroglycerin Sl 0.4 Mg/Tab Tab) 0.4 mg SL UD PRN PRN Reason: Chest Pain Stop: 11/05/21 22:38 Ondansetron HCl (Ondansetron Inj 2 Mg/Ml 2 Ml Vial) 4 mg IV Q6H PRN PRN Reason: Nausea Stop: 11/05/21 22:38 Pantoprazole Sodium (Pantoprazole 40 Mg Tab) 40 mg PO DAILY [facility] Stop: 11/06/21 08:59 Last Admin: 10/09/21 08:06 Dose: 40 mg Documented by: Polyethylene Glycol (Polyethylene (Miralax) 17 Gm Pack) 17 gm PO DAILY PRN PRN Reason: Constipation Stop: 11/05/21 22:38 Rosuvastatin Calcium (Rosuvastatin Calcium 5 Mg Tab) 5 mg PO QAM [facility] Stop: 11/06/21 08:59 Last Admin: 10/09/21 08:05 Dose: 5 mg Documented by: Sertraline HCl (Sertraline Hcl 50 Mg Tablet) 25 mg PO DAILY [facility] Stop: 11/06/21 08:59 Last Admin: 10/09/21 08:05 Dose: 25 mg Documented by: Trazodone HCl (Trazodone Hcl 50 Mg Tab) 150 mg PO HS [facility] Stop: 11/06/21 20:59 Last Admin: 10/08/21 21:11 Dose: 150 mg Documented by: Triamcinolone Acetonide (Triamcinolone Acet Nasal [place] 10.8ml Btl) 2 sprays NA DAILY [facility] Stop: 11/06/21 08:59 Last Admin: 10/09/21 08:10 Dose: Not Given Documented by: (1) Anemia Anemia type: unspecified type Qualified Code(s): D64.9 - Anemia, unspecified
[2021-10-09] MEDS: DAPTOmycin 300 MG in SYRINGE 0 ML IV SCH (15:56)
[2021-10-09] MEDS ORDERED: [UNRECOGNIZED DRUG - OTHER] IV SCH (16:00)
[2021-10-09] MEDS ORDERED: AMINO ACID 8% IV SCH (16:00)
[2021-10-09] MEDS ORDERED: CENTRAL TPN IV SCH (16:00)
[2021-10-09] MEDS: CLINOLIPID 20% IV FAT EMULSION 100 ML IV SCH ×2 (16:01→18:18)
[2021-10-09] MEDS: LORazepam 0.5 MG TAB PO PRN (20:52)
[2021-10-09] MEDS: MELATONIN 3 MG TAB PO SCH (20:53)
[2021-10-09] MEDS: traZODone HCL 50 MG TAB PO SCH (20:54)
[2021-10-10] MEDS: PIPERACILLIN/TAZOBACTAM 3.375 GM in DEXTROSE 5% 100 ML IV SCH ×3 (00:08→16:05)
[2021-10-10] MEDS: PANTOprazole 40 MG TAB PO SCH (08:10)
[2021-10-10] MEDS: ROSUVASTATIN CALCIUM 5 MG TAB PO SCH (08:11)
[2021-10-10] MEDS: SERTRALINE HCL 50 MG TABLET PO SCH (08:11)
[2021-10-10] MEDS: amLODIPine BESYLATE 5 MG TAB PO SCH (08:11)
[2021-10-10] MEDS: LIDOCAINE 5% 1 PATCH TD SCH (08:12)
[2021-10-10] MEDS: TRIAMCINOLONE ACET NASAL SPRAY 10.8ML BTL SCH (08:12)
[2021-10-10 08:55] LABS: Hematocrit (blood only) 27.6 % (37-47); Hemoglobin 8.8 g/dL (12.0-16.0)
[2021-10-10 09:11] LABS: BUN Creatinine Ratio 26.5 (10-20); Calcium 8.3 mg/dl (8.5-10.1); Est GFR (African American) 78.8 ml/min; Magnesium 1.4 mg/dl (1.7-2.4); Phosphorus 3.8 mg/dl (2.5-4.9); Potassium 3.6 mmol/L (3.5-5.1)
--- NOTE | 2021-10-10 10:23 | Surgery Progress Note ---
Date of Service October 10, 2021 Assessment & Plan (1) Severe malnutrition: Plan: Patient appears to be doing better She is on TPN and IV antibiotics Her abdomen is soft We will try some full liquids I do not feel she can go home I do not think she needs an acute hospital transfer She does need follow-up with [facility] colorectal surgery sooner than later I called the nurse navigator for [place]-patient now has an appointment on October 17 at [facility] With colorectal surgery. Apparently she has seen Dr. Solitario -colorectal surgery [place] I also left a message with the nurse for her to transfer records to the doctors in [place] so they know what we have been doing Patient will likely need rehab/extended care with possible TPN for 1-2 more weeks May consider an ID consult- for antibiotics -I will leave this to the medical team Admission and Anticipated Discharge Date Admission Date: October 06, 2021 Subjective Patient awake and alert No distress Apparently has moved her bowels Review of Systems Review of Systems: All systems reviewed & are unremarkable except as noted in HPI & below Physical Exam Physical Exam: Awake and alert but Vital signs are stable Her abdomen is flat and soft with minimal tenderness In no distress Results & Data ([facility]) Vital Signs (Past 12 Hours) Vital Signs Temp Pulse Pulse Resp BP Pulse Ox 10/10/21 07:45 76 10/10/21 07:34 37.0 C 82 16 135/75 96 10/10/21 03:44 36.9 C 79 18 139/76 93 10/10/21 00:59 87 10/09/21 23:09 37 C 85 16 147/69 H 97 PG Care Time/CCT Total # of Minutes Spent Total Time Spent with Patient: Total time spent is greater than 50% in coordination of care (as documented) at patient's floor/unit and/or counseling patient: Coding Level of Care Code 05579 Subseq Hosp Care Lvl 2 Diagnoses Severe malnutrition E43
[2021-10-10] MEDS: MAGNESIUM SULFATE / D5W 1 GM/100 ML BAG IV SCH ×2 (10:39→12:39)
--- NOTE | 2021-10-10 10:48 | Hospitalist Progress Note ---
Date of Service October 10, 2021 Assessment & Plan (1) [place]-vesical fistula: (2) Colonic diverticular abscess: (3) UTI (urinary tract infection): (4) AMARA (acute kidney injury): (5) Anemia: (6) Blood transfusion reaction: (7) Hypokalemia: (8) Hypomagnesemia: (9) Hypophosphatemia: (10) Severe malnutrition: Plan: 76 year old female with recent h/o diverticular abscess and IV ABx treatment for a month with PICC line removed yesterday presented to the ED with poor nutrition and oral intake. Colovesical fistula with recent diverticular abscess and antibiotic treatment- CT A/P reviewed as below. Discussed with Dr Anderson today again- Pt has appt with [facility] colorectal surgery Dr Solitario 10/17/21 and records/films to be sent to them for review, Dr Anderson left message. Currently being optimized with TPN. Per surgery, likely trial of oral feed today. At this juncture, inpatient transfer seems less likely and will likely need rehab and OP follow up with colorectal surgery for definitive management. On zosyn, ID consulted. CT A/P 10/06. 1. Sigmoid diverticulosis with chronic mucosal thickening and extraluminal walled off air collection at site of previous diverticulitis. However, no acute inflammatory changes are seen at this time. 2. Of concern is the bladder filled with 50% tear. The bladder abuts the sigmoid colon and a colovesical fistula cannot be excluded. Ecoli and enterococcal UTI- both sensitive to zosyn, continue D4/7-10. AMARA- resolved, now back to baseline Cr of 0.7, on presentation 2.7->2.3->1.4->1->0.7. likely prerenal due to poor oral intake and NSAIDs use at home. Voiding without issues. Acute on chronic anemia- Hb 6.6->6.8->8.8 after about 1.5 U PRBC transfusion. 1st U PRBC couldnot be transfused completely due to FNHTR but tolerated second unit without issues. Check H&H intermittently. No active bleeding. folate, b12 normal. fobt pending. s/p 4 iv iron infusions with last one 09/27/21. Febrile non hemolytic transfusion reaction- due to PRBC4/16, resolved since. Hypokalemia- resolved with repletion Hypomagnesemia- repleted. recheck in am Hypophosphatemia- resolved with repletion HTN- Losartan was held due to AMARA and started on norvasc instead. BP stable GERD- continue PPI Seasonal affective disorder- on zoloft Severe malnutrition/FTT- On TPN started 10/07 through PICC line. Dietitian and pharmacy managing. DVT prophylaxis- sc heparin Dispo- On TPN and IV ABx for medical optimization prior to ?potential transfer to tertiary center for colovesical fistula repair but seems less likely at this juncture and might need to go to rehab for TPN and OP follow up; PT/OT evaluation. Admission and Anticipated Discharge Date Admission Date: October 06, 2021 Subjective Seen and examined at bedside. No new issues. Could not get much sleep last night. Pain is controlled. No nausea, vomiting, fever or chills. No shortness of breath. Physical Exam Physical Exam: General: Lying comfortably in bed, not in distress, on room air HEENT: EOMI, JUN, MMM Chest: Fair breath sounds bilaterally, no wheezes or crackles CVS: Regular rate and rhythm, normal heart sounds, no murmur Abdomen: Soft, non tender, not distended, normal bowel sounds Neuro: Awake, alert, conversing well, non focal Extremities: No cyanosis, clubbing or edema Results & Data Results & Data ([facility]) Vital Signs (Past 12 Hours) Vital Signs Temp Pulse Pulse Resp BP Pulse Ox 10/10/21 07:45 76 10/10/21 07:34 37.0 C 82 16 135/75 96 10/10/21 03:44 36.9 C 79 18 139/76 93 10/10/21 00:59 87 10/09/21 23:09 37 C 85 16 147/69 H 97 Laboratory Results Short CBC 10/06/21 10/09/21 10/10/21 Range/Units 18:36 10:59 08:13 Hgb 8.8 L (12.0-16.0) g/dL Hct 27.6 L (37-47) % Crossmatch See Detail See Detail BMP 10/10/21 08:13 Sodium 139 Potassium 3.6 Chloride 103 Carbon Dioxide 28 BUN 22 Creatinine 0.83 Glucose 126 H Calcium 8.3 L Medications Administered Current Inpatient Medications Acetaminophen (Acetaminophen 325 Mg Tab) 650 mg PO Q4H PRN PRN Reason: Pain or Fever Stop: 11/05/21 22:38 Last Admin: 10/08/21 13:43 Dose: 650 mg Documented by: Amlodipine Besylate (Amlodipine Besylate 5 Mg Tab) 5 mg PO QAM [facility] Stop: 11/07/21 08:59 Last Admin: 10/10/21 08:11 Dose: 5 mg Documented by: Heparin Sodium (Beef Lung) (Heparin 10 Unit/Ml 5 Ml Flush) 5 ml FLUSH PRN PRN PRN Reason: Flush Stop: 11/07/21 09:13 Heparin Sodium (Porcine) (Heparin Sod 5,000 Unit/0.5 Ml Vial) 5,000 units SQ Q12 [facility] Stop: 11/06/21 20:59 Last Admin: 10/08/21 07:53 Dose: 5,000 units Documented by: Dextrose (D10w) 1,000 mls @ 0 mls/hr IV .Q0M PRN PRN Reason: protocol (see label comments) Stop: 11/06/21 15:59 Piperacillin Sod/Tazobactam (Sod 3.375 gm/ Dextrose) 115 mls @ 28.75 mls/hr IV Q8H [facility]; Protocol Stop: 10/17/21 15:59 Last Admin: 10/10/21 08:16 Dose: 28.8 mls/hr Documented by: Amino Acids/Dextrose 1,167 ml/ (Nutrition (Parenteral)) 1,167 mls @ 48.6 mls/hr IV .Q24H [facility]; Protocol Stop: 10/10/21 15:59 Last Admin: 10/09/21 16:00 Dose: 48.6 mls/hr Documented by: Magnesium Sulfate/Dextrose (Magnesium Sulfate / D5w) 1 gm in 100 mls @ 50 mls/hr IV Q2H [facility] Stop: 10/10/21 13:59 Lidocaine (Lidocaine 5% 1 Patch) 1 patch TD QAM [facility] Stop: 11/06/21 17:14 Last Admin: 10/10/21 08:12 Dose: Not Given Documented by: Lorazepam (Lorazepam 0.5 Mg Tab) 0.25 mg PO HS PRN PRN Reason: Anxiety, insomnia Stop: 11/05/21 22:38 Last Admin: 10/09/21 20:52 Dose: 0.25 mg Documented by: Losartan Potassium (Losartan Potassium 50 Mg Tab) 100 mg PO DAILY [facility] Stop: 11/06/21 08:59 Last Admin: 10/07/21 08:17 Dose: 100 mg Documented by: Melatonin (Melatonin 3 Mg Tab) 6 mg PO HS [facility] Stop: 11/07/21 20:59 Last Admin: 10/09/21 20:53 Dose: 6 mg Documented by: Miscellaneous (Remove Lidoderm Patch) 1 ea N/A DAILY@2100 [facility] Stop: 11/06/21 20:59 Last Admin: 10/09/21 21:02 Dose: Not Given Documented by: Miscellaneous Information (Piperacill/Tazobac Consult Active) 1 ea N/A UD PRN PRN Reason: Consult Stop: 11/05/21 19:38 Miscellaneous Information (Tpn/Ppn Consult Pharmacy) 1 ea N/A UD PRN PRN Reason: Consult Stop: 11/05/21 22:57 Nitroglycerin (Nitroglycerin Sl 0.4 Mg/Tab Tab) 0.4 mg SL UD PRN PRN Reason: Chest Pain Stop: 11/05/21 22:38 Ondansetron HCl (Ondansetron Inj 2 Mg/Ml 2 Ml Vial) 4 mg IV Q6H PRN PRN Reason: Nausea Stop: 11/05/21 22:38 Pantoprazole Sodium (Pantoprazole 40 Mg Tab) 40 mg PO DAILY [facility] Stop: 11/06/21 08:59 Last Admin: 10/10/21 08:10 Dose: 40 mg Documented by: Polyethylene Glycol (Polyethylene (Miralax) 17 Gm Pack) 17 gm PO DAILY PRN PRN Reason: Constipation Stop: 11/05/21 22:38 Rosuvastatin Calcium (Rosuvastatin Calcium 5 Mg Tab) 5 mg PO QAM [facility] Stop: 11/06/21 08:59 Last Admin: 10/10/21 08:11 Dose: 5 mg Documented by: Sertraline HCl (Sertraline Hcl 50 Mg Tablet) 25 mg PO DAILY [facility] Stop: 11/06/21 08:59 Last Admin: 10/10/21 08:11 Dose: 25 mg Documented by: Trazodone HCl (Trazodone Hcl 50 Mg Tab) 150 mg PO HS [facility] Stop: 11/06/21 20:59 Last Admin: 10/09/21 20:54 Dose: 150 mg Documented by: Triamcinolone Acetonide (Triamcinolone Acet Nasal [place] 10.8ml Btl) 2 sprays NA DAILY [facility] Stop: 11/06/21 08:59 Last Admin: 10/10/21 08:12 Dose: Not Given Documented by: (1) Anemia Anemia type: unspecified type Qualified Code(s): D64.9 - Anemia, unspecified
[2021-10-10] MEDS ORDERED: CENTRAL TPN IV SCH (16:00)
[2021-10-10] MEDS ORDERED: [UNRECOGNIZED DRUG - OTHER] IV SCH (16:00)
[2021-10-10] MEDS ORDERED: AMINO ACID 8% IV SCH (16:00)
[2021-10-10] MEDS: CLINOLIPID 20% IV FAT EMULSION 100 ML IV SCH ×2 (16:04→18:27)
[2021-10-10] MEDS: HEPARIN SOD 5,000 UNIT/0.5 ML VIAL SQ SCH (21:14)
[2021-10-10] MEDS: traZODone HCL 50 MG TAB PO SCH (21:14)
[2021-10-10] MEDS: MELATONIN 3 MG TAB PO SCH (21:15)
[2021-10-11] MEDS: PIPERACILLIN/TAZOBACTAM 3.375 GM in DEXTROSE 5% 100 ML IV SCH ×3 (00:05→16:59)
--- NOTE | 2021-10-11 07:45 | Surgery Progress Note ---
Date of Service October 11, 2021 Assessment & Plan (1) [place]-vesical fistula: Plan: Discussed case with Dr. Solitario colorectal surgery-[place] I had her films and info pushed to the [employer] system He is to see her next Sunday Continue supportive care with TPN and IV antibiotics for now Continue on full liquids, will likely need extended care for 1 to 2 weeks depending on the plan Admission and Anticipated Discharge Date Admission Date: October 06, 2021 Subjective Vital signs are stable Had some emesis last night after full liquids Did have some bowel movements though Some nausea this morning Physical Exam Physical Exam: Abdomen is flat and soft Has active bowel sounds Minimal tenderness Results & Data ([facility]) Vital Signs (Past 12 Hours) Vital Signs Temp Pulse Pulse Resp BP Pulse Ox 10/11/21 02:55 37.0 C 82 20 122/68 95 10/11/21 00:00 88 10/10/21 23:08 37.0 C 81 18 155/74 H 95 PG Care Time/CCT Total # of Minutes Spent Total Time Spent with Patient: Total time spent is greater than 50% in coordination of care (as documented) at patient's floor/unit and/or counseling patient: Coding Level of Care Code 14708 Subseq Hosp Care Lvl 2 Diagnoses [place]-vesical fistula N32.1
[2021-10-11 08:45] LABS: Hematocrit (blood only) 26.2 % (37-47); Hemoglobin 8.1 g/dL (12.0-16.0)
[2021-10-11 09:11] LABS: BUN Creatinine Ratio 31.5 (10-20); Calcium 8.3 mg/dl (8.5-10.1); Creatinine Clr Calc Pharmacy 53.6 ml/min; Est GFR (African American) 92.1 ml/min; Est GFR (Non-African American) 79.4 ml/min; Magnesium 1.9 mg/dl (1.7-2.4); Potassium 3.8 mmol/L (3.5-5.1)
--- NOTE | 2021-10-11 09:52 | Pharmacy Report ---
PHA: Parenteral Nutrition Con - Date of Service October 11, 2021 - Scope Pharmacy was consulted on 10/07/21 to manage parenteral nutrition orders for this patient. - Subjective The patient is currently on day 5 of central parenteral nutrition for prolonged poor oral intake secondary to colo-vesical fistula with recent diverticular abscess. 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 - Assessment Venus is a 76 yo * TPN advanced to goal macronutrients on 10/08/21 * Patient is ordered a full liquid diet - did not tolerate well yesterday evening; reported nausea and one episode of vomiting * Patient to be seen by colorectal surgery in [place] on 10/17 * Plan to continue supportive care with TPN and antibiotics for now - Plan For day #5 of PN administration, the following will be ordered: Macronutrients Amino acids 86.8 grams/day Dextrose 152 grams/day Lipids 40 grams/day Micronutrients Sodium chloride 40 mEq Sodium acetate 40 mEq Potassium phosphate 21 mMol Potassium chloride 50 mEq Magnesium sulfate 16.24 mEq Calcium gluconate 4.65 mEq Multivitamins 10 mL Trace Elements 1 mL Additional additives: thiamine 100 mg Total volume 1174 mL to be infused over 24 hrs will provide 1260 kcal/day Labs, as indicated, will be ordered per protocol Pharmacy will continue to follow and adjust parenteral nutrition orders on a daily basis. Thank you for allowing us to participate in the care of this patient.
[2021-10-11] MEDS: amLODIPine BESYLATE 5 MG TAB PO SCH (09:58)
[2021-10-11] MEDS: SERTRALINE HCL 50 MG TABLET PO SCH (09:58)
[2021-10-11] MEDS: LIDOCAINE 5% 1 PATCH TD SCH (09:58)
[2021-10-11] MEDS: ROSUVASTATIN CALCIUM 5 MG TAB PO SCH (09:58)
[2021-10-11] MEDS: HEPARIN SOD 5,000 UNIT/0.5 ML VIAL SQ SCH ×2 (09:58→20:49)
[2021-10-11] MEDS: TRIAMCINOLONE ACET NASAL SPRAY 10.8ML BTL SCH (09:58)
[2021-10-11] MEDS: PANTOprazole 40 MG TAB PO SCH (09:58)
--- NOTE | 2021-10-11 12:25 | Hospitalist Progress Note ---
Date of Service October 11, 2021 Assessment & Plan (1) [place]-vesical fistula: (2) Colonic diverticular abscess: (3) UTI (urinary tract infection): (4) AMARA (acute kidney injury): (5) Anemia: (6) Blood transfusion reaction: (7) Hypokalemia: (8) Hypomagnesemia: (9) Hypophosphatemia: (10) Severe malnutrition: Plan: 76 year old female with recent h/o diverticular abscess and IV ABx treatment for a month with PICC line removed yesterday presented to the ED with poor nutrition and oral intake. Colovesical fistula with recent diverticular abscess and antibiotic treatment- CT A/P reviewed as below. Discussed with Dr Anderson- Pt has appt with [facility] colorectal surgery Dr Solitario 10/17/21. Will need eventual surgery but currently being optimized with TPN. Per surgery, on full liquid diet now to see how she tolerates. At this juncture, inpatient transfer seems less likely and will likely need rehab and OP follow up with colorectal surgery for definitive management. On zosyn, ID consulted. CT A/P 10/06. 1. Sigmoid diverticulosis with chronic mucosal thickening and extraluminal walled off air collection at site of previous diverticulitis. However, no acute inflammatory changes are seen at this time. 2. Of concern is the bladder filled with 50% tear. The bladder abuts the sigmoid colon and a colovesical fistula cannot be excluded. Ecoli and enterococcal UTI- both sensitive to zosyn, continue D5/7-10. AMARA- resolved, now back to baseline Cr of 0.7, on presentation 2.7->2.3->1.4->1->0.7. likely prerenal due to poor oral intake and NSAIDs use at home. Voiding without issues. Acute on chronic anemia- Hb 6.6->6.8->8.8->8.1 after about 1.5 U PRBC transfusion. 1st U PRBC couldnot be transfused completely due to FNHTR but tolerated second unit without issues. Check H&H intermittently. No active bleeding. folate, b12 normal. fobt pending. s/p 4 iv iron infusions with last one 09/27/21. Febrile non hemolytic transfusion reaction- due to PRBC4/16, resolved since. Hypokalemia- resolved with repletion Hypomagnesemia- resolved with repletion Hypophosphatemia- resolved with repletion HTN- Losartan was held due to AMARA and started on norvasc instead. BP stable GERD- continue PPI Seasonal affective disorder- on zoloft Severe malnutrition/FTT- On TPN started 10/07 through PICC line. Dietitian and pharmacy managing. DVT prophylaxis- sc heparin Dispo- On TPN and IV ABx for medical optimization prior to ?potential transfer to tertiary center for colovesical fistula repair but seems less likely at this juncture and might need to go to rehab for TPN and OP follow up; PT/OT evaluation pending- CM following. Admission and Anticipated Discharge Date Admission Date: October 06, 2021 Subjective No new issues. No fever, chills, chest pain, shortness of breath, nausea or vomiting. She did vomit once after the chicken broth last night. She did not like it that much. Physical Exam Physical Exam: General: Lying comfortably in bed, not in distress, on room air HEENT: EOMI, JUN, MMM Chest: Fair breath sounds bilaterally, no wheezes or crackles CVS: Regular rate and rhythm, normal heart sounds, no murmur Abdomen: Soft, non tender, not distended, normal bowel sounds Neuro: Awake, alert, conversing well, non focal Extremities: No cyanosis, clubbing or edema Results & Data Results & Data ([facility]) Vital Signs (Past 12 Hours) Vital Signs Temp Pulse Pulse Pulse Resp BP Pulse Ox 10/11/21 11:23 36.6 C 71 16 103/64 96 10/11/21 10:19 78 10/11/21 07:57 37.1 C 83 16 146/74 H 91 10/11/21 02:55 37.0 C 82 20 122/68 95 Laboratory Results Short CBC 10/11/21 Range/Units 08:31 Hgb 8.1 L (12.0-16.0) g/dL Hct 26.2 L (37-47) % BMP 10/11/21 08:31 Sodium 137 Potassium 3.8 Chloride 102 Carbon Dioxide 30 BUN 23 Creatinine 0.73 Glucose 130 H Calcium 8.3 L Medications Administered Current Inpatient Medications Acetaminophen (Acetaminophen 325 Mg Tab) 650 mg PO Q4H PRN PRN Reason: Pain or Fever Stop: 05/14/22 22:38 Last Admin: 10/08/21 13:43 Dose: 650 mg Documented by: Amlodipine Besylate (Amlodipine Besylate 5 Mg Tab) 5 mg PO QAM DIANDRA Stop: 11/07/21 08:59 Last Admin: 10/11/21 09:58 Dose: 5 mg Documented by: Heparin Sodium (Beef Lung) (Heparin 10 Unit/Ml 5 Ml Flush) 5 ml FLUSH PRN PRN PRN Reason: Flush Stop: 11/07/21 09:13 Last Admin: 10/11/21 04:13 Dose: 5 ml Documented by: Heparin Sodium (Porcine) (Heparin Sod 5,000 Unit/0.5 Ml Vial) 5,000 units SQ Q12 DIANDRA Stop: 11/06/21 20:59 Last Admin: 10/11/21 09:58 Dose: 5,000 units Documented by: Dextrose (D10w) 1,000 mls @ 0 mls/hr IV .Q0M PRN PRN Reason: protocol (see label comments) Stop: 11/06/21 15:59 Piperacillin Sod/Tazobactam (Sod 3.375 gm/ Dextrose) 115 mls @ 28.75 mls/hr IV Q8H DIANDRA; Protocol Stop: 10/17/21 15:59 Last Infusion: 10/11/21 12:46 Dose: Infused Documented by: Amino Acids/Dextrose 1,170 ml/ (Nutrition (Parenteral)) 1,170 mls @ 48.75 mls/hr IV .Q24H DIANDRA; Protocol Stop: 10/11/21 15:59 Last Admin: 10/10/21 16:04 Dose: 48.8 mls/hr Documented by: Amino Acids/Dextrose 1,174 ml/ (Nutrition (Parenteral)) 1,174 mls @ 48.9 mls/hr IV .Q24H DIANDRA; Protocol Stop: 10/12/21 15:59 Fat Emulsion-[place] Oil/Soybean Oil (Clinolipid 20% Iv Fat Emulsion) 100 mls @ 40 mls/hr IV .Q2H30M DIANDRA Stop: 10/11/21 20:59 Lidocaine (Lidocaine 5% 1 Patch) 1 patch TD QAM DIANDRA Stop: 11/06/21 17:14 Last Admin: 10/11/21 09:58 Dose: Not Given Documented by: Lorazepam (Lorazepam 0.5 Mg Tab) 0.25 mg PO HS PRN PRN Reason: Anxiety, insomnia Stop: 11/05/21 22:38 Last Admin: 10/09/21 20:52 Dose: 0.25 mg Documented by: Losartan Potassium (Losartan Potassium 50 Mg Tab) 100 mg PO DAILY [facility] Stop: 11/06/21 08:59 Last Admin: 10/07/21 08:17 Dose: 100 mg Documented by: Melatonin (Melatonin 3 Mg Tab) 6 mg PO HS [facility] Stop: 11/07/21 20:59 Last Admin: 10/10/21 21:15 Dose: 6 mg Documented by: Miscellaneous (Remove Lidoderm Patch) 1 ea N/A DAILY@2100 [facility] Stop: 11/06/21 20:59 Last Admin: 10/10/21 21:14 Dose: Not Given Documented by: Miscellaneous Information (Piperacill/Tazobac Consult Active) 1 ea N/A UD PRN PRN Reason: Consult Stop: 11/05/21 19:38 Miscellaneous Information (Tpn/Ppn Consult Pharmacy) 1 ea N/A UD PRN PRN Reason: Consult Stop: 11/05/21 22:57 Nitroglycerin (Nitroglycerin Sl 0.4 Mg/Tab Tab) 0.4 mg SL UD PRN PRN Reason: Chest Pain Stop: 11/05/21 22:38 Ondansetron HCl (Ondansetron Inj 2 Mg/Ml 2 Ml Vial) 4 mg IV Q6H PRN PRN Reason: Nausea Stop: 11/05/21 22:38 Pantoprazole Sodium (Pantoprazole 40 Mg Tab) 40 mg PO DAILY [facility] Stop: 11/06/21 08:59 Last Admin: 10/11/21 09:58 Dose: 40 mg Documented by: Polyethylene Glycol (Polyethylene (Miralax) 17 Gm Pack) 17 gm PO DAILY PRN PRN Reason: Constipation Stop: 11/05/21 22:38 Rosuvastatin Calcium (Rosuvastatin Calcium 5 Mg Tab) 5 mg PO QAM [facility] Stop: 11/06/21 08:59 Last Admin: 10/11/21 09:58 Dose: 5 mg Documented by: Sertraline HCl (Sertraline Hcl 50 Mg Tablet) 25 mg PO DAILY [facility] Stop: 11/06/21 08:59 Last Admin: 10/11/21 09:58 Dose: 25 mg Documented by: Trazodone HCl (Trazodone Hcl 50 Mg Tab) 150 mg PO HS DIANDRA Stop: 11/06/21 20:59 Last Admin: 10/10/21 21:14 Dose: 150 mg Documented by: Triamcinolone Acetonide (Triamcinolone Acet Nasal Dustin 10.8ml Btl) 2 sprays NA DAILY DIANDRA Stop: 11/06/21 08:59 Last Admin: 10/11/21 09:58 Dose: Not Given Documented by: (1) Anemia Anemia type: unspecified type Qualified Code(s): D64.9 - Anemia, unspecified
[2021-10-11] MEDS ORDERED: [UNRECOGNIZED DRUG - OTHER] IV SCH (16:00)
[2021-10-11] MEDS ORDERED: AMINO ACID 8% IV SCH (16:00)
[2021-10-11] MEDS ORDERED: CENTRAL TPN IV SCH (16:00)
[2021-10-11] MEDS: CLINOLIPID 20% IV FAT EMULSION 100 ML IV SCH ×2 (16:14→18:34)
[2021-10-11] MEDS: MELATONIN 3 MG TAB PO SCH (20:49)
[2021-10-11] MEDS: traZODone HCL 50 MG TAB PO SCH (20:49)
[2021-10-12] MEDS: PIPERACILLIN/TAZOBACTAM 3.375 GM in DEXTROSE 5% 100 ML IV SCH ×3 (00:45→16:28)
--- NOTE | 2021-10-12 08:05 | Surgery Progress Note ---
Date of Service October 12, 2021 Assessment & Plan (1) [place]-vesical fistula: Plan: No acute changes Will try to advance to low fiber diet Continue her TPN and IV antibiotics Again she is to see colorectal surgery at [facility] next week Can go to extended care from the surgical standpoint Probably would not do well at home-patient's is in agreement I did discuss her case with him yesterday Admission and Anticipated Discharge Date Admission Date: October 06, 2021 Subjective Patient's vital signs are stable She has tolerated full liquids She does state that she has some mild crampy gas pains No emesis Physical Exam Physical Exam: Patient is alert and responsive Her abdomen is not significantly distended She does have bowel sounds She does not have significant tenderness Results & Data ([facility]) Vital Signs (Past 12 Hours) Vital Signs Temp Pulse Pulse Resp BP Pulse Ox 10/12/21 03:01 36.7 C 64 18 124/61 97 10/12/21 00:00 72 10/11/21 23:09 36.4 C L 74 18 144/69 H 96 PG Care Time/CCT Total # of Minutes Spent Total Time Spent with Patient: Total time spent is greater than 50% in coordination of care (as documented) at patient's floor/unit and/or counseling patient: Coding Level of Care Code 41019 Subseq Hosp Care Lvl 2 Diagnoses [place]-vesical fistula N32.1
[2021-10-12] MEDS: HEPARIN SOD 5,000 UNIT/0.5 ML VIAL SQ SCH (08:07)
[2021-10-12] MEDS: PANTOprazole 40 MG TAB PO SCH (08:07)
[2021-10-12] MEDS: ROSUVASTATIN CALCIUM 5 MG TAB PO SCH (08:07)
[2021-10-12] MEDS: SERTRALINE HCL 50 MG TABLET PO SCH (08:07)
[2021-10-12] MEDS: amLODIPine BESYLATE 5 MG TAB PO SCH (08:07)
[2021-10-12] MEDS: ACETAMINOPHEN 325 MG TAB PO PRN (08:08)
[2021-10-12] MEDS: TRIAMCINOLONE ACET NASAL SPRAY 10.8ML BTL SCH (08:10)
[2021-10-12] MEDS: LIDOCAINE 5% 1 PATCH TD SCH (08:11)
[2021-10-12 09:13] LABS: BUN Creatinine Ratio 34.3 (10-20); Calcium 8.7 mg/dl (8.5-10.1); Creatinine Clr Calc Pharmacy 55.8 ml/min; Est GFR (African American) 96.9 ml/min; Est GFR (Non-African American) 83.6 ml/min; Magnesium 1.9 mg/dl (1.7-2.4); Phosphorus 3.3 mg/dl (2.5-4.9); Potassium 4.1 mmol/L (3.5-5.1)
[2021-10-12 09:36] LABS: Hematocrit (blood only) 27.5 % (37-47); Hemoglobin 8.4 g/dL (12.0-16.0); Mean Corpuscular Hemoglobin 28.8 pg (25-34); Mean Corpuscular Hgb Conc 30.5 g/dL (32-36); Mean Corpuscular Volume 94.2 fL (80-100); Mean Platelet Volume 9.2 fL (7.4-10.4); Platelet Count 331 K/uL (130-400); RDW Coefficient of Variation 16.8 % (11.5-14.5); RDW Standard Deviation 57.9 fL (36.4-46.3); Red Blood Count 2.92 M/uL (4.2-5.4); White Blood Count 6.95 K/uL (4.8-10.8)
[2021-10-12] MEDS ORDERED: CENTRAL TPN IV SCH (16:00)
[2021-10-12] MEDS ORDERED: AMINO ACID 8% IV SCH (16:00)
[2021-10-12] MEDS ORDERED: CLINOLIPID 20% IV FAT EMULSION 100 ML IV SCH (16:00)
[2021-10-12] MEDS ORDERED: [UNRECOGNIZED DRUG - OTHER] IV SCH (16:00)
--- NOTE | 2021-10-12 16:21 | Discharge Summary ---
Date of Service October 12, 2021 Admission HPI Per Admitting Provider CHIEF COMPLAINT: Recent diverticular abscess, currently failure to thrive. HISTORY OF PRESENT ILLNESS: A 76-year-old female with past medical history significant for chronic gout, history of hypercholesterolemia, history of pancreatitis, chronic sinusitis, history of nonallergic vascular rhinitis, hypertension, GERD, B12 deficiency, chronic kidney disease stage III, history of cervical fracture, history of occipital neuralgia of right side, history of chronic low back pain, history of iron deficiency secondary to chronic blood loss, history of seasonal affective disorder, history of traumatic subdural hematoma, history of recent diverticulitis of intestine with abscess. The patient was admitted on 08/20/2021 for ongoing symptoms for abdominal pain for 3 weeks and CAT scan was showing acute diverticulitis with pericolonic abscess located between sigmoid colon, uterine fundus and bladder dome. It was 4.1 and 3.9 cm. Initially they thought it could not be amenable to percutaneous drainage and she was admitted and treated with IV Zosyn. On 08/23/2021 she was transferred to [facility] for IR drainage. She was admitted to [facility], looks like the general service could not operate on abscess due to its location. IR was consulted and they said they could not operate to drain the abscess due to its location and the patient was discharged on IV Invanz and had PICC line for 1 month of antibiotics and she was in the ER on 09/06/2021, had CAT scan showing decreasing abscess. Completed antibiotics yesterday and PICC line was taken out.But patient is not eating or drinking much. The patient says sometimes whole day she will not eat anything. She has belly pain on palpation. Constipated, did not notice any blood in her stools. The urine looks dark. No swelling in the legs, very poor ambulatory status. She states she is ambulating with a walker with assistance from her when she goes to bathroom. Denies any chest pain, no shortness of breath. She was having fevers at home. Denies any headache. Her vision is not that great. She is seeing spots, no earache, has some on and off runny nose, no sore throat. No cough. Currently, resting comfortably and hemodynamically stable. The patient says she lost over 25 pounds in the last 2 months. She had an CAT scan done today in the ER showing sigmoid diverticulosis with chronic mucosal thickening and extraluminal wall with fluid collection at site of previous diverticulitis; however, no acute inflammatory changes are seen at this time and colovesical fistula cannot be excluded. Surgery's initial plan was transfer to [facility], as no emergent surgery required for colovesical fistula, wanted to keep her in the hospital, improve her nutrition with TPN, Guo for any irrigation and antibiotic Zosyn and monitor.. Admission Exam Per Admitting Provider GENERAL: The patient is of moderate build, not in acute distress. VITAL SIGNS: Temperature 37, pulse is 82, respiratory rate 18, blood pressure 124/69, oxygen 96% on room air. HEENT: Pupils equal, round and reactive to light. Oral mucosa dry. NECK: No JVD, no neck masses. CARDIOVASCULAR: S1 and S2 heard. Regular rate and rhythm. No murmur, no gallop. RESPIRATORY SYSTEM: Normal AP diameter. No accessory muscle use. No wheezing, no crackles. ABDOMEN: Soft, bowel sounds present. Mild diffuse discomfort more in lower abdomen, no guarding, no rigidity. CENTRAL NERVOUS SYSTEM: Alert and oriented x3. No facial droop. Speech is clear. Obeys simple commands. Insight is good. Moves extremities. EXTREMITIES: No edema, no erythema. Principal Diagnosis (1) [place]-vesical fistula: (2) Colonic diverticular abscess: (3) UTI (urinary tract infection): (4) AMARA (acute kidney injury): (5) Anemia: (6) Blood transfusion reaction: (7) Hypokalemia: (8) Hypomagnesemia: (9) Hypophosphatemia: (10) Severe malnutrition: Discharge Exam General: Lying comfortably in bed, not in distress, on room air HEENT: EOMI, JUN, MMM Chest: Fair breath sounds bilaterally, no wheezes or crackles CVS: Regular rate and rhythm, normal heart sounds, no murmur Abdomen: Soft, non tender, not distended, normal bowel sounds Neuro: Awake, alert, conversing well, non focal Extremities: No cyanosis, clubbing or edema Discharge Data Allergies Allergy/AdvReac Type Severity Reaction Status Date / Time latex Allergy Mild rash Verified 10/06/21 19:20 niacin Allergy Mild diffuse Verified 10/06/21 19:20 redness Sulfa (Sulfonamide Allergy Mild rash Verified 10/06/21 19:20 Antibiotics) Consultations 10/06/21 20:17 ED Decision to Admit Stat 10/07/21 08:00 Consult General Surgery Routine 10/10/21 10:47 Consult Infectious Diseases Routine Ordered Studies 10/06/21 16:57 CT abd pelvis wo con Stat CT abd pelvis wo con CLINICAL HISTORY: Nausea, recent diverticulitis and diverticular abscess, no contrast 2/2 AMARA COMPARISON STUDY: 09/06/2021 CT DOSE: 291.36 mGy.cm TECHNIQUE: Standard CT of the Abdomen and Pelvis was performed without IV contrast. The patient did not receive oral contrast. A dose lowering technique was utilized adhering to the principles of ALARA. FINDINGS: Lung base: The lung bases are clear. Abdominal cavity: There is no evidence for abdominal mass, adenopathy or ascites. Liver: The liver is homogeneous in attenuation on these limited noncontrast images.. Spleen: The spleen is homogeneous in attenuation on these limited noncontrast images. Pancreas: The pancreas is homogeneous in attenuation on these limited noncontrast images. Gall Bladder: Surgical clips are present. Adrenal glands: The adrenal glands are normal in size and attenuation on these limited noncontrast images. Kidneys: The kidneys are homogeneous in attenuation on these limited noncontrast images. There is no evidence for gross renal mass, calculus or hydronephrosis bilaterally. Bowel: There is a small hiatal hernia with mucosal thickening. Compared to previous examination, extensive sigmoid diverticulosis with mucosal thickening and loculated extraluminal air bubbles are seen at the site of previous diverticular abscess. There are no acute acute inflammatory changes seen within the surrounding fat. However, there is chronic thickening of the mucosa present. This abuts the bladder and the bladder is 50% filled with air. The presence of a colonic-vesicle fistula cannot be excluded. The remaining bowel loops are normally placed within the abdomen and pelvis without evidence for dilatation or obstruction. There is no evidence for mass lesion. There are no inflammatory changes present. There is no evidence for free air. Bladder: The bladder is distended with again approximately 50% of the bladder filled with air. : There is no evidence for pelvic mass or adenopathy. Vasculature: There is no evidence for focal aneurysmal dilatation of the abdominal aorta. Osseous structures: There is no acute osseous pathology. Previous internal fixation and degenerative changes are seen within the spine. IMPRESSION: 1. Sigmoid diverticulosis with chronic mucosal thickening and extraluminal walled off air collection at site of previous diverticulitis. However, no acute inflammatory changes are seen at this time. 2. Of concern is the bladder filled with 50% tear. The bladder abuts the sigmoid colon and a colovesical fistula cannot be excluded. 3. Additional nonacute findings are delineated above. ACT 112: Negative or not required by law. Electronically signed by: Frandy Maldonado M.D. 10/06/2021 6:48 PM Dictated:10/06/[id number] Transcribed: 10/06/211833 Hospital Course (1) [place]-vesical fistula: (2) Colonic diverticular abscess: (3) UTI (urinary tract infection): (4) AMARA (acute kidney injury): (5) Anemia: (6) Blood transfusion reaction: (7) Hypokalemia: (8) Hypomagnesemia: (9) Hypophosphatemia: (10) Severe malnutrition: 76 year old female with recent h/o diverticular abscess and IV ABx treatment for a month with PICC line removed yesterday presented to the ED with poor nutrition and oral intake. Colovesical fistula with recent diverticular abscess and antibiotic treatment- CT A/P reviewed as below. Discussed with Dr Anderson- Pt has appt with [facility] colorectal surgery Dr Solitario 10/17/21. Will need eventual surgery but currently being optimized with TPN. Per surgery, on full liquid diet now to see how she tolerates. At this juncture, inpatient transfer seems less likely and will likely need rehab and OP follow up with colorectal surgery for definitive management. On zosyn, ID consulted. CT A/P 10/06. 1. Sigmoid diverticulosis with chronic mucosal thickening and extraluminal walled off air collection at site of previous diverticulitis. However, no acute inflammatory changes are seen at this time. 2. Of concern is the bladder filled with 50% tear. The bladder abuts the sigmoid colon and a colovesical fistula cannot be excluded. case discussed with Surgery Dr. Anderson that recommeded to continue TPN on discharge Follow up with Colorectal surgeon on Sunday Ecoli and enterococcal UTI- both sensitive to zosyn ID consulted that recommneded to continue IV Zosyn through 10/16 AMARA- resolved, now back to baseline Cr of 0.7, on presentation 2.7->2.3->1.4->1->0.7. likely prerenal due to poor oral intake and NSAIDs use at home. Voiding without issues. Acute on chronic anemia- Hb 6.6->6.8->8.8->8.1 after about 1.5 U PRBC transfusion. 1st U PRBC couldnot be transfused completely due to FNHTR but tolerated second unit without issues. Check H&H intermittently. No active bleeding. folate, b12 normal. fobt pending. s/p 4 iv iron infusions with last one 09/27/21. Febrile non hemolytic transfusion reaction- due to PRBC4/16, resolved since. Hypokalemia- resolved with repletion Hypomagnesemia- resolved with repletion Hypophosphatemia- resolved with repletion Continue monitor electrolytes HTN- Losartan was held due to AMARA. Will d/c on discharge Continue Norvasc on discharge Continue monitor BP GERD- continue PPI Seasonal affective disorder- on zoloft Severe malnutrition/FTT- On TPN started 10/07 through PICC line. Dietitian and pharmacy managing. DVT prophylaxis- sc heparin Disposition Plan to discharge to rehab Continue TPN Continue IV Zosyn through 10/16 Total Time Total Time Spent Total Time Spent (In Minutes): 40 minutes Discharge Plan Discharge Items Patient Disposition: Transfer Inpatient Rehab Fac Reason For Visit: DEHYDRATION Discharge Diagnosis: (1) [place]-vesical fistula: (2) Colonic diverticular abscess: (3) UTI (urinary tract infection): (4) AMARA (acute kidney injury): (5) Anemia: (6) Blood transfusion reaction: (7) Hypokalemia: (8) Hypomagnesemia: (9) Hypophosphatemia: (10) Severe malnutrition: Activity: Resume your previous activity Non-emergency contact: Primary Care Provider and Surgeon Call non-emergency contact if: you have any medication questions, your symptoms worsen and your temperature is above 101 Follow-up/Referrals: Joel Bowman DO [Primary Care Provider] - Sravanthi Solitario MD [Outside Practitioners] - (Date & Time 10/17/2021 8:30 AM Provider Sravanthi Solitario MD Department General Surgery, [facility] ) Diet: Low Fiber and Other - See Diet Comment Addtl Attending Provider Instructions: Follow up with your primary care provider once discharge from [facility] Follow up with the colorectal surgeon Dr. Sravanthi Solitario on 10/17/2021 @8:30 AM at the General Surgery, [facility] Continue IV antibiotic with Zosyn through 10/16/21 Continue Total parenteral nutrition (TPN) for now (the colorectal surgeon will reevaluate to suggest when to discontinue the TPN) Check BMP, Magnesium and phosphates weekly while on the TPN Diet can advance slowly as tolerated to low fiber Continue monitor blood pressure Pending Studies at Discharge: No Stand-Alone Forms: My [facility] Skilled Items Patient informed of condition?: Yes DNR: No Discharge Level of Care: Acute rehab Communicable Disease: No Discharge Prognosis: Stable Lines: PICC Urinary Catheter: No Medications and DC Order Prescriptions: New acetaminophen 325 mg Tablet 650 mg PO Q6H PRN (Reason: pain) Qty: 30 RF: 0 amlodipine [Norvasc] 5 mg Tablet 5 mg PO QAM 30 Days Qty: 30 RF: 0 lidocaine 5 % Adhesive Patch,Medicated 1 patch transdermal QAM Qty: 5 RF: 0 Zosyn in dextrose (iso-osm) 3.375 gram/50 mL piggyback 3.375 g IV Q8H Qty: 1200 RF: 0 Continued pantoprazole [Protonix] 20 mg Tablet,Delayed Release (Dr/Ec) 20 mg PO DAILY RF: 0 sertraline [Zoloft] 25 mg Tablet 25 mg PO DAILY RF: 0 lorazepam 0.5 mg Tablet 0.5 - 1 mg PO DAILY PRN (Reason: Anxiety) RF: 0 rosuvastatin [Crestor] 5 mg Tablet 5 mg PO QAM RF: 0 triamcinolone acetonide [Nasacort] 55 mcg Aerosol,[place] 2 spray INTRANASAL DAILY RF: 0 ondansetron HCl 4 mg tablet 4 mg PO Q8H PRN (Reason: nausea and vomiting) Qty: 20 RF: 0 trazodone 150 mg tablet 150 mg PO HS RF: 0 Discontinued ertapenem 1 gram recon soln 1 g IV DAILY RF: 0 losartan 100 mg tablet 100 mg PO DAILY RF: 0 Discharge Orders: Discharge Order (Routine); Ordered 04/20/22 Ordered By: Nabeel Ta Admission Data Admit Date/Time: 10/06/21 21:09 Attending Provider: Nabeel Ta Admit Provider: Momo Campos Primary Care Provider: Joel Bowman Other Providers: Momo Campos ; Ronal Anderson ; Wilbert Kim ; Isha Hays ; Dwain Kenney I. ; Tin Motta II ; Garima Loco ; Micah Bustamante ; Ronal Tomas ; [facility] ; Jose Burrows Other Interventions: Discharge Summary Assessment (RN) Last Done: 10/12/21 16:48
== END 2021-10-12 17:59 | DRG 698 ==
LOC: ED 14:47 → 2W 21:09 → SUATTDRO 21:09 → 2W 22:24

== ENCOUNTER 2022-01-07 20:50 | Inpatient (IN) ==
[2022-01-07 21:31] LABS: Basophils # (auto) 0.03 K/uL (0-0.2); Basophils % (auto) 0.3 %; Eosinophils # (auto) 0.03 K/uL (0-0.50); Eosinophils % (auto) 0.3 %; Immature Granulocytes # (auto) 0.26 K/uL (0.00-0.02); Immature Granulocytes % (auto) 2.8 %; Lymphocytes # (auto) 1.29 K/uL (1.2-3.4); Lymphocytes % (auto) 13.9 %; Mean Corpuscular Hgb Conc 33.3 g/dL (32.0-36.0); Mean Platelet Volume 9.7 fL (9.4-12.3); Monocytes # (auto) 0.81 K/uL (0.24-0.82); Monocytes % (auto) 8.7 %; Neutrophils # (auto) 6.86 K/uL (1.4-6.5); Platelet Count 492 K/uL (130-400); RDW Coefficient of Variation 13.5 % (11.5-14.5); RDW Standard Deviation 44.5 fL (36.4-46.3); White Blood Count 9.28 K/ul (4.8-10.8)
[2022-01-07 21:55] LABS: Albumin Globulin Ratio 0.9 (0.9-2); Albumin Level 4.1 gm/dl (3.4-5.0); BUN Creatinine Ratio 30.4 (10-20); Bilirubin,Total 0.4 mg/dl (0.2-1.0); Calcium 10.9 mg/dl (8.5-10.1); Creatinine Clr Calc Pharmacy 18.3 ml/min; Est GFR (African American) 28.2 ml/min; Est GFR (Non-African American) 24.4 ml/min; Globulin 4.6 gm/dl (2.5-4.0); Potassium 4.5 mmol/L (3.5-5.1); Total Protein 8.7 gm/dl (6.0-8.3)
[2022-01-07] MEDS ORDERED: SODIUM CHLORIDE 0.9% 1000ML 500 ML IV ONE (22:34)
[2022-01-07] MEDS ORDERED: ONDANSETRON INJ 2 MG/ML 2 ML VIAL IV STA (22:37)
--- NOTE | 2022-01-07 22:43 | Emergency Department Note ---
Impression & Plan Adult failure to thrive, Abdominal pain, Nausea, Weakness ED Provider Note Provider: Kwabena Norman MD DATE OF SERVICE: 01/07/2022 CHIEF COMPLAINT: Failure to thrive, abdominal pain HISTORY OF PRESENT ILLNESS: Patient is a 76-year-old female past medical history of hypertension, diverticular abscess now status post ileostomy, pancreatitis, resenting with tonight from home. Feeling to thrive losing weight over the past 7 weeks since prior ileostomy surgery at [place]. No falls reported. states that patient was too weak to transfer today and he states he is not eating or drinking much. Still having output from the ostomy but some diffuse abdominal pain at times. Has a small pressure sore on the sacrum as well. Was recently treated for UTI with Macrobid this past week after a Guo change in [facility]. Has been getting weekly IV infusions at the primary car e's office. REVIEW OF SYSTEMS: A total of 10 review of systems was obtained and negative except as stated above in the HPI. PAST MEDICAL HISTORY: As noted above MEDICATIONS: Reviewed home medication list SOCIAL HISTORY: and lives at home with PHYSICAL EXAM: GENERAL: alert and oriented in no acute distress on stretcher although resting with eyes closed appears uncomfortable Head: normocephalic and atraumatic EYES: No injection, discharge or icterus. NECK: Trachea midline. Supple. ENT: Mucous membranes pink and moist. LUNGS: Airway patent. No retractions. Breath sounds clear HEART: Regular rate and rhythm. No chest wall tenderness ABDOMEN: Soft mild diffuse abdominal pain with the right mid ileostomy in place with brownish succus. No blood noted. SKIN: Acyanotic, warm, dry, with a grade 1 sacral decubitus ulcer noted. EXTREMITIES: Without swelling, tenderness or deformity NEUROLOGICAL: No focal deficits. No aphasia. No facial droop or slurred speech. EK beats minute normal sinus rhythm. No PVC or PAC. No acute ST segment elevation or depression with a QTC of 450 CONTINUOUS CARDIAC MONITORING: was ordered and showed a heart rate of 70s-90s bpm in normal sinus rhythm Patient's laboratory studies and imaging reviewed. Differential includes gastrointestinal, infection, dehydration, metabolic abnormality, hypo/hyperglycemia, electrolyte disturbance, anemia, hypoxia, cardiac sources, intracerebral event, toxicologic, neurologic, as well as other pathologies. IMPRESSION/MEDICAL DECISION MAKING: Patient with multiple issues over the past several months including surgery at [place] for ventricular abscess now with ileostomy. Still having output. Not eating or drinking well and now weak enough not able to transfer well at home. Likely no falls. Indwelling Guo catheter recently treated for UTI. Urinalysis questionable blood from an indwelling Guo. Given lack of infectious symptoms will defer treatment at this time to the hospitalist team but may likely be chronically colonized. No fevers reported. Minimal irritation of the sacrum but no large wound ill exam. No significant leukocytosis on blood work. Chronic hyponatremia is noted with some renal dysfunction that for the last month has been stable it appears. No evidence of acute hepatitis. Lipase level was sent as well. Troponin & EKG ordered although lower suspicion for cardiac disease. Seems more like a failure to thrive situation given her history of abdominal surgery and diffuse pain complaints CT the abdomen pelvis will be obtained. Radiology CT report as below. Again do not see clear evidence of infection at this point. Some IV fluids and Zofran as she is a bit nauseous. Hospitalist contacted for further care here. Did give her a small amount of fentanyl for pain and the Zofran did not help much with the nausea. DIAGNOSIS: Nausea, abdominal pain, weakness, failure to thrive DISPOSITION: Hospitalist will evaluate Patient was agreeable with this plan. Preliminary Findings Only See Final Report For Complete Findings CT ABDOMEN & PELVIS Without Contrast: Comparison to October 15, 2021. The kidneys are unremarkable. No hydronephrosis or ureterolithiasis is seen. The urinary bladder is decompressed by Guo catheter. Previous cholecystectomy. No biliary duct dilation is seen. The liver, pancreas, spleen, and adrenal glands are unremarkable. The aorta is mildly calcified but nondilated. Surgical changes from right lower quadrant ileostomy and previous resection of a segment of the sigmoid colon. No dilated bowel loops are present. There is an oval approximately 4.5 x 2.4 x 3.8 cm structure measuring 26 HU located mainly anterior to the sacrum, adjacent to the rectosigmoid anastomotic staple line. This is not well characterized without these of IV or oral contrast but this does not appear to be directly in line with the bowel. Possible residual postoperative fluid collection. No significant surrounding inflammation is seen. Surgical changes from previous instrumentation and fusion of L3-4. There are m oderate degenerative changes throughout the remainder of the spine. No fracture or subluxation is seen. Moderate osteoarthritic changes in the right hip. Radiologist: Kwabena Kenney MD Study ready at 23:02 and initial results transmitted at 23:52 Past Med/Surg History Medical History Anemia Anemia Anxiety and depression Asthma STABLE (NO INHALER) Bilateral hip joint arthritis Bilateral primary osteoarthritis of knee Chronic low back pain LLE NEUROPATHY Rankin-vesical fistula Colonic diverticular abscess Diverticulitis SEVERAL YEARS AGO Diverticulitis History of anemia History of hyperlipidemia History of skin cancer History of subarachnoid hemorrhage S/P TRAUMA/FALLING (2014)= NO RESIDUAL DEFICITS Hx of cardiac murmur Hx of pancreatitis Hypokalemia Obesity Osteoarthritis Surgical History History of carpal tunnel release History of cataract surgery RT/LEFT History of cholecystectomy History of colonoscopy History of dilatation and curettage History of discectomy LUMBAR History of ERCP History of oophorectomy History of tonsillectomy History of tooth extraction Trigger finger RELEASE Family History Mother Family history of bladder cancer Father No problems noted. Brother Family history of diabetes mellitus Mother Family history of diabetes mellitus Social History Smoking Status: Never smoker Second Hand Exposure: No; Hx Alcohol Use: Yes Alcohol type: hard liquor Hx Substance Use: No Preferred Language: Japanese Communication Ability: Effective Door Cutter Required: No Beliefs That Will Affect Care: None marital status: Current Living Situation: Spouse Feels Safe at Home: Yes Assistive Devices: Walker Allergies Allergies Allergy/AdvReac Type Severity Reaction Status Date / Time latex Allergy Intermediate rash Verified 01/07/22 22:03 niacin Allergy Intermediate diffuse Verified 01/07/22 22:03 redness Sulfa (Sulfonamide Allergy Intermediate rash Verified 01/07/22 22:03 Antibiotics) Home Meds Home Medications Medication Instructions Recorded Confirmed lorazepam 0.5 mg tablet 1 mg PO HS 07/03/18 01/07/22 trazodone 150 mg tablet 150 mg PO HS 08/20/21 01/07/22 sertraline 25 mg tablet 25 mg PO QAM 10/15/21 01/07/22 acetaminophen 500 mg tablet 1,000 mg PO Q6H PRN Pain 01/07/22 01/07/22 (Tylenol Extra Strength) menthol 0.44 %-zinc oxide 20.6 % 1 applic topical DIRECTED PRN 01/07/22 01/07/22 topical ointment (Calmoseptine) COCCYX AREA nystatin 100,000 unit/gram topical 1 applic topical TID 01/07/22 01/07/22 powder rosuvastatin 5 mg tablet 5 mg PO DAILY 01/07/22 01/07/22 solifenacin 5 mg tablet 5 mg PO QAM 01/07/22 01/07/22 Previous Rx's Medication Instructions Recorded famotidine 20 mg tablet 20 mg PO BID #20 tabs 12/01/21 Results & Data (ED) Vital Signs Vital Signs - 24 hr 01/07/22 20:54 01/07/22 21:30 01/07/22 22:00 Temperature 36.4 C L Temperature Source Oral Pulse Rate 92 H 90 91 H Respiratory Rate 20 24 24 Respiratory Effort / Characteristics Non-Labored Spontaneous Respiratory Depth Normal Blood Pressure 109/86 117/77 121/75 Blood Pressure Mean 93 90 90 Pulse Oximetry 99 100 99 Oxygen Delivery Method Room Air Sepsis New/Unexplained Change in Mental Status N/A Sepsis Action Taken by Nursing No Action Required 01/07/22 22:30 01/07/22 23:00 01/07/22 23:30 Temperature Temperature Source Pulse Rate 89 81 82 Respiratory Rate 24 22 22 Respiratory Effort / Characteristics Respiratory Depth Blood Pressure 118/76 125/74 108/72 Blood Pressure Mean 90 91 84 Pulse Oximetry 100 99 100 Oxygen Delivery Method Sepsis New/Unexplained Change in Mental Status Sepsis Action Taken by Nursing 01/08/22 00:00 01/08/22 00:30 Temperature Temperature Source Pulse Rate 79 77 Respiratory Rate 20 20 Respiratory Effort / Characteristics Respiratory Depth Blood Pressure 114/67 106/54 L Blood Pressure Mean 82 71 Pulse Oximetry 98 100 Oxygen Delivery Method Sepsis New/Unexplained Change in Mental Status Sepsis Action Taken by Nursing Laboratory Data Result diagrams: 01/07/22 21:05 01/07/22 21:05 Lab Results 01/07/22 01/07/22 01/07/22 Range/Units 21:05 21:05 22:39 WBC 9.28 (4.8-10.8) K/ul RBC 4.00 (3.93-5.22) M/uL Hgb 12.0 (12.0-16.0) g/dl Hct 36.0 (34.1-44.9) % MCV 90.0 (80.0-100.0) fL MCH 30.0 (25.0-34.0) pg MCHC 33.3 (32.0-36.0) g/dL RDW Std Deviation 44.5 (36.4-46.3) fL RDW Coeff of Caitlin 13.5 (11.5-14.5) % Plt Count 492 H (130-400) K/uL MPV 9.7 (9.4-12.3) fL Immature Gran % (Auto) 2.8 % Neut % (Auto) 74.0 % Lymph % (Auto) 13.9 % [place] % (Auto) 8.7 % Eos % (Auto) 0.3 % Baso % (Auto) 0.3 % Neut # (Auto) 6.86 H (1.4-6.5) K/uL Lymph # (Auto) 1.29 (1.2-3.4) K/uL [place] # (Auto) 0.81 (0.24-0.82) K/uL Eos # (Auto) 0.03 (0-0.50) K/uL Baso # (Auto) 0.03 (0-0.2) K/uL Immature Gran # (Auto) 0.26 H (0.00-0.02) K/uL Sodium 128 L (136-145) mmol/L Potassium 4.5 (3.5-5.1) mmol/L Chloride 96 L (98-107) mmol/L Carbon Dioxide 17 L (21-32) mmol/L Anion Gap 15 H (3-11) BUN 59 H (6-23) mg/dl Creatinine 1.94 H (0.6-1.2) mg/dl Est Cr Clr Drug Dosing 18.3 ml/min Est GFR ( Amer) 28.2 ml/min Est GFR (Non-Af Amer) 24.4 ml/min BUN/Creatinine Ratio 30.4 H (10-20) Glucose 119 H (70-99(Fasting)) mg/dl Calcium 10.9 H (8.5-10.1) mg/dl Total Bilirubin 0.4 (0.2-1.0) mg/dl AST 42 H (13-39) U/L ALT 11 (7-52) U/L Alkaline Phosphatase 157 H (34-104) U/L Total Protein 8.7 H (6.0-8.3) gm/dl Albumin 4.1 (3.4-5.0) gm/dl Globulin 4.6 H (2.5-4.0) gm/dl Albumin/Globulin Ratio 0.9 (0.9-2) Lipase 42 (11-82) U/L Urine Color Urine Appearance (Clear) Urine pH (4.5-7.5) Ur Specific [place] (1.000-1.030) Urine Protein (Negative) Urine Glucose (UA) (Negative) Urine Ketones (Negative) Urine Blood (Negative) Urine Nitrite (Negative) Urine Bilirubin (Negative) Urine Urobilinogen (Negative) Ur Leukocyte Esterase (Negative) Urine WBC (Auto) (0-5) /hpf Urine RBC (Auto) (0-4) /hpf U Hyaline Cast (Auto) (0-5) /lpf U Epithel Cells (Auto) (0-5) /lpf Urine Bacteria (Auto) (Negative) SARS-CoV-2, RNA, NAAT NEGATIVE (NEGATIVE) 01/08/22 Range/Units 00:25 WBC (4.8-10.8) K/ul RBC (3.93-5.22) M/uL Hgb (12.0-16.0) g/dl Hct (34.1-44.9) % MCV (80.0-100.0) fL MCH (25.0-34.0) pg MCHC (32.0-36.0) g/dL RDW Std Deviation (36.4-46.3) fL RDW Coeff of Caitlin (11.5-14.5) % Plt Count (130-400) K/uL MPV (9.4-12.3) fL Immature Gran % (Auto) % Neut % (Auto) % Lymph % (Auto) % [place] % (Auto) % Eos % (Auto) % Baso % (Auto) % Neut # (Auto) (1.4-6.5) K/uL Lymph # (Auto) (1.2-3.4) K/uL [place] # (Auto) (0.24-0.82) K/uL Eos # (Auto) (0-0.50) K/uL Baso # (Auto) (0-0.2) K/uL Immature Gran # (Auto) (0.00-0.02) K/uL Sodium (136-145) mmol/L Potassium (3.5-5.1) mmol/L Chloride (98-107) mmol/L Carbon Dioxide (21-32) mmol/L Anion Gap (3-11) BUN (6-23) mg/dl Creatinine (0.6-1.2) mg/dl Est Cr Clr Drug Dosing ml/min Est GFR ( Amer) ml/min Est GFR (Non-Af Amer) ml/min BUN/Creatinine Ratio (10-20) Glucose (70-99(Fasting)) mg/dl Calcium (8.5-10.1) mg/dl Total Bilirubin (0.2-1.0) mg/dl AST (13-39) U/L ALT (7-52) U/L Alkaline Phosphatase (34-104) U/L Total Protein (6.0-8.3) gm/dl Albumin (3.4-5.0) gm/dl Globulin (2.5-4.0) gm/dl Albumin/Globulin Ratio (0.9-2) Lipase (11-82) U/L Urine Color Yellow Urine Appearance Cloudy A (Clear) Urine pH 5.0 (4.5-7.5) Ur Specific [place] 1.020 (1.000-1.030) Urine Protein 1+ H (Negative) Urine Glucose (UA) Negative (Negative) Urine Ketones Trace H (Negative) Urine Blood 1+ H (Negative) Urine Nitrite Negative (Negative) Urine Bilirubin Negative (Negative) Urine Urobilinogen Negative (Negative) Ur Leukocyte Esterase 2+ H (Negative) Urine WBC (Auto) >30 H (0-5) /hpf Urine RBC (Auto) 0-4 (0-4) /hpf U Hyaline Cast (Auto) 10-30 H (0-5) /lpf U Epithel Cells (Auto) 5-10 H (0-5) /lpf Urine Bacteria (Auto) 4+ H (Negative) SARS-CoV-2, RNA, NAAT (NEGATIVE) Administered Medications Discontinued Medications Fentanyl Citrate (Fentanyl Citrate 100 Mcg/2 Ml Vial) 25 mcg IV NOW STA Stop: 01/08/22 00:09 Last Admin: 01/08/22 00:16 Dose: 25 mcg Documented By: WILBERT Sodium Chloride (Nss 1000ml) 500 mls @ 999 mls/hr IV .Q31M ONE Stop: 01/07/22 23:04 Last Infusion: 01/07/22 23:08 Dose: 0 mls/hr Documented By: Admin: 01/07/22 22:36 Dose: 999 mls/hr Documented By: WILBERT Ondansetron HCl (Ondansetron Inj 2 Mg/Ml 2 Ml Vial) 4 mg IV NOW STA Stop: 01/07/22 22:38 Last Admin: 01/07/22 22:42 Dose: 4 mg Documented By: WILBERT Discharge Plan Visit Data Chief Complaint: Illness Stated Complaint: GENERALIZED WEAKNESS AND ILLNESS ED Provider: Kwabena Norman Discharge Problem: Adult failure to thrive, Abdominal pain, Nausea, Weakness Patient Disposition: Being Evaluated by Hospitalist Forms Stand Alone Forms: My [facility] Prescriptions Prescriptions: No Action lorazepam 0.5 mg Tablet 1 mg PO HS sertraline 25 mg Tablet 25 mg PO QAM Label Comments: took this am, but vomited right after trazodone 150 mg tablet 150 mg PO HS famotidine 20 mg tablet 20 mg PO BID Qty: 20 0RF acetaminophen [Tylenol Extra Strength] 500 mg Tablet 1,000 mg PO Q6H PRN (Reason: Pain) nystatin 100,000 unit/gram powder 1 applic TOPICAL TID Rx Instructions: AROUND OSTOMY rosuvastatin 5 mg tablet 5 mg PO DAILY solifenacin 5 mg tablet 5 mg PO QAM menthol-zinc oxide [Calmoseptine] 0.44-20.6 % Ointment 1 applic TOPICAL DIRECTED PRN (Reason: COCCYX AREA) Referrals Referrals: Joel Bowman DO [Primary Care Provider] -
[2022-01-08] MEDS ORDERED: fentaNYL citrate 100 MCG/2 ML VIAL IV STA (00:08)
[2022-01-08 00:45] LABS: Appearance Urine Cloudy (Clear); Bacteria Urine Automated 4+ (Negative); Bilirubin Urine Negative (Negative); Blood Urine 1+ (Negative); Color Urine Yellow; Glucose Urine UA Negative (Negative); Ketones Urine Trace (Negative); Leukocyte Esterase Urine 2+ (Negative); Nitrite Urine Negative (Negative); Protein Urine 1+ (Negative); RBC Urine Automated 0-4 /hpf (0-4); Urobilinogen Urine Negative (Negative); WBC Urine Automated >30 /hpf (0-5)
[2022-01-08 01:14] LABS: Troponin I High Sensitivity 219.5 pg/ml (0-14)
[2022-01-08] MEDS ORDERED: LACTATED RINGER'S 500 ML IV ONE (01:42)
[2022-01-08] MEDS ORDERED: ONDANSETRON INJ 2 MG/ML 2 ML VIAL IV PRN (04:18)
[2022-01-08] MEDS ORDERED: MENTHOL-ZINC OXIDE 360 APPLN/120 GM TUBE EXT PRN (04:24)
[2022-01-08] MEDS ORDERED: cefTRIAXone SODIUM 1,000 MG in DEXTROSE 5% 50 ML IV SCH (04:30)
[2022-01-08] MEDS: D5W AND 1/2NSS 1,000 ML IV SCH ×2 (05:59→16:48)
--- NOTE | 2022-01-08 06:35 | History and Physical Report ---
DATE OF ADMISSION: 01/08/2022 CHIEF COMPLAINT: Weakness, failure to thrive. HISTORY OF PRESENT ILLNESS: A 76-year-old female with past medical history significant for chronic gout, asthma, malnutrition of moderate degree, hypertension, GERD, chronic kidney disease stage III, history of subarachnoid hemorrhage following injury,hemiplegia affecting left nondominant side, iron deficiency anemia, history of acute blood loss anemia, history of seasonal affective disorder, history of depression. In July of this year, she was found to have diverticulitis with adjacent colonic abscess, but treated medically because it could not be easily approached by surgery or interventional radiology and she was referred to [facility] and completed treatment on 09/22/2021. On 10/06/2021, she again presented to the hospital with weakness, decreased appetite, and inability to walk. She had AMARA at that time, hemoglobin fell to 6.[address] demonstrated a colovesical fistula,though abscess was treated surgery, did not want to proceed with intervention because of deconditioning. The patient was treated with TPN and sent to rehabilitation. The patient also had transfusion during the hospitalization. In the rehab, the patient developed symptoms of sepsis and was transferred back to [facility]. At that time she had slight progression of diverticulitis and she was again transferred back to rehab with TPN and course of IV Zosyn. Apparently was planned for surgery for recurrent diverticulitis. The patient had hand-assisted laparoscopic low anterior resection, takedown of the splenic flexure, diverting ileostomy, bilateral laparoscopic transversus abdominal block in October of this year at [place]. Ileostomy bag is working okay. She also has a Guo catheter since last 7 weeks. Follows up with urology for a colovesical fistula. Recently treated for UTI with Macrobid and recently also went to PCP's office for IV hydration. Today, the patient was very weak, difficult for transfers, not eating or drinking much. brought her to the hospital. The patient may require again TPN or rehab placement. Resting comfortably, speaking in low voices. States that when she came in, she had mild abdominal pain, but with the pain medicine her abdominal pain is improved. Currently, denies any nausea, denies any chest pain or shortness of breath. No cough, no fevers, no headache, no blurred visions, no runny nose, no sore throat. She states she is not moving her bowels much because she is not eating much, not making much urine, not ambulating much. ALLERGIES: LATEX, NIACIN, SULFA ANTIBIOTICS. PAST MEDICAL HISTORY: As mentioned above. PAST SURGICAL HISTORY: Colonoscopy, cystoscopy, dilatation and curettage, EGDs, ERCP, left eyelid surgery, hand and toe surgery, lumbar spine injection, laparoscopic partial colectomy with coloproctostomy, laparoscopic cholecystectomy, removal of ovarian cyst, right carpal tunnel release, right CMC arthroplasty, colonoscopy. MEDICATIONS: The patient is on Tylenol 1000 mg p.o. q. 6 hours p.r.n., famotidine 20 mg p.o. b.i.d., Ativan 1 mg p.o. at bedtime, nystatin topical t.i.d., rosuvastatin 5 mg p.o. daily, sertraline 25 mg p.o. a.m., solifenacin 5 mg p.o. a.m., trazodone 150 mg p.o. at bedtime. FAMILY HISTORY: Significant for father has allergies, gastrointestinal disorder, heart disorder; mother has heart disorder; brother has kidney stones; sister has shoulder issues, gastrointestinal disorders. REVIEW OF SYSTEMS: As per HPI. Rest of review of systems is negative. PHYSICAL EXAMINATION: GENERAL: The patient is of moderate build, not in acute distress. VITAL SIGNS: Temperature 36.4, pulse 73, respiratory rate 18, blood pressure 121/57, oxygen 98% on 2 L. HEENT: Pupils equal, round and reactive to light. Oral mucosa dry. NECK: No JVD or neck masses. CARDIOVASCULAR: S1 and S2 heard. Regular rate and rhythm. No murmur, no gallop. RESPIRATORY SYSTEM: Normal AP diameter. No accessory muscle use. No wheezing, no crackles. ABDOMEN: Soft, bowel sounds present. Fluid in the colostomy bag seen. CENTRAL NERVOUS SYSTEM: Alert and oriented, speaking in low voices. No facial droop. Insight is good. Obeys commands. Moves extremities. EXTREMITIES: No edema, no erythema. LABORATORY DATA: WBC 9.2, hemoglobin 12, hematocrit 36, platelets 192. Sodium 128, potassium 4.5, chloride 96, bicarbonate 17, BUN 15, creatinine 1.9, serum glucose 119, calcium 10.9, total bilirubin 0.4, AST 40, ALT 11, alkaline phosphatase 157. Troponin I . Urinalysis, +2 leukocyte esterase, +4 bacteria. SARS-CoV-2 rapid test negative. IMAGING DATA: CT of abdomen CT abdomen and pelvis without contrast, possible residual postoperative fluid collection. EKG: Normal sinus rhythm at a rate 93, no significant change was found. ASSESSMENT AND PLAN: This is a 76-year-old female who has a colostomy bag for recurrent diverticulitis and colovesical fistula and Guo catheter since last 7 weeks, presents with poor appetite, weakness, ambulatory dysfunction, failure to thrive. 1. Possible failure to thrive, poor appetite, ambulatory dysfunction, was in rehabilitation before surgery and after surgery. We will place on IV fluids. Consult dietitian. PT, OT and monitor in the hospital. 2. Possible UTI, could be contaminated. Empirically started on Rocephin. Follow the cultures. 3. Elevated troponin, mostly likely demand ischemia, currently asymptomatic. EKG is okay. We will follow the serial enzymes. If any concern, transfer to [facility] and get an echo. 4. AMARA on chronic kidney disease, stage III, current creatinine 1.9. Getting fluids. We will follow the repeat labs. 5. Metabolic acidosis, probably from starvation ketosis. Getting D5 normal saline. We will follow the repeat labs in the a.m. 6. Hyponatremia, possibly from dehydration. Sodium 128. Getting fluids. We will follow the repeat labs. 7. History of hyperlipidemia: Continue statin. 8. GERD. Continue Pepcid. 9. Depression. Continue Zoloft, trazodone and Ativan. 10. DVT prophylaxis: Heparin subcutaneously. DISPOSITION: Closely monitor in the medical floor. PT/OT prior to discharge. Social service to help with discharge planning. Level 1 full code. Job ID: [id number] [facility]
--- NOTE | 2022-01-08 08:24 | CT Scan Report ---
CT SCAN OF THE ABDOMEN AND PELVIS WITHOUT IV CONTRAST CLINICAL HISTORY: Generalized abdominal pain. Recent colostomy. COMPARISON STUDY: Abdominal CT dated 10/15/2021 and 08/20/2021. TECHNIQUE: CT scan of the abdomen and pelvis is performed from the lung bases to the proximal femora. Images are reviewed in the axial, sagittal, and coronal planes. IV contrast was not administered for this examination. Note that the examination was performed in significantly suboptimal fashion withou t oral and IV contrast. A dose lowering technique was utilized adhering to the principles of ALARA. CT DOSE: 257.72 mGy.cm FINDINGS: Lung bases: The heart is normal in size and without pericardial effusion. There are numerous (greater than 10) pulmonary nodules seen at both lung bases measure up to 5 mm. No airspace consolidation or pleural effusion is identified. There is a small hiatal hernia. Liver: The unenhanced liver is normal in size, contour, and attenuation. There is no intrahepatic edna iary ductal dilatation. Gallbladder: Surgically absent noting clips in the gallbladder fossa. Spleen: Normal in size and attenuation. Pancreas: The unenhanced pancreas is moderately atrophic and grossly unremarkable. Adrenal glands: Unremarkable. Kidneys: The unenhanced kidneys demonstrate cortical atrophy and are without hydronephrosis. There ar e no renal calculi identified. A subcentimeter complex/hyperdense cyst is noted in the right upper po le. There is no evidence of contour deforming renal mass lesion. Abdominal vasculature: The abdominal aorta is normal in course and caliber noting mild to moderate at herosclerotic calcification. Bowel: There is postoperative change from rectosigmoid resection with colocolonic anastomosis. There is a complex fluid collection in the posterior pelvis between the rectosigmoid anastomosis in the sac rum seen on image #315. This measures approximately 6 x 3 x 6 cm and closely approximates the rectum. A double barrel ileostomy is noted in the right lower quadrant. No obstruction is seen. There are sc attered diverticula of the colon without CT evidence of acute diverticulitis. The appendix is well-v isualized and normal. Peritoneum: There is no intraperitoneal free air or abdominal ascites. A midline surgical scar is not ed. Lymphadenopathy: None. Pelvic viscera: The bladder is partially decompressed around a Guo catheter. Intraluminal gas is no [place]. The bladder wall appears thickened and there is pericystic infiltration. The uterus and adnexa a re normal as imaged. Skeletal structures: The skeletal structures are osteopenic. There is advanced lumbosacral spondylosi s with evidence of L3-L4 spinal fusion. No lytic or blastic lesions are seen. IMPRESSION: 1. There is postoperative change from interval rectosigmoid resection with colocolonic anastomosis an d double barrel ileostomy in the right lower quadrant. No bowel obstruction is seen. 2. There is an approximately 6 x 3 x 6 cm complex fluid collection between the rectosigmoid colon and the sacrum. This is new from previous, and although the sterility cannot be assessed by imaging the appearance is suspicious for abscess. Contained perforation versus anastomotic leak is not excluded. 3. The bladder wall is thickened and there is surrounding inflammation. Intraluminal gas is nonspecif ic as a Guo catheter is in place. Correlate with clinical findings and urinalysis. 4. Multiple lower lobe pulmonary nodules are again noted and likely unchanged from prior studies. 5. Additional findings as above. ACT 112: Negative or not required by law. Electronically signed by: Justus Angulo M.D. 01/08/2022 8:21 AM
[2022-01-08 08:51] LABS: Hematocrit (blood only) 32.8 % (34.1-44.9); Hemoglobin 10.7 g/dl (12.0-16.0); Mean Corpuscular Hemoglobin 30.1 pg (25.0-34.0); Mean Corpuscular Hgb Conc 32.6 g/dL (32.0-36.0); Mean Corpuscular Volume 92.4 fL (80.0-100.0); Mean Platelet Volume 9.8 fL (9.4-12.3); Platelet Count 445 K/uL (130-400); RDW Coefficient of Variation 13.7 % (11.5-14.5); RDW Standard Deviation 46.7 fL (36.4-46.3); Red Blood Count 3.55 M/uL (3.93-5.22); White Blood Count 10.74 K/ul (4.8-10.8)
[2022-01-08 09:13] LABS: Basophils # (auto) 0.02 K/uL (0-0.2); Basophils % (auto) 0.2 %; Eosinophils # (auto) 0.04 K/uL (0-0.50); Eosinophils % (auto) 0.4 %; Immature Granulocytes # (auto) 0.68 K/uL (0.00-0.02); Immature Granulocytes % (auto) 6.3 %; Lymphocytes # (auto) 1.07 K/uL (1.2-3.4); Monocytes # (auto) 0.99 K/uL (0.24-0.82); Monocytes % (auto) 9.2 %; Neutrophils # (auto) 7.94 K/uL (1.4-6.5); Neutrophils % (auto) 73.9 %
[2022-01-08 09:17] LABS: BUN Creatinine Ratio 29.2 (10-20); Calcium 9.9 mg/dl (8.5-10.1); Creatinine Clr Calc Pharmacy 20.8 ml/min; Est GFR (African American) 32.9 ml/min; Est GFR (Non-African American) 28.4 ml/min; Magnesium 2.3 mg/dl (1.7-2.4); Potassium 4.7 mmol/L (3.5-5.1)
[2022-01-08] MEDS: NYSTATIN POWDER 15GM BTL EXT SCH ×3 (09:21→19:35)
[2022-01-08] MEDS: ROSUVASTATIN CALCIUM 5 MG TAB PO SCH (09:21)
[2022-01-08] MEDS: SERTRALINE HCL 50 MG TABLET PO SCH (09:21)
[2022-01-08] MEDS: FAMOTIDINE 20 MG TAB PO SCH (09:24)
[2022-01-08] MEDS: HEPARIN SOD 5,000 UNIT/0.5 ML VIAL SQ SCH ×2 (09:26→19:35)
--- NOTE | 2022-01-08 12:47 | Electrocardiogram Report ---
Test Reason : Blood Pressure : / mmHG Vent. Rate : 093 BPM Atrial Rate : 093 BPM P-R Int : 130 ms QRS Dur : 072 ms QT Int : 362 ms P-R-T Axes : -20 -14 065 degrees QTc Int : 450 ms Normal sinus rhythm Normal ECG When compared with ECG of 01-DEC-2021 13:46, No significant change was found Confirmed by Shayne Mahan ([id number]) on 01/08/2022 12:47:03 PM Referred By: REFERRED SELF Confirmed By:Shayne Mahan
--- NOTE | 2022-01-08 15:32 | Hospitalist Progress Note ---
Date of Service January 08, 2022 Assessment & Plan (1) Weakness: Plan 76-year-old lady with PMH of malnutrition of moderate degree, early July of this year with diverticulitis with adjacent colonic abscess status post medical treatment later complicated by colovesical fistula followed by hand-assisted laparoscopic low anterior resection/takedown of the splenic flexure/diverting ileostomy/bilateral laparoscopic transversus abdominal block in October of this year, HTN, chronic gout, asthma, GERD, CKD stage III, subarachnoid hemorrhage following injury, hemiplegia affecting left nondominant side, HENRI, seasonal affective disorder, depression presented 01/07 to our ED due to complaints of being very weak, difficult for transfers, not eating or drinking much. Also complained of mild abdominal pain at presentation. Denied any fevers. She is being managed for the following: Possible failure to thrive Poor appetite Ambulatory dysfunction Patient had extensive medical and surgical history starting July this year [see above] Patient was at rehabilitation before surgery and after surgery. Continue with IV fluids, dietitian consulted, appreciate recs. PT/OT, CM to assist with DC planning, likely need placement If patient not improving with p.o. intake, likely consider TPN prior to discharge. Abnormal CTAP Concern for abdominal abscess Admitting CTAP with postoperative changes from interval rectosigmoid resection with colonic anastomosis and double barrel ileostomy in the RLQ. Also there is approximately 6 x 3 x 6 cm complex fluid collection between the rectosigmoid colon and the sacrum which is new from previous. The bladder wall is thickened and there is surrounding inflammation. Will broaden the antibiotic Rocephin to Zosyn to cover anaerobes, surgery consult. Elevated troponin: Admitting EKG with no acute ST or T changes, troponin down trended, likely demand ischemia. Patient without chest pain. Continue to monitor. Possible UTI: Patient complaining of low belly pain at presentation. Admitting UA suggestive of UTI, follow-up final culture. Continue with Rocephin 01/08-->zosyn 01/08. Patient reports improvement in low belly pain. AMARA on CKD stage III: Baseline creatinine around 1.0 from outpatient chart review, admitting creatinine of 1.94 and BUN of 59. Likely prerenal secondary to decreased intake. Patient on IV fluid, BMP in AM. Metabolic acidosis: Probably from starvation ketosis, getting IV fluids, getting better. Mild hyponatremia: Possibly from decreased p.o. intake, admitting sodium of 128. Getting fluids. Expect to improve with improving p.o. intake/IV fluids. Repeat labs in AM. Other chronic medical conditions: HLD, GERD, depression Continue with/resume home meds as and when appropriate DVT prophylaxis: Heparin subcu Disposition: PT/OT, CM to assist with DC planning. Patient will likely need TPN if p.o. intake not improved, will likely need placement. Admission and Anticipated Discharge Date Admission Date: January 08, 2022 Subjective Patient seen and examined at bedside as a follow-up of possible failure to thrive/poor appetite/ambulatory dysfunction and UTI and elevated troponin and AMARA on CKD stage III. Patient was lying in bed, on room air, NAD, AOx3, had vomiting x1 yesterday evening, denies new acute events overnight, denies nausea or vomiting today, does not have great appetite, reports lower belly pain getting better, has ostomy bag with output, denies headache or dizziness, reports weakness, appears weak/ill/frail. Physical Exam Physical Exam: GENERAL: Alert and oriented x3. NAD, on RA. Appears ill/weak/frail. HEENT: No pallor, no icterus. Pupils equal, round and reactive to light. Oral mucosa moist. NECK: No JVD, no neck masses. HEART: S1 and S2 heard. Regular rate and rhythm. No murmur, no gallop. RESPIRATORY SYSTEM: Normal AP diameter. No accessory muscle use. No wheezing, no crackles. ABDOMEN: Soft, bowel sounds present, nontender, no distention. Right ostomy b ag with output noted. Left belly with clean dressing without soakage. CENTRAL NERVOUS SYSTEM: No facial droop. Speech is clear. Obeys simple commands. Moves extremities. EXTREMITIES: No edema, no erythema seen. Urinary catheter with yellow urine collection noted. Results & Data Results & Data ([facility]) Vital Signs (Past 12 Hours) Vital Signs Temp Pulse Pulse Resp BP Pulse Ox O2 Del Method 01/08/22 14:57 36.9 C 69 14 110/71 99 Room Air 01/08/22 07:49 Room Air 01/08/22 07:23 36.5 C 90 16 103/71 97 Room Air 01/08/22 04:30 36.5 C 81 16 126/81 100 Nasal Cannula 01/08/22 03:30 36.5 C 81 16 126/81 98 Room Air O2 Flow Rate 01/08/22 14:57 01/08/22 07:49 01/08/22 07:23 01/08/22 04:30 2 01/08/22 03:30
--- NOTE | 2022-01-08 15:42 | Surgery Consultation ---
Date of Consultation January 08, 2022 Assessment & Plan (1) Pelvic fluid collection: pt is a 76 year-old female who was admitted to hospital for weakness, CT scan finding- pelvic fluid collection, pt denies fever, normal WBC, IMP: pelvic fluid collection, could not R/O abscess, or leak from bladder fistula? Plan, conservative treatment now, IV antibiotic, consult urologist for bladder fistula?, consult secondary spanish teacher for high troponin 154, pt is malnutrition, may start TPN, pt should be transferred back to [facility] colorectal surgeon or IR for drainage pelvic fluid collection, if pt develops worse symptoms, repeat labs in morning, will F/U, pt and her agree with the plan, I answered all questions, History of Present Illness Reason for Consultation: pelvic fluid collection Requesting Physician: Earnestine Douglas MD Attending Physician: Earnestine Douglas MD History of Present Illness CHIEF COMPLAINT: Weakness, failure to thrive. HISTORY OF PRESENT ILLNESS: A 76-year-old female with past medical history significant for chronic gout, asthma, malnutrition of moderate degree, hypertension, GERD, chronic kidney disease stage III, history of subarachnoid hemorrhage following injury,hemiplegia affecting left nondominant side, iron deficiency anemia, history of acute blood loss anemia, history of seasonal affective disorder, history of depression. In July of this year, she was found to have diverticulitis with adjacent colonic abscess, but treated medically because it could not be easily approached by surgery or interventional radiology and she was referred to [facility] and completed treatment on 09/22/2021. On 10/06/2021, she again presented to the hospital with weakness, decreased appetite, and inability to walk. She had AMARA at that time, hemoglobin fell to 6.[address] demonstrated a colovesical fistula,though abscess was treated surgery, did not want to proceed with intervention because of deconditioning. The patient was treated with TPN and sent to rehabilitation. The patient also had transfusion during the h ospitalization. In the rehab, the patient developed symptoms of sepsis and was transferred back to [facility]. At that time she had slight progression of diverticulitis and she was again transferred back to rehab with TPN and course of IV Zosyn. Apparently was planned for surgery for recurrent diverticulitis. The patient had hand-assisted laparoscopic low anterior resection, takedown of the splenic flexure, diverting ileostomy, bilateral laparoscopic transversus abdominal block in October of this year at [facility]. Ileostomy bag is working okay. She also has a Guo catheter since last 7 weeks. Follows up with urology for a colovesical fistula. Recently treated for UTI with Macrobid and recently also went to PCP's office for IV hydration. Today, the patient was very weak, difficult for transfers, not eating or drinking much. brought her to the hospital. The patient may require again TPN or rehab placement. Resting comfortably, speaking in low voices. States that when she came in, she had mild abdominal pain, but with the pain medicine her abdominal pain is improved. Currently, denies any nausea, denies any chest pain or shortness of breath. No cough, no fevers, no headache, no blurred visions, no runny nose, no sore throat. She states she is not moving her bowels much because she is not eating much, not making much urine, not ambulating much. I ( Stacy Hernandez MD ) got a call for consult for pelvic fluid collection, I reviewed pt's H/P, labs, CT scan with pt and her , pt has mild lower abdominal pain, no fever, ALLERGIES: LATEX, NIACIN, SULFA ANTIBIOTICS. PAST MEDICAL HISTORY: As mentioned above. PAST SURGICAL HISTORY: Colonoscopy, cystoscopy, dilatation and curettage, EGDs, ERCP, left eyelid surgery, hand and toe surgery, lumbar spine injection, laparoscopic partial colectomy with coloproctostomy, laparoscopic cholecystectomy, removal of ovarian cyst, right carpal tunnel release, right CMC arthroplasty, colonoscopy. MEDICATIONS: The patient is on Tylenol 1000 mg p.o. q. 6 hours p.r.n., famotidine 20 mg p.o. b.i.d., Ativan 1 mg p.o. at bedtime, nystatin topical t.i.d., rosuvastatin 5 mg p.o. daily, sertraline 25 mg p.o. a.m., solifenacin 5 mg p.o. a.m., trazodone 150 mg p.o. at bedtime. FAMILY HISTORY: Significant for father has allergies, gastrointestinal disorder, heart disorder; mother has heart disorder; brother has kidney stones; sister has shoulder issues, gastrointestinal disorders. REVIEW OF SYSTEMS: As per HPI. Rest of review of systems is negative. Allergies Allergy/AdvReac Type Severity Reaction Status Date / Time latex Allergy Intermediate rash Verified 01/07/22 22:03 niacin Allergy Intermediate diffuse Verified 01/07/22 22:03 redness Sulfa (Sulfonamide Allergy Intermediate rash Verified 01/07/22 22:03 Antibiotics) Home Medications Medication Instructions Recorded Confirmed Type lorazepam 0.5 mg tablet 1 mg PO HS 07/03/18 01/07/22 History trazodone 150 mg tablet 150 mg PO HS 08/20/21 01/07/22 History sertraline 25 mg tablet 25 mg PO QAM 10/15/21 01/07/22 History famotidine 20 mg tablet 20 mg PO BID #20 tabs 12/01/21 01/07/22 Rx acetaminophen 500 mg tablet 1,000 mg PO Q6H PRN Pain 01/07/22 01/07/22 History (Tylenol Extra Strength) menthol 0.44 %-zinc oxide 20.6 % 1 applic topical DIRECTED PRN 01/07/22 01/07/22 History topical ointment (Calmoseptine) COCCYX AREA nystatin 100,000 unit/gram topical 1 applic topical TID 01/07/22 01/07/22 History powder rosuvastatin 5 mg tablet 5 mg PO DAILY 01/07/22 01/07/22 History solifenacin 5 mg tablet 5 mg PO QAM 01/07/22 01/07/22 History Patient History Medical History Anemia Anemia Anxiety and depression Asthma STABLE (NO INHALER) Bilateral hip joint arthritis Bilateral primary osteoarthritis of knee Chronic low back pain LLE NEUROPATHY [place]-vesical fistula Colonic diverticular abscess Diverticulitis SEVERAL YEARS AGO Diverticulitis History of anemia History of hyperlipidemia History of skin cancer History of subarachnoid hemorrhage S/P TRAUMA/FALLING (2014)= NO RESIDUAL DEFICITS Hx of cardiac murmur Hx of pancreatitis Hypokalemia Obesity Osteoarthritis Surgical History History of carpal tunnel release History of cataract surgery RT/LEFT History of cholecystectomy History of colonoscopy History of dilatation and curettage History of discectomy LUMBAR History of ERCP History of oophorectomy History of tonsillectomy History of tooth extraction Trigger finger RELEASE Family History Mother Family history of bladder cancer Father No problems noted. Brother Family history of diabetes mellitus Mother Family history of diabetes mellitus Social History Smoking Status: Never smoker Second Hand Exposure: No; Do You Dip or Chew Tobacco: No; Tobacco Cessation Education Requested by Patient: No Hx Alcohol Use: No Hx Substance Use: No Preferred Language: Nauruan Communication Ability: Effective Concrete Floor Installer Required: No Beliefs That Will Affect Care: None marital status: Current Living Situation: Spouse Other Information That Helps Us Care for You: No Feels Safe at Home: Yes Safety Concerns: Feels Safe At This Time Assistive Devices: Walker Physical Exam Constitutional: WD/WN, vitals as above no distress Eyes: PERRL, conjunctivae normal, anicteric sclerae Neck: trachea midline, no thyromegaly Respiratory: normal respiratory effort, lungs clear to auscultation Cardiovascular: RRR, no murmur, no edema Gastrointestinal (Abdomen): soft, NT, ND, BS +, ileostomy, working well, Neurologic: patellar DTR's 2+ bilat, sensation intact Psychiatric: A+Ox3, euthymic affect Results & Data ([facility]) Vital Signs (Past 12 Hours) Vital Signs Temp Pulse Pulse Resp BP Pulse Ox O2 Del Method 01/08/22 14:57 36.9 C 69 14 110/71 99 Room Air 01/08/22 07:49 Room Air 01/08/22 07:23 36.5 C 90 16 103/71 97 Room Air 01/08/22 04:30 36.5 C 81 16 126/81 100 Nasal Cannula O2 Flow Rate 01/08/22 14:57 01/08/22 07:49 01/08/22 07:23 01/08/22 04:30 2 Laboratory Results Abnormal lab results 01/07/22 01/07/22 01/08/22 Range/Units 21:05 21:05 00:25 RBC (3.93-5.22) M/uL Hgb (12.0-16.0) g/dl Hct (34.1-44.9) % RDW Std Deviation (36.4-46.3) fL Plt Count 492 H (130-400) K/uL Neut # (Auto) 6.86 H (1.4-6.5) K/uL Lymph # (Auto) (1.2-3.4) K/uL [place] # (Auto) (0.24-0.82) K/uL Immature Gran # (Auto) 0.26 H (0.00-0.02) K/uL Sodium 128 L (136-145) mmol/L Chloride 96 L (98-107) mmol/L Carbon Dioxide 17 L (21-32) mmol/L Anion Gap 15 H (3-11) BUN 59 H (6-23) mg/dl Creatinine 1.94 H (0.6-1.2) mg/dl BUN/Creatinine Ratio 30.4 H (10-20) Glucose 119 H (70-99(Fasting)) mg/dl Calcium 10.9 H (8.5-10.1) mg/dl AST 42 H (13-39) U/L Alkaline Phosphatase 157 H (34-104) U/L Troponin I High Sens 219.5 H* D (0-14) pg/ml Total Protein 8.7 H (6.0-8.3) gm/dl Globulin 4.6 H (2.5-4.0) gm/dl Urine Appearance Cloudy A (Clear) Urine Protein 1+ H (Negative) Urine Ketones Trace H (Negative) Urine Blood 1+ H (Negative) Ur Leukocyte Esterase 2+ H (Negative) Urine WBC (Auto) >30 H (0-5) /hpf U Hyaline Cast (Auto) 10-30 H (0-5) /lpf U Epithel Cells (Auto) 5-10 H (0-5) /lpf Urine Bacteria (Auto) 4+ H (Negative) 01/08/22 01/08/22 01/08/22 Range/Units 07:35 07:35 08:41 RBC 3.55 L (3.93-5.22) M/uL Hgb 10.7 L (12.0-16.0) g/dl Hct 32.8 L (34.1-44.9) % RDW Std Deviation 46.7 H (36.4-46.3) fL Plt Count 445 H (130-400) K/uL Neut # (Auto) 7.94 H (1.4-6.5) K/uL Lymph # (Auto) 1.07 L (1.2-3.4) K/uL [place] # (Auto) 0.99 H (0.24-0.82) K/uL Immature Gran # (Auto) 0.68 H (0.00-0.02) K/uL Sodium 133 L (136-145) mmol/L Chloride (98-107) mmol/L Carbon Dioxide (21-32) mmol/L Anion Gap 12 H (3-11) BUN 50 H (6-23) mg/dl Creatinine 1.71 H (0.6-1.2) mg/dl BUN/Creatinine Ratio 29.2 H (10-20) Glucose 106 H (70-99(Fasting)) mg/dl Calcium (8.5-10.1) mg/dl AST (13-39) U/L Alkaline Phosphatase (34-104) U/L Troponin I High Sens 187.2 H* (0-14) pg/ml Total Protein (6.0-8.3) gm/dl Globulin (2.5-4.0) gm/dl Urine Appearance (Clear) Urine Protein (Negative) Urine Ketones (Negative) Urine Blood (Negative) Ur Leukocyte Esterase (Negative) Urine WBC (Auto) (0-5) /hpf U Hyaline Cast (Auto) (0-5) /lpf U Epithel Cells (Auto) (0-5) /lpf Urine Bacteria (Auto) (Negative) 01/08/22 Range/Units 13:43 RBC (3.93-5.22) M/uL Hgb (12.0-16.0) g/dl Hct (34.1-44.9) % RDW Std Deviation (36.4-46.3) fL Plt Count (130-400) K/uL Neut # (Auto) (1.4-6.5) K/uL Lymph # (Auto) (1.2-3.4) K/uL [place] # (Auto) (0.24-0.82) K/uL Immature Gran # (Auto) (0.00-0.02) K/uL Sodium (136-145) mmol/L Chloride (98-107) mmol/L Carbon Dioxide (21-32) mmol/L Anion Gap (3-11) BUN (6-23) mg/dl Creatinine (0.6-1.2) mg/dl BUN/Creatinine Ratio (10-20) Glucose (70-99(Fasting)) mg/dl Calcium (8.5-10.1) mg/dl AST (13-39) U/L Alkaline Phosphatase (34-104) U/L Troponin I High Sens 154.6 H* (0-14) pg/ml Total Protein (6.0-8.3) gm/dl Globulin (2.5-4.0) gm/dl Urine Appearance (Clear) Urine Protein (Negative) Urine Ketones (Negative) Urine Blood (Negative) Ur Leukocyte Esterase (Negative) Urine WBC (Auto) (0-5) /hpf U Hyaline Cast (Auto) (0-5) /lpf U Epithel Cells (Auto) (0-5) /lpf Urine Bacteria (Auto) (Negative) Diagnostic Findings CT SCAN OF THE ABDOMEN AND PELVIS WITHOUT IV CONTRAST CLINICAL HISTORY: Generalized abdominal pain. Recent colostomy. COMPARISON STUDY: Abdominal CT dated 10/15/2021 and 08/20/2021. TECHNIQUE: CT scan of the abdomen and pelvis is performed from the lung bases to the proximal femora. Images are reviewed in the axial, sagittal, and coronal planes. IV contrast was not administered for this examination. Note that the examination was performed in significantly suboptimal fashion without oral and IV contrast. A dose lowering technique was utilized adhering to the principles of ALARA. CT DOSE: 257.72 mGy.cm FINDINGS: Lung bases: The heart is normal in size and without pericardial effusion. There are numerous (greater than 10) pulmonary nodules seen at both lung bases measure up to 5 mm. No airspace consolidation or pleural effusion is identified. There i s a small hiatal hernia. Liver: The unenhanced liver is normal in size, contour, and attenuation. There is no intrahepatic biliary ductal dilatation. Gallbladder: Surgically absent noting clips in the gallbladder fossa. Spleen: Normal in size and attenuation. Pancreas: The unenhanced pancreas is moderately atrophic and grossly unremarkable. Adrenal glands: Unremarkable. Kidneys: The unenhanced kidneys demonstrate cortical atrophy and are without hydronephrosis. There are no renal calculi identified. A subcentimeter complex/hyperdense cyst is noted in the right upper pole. There is no evidence of contour deforming renal mass lesion. Abdominal vasculature: The abdominal aorta is normal in course and caliber noting mild to moderate atherosclerotic calcification. Bowel: There is postoperative change from rectosigmoid resection with colocolonic anastomosis. There is a complex fluid collection in the posterior pelvis between the rectosigmoid anastomosis in the sacrum seen on image #315. This measures approximately 6 x 3 x 6 cm and closely approximates the rectum. A double barrel ileostomy is noted in the right lower quadrant. No obstruction is seen. There are scattered diverticula of the colon without CT evidence of acute diverticulitis. The appendix is well-visualized and normal. Peritoneum: There is no intraperitoneal free air or abdominal ascites. A midline surgical scar is noted. Lymphadenopathy: None. Pelvic viscera: The bladder is partially decompressed around a Guo catheter. Intraluminal gas is noted. The bladder wall appears thickened and there is pericystic infiltration. The uterus and adnexa are normal as imaged. Skeletal structures: The skeletal structures are osteopenic. There is advanced lumbosacral spondylosis with evidence of L3-L4 spinal fusion. No lytic or blastic lesions are seen. IMPRESSION: 1. There is postoperative change from interval rectosigmoid resection with colocolonic anastomosis and double barrel ileostomy in the right lower quadrant. No bowel obstruction is seen. 2. There is an approximately 6 x 3 x 6 cm complex fluid collection between the rectosigmoid colon and the sacrum. This is new from previous, and although the s terility cannot be assessed by imaging the appearance is suspicious for abscess. Contained perforation versus anastomotic leak is not excluded. 3. The bladder wall is thickened and there is surrounding inflammation. Intraluminal gas is nonspecific as a Guo catheter is in place. Correlate with clinical findings and urinalysis. 4. Multiple lower lobe pulmonary nodules are again noted and likely unchanged from prior studies. 5. Additional findings as above.
[2022-01-08] MEDS ORDERED: PIPERACILLIN/TAZOBACTAM 3.375 GM in DEXTROSE 5% 100 ML IV ONE (16:00)
[2022-01-08] MEDS: MoRPHine SULFATE 2 MG/ML CARP IV PRN ×2 (19:32→22:34)
[2022-01-08] MEDS: traZODone HCL 50 MG TAB PO SCH ×2 (19:36→22:20)
[2022-01-08] MEDS: LORazepam 1 MG TAB PO SCH (22:20)
[2022-01-08] MEDS: PIPERACILLIN/TAZOBACTAM 3.375 GM in DEXTROSE 5% 100 ML IV SCH (22:21)
[2022-01-09] MEDS: D5W AND 1/2NSS 1,000 ML IV SCH (05:21)
[2022-01-09] MEDS: PIPERACILLIN/TAZOBACTAM 3.375 GM in DEXTROSE 5% 100 ML IV SCH ×3 (05:25→21:55)
[2022-01-09] MEDS: MoRPHine SULFATE 2 MG/ML CARP IV PRN (06:45)
[2022-01-09 07:39] LABS: Hematocrit (blood only) 29.3 % (34.1-44.9); Hemoglobin 9.6 g/dl (12.0-16.0); Mean Corpuscular Hemoglobin 30.8 pg (25.0-34.0); Mean Corpuscular Hgb Conc 32.8 g/dL (32.0-36.0); Mean Corpuscular Volume 93.9 fL (80.0-100.0); Mean Platelet Volume 9.6 fL (9.4-12.3); Platelet Count 338 K/uL (130-400); RDW Coefficient of Variation 13.7 % (11.5-14.5); RDW Standard Deviation 46.5 fL (36.4-46.3); Red Blood Count 3.12 M/uL (3.93-5.22); White Blood Count 8.21 K/ul (4.8-10.8)
--- NOTE | 2022-01-09 08:00 | Urology Consultation ---
Date of Consultation January 09, 2022 Assessment & Plan (1) Pelvic fluid collection: Plan 76yo F who presented with ambulatory dysfunction, poor appetite, and weakness and admitted with elevated troponin, AMARA on CKD, and suspected UTI. CT a/p obtained on arrival and remarkable for a pelvic fluid collection, concerning for possible abscess. Bladder wall thickening, inflammation, and intraluminal gas was also noted. Urology consulted for possible colovesical fistula. -Plan of care and imaging reviewed with Dr. Cook, on-call urologist. -Afebrile, hemodynamically stable. -Labs reviewed- Wbc 8.21, Creatinine down to 1.25 today - continue to trend. -Urine culture preliminary with gram-negative bacilli. -On IV Zosyn, follow culture. -Guo catheter intact, draining clear yellow urine. -No acute intervention warranted at this time. -The pelvic fluid collection appears to be directly adjacent to the bowel anastomosis. Recommend consideration of transfer for IR assessment for possible drainage of pelvic fluid collection. The gas noted within the bladder is nonspecific and likely due to instrumentation. Recommend continued drainage with Guo catheter as well as continued supportive care and antibiotic therapy. -Pt follows with [facility] urology as an outpatient. -Urology will sign-off. Please contact us with any further questions, concerns, or changes in patient status. History of Present Illness Reason for Consultation: possible colovesical fistula Attending Physician: Earnestine Douglas MD History of Present Illness The patient is a 76-year-old female with multiple comorbidities who presented with weakness, ambulatory dysfunction, and poor appetite and was admitted with elevated troponin, AMARA on CKD, and suspected UTI. She also noted mild abdominal pain on presentation. A CT abdomen pelvis was obtained and notable for a pelvic fluid collection. The patient was admitted for further management. Urology consulted for possible colovesical fistula. Past medical history includes malnutrition of moderate degree, HTN, chronic gout, asthma, GERD, CKD stage III, subarachnoid hemorrhage following injury, hemiplegia affecting left nondominant side, HENRI, seasonal affective disorder, depression. Per chart review, in early July of this year pt with diverticulitis with ad jacent colonic abscess status post medical treatment which was later complicated by colovesical fistula and followed by hand-assisted laparoscopic low anterior resection/takedown of the splenic flexure/diverting ileostomy/bilateral laparoscopic transversus abdominal block in October of this year. It was also noted that she was recently treated for UTI with Macrobid. Has had a Guo catheter for 7 weeks. Follows with [facility] urology. CT abdomen pelvis IMPRESSION: 1. There is postoperative change from interval rectosigmoid resection with colocolonic anastomosis and double barrel ileostomy in the right lower quadrant. No bowel obstruction is seen. 2. There is an approximately 6 x 3 x 6 cm complex fluid collection between the rectosigmoid colon and the sacrum. This is new from previous, and although the sterility cannot be assessed by imaging the appearance is suspicious for abscess. Contained perforation versus anastomotic leak is not excluded. 3. The bladder wall is thickened and there is surrounding inflammation. Intraluminal gas is nonspecific as a Guo catheter is in place. Correlate with clinical findings and urinalysis. 4. Multiple lower lobe pulmonary nodules are again noted and likely unchanged from prior studies. Patient examined at bedside this AM. Awake, resting in bed on arrival. Eating breakfast and in no acute distress at time of exam. Guo catheter intact, draining clear yellow urine. Patient denies any abdominal or flank pain at present. Denies fevers or chills. Denies nausea or vomiting. Right ostomy intact. Offers no additional complaints or concerns at time of exam. Family history noncontributory. Allergies Allergy/AdvReac Type Severity Reaction Status Date / Time latex Allergy Intermediate rash Verified 01/07/22 22:03 niacin Allergy Intermediate diffuse Verified 01/07/22 22:03 redness Sulfa (Sulfonamide Allergy Intermediate rash Verified 01/07/22 22:03 Antibiotics) Home Medications Medication Instructions Recorded Confirmed Type lorazepam 0.5 mg tablet 1 mg PO HS 07/03/18 01/07/22 History trazodone 150 mg tablet 150 mg PO HS 08/20/21 01/07/22 History sertraline 25 mg tablet 25 mg PO QAM 10/15/21 01/07/22 History famotidine 20 mg tablet 20 mg PO BID #20 tabs 12/01/21 01/07/22 Rx acetaminophen 500 mg tablet 1,000 mg PO Q6H PRN Pain 01/07/22 01/07/22 History (Tylenol Extra Strength) menthol 0.44 %-zinc oxide 20.6 % 1 applic topical DIRECTED PRN 01/07/22 01/07/22 History topical ointment (Calmoseptine) COCCYX AREA nystatin 100,000 unit/gram topical 1 applic topical TID 01/07/22 01/07/22 History powder rosuvastatin 5 mg tablet 5 mg PO DAILY 01/07/22 01/07/22 History solifenacin 5 mg tablet 5 mg PO QAM 01/07/22 01/07/22 History Patient History Medical History Anemia Anemia Anxiety and depression Asthma STABLE (NO INHALER) Bilateral hip joint arthritis Bilateral primary osteoarthritis of knee Chronic low back pain LLE NEUROPATHY [place]-vesical fistula Colonic diverticular abscess Diverticulitis SEVERAL YEARS AGO Diverticulitis History of anemia History of hyperlipidemia History of skin cancer History of subarachnoid hemorrhage S/P TRAUMA/FALLING (2014)= NO RESIDUAL DEFICITS Hx of cardiac murmur Hx of pancreatitis Hypokalemia Obesity Osteoarthritis Surgical History History of carpal tunnel release History of cataract surgery RT/LEFT History of cholecystectomy History of colonoscopy History of dilatation and curettage History of discectomy LUMBAR History of ERCP History of oophorectomy History of tonsillectomy History of tooth extraction Trigger finger RELEASE Family History Mother Family history of bladder cancer Father No problems noted. Brother Family history of diabetes mellitus Mother Family history of diabetes mellitus Social History Smoking Status: Never smoker Second Hand Exposure: No; Do You Dip or Chew Tobacco: No; Tobacco Cessation Education Requested by Patient: No Hx Alcohol Use: No Hx Substance Use: No Preferred Language: Palestinian Communication Ability: Effective Wire Spooler Required: No Beliefs That Will Affect Care: None marital status: Current Living Situation: Spouse Other Information That Helps Us Care for You: No Feels Safe at Home: Yes Safety Concerns: Feels Safe At This Time Assistive Devices: Walker Review of Systems Review of Systems: All systems reviewed & are unremarkable except as noted in HPI & below Physical Exam Constitutional: + frail appearing; no acute distress Neck: normal visual inspection Respiratory: normal respiratory effort; no respiratory distress and no labored breathing Gastrointestinal (Abdomen): Right ileostomy intact Musculoskeletal: Head/Neck/Chest: normocephalic Skin: No visible rashes or lesions to exposed skin areas Neurologic: awake Psychiatric: Orientation: alert, oriented to person and cooperative Genitourinary: Guo catheter draining clear yellow urine Results & Data ([facility]) Vital Signs (Past 12 Hours) Vital Signs Temp Pulse Resp BP Pulse Ox 01/08/22 22:28 36.9 C 93 H 18 112/71 100 PG Care Time/CCT Total # of Minutes Spent Total Time Spent with Patient: Total time spent is greater than 50% in coordination of care (as documented) at patient's floor/unit and/or counseling patient: Coding Level of Care Code 25331 Initial Inpt Care Lvl 2 Diagnoses Pelvic fluid collection R18.8
[2022-01-09 08:08] LABS: Potassium 3.3 mmol/L (3.5-5.1)
[2022-01-09 08:30] LABS: BUN Creatinine Ratio 27.2 (10-20); Calcium 8.7 mg/dl (8.5-10.1); Creatinine Clr Calc Pharmacy 28.4 ml/min; Est GFR (African American) 48.1 ml/min; Est GFR (Non-African American) 41.5 ml/min; Magnesium 1.8 mg/dl (1.7-2.4)
[2022-01-09] MEDS ORDERED: POTASSIUM PHOS 3 MMOL/1 ML INFUSION IV STA (09:11)
[2022-01-09] MEDS: HEPARIN SOD 5,000 UNIT/0.5 ML VIAL SQ SCH ×2 (09:17→20:11)
[2022-01-09] MEDS: SERTRALINE HCL 50 MG TABLET PO SCH (09:17)
[2022-01-09] MEDS: FAMOTIDINE 20 MG TAB PO SCH (09:17)
[2022-01-09] MEDS: NYSTATIN POWDER 15GM BTL EXT SCH ×3 (09:17→20:12)
[2022-01-09] MEDS: ROSUVASTATIN CALCIUM 5 MG TAB PO SCH (09:18)
[2022-01-09] MEDS: POTASSIUM CHLORIDE / WTR 10 MEQ/100 ML PLCT IV SCH ×2 (09:30→10:36)
[2022-01-09] MEDS: D5W AND NSS 1,000 ML IV SCH ×2 (09:30→21:52)
[2022-01-09] MEDS ORDERED: POTASSIUM PHOSPHATE 21 MMOL in SODIUM CHLORIDE 0.9% 500 ML IV ONE (09:30)
--- NOTE | 2022-01-09 09:36 | Surgery Progress Note ---
Date of Service January 09, 2022 Assessment & Plan (1) Pelvic fluid collection: Plan: pt is a 76 year-old female who was admitted to hospital for weakness, CT scan finding- pelvic fluid collection, pt denies fever, normal WBC, IMP: pelvic fluid collection, could not R/O abscess, or leak from bladder fistula? Plan, conservative treatment now, IV antibiotic, consult urologist for bladder fistula?, consult clothes presser for high troponin 154, pt is malnutrition, may start TPN, pt should be transferred back to [facility] colorectal surgeon or IR for drainage pelvic fluid collection, if pt develops worse symptoms, repeat labs in morning, will F/U, pt and her agree with the plan, I answered all questions, 01/09/2022 9:35Am F/U pelvic fluid collection, doing fine, continue iv antibiotic treatment, will F/U, Admission and Anticipated Discharge Date Admission Date: January 08, 2022 Subjective Patient seen and examined at bedside as a follow-up of possible failure to thrive/poor appetite/ambulatory dysfunction and UTI and elevated troponin and AMARA on CKD stage III. Patient was lying in bed, on room air, NAD, AOx3, had vomiting x1 yesterday evening, denies new acute events overnight, denies nausea or vomiting today, does not have great appetite, reports lower belly pain getting better, has ostomy bag with output, denies headache or dizziness, reports weakness, appears weak/ill/frail. 01/09/2022 9:33AM, Dr. Hernandez, F/U pelvic fluid collection, pt is doing fine, no abdominal pain, no fever, normal WBC, Physical Exam Constitutional: WD/WN, vitals as above Eyes: PERRL, conjunctivae normal, anicteric sclerae Neck: trachea midline, no thyromegaly Respiratory: normal respiratory effort, lungs clear to auscultation Cardiovascular: RRR, no murmur, no edema Gastrointestinal (Abdomen): soft, NT, ND, BS + Neurologic: patellar DTR's 2+ bilat, sensation intact Psychiatric: A+Ox3, euthymic affect Results & Data ([facility]) Vital Signs (Past 12 Hours) Vital Signs Temp Pulse Resp BP Pulse Ox 01/09/22 08:12 36.9 C 77 16 101/61 99 01/08/22 22:28 36.9 C 93 H 18 112/71 100 Laboratory Results Abnormal lab results 01/08/22 01/08/22 01/09/22 Range/Units 13:43 19:36 06:59 RBC 3.12 L (3.93-5.22) M/uL Hgb 9.6 L (12.0-16.0) g/dl Hct 29.3 L (34.1-44.9) % RDW Std Deviation 46.5 H (36.4-46.3) fL Sodium (136-145) mmol/L Potassium (3.5-5.1) mmol/L Carbon Dioxide (21-32) mmol/L BUN (6-23) mg/dl Creatinine (0.6-1.2) mg/dl BUN/Creatinine Ratio (10-20) Glucose (70-99(Fasting)) mg/dl Phosphorus (2.5-4.9) mg/dl Troponin I High Sens 154.6 H* 158.5 H* (0-14) pg/ml 01/09/22 Range/Units 06:59 RBC (3.93-5.22) M/uL Hgb (12.0-16.0) g/dl Hct (34.1-44.9) % RDW Std Deviation (36.4-46.3) fL Sodium 130 L (136-145) mmol/L Potassium 3.3 L D (3.5-5.1) mmol/L Carbon Dioxide 19 L (21-32) mmol/L BUN 34 H (6-23) mg/dl Creatinine 1.25 H D (0.6-1.2) mg/dl BUN/Creatinine Ratio 27.2 H (10-20) Glucose 142 H (70-99(Fasting)) mg/dl Phosphorus 2.0 L (2.5-4.9) mg/dl Troponin I High Sens (0-14) pg/ml
--- NOTE | 2022-01-09 18:02 | Hospitalist Progress Note ---
Date of Service January 09, 2022 Assessment & Plan (1) Weakness: Plan 76-year-old lady with PMH of malnutrition of moderate degree, early July of this year with diverticulitis with adjacent colonic abscess status post medical treatment later complicated by colovesical fistula followed by hand-assisted laparoscopic low anterior resection/takedown of the splenic flexure/diverting ileostomy/bilateral laparoscopic transversus abdominal block in October of this year, HTN, chronic gout, asthma, GERD, CKD stage III, subarachnoid hemorrhage following injury, hemiplegia affecting left nondominant side, HENRI, seasonal affective disorder, depression presented 01/07 to our ED due to complaints of being very weak, difficult for transfers, not eating or drinking much. Also complained of mild abdominal pain at presentation. Denied any fevers. She is being managed for the following: Possible failure to thrive Poor appetite Ambulatory dysfunction Patient had extensive medical and surgical history starting July this year [see above] Patient was at rehabilitation before surgery and after surgery. Improving appetite, Continue with IV fluids for now, dietitian consulted, appreciate recs. PT/OT, CM to assist with DC planning, likely need placement If patient not improving with p.o. intake, likely consider TPN prior to discharge. Abnormal CTAP Concern for abdominal abscess Admitting CTAP with postoperative changes from interval rectosigmoid resection with colonic anastomosis and double barrel ileostomy in the RLQ. Also there is approximately 6 x 3 x 6 cm complex fluid collection between the rectosigmoid colon and the sacrum which is new from previous. The bladder wall is thickened and there is surrounding inflammation. c/w zosyn 01/08 Surgery on board, appreciate recs. Elevated troponin: Admitting EKG with no acute ST or T changes, troponin down trended, likely demand ischemia. Patient without chest pain. Continue to monitor. Possible UTI: Patient complaining of low belly pain at presentation. Admitting UA suggestive of UTI, follow-up final culture. Continue with Rocephin 01/08-->zosyn 01/08. Patient reports no low belly pain. AMARA on CKD stage III: Baseline creatinine around 1.0 from outpatient chart review, admitting creatinine of 1.94 and BUN of 59. Likely prerenal secondary to decreased intake. Patient on IV fluid, BMP in AM. Metabolic acidosis: Probably from starvation ketosis, getting IV fluids, getting better. Mild hyponatremia: Possibly from decreased p.o. intake, admitting sodium of 128. Getting fluids. Expect to improve with improving p.o. intake/IV fluids. Repeat labs in AM. Other chronic medical conditions: HLD, GERD, depression Continue with/resume home meds as and when appropriate DVT prophylaxis: Heparin subcu Disposition: PT/OT, CM to assist with DC planning. Patient will likely need TPN if p.o. intake not improved, will likely need placement. Pt wouldn't like to be transferred on prelim discussion for "if need be situation". Admission and Anticipated Discharge Date Admission Date: January 08, 2022 Subjective Patient seen and examined at bedside as a follow-up of possible failure to thrive/poor appetite/ambulatory dysfunction and UTI and elevated troponin and AMARA on CKD stage III. Patient was lying in bed, on room air, NAD, AOx3, denies nausea and vomiting. Per RN ate50% of breakfast and 25% of lunch. denies new acute events overnight, improving appetite, no belly pain, has ostomy bag with output, denies headache or dizziness, reports weakness, appears weak/ill/frail. Physical Exam Physical Exam: GENERAL: Alert and oriented x3. NAD, on RA. Appears ill/weak/frail. HEENT: No pallor, no icterus. Pupils equal, round and reactive to light. Oral mucosa moist. NECK: No JVD, no neck masses. HEART: S1 and S2 heard. Regular rate and rhythm. No murmur, no gallop. RESPIRATORY SYSTEM: Normal AP diameter. No accessory muscle use. No wheezing, no crackles. ABDOMEN: Soft, bowel sounds present, nontender, no distention. Right ostomy bag with output noted. Left belly with clean dressing without soakage. CENTRAL NERVOUS SYSTEM: No facial droop. Speech is clear. Obeys simple commands. Moves extremities. EXTREMITIES: No edema, no erythema seen. Urinary catheter with yellow urine collection noted. Results & Data Results & Data ([facility]) Vital Signs (Past 12 Hours) Vital Signs Temp Pulse Resp BP Pulse Ox 01/09/22 15:15 37 C 92 H 16 133/63 99 01/09/22 08:12 36.9 C 77 16 101/61 99
[2022-01-09] MEDS: LORazepam 1 MG TAB PO SCH (20:11)
[2022-01-09] MEDS: traZODone HCL 50 MG TAB PO SCH (20:12)
[2022-01-10] MEDS: PIPERACILLIN/TAZOBACTAM 3.375 GM in DEXTROSE 5% 100 ML IV SCH ×2 (05:54→19:12)
[2022-01-10 08:42] LABS: Hematocrit (blood only) 27.6 % (34.1-44.9); Hemoglobin 8.8 g/dl (12.0-16.0); Mean Corpuscular Hgb Conc 31.9 g/dL (32.0-36.0); Mean Corpuscular Volume 94.2 fL (80.0-100.0); Mean Platelet Volume 9.7 fL (9.4-12.3); Platelet Count 306 K/uL (130-400); RDW Standard Deviation 47.5 fL (36.4-46.3); Red Blood Count 2.93 M/uL (3.93-5.22); White Blood Count 6.89 K/ul (4.8-10.8)
[2022-01-10 09:03] LABS: BUN Creatinine Ratio 15.3 (10-20); Calcium 8.1 mg/dl (8.5-10.1); Est GFR (African American) 55.5 ml/min; Est GFR (Non-African American) 47.9 ml/min; Magnesium 1.5 mg/dl (1.7-2.4); Phosphorus 2.3 mg/dl (2.5-4.9); Potassium 3.6 mmol/L (3.5-5.1)
[2022-01-10] MEDS: NYSTATIN POWDER 15GM BTL EXT SCH ×3 (09:08→21:26)
[2022-01-10] MEDS: HEPARIN SOD 5,000 UNIT/0.5 ML VIAL SQ SCH ×2 (09:08→21:26)
[2022-01-10] MEDS: SERTRALINE HCL 50 MG TABLET PO SCH (09:14)
[2022-01-10] MEDS: ROSUVASTATIN CALCIUM 5 MG TAB PO SCH (09:15)
[2022-01-10] MEDS: FAMOTIDINE 20 MG TAB PO SCH (09:15)
[2022-01-10] MEDS ORDERED: POTASSIUM PHOS 3 MMOL/1 ML INFUSION IV STA (09:42)
[2022-01-10] MEDS ORDERED: POTASSIUM PHOSPHATE 21 MMOL in SODIUM CHLORIDE 0.9% 500 ML IV STA (09:45)
[2022-01-10] MEDS: MAGNESIUM SULFATE / D5W 1 GM/100 ML BAG IV SCH ×3 (10:35→19:12)
--- NOTE | 2022-01-10 10:59 | Surgery Progress Note ---
Date of Service January 10, 2022 Assessment & Plan (1) Pelvic fluid collection: Plan: pt is a 76 year-old female who was admitted to hospital for weakness, CT scan finding- pelvic fluid collection, pt denies fever, normal WBC, IMP: pelvic fluid collection, could not R/O abscess, or leak from bladder fistula? Plan, conservative treatment now, IV antibiotic, consult urologist for bladder fistula?, consult nitric acid plant operator for high troponin 154, pt is malnutrition, may start TPN, pt should be transferred back to [facility] colorectal surgeon or IR for drainage pelvic fluid collection, if pt develops worse symptoms, repeat labs in morning, will F/U, pt and her agree with the plan, I answered all questions, 01/09/2022 9:35Am F/U pelvic fluid collection, doing fine, continue iv antibiotic treatment, will F/U, 01/10/2022 10:56Am F/U pelvic fluid collection, no fever, no abdominal pain, normal WBC, doing fine, continue iv antibiotic treatment, sign off today, please call with questions, Thanks, Admission and Anticipated Discharge Date Admission Date: January 08, 2022 Subjective Patient seen and examined at bedside as a follow-up of possible failure to thrive/poor appetite/ambulatory dysfunction and UTI and elevated troponin and AMARA on CKD stage III. Patient was lying in bed, on room air, NAD, AOx3, denies nausea and vomiting. Per RN ate50% of breakfast and 25% of lunch. denies new acute events overnight, improving appetite, no belly pain, has ostomy bag with output, denies headache or dizziness, reports weakness, appears weak/ill/frail. 01/10/2022 10:54AM Dr. Hernandez follow up pelvic fluid collection, pt is stable, no abdominal pain, no fever, normal WBC Physical Exam Constitutional: WD/WN, vitals as above Eyes: PERRL, conjunctivae normal, anicteric sclerae Neck: trachea midline, no thyromegaly Respiratory: normal respiratory effort, lungs clear to auscultation Cardiovascular: RRR, no murmur, no edema Gastrointestinal (Abdomen): soft, NT, ND, BS + Neurologic: patellar DTR's 2+ bilat, sensation intact Psychiatric: A+Ox3, euthymic affect Results & Data ([facility]) Vital Signs (Past 12 Hours) Vital Signs Temp Pulse Resp BP Pulse Ox 01/10/22 08:19 36.8 C 83 16 97/61 L 98 Laboratory Results Abnormal lab results 01/10/22 01/10/22 Range/Units 07:35 07:35 RBC 2.93 L (3.93-5.22) M/uL Hgb 8.8 L (12.0-16.0) g/dl Hct 27.6 L (34.1-44.9) % MCHC 31.9 L (32.0-36.0) g/dL RDW Std Deviation 47.5 H (36.4-46.3) fL Chloride 110 H (98-107) mmol/L Carbon Dioxide 17 L (21-32) mmol/L Glucose 121 H (70-99(Fasting)) mg/dl Calcium 8.1 L (8.5-10.1) mg/dl Phosphorus 2.3 L (2.5-4.9) mg/dl Magnesium 1.5 L (1.7-2.4) mg/dl
[2022-01-10] MEDS: ACETAMINOPHEN 325 MG TAB PO PRN (16:39)
--- NOTE | 2022-01-10 18:23 | Hospitalist Progress Note ---
Date of Service January 10, 2022 Assessment & Plan (1) Weakness: Plan 76-year-old lady with PMH of malnutrition of moderate degree, early July of this year with diverticulitis with adjacent colonic abscess status post medical treatment later complicated by colovesical fistula followed by hand-assisted laparoscopic low anterior resection/takedown of the splenic flexure/diverting ileostomy/bilateral laparoscopic transversus abdominal block in October of this year, HTN, chronic gout, asthma, GERD, CKD stage III, subarachnoid hemorrhage following injury, hemiplegia affecting left nondominant side, HENRI, seasonal affective disorder, depression presented 01/07 to our ED due to complaints of being very weak, difficult for transfers, not eating or drinking much. Also complained of mild abdominal pain at presentation. Denied any fevers. She is being managed for the following: Possible failure to thrive Poor appetite Ambulatory dysfunction Patient had extensive medical and surgical history starting July this year [see above] Patient was at rehabilitation before surgery and after surgery. Appetite spotty, is eating better today evening, Continue with IV fluids for now , dietitian consulted, appreciate recs. PT/OT, CM to assist with DC planning, likely need placement If patient not improving with p.o. intake, likely consider TPN. Patient lost IV access and IV team cannot get PICC line on her, hence consulted various specialties for central line, awaiting central line placement, encourage oral intake, Zosyn changed to Augmentin for the time being, switch back to Zosyn once IV line obtained. Abnormal CTAP Concern for abdominal abscess Admitting CTAP with postoperative changes from interval rectosigmoid resection with colonic anastomosis and double barrel ileostomy in the RLQ. Also there is approximately 6 x 3 x 6 cm complex fluid collection between the rectosigmoid colon and the sacrum which is new from previous. The bladder wall is thickened and there is surrounding inflammation. c/w zosyn 01/08 (see above) Surgery on board, appreciate recs. Urology evaled, recommends transfer. d/w transfer line 01/10, awaiting acceptance. Elevated troponin: Admitting EKG with no acute ST or T changes, troponin down trended, likely demand ischemia. Patient without chest pain. Continue to monitor. Possible UTI: Patient complaining of low belly pain at presentation. Admitting UA suggestive of UTI, follow-up final culture. Continue with Rocephin 01/08-->zosyn 01/08 (see above). Patient reports improving low belly pain. AMARA on CKD stage III: Baseline creatinine around 1.0 from outpatient chart review, admitting creatinine of 1.94 and BUN of 59. Likely prerenal secondary to decreased intake. Patient on IV fluid when possible, BMP in AM. Metabolic acidosis: Probably from starvation ketosis, getting better. Mild hyponatremia: Possibly from decreased p.o. intake, admitting sodium of 128. Getting fluids. Improving. Repeat labs in AM. Other chronic medical conditions: HLD, GERD, depression Continue with/resume home meds as and when appropriate DVT prophylaxis: Heparin subcu Disposition: PT/OT, CM to assist with DC planning. Patient will likely need TPN if p.o. intake not improved, d/w transfer center, awaiting acceptance. Admission and Anticipated Discharge Date Admission Date: January 08, 2022 Subjective Patient seen and examined at bedside as a follow-up of possible failure to t hrive/poor appetite/ambulatory dysfunction and UTI and elevated troponin and AMARA on CKD stage III. Patient was lying in bed, on room air, NAD, AOx3, denies nausea and vomiting. Per RN has eaten very little in the morning but has been eating better in the evening. Denies new acute events overnight, improving appetite, no belly pain, has ostomy bag with output, denies headache or dizziness, reports weakness, appears weak/ill/frail. Patient has lost IV access and IV team could not get any IV line and she is not suitable for PICC line per IV team. Consulted first anesthesia then wireless sales associate then vascular surgery then general surgery for central line placement, hopeful that patient will get central line. Physical Exam Physical Exam: GENERAL: Alert and oriented x3. NAD, on RA. Appears ill/weak/frail. HEENT: No pallor, no icterus. Pupils equal, round and reactive to light. Oral mucosa moist. NECK: No JVD, no neck masses. HEART: S1 and S2 heard. Regular rate and rhythm. No murmur, no gallop. RESPIRATORY SYSTEM: Normal AP diameter. No accessory muscle use. No wheezing, no crackles. ABDOMEN: Soft, bowel sounds present, nontender, no distention. Right ostomy bag with output noted. Left belly with clean dressing without soakage. CENTRAL NERVOUS SYSTEM: No facial droop. Speech is clear. Obeys simple commands. Moves extremities. EXTREMITIES: No edema, no erythema seen. Urinary catheter with yellow urine collection noted. Results & Data Results & Data ([facility]) Vital Signs (Past 12 Hours) Vital Signs Temp Pulse Resp BP Pulse Ox 01/10/22 15:17 36.6 C 71 16 103/63 99 01/10/22 08:19 36.8 C 83 16 97/61 L 98
[2022-01-10] MEDS: AMOXICILLIN/CLAVULANATE 500 MG TAB PO SCH (19:11)
[2022-01-10] MEDS: D5W AND NSS 1,000 ML IV SCH (19:12)
[2022-01-10] MEDS: LORazepam 1 MG TAB PO SCH (21:26)
[2022-01-10] MEDS: traZODone HCL 50 MG TAB PO SCH (21:26)
[2022-01-11] MEDS: D5W AND NSS 1,000 ML IV SCH (00:06)
[2022-01-11 08:01] LABS: Hematocrit (blood only) 25.9 % (34.1-44.9); Hemoglobin 8.2 g/dl (12.0-16.0); Mean Corpuscular Hemoglobin 30.5 pg (25.0-34.0); Mean Corpuscular Hgb Conc 31.7 g/dL (32.0-36.0); Mean Corpuscular Volume 96.3 fL (80.0-100.0); Mean Platelet Volume 9.6 fL (9.4-12.3); Platelet Count 259 K/uL (130-400); RDW Coefficient of Variation 14.2 % (11.5-14.5); RDW Standard Deviation 50.1 fL (36.4-46.3); Red Blood Count 2.69 M/uL (3.93-5.22); White Blood Count 6.37 K/ul (4.8-10.8)
[2022-01-11 08:21] LABS: BUN Creatinine Ratio 15.5 (10-20); Calcium 8.3 mg/dl (8.5-10.1); Creatinine Clr Calc Pharmacy 36.7 ml/min; Est GFR (African American) 65.3 ml/min; Est GFR (Non-African American) 56.3 ml/min; Magnesium 1.9 mg/dl (1.7-2.4); Phosphorus 2.8 mg/dl (2.5-4.9); Potassium 3.8 mmol/L (3.5-5.1)
[2022-01-11] MEDS: SERTRALINE HCL 50 MG TABLET PO SCH (09:39)
[2022-01-11] MEDS: AMOXICILLIN/CLAVULANATE 500 MG TAB PO SCH ×2 (09:39→17:50)
[2022-01-11] MEDS: HEPARIN SOD 5,000 UNIT/0.5 ML VIAL SQ SCH ×2 (09:39→20:03)
[2022-01-11] MEDS: FAMOTIDINE 20 MG TAB PO SCH (09:39)
[2022-01-11] MEDS: ROSUVASTATIN CALCIUM 5 MG TAB PO SCH (09:40)
[2022-01-11] MEDS: NYSTATIN POWDER 15GM BTL EXT SCH ×3 (09:40→20:04)
--- NOTE | 2022-01-11 10:08 | Communication Note ---
Date of Service: January 11, 2022 Patient already being seen by General Surgery. The General surgery service are totally capable of placing a central line.
--- NOTE | 2022-01-11 11:10 | Critical Care Consultation ---
Date of Consultation January 11, 2022 Assessment & Plan (1) Adult failure to thrive: (2) Pelvic fluid collection: Plan Will defer placement of a central line to the general surgery team, PICC team or interventional radiology at a tertiary center as recommended by general surgery. No indication for emergent central line placement at this time as the patient is hemodynamically stable. Klebsiella is sensitive to oral antibiotics which she is currently receiving. The patient does not appear septic or toxic. Please call with questions. ICU team will sign off. History of Present Illness Reason for Consultation: Central line placement Attending Physician: Earnestine Douglas MD History of Present Illness 76-year-old female with a history of subarachnoid hemorrhage, pancreatitis, weakness, colonic abscess, colovesicular fistula and failure to thrive who is currently hospitalized due to ongoing weakness and a possible UTI. Urine cultures from 01/08/2022 growing Klebsiella pneumonia which is sensitive to several oral medications. ICU team and vascular surgery was consulted to place a central line as the IV team was unable to get a PICC line or peripheral IV yesterday. I spoke with the [facility] bedside nurse who was unable to place a peripheral IV. PICC line team will be looking at placing an IV later today. Patient appears comfortable and is in no apparent distress. Vital signs are stable. She is weak and has difficulty sitting up in bed. She is currently on room air. She denies any chest pain, fevers, chills or night sweats. She has some mild abdominal tenderness. Patient was seen by general surgery yesterday who is recommending transfer back to [facility] for colorectal surgical evaluation and/or IR drainage of the pelvic fluid collection. Allergies Allergy/AdvReac Type Severity Reaction Status Date / Time latex Allergy Intermediate rash Verified 01/07/22 22:03 niacin Allergy Intermediate diffuse Verified 01/07/22 22:03 redness Sulfa (Sulfonamide Allergy Intermediate rash Verified 01/07/22 22:03 Antibiotics) Home Medications Medication Instructions Recorded Confirmed Type lorazepam 0.5 mg tablet 1 mg PO HS 07/03/18 01/07/22 History trazodone 150 mg tablet 150 mg PO HS 08/20/21 01/07/22 History sertraline 25 mg tablet 25 mg PO QAM 10/15/21 01/07/22 History famotidine 20 mg tablet 20 mg PO BID #20 tabs 12/01/21 01/07/22 Rx acetaminophen 500 mg tablet 1,000 mg PO Q6H PRN Pain 01/07/22 01/07/22 History (Tylenol Extra Strength) menthol 0.44 %-zinc oxide 20.6 % 1 applic topical DIRECTED PRN 01/07/22 01/07/22 History topical ointment (Calmoseptine) COCCYX AREA nystatin 100,000 unit/gram topical 1 applic topical TID 01/07/22 01/07/22 History powder rosuvastatin 5 mg tablet 5 mg PO DAILY 01/07/22 01/07/22 History solifenacin 5 mg tablet 5 mg PO QAM 01/07/22 01/07/22 History Patient History Medical History Anemia Anemia Anxiety and depression Asthma STABLE (NO INHALER) Bilateral hip joint arthritis Bilateral primary osteoarthritis of knee Chronic low back pain LLE NEUROPATHY [place]-vesical fistula Colonic diverticular abscess Diverticulitis SEVERAL YEARS AGO Diverticulitis History of anemia History of hyperlipidemia History of skin cancer History of subarachnoid hemorrhage S/P TRAUMA/FALLING (2014)= NO RESIDUAL DEFICITS Hx of cardiac murmur Hx of pancreatitis Hypokalemia Obesity Osteoarthritis Surgical History History of carpal tunnel release History of cataract surgery RT/LEFT History of cholecystectomy History of colonoscopy History of dilatation and curettage History of discectomy LUMBAR History of ERCP History of oophorectomy History of tonsillectomy History of tooth extraction Trigger finger RELEASE Family History Mother Family history of bladder cancer Father No problems noted. Brother Family history of diabetes mellitus Mother Family history of diabetes mellitus Social History Smoking Status: Never smoker Second Hand Exposure: No; Do You Dip or Chew Tobacco: No; Tobacco Cessation Education Requested by Patient: No Hx Alcohol Use: No Hx Substance Use: No Preferred Language: Yi Communication Ability: Effective Claim Clinician Required: No Beliefs That Will Affect Care: None marital status: Current Living Situation: Spouse Other Information That Helps Us Care for You: No Feels Safe at Home: Yes Safety Concerns: Feels Safe At This Time Assistive Devices: Walker Review of Systems Review of Systems: All systems reviewed & are unremarkable except as noted in HPI & below Physical Exam Physical Exam: Constitutional: Elderly and frail appearing female in no apparent distress. Eyes: Pupils are equal round and reactive to light. Conjunctivae are normal. Anicteric sclera. Ears nose, mouth and throat: No obvious deformities. Neck: Trachea is midline. Visual inspection is normal. Respiratory: Clear to auscultation bilaterally. No use of accessory muscles. No significant clubbing noted. Cardiovascular: Regular rate and rhythm. No murmurs. No edema. Gastrointestinal: Normal bowel sounds, soft, nontender and nondistended. No hepatosplenomegaly noted. Musculoskeletal: No cyanosis. Patient is able to move all extremities. Diffusely weak. Skin: No rashes, warm dry and intact. Neurologic: No obvious focal neurological deficits seen. Psychiatric: Alert and oriented x3 with a depressed mood. Results & Data Results & Data ([facility]) Vital Signs (Past 12 Hours) Vital Signs Temp Pulse Resp BP Pulse Ox O2 Del Method 01/11/22 07:17 37.2 C 81 18 95/59 L 96 Room Air Coding Level of Care Code 08563 Inpt Consult Level 4 Diagnoses Adult failure to thrive R62.7 Pelvic fluid collection R18.8
[2022-01-11] MEDS: ACETAMINOPHEN 325 MG TAB PO PRN (15:47)
--- NOTE | 2022-01-11 17:13 | Discharge Summary ---
Date of Service January 11, 2022 Admission HPI Per Admitting Provider DATE OF ADMISSION: 01/08/2022 CHIEF COMPLAINT: Weakness, failure to thrive. HISTORY OF PRESENT ILLNESS: A 76-year-old female with past medical history significant for chronic gout, asthma, malnutrition of moderate degree, hypertension, GERD, chronic kidney disease stage III, history of subarachnoid hemorrhage following injury,hemiplegia affecting left nondominant side, iron deficiency anemia, history of acute blood loss anemia, history of seasonal affective disorder, history of depression. In July of this year, she was found to have diverticulitis with adjacent colonic abscess, but treated medically because it could not be easily approached by surgery or interventional radiology and she was referred to [facility] and completed treatment on 09/22/2021. On 10/06/2021, she again presented to the hospital with weakness, decreased appetite, and inability to walk. She had AMARA at that time, hemoglobin fell to 6.[address] demonstrated a colovesical fistula,though abscess was treated surgery, did not want to proceed with intervention because of deconditioning. The patient was treated with TPN and sent to rehabilitation. The patient also had transfusion during the hospitalization. In the rehab, the patient developed symptoms of sepsis and was transferred back to [facility]. At that time she had slight progression of diverticulitis and she was again transferred back to rehab with TPN and course of IV Zosyn. Apparently was planned for surgery for recurrent diverticulitis. The patient had hand-assisted laparoscopic low anterior resection, takedown of the splenic flexure, diverting ileostomy, bilateral laparoscopic transversus abdominal block in October of this year at [facility]. Ileostomy bag is working okay. She also has a Guo catheter since last 7 weeks. Follows up with urology for a colovesical fistula. Recently treated for UTI with Macrobid and recently also went to PCP's office for IV hydration. Today, the patient was very weak, difficult for transfers, not eating or drinking much. brought her to the hospital. The patient may require again TPN or rehab placement. Resting comfortably, speaking in low voices. States that when she came in, she had mild abdominal pain, but with the pain medicine her abdominal pain is improved. Currently, denies any nausea, denies any chest pain or shortness of breath. No cough, no fevers, no headache, no blurred visions, no runny nose, no sore throat. She states she is not moving her bowels much because she is not eating much, not making much urine, not ambulating much. ALLERGIES: LATEX, NIACIN, SULFA ANTIBIOTICS. PAST MEDICAL HISTORY: As mentioned above. PAST SURGICAL HISTORY: Colonoscopy, cystoscopy, dilatation and curettage, EGDs, ERCP, left eyelid surgery, hand and toe surgery, lumbar spine injection, laparoscopic partial colectomy with coloproctostomy, laparoscopic cholecystectomy, removal of ovarian cyst, right carpal tunnel release, right CMC arthroplasty, colonoscopy. MEDICATIONS: The patient is on Tylenol 1000 mg p.o. q. 6 hours p.r.n., famotidine 20 mg p.o. b.i.d., Ativan 1 mg p.o. at bedtime, nystatin topical t.i.d., rosuvastatin 5 mg p.o. daily, sertraline 25 mg p.o. a.m., solifenacin 5 mg p.o. a.m., trazodone 150 mg p.o. at bedtime. FAMILY HISTORY: Significant for father has allergies, gastrointestinal disorder, heart disorder; mother has heart disorder; brother has kidney stones; sister has shoulder issues, gastrointestinal disorders. REVIEW OF SYSTEMS: As per HPI. Rest of review of systems is negative. Admission Exam Per Admitting Provider GENERAL: The patient is of moderate build, not in acute distress. VITAL SIGNS: Temperature 36.4, pulse 73, respiratory rate 18, blood pressure 121/57, oxygen 98% on 2 L. HEENT: Pupils equal, round and reactive to light. Oral mucosa dry. NECK: No JVD or neck masses. CARDIOVASCULAR: S1 and S2 heard. Regular rate and rhythm. No murmur, no gallop. RESPIRATORY SYSTEM: Normal AP diameter. No accessory muscle use. No wheezing, no crackles. ABDOMEN: Soft, bowel sounds present. Fluid in the colostomy bag seen. CENTRAL NERVOUS SYSTEM: Alert and oriented, speaking in low voices. No facial droop. Insight is good. Obeys commands. Moves extremities. EXTREMITIES: No edema, no erythema. Principal Diagnosis Abnormal CTAP, concern for abdominal abscess Failure to thrive, poor appetite Ambulatory dysfunction, generalized weakness UTI with Klebsiella, on Augmentin Discharge Exam GENERAL: Alert and oriented x3. NAD, on RA. Appears ill/weak/frail. HEENT: No pallor, no icterus. Pupils equal, round and reactive to light. Oral mucosa moist. NECK: No JVD, no neck masses. HEART: S1 and S2 heard. Regular rate and rhythm. No murmur, no gallop. RESPIRATORY SYSTEM: Normal AP diameter. No accessory muscle use. No wheezing, no crackles. ABDOMEN: Soft, bowel sounds present, tender, no distention. Right ostomy bag with output noted. Left belly with clean dressing without soakage. CENTRAL NERVOUS SYSTEM: No facial droop. Speech is clear. Obeys simple commands. Moves extremities. EXTREMITIES: No edema, no erythema seen. Urinary catheter with yellow urine collection noted. Discharge Data Allergies Allergy/AdvReac Type Severity Reaction Status Date / Time latex Allergy Intermediate rash Verified 01/07/22 22:03 niacin Allergy Intermediate diffuse Verified 01/07/22 22:03 redness Sulfa (Sulfonamide Allergy Intermediate rash Verified 01/07/22 22:03 Antibiotics) Consultations 01/08/22 00:08 ED Decision to Admit Stat 01/08/22 13:55 Consult General Surgery Routine 01/08/22 16:54 Consult Urology Routine 01/10/22 17:04 Consult Freight Traffic Consultant Routine 01/10/22 17:53 Consult Vascular Surgery Routine 01/10/22 18:06 Consult General Surgery Routine Ordered Studies 01/07/22 22:37 CT abd pelvis wo con Urgent Hospital Course (1) Weakness: Plan 76-year-old lady with PMH of malnutrition of moderate degree, early July of this year with diverticulitis with adjacent colonic abscess status post medical treatment later complicated by colovesical fistula followed by hand-assisted laparoscopic low anterior resection/takedown of the splenic flexure/diverting ileostomy/bilateral laparoscopic transversus abdominal block in October of this year, HTN, chronic gout, asthma, GERD, CKD stage III, subarachnoid hemorrhage following injury, hemiplegia affecting left nondominant side, HENRI, seasonal affective disorder, depression presented 01/07 to our ED due to complaints of being very weak, difficult for transfers, not eating or drinking much. Also complained of mild abdominal pain at presentation. Denied any fevers. She is being managed for the following: Possible failure to thrive Poor appetite Ambulatory dysfunction Patient had extensive medical and surgical history starting July this year [see above] Patient was at rehabilitation before surgery and after surgery. appetite slowly improving. dietitian consulted, appreciate recs. Options for NG tube, PEG tube, TPN were discussed, patients preference was TPN. If patient not improving with p.o. intake, likely consider TPN. Patient lost IV access and IV team cannot get PICC line on her, hence consulted various specialties for central line, awaiting central line placement, encourage oral intake, Zosyn changed to Augmentin 01/10 for the time being, switch back to Zosyn once IV line obtained. Might need permanent iv access when possible. Abnormal CTAP Concern for abdominal abscess Admitting CTAP with postoperative changes from interval rectosigmoid resection with colonic anastomosis and double barrel ileostomy in the RLQ. Also there is approximately 6 x 3 x 6 cm complex fluid collection between the rectosigmoid colon and the sacrum which is new from previous. The bladder wall is thickened and there is surrounding inflammation. c/w zosyn 01/08 (see above) Surgery on board, appreciate recs. Pt w/ low belly tenderness on exam. Urology evaled, recommends transfer. d/w transfer line 01/10, Pt being transferred to [facility]. Elevated troponin: Admitting EKG with no acute ST or T changes, troponin down trended, likely demand ischemia. Patient without chest pain. Continue to monitor. Possible UTI: Patient complaining of low belly pain at presentation. Admitting UA suggestive of UTI, follow-up final culture. Continue with Rocephin 01/08-->zosyn 01/08 or Augmentin (see above). Patient reports improving low belly pain. AMARA on CKD stage III: Baseline creatinine around 1.0 from outpatient chart review, admitting creatinine of 1.94 and BUN of 59. Likely prerenal secondary to decreased intake. Patient on IV fluid when possible, BMP in AM. Metabolic acidosis: Probably from starvation ketosis, getting better. Mild hyponatremia: Possibly from decreased p.o. intake, admitting sodium of 128. Getting fluids. Improving. Repeat labs in AM. Other chronic medical conditions: HLD, GERD, depression Continue with/resume home meds as and when appropriate DVT prophylaxis: Heparin subcu Disposition: to [facility]. Total Time Total Time Spent Total Time Spent (In Minutes): 35 Discharge Plan Discharge Items Patient Disposition: Transfer Acute Care Hospital Reason For Visit: ILLNESS Discharge Diagnosis: Abnormal CTAP, concern for abdominal abscess Failure to thrive, poor appetite Ambulatory dysfunction, generalized weakness UTI with Klebsiella, on Augmentin Activity: As commented below Activity Comment: Per tertiary care center recommendation. Non-emergency contact: Primary Care Provider Call non-emergency contact if: you have any medication questions and your symptoms worsen Follow-up/Referrals: Joel Bowman, [Primary Care Provider] - Diet: Regular Addtl Attending Provider Instructions: Patient's home medication will be resumed in the [facility] rec for the sake of comparison. Patient was started on Augmentin while in hospital for her Klebsiella UTI, also to cover anaerobic for likely pelvic abscess. Her inpatient medications are copied and pasted here: Current Inpatient Medications Acetaminophen (Acetaminophen 325 Mg Tab) 650 mg PO Q4H PRN PRN Reason: pain/fever Stop: 02/07/22 04:17 Last Admin: 01/11/22 15:47 Dose: 650 mg Amoxicillin/Clavulanate Potassium (Amoxicillin/Clavulanate 500 Mg Tab) 1 tab PO BIDM DIANDRA Stop: 01/20/22 18:59 Last Admin: 01/11/22 09:39 Dose: 1 tab Calamine/Phenol (Menthol-Zinc Oxide 360 Appln/120 Gm Tube) 1 appln EXT UD PRN PRN Reason: COCCYX AREA Stop: 02/07/22 04:23 Last Admin: 01/08/22 19:25 Dose: 1 appln Famotidine (Famotidine 20 Mg Tab) 20 mg PO DAILY DIANDRA Stop: 02/07/22 08:59 Last Admin: 01/11/22 09:39 Dose: 20 mg Heparin Sodium (Porcine) (Heparin Sod 5,000 Unit/0.5 Ml Vial) 5,000 units SQ Q12 DIANDRA Stop: 02/07/22 08:59 Last Admin: 01/11/22 09:39 Dose: 5,000 units Piperacillin Sod/Tazobactam (Sod 3.375 gm/ Dextrose) 115 mls @ 28.75 mls/hr IV Q8H DIANDRA; Protocol Stop: 01/18/22 21:59 Last Admin: 01/10/22 19:12 Dose: Not Given Lorazepam (Lorazepam 1 Mg Tab) 1 mg PO HS DIANDRA Stop: 02/07/22 20:59 Last Admin: 01/10/22 21:26 Dose: 1 mg Miscellaneous (Order Awaiting Action: Solifenacin 5 Mg Tablet) 1 each N/A QS [facility] Stop: 02/07/22 07:59 Last Admin: 01/11/22 15:47 Dose: Not Given Morphine Sulfate (Morphine Sulfate 2 Mg/Ml Carp) 2 mg IV Q3H PRN PRN Reason: Pain Stop: 01/22/22 04:17 Last Admin: 01/09/22 06:45 Dose: 2 mg Nystatin (Nystatin Powder 15gm Btl) 1 appln EXT TID [facility] Stop: 02/07/22 08:59 Last Admin: 01/11/22 14:40 Dose: 1 appln Ondansetron HCl (Ondansetron Inj 2 Mg/Ml 2 Ml Vial) 4 mg IV Q6H PRN PRN Reason: Nausea Stop: 02/07/22 04:17 Last Admin: 01/10/22 09:12 Dose: 4 mg Rosuvastatin Calcium (Rosuvastatin Calcium 5 Mg Tab) 5 mg PO DAILY [facility] Stop: 02/07/22 08:59 Last Admin: 01/11/22 09:40 Dose: 5 mg Sertraline HCl (Sertraline Hcl 50 Mg Tablet) 25 mg PO QAM [facility] Stop: 02/07/22 08:59 Last Admin: 01/11/22 09:39 Dose: 25 mg Trazodone HCl (Trazodone Hcl 50 Mg Tab) 150 mg PO HS [facility] Stop: 02/07/22 20:59 Last Admin: 01/10/22 21:26 Dose: 150 mg Pending Studies at Discharge: No Stand-Alone Forms: My [facility] Skilled Items Patient informed of condition?: Yes DNR: Yes Discharge Level of Care: Other Communicable Disease: No Discharge Prognosis: Other Lines: None Urinary Catheter: No Medications and DC Order Prescriptions: Continued lorazepam 0.5 mg Tablet 1 mg PO HS sertraline 25 mg Tablet 25 mg PO QAM Label Comments: took this am, but vomited right after trazodone 150 mg tablet 150 mg PO HS famotidine 20 mg tablet 20 mg PO BID Qty: 20 0RF acetaminophen [Tylenol Extra Strength] 500 mg Tablet 1,000 mg PO Q6H PRN (Reason: Pain) nystatin 100,000 unit/gram powder 1 applic TOPICAL TID Rx Instructions: AROUND OSTOMY rosuvastatin 5 mg tablet 5 mg PO DAILY solifenacin 5 mg tablet 5 mg PO QAM menthol-zinc oxide [Calmoseptine] 0.44-20.6 % Ointment 1 applic TOPICAL DIRECTED PRN (Reason: COCCYX AREA) Discharge Orders: Discharge Order (Routine); Ordered 01/11/22 Ordered By: Earnestine Douglas Admission Data Admit Date/Time: 01/08/22 02:27 Attending Provider: Earnestine Douglas Admit Provider: Momo Campos Primary Care Provider: Joel Bowman Other Providers: Momo Campos ; Stacy Hernandez ; Devin Clark ; [facility] ; Abbe Doss ; Karri Hirsch ; Robert Valiente
[2022-01-11] MEDS: LORazepam 1 MG TAB PO SCH (20:03)
[2022-01-11] MEDS: traZODone HCL 50 MG TAB PO SCH (20:04)
== END 2022-01-11 20:46 | disposition short-term general hospital (02) | DRG 372 ==
LOC: ED 20:50 → SUATTDRO 01-08 02:27 → 3N 01-08 02:27